=== PATIENT | female | born 1945 | race Caucasian/White ===

== ENCOUNTER → 2017-11-21 15:18 | Outpatient (CLI) | payer MEDICARE, SELFPAY ==
--- NOTE | 2017-11-21 15:24 | RAD_ITS ---
STUDY: X-RAY CHEST REASON FOR EXAM: Female, 72 years old. COPD. TECHNIQUE: 2 views COMPARISON: Prior chest radiograph of July 30, 2017 FINDINGS: Lung moran are generally hyperexpanded with stable bibasilar chronic changes. Negative for new consolidation, focal atelectasis or a substantial pleural effusion. Negative for masses or nodules. There is no demonstrated pleural abnormality. Normal cardiac size. Normal mediastinum and delfina. Normal visualized pulmonary arteries. There is atherosclerotic calcification of the aortic arch with tortuosity. There are diffuse degenerative changes of the visualized thoracic spine. Normal visualized ribs, clavicles, and shoulders. There is no demonstrated abnormality of the visualized soft tissue structures of the upper abdomen. RAD/Chest PA and Lateral IMPRESSION: No acute cardiopulmonary changes. Continued hyperexpansion and stable chronic bibasilar lung changes. Stable cardiac size. Atherosclerosis. Electronically Signed: Lulu Lincoln MD at 23:16 EST , Service support ,
== END ==
PROVIDERS: Family Provider Nurse Practitioner; PCP Nurse Practitioner; Visit Provider Internal Medicine Pulmonary Disease
DX: J44.9 Chronic obstructive pulmonary disease, unspecified (principal)
CPT/HCPCS: 71046

== ENCOUNTER 2018-02-11 08:39 | Inpatient (IN) | payer MEDICARE, SELFPAY ==
[2018-01-30 13:24] VITALS: BP 123/63; PULSE 65; RESP 16; TEMP 37.4; O2SAT 98; BMI 43.2
--- NOTE | 2018-01-30 13:42 | SDCEKG_ITS ---
Test Reason : Blood Pressure : / mmHG Vent. Rate : 061 BPM Atrial Rate : 061 BPM P-R Int : 128 ms QRS Dur : 086 ms QT Int : 432 ms P-R-T Axes : 049 006 021 degrees QTc Int : 434 ms Normal sinus rhythm Normal ECG Confirmed by LAUREEN BAER, SOMMER ([id number]), editor book BENJI ASHRAF ([id number]) on 01/31/2018 2:57:35 PM Referred By: Kevin Mcdaniels Confirmed By:SOMMER GARDUNO MD
[2018-01-30 15:27] LABS: Hematocrit 34.1 % (37-47); Hemoglobin 11.3 g/dl (12.0-15.0); Mean Corp Hgb Conc 33.1 g/gl (32-36); Mean Corpuscular Hgb 29.4 pg (27.0-32.0); Mean Corpuscular Volume 88.8 fL (81-99); Mean Platelet Vol. 10.3 fl (6.2-12.0); Platelet Count 290 K/mm3 (150-450); RBC Distribution Width CV 14.7 % (11.6-14.6); RBC Distribution Width SD 47.5 fl (35.1-43.9); Red Blood Count 3.84 M/mm3 (4.2-5.4); White Blood Count 7.3 K/mm3 (4.4-11.0)
[2018-01-30 15:33] LABS: Scan Indicated on CBC? Y/N NO
[2018-01-30 15:58] LABS: Anion Gap 7 (5-15); BUN 26 mg/dL (7-18); BUN/Creat Ratio 21.5 RATIO (10-20); Chloride 105 mmol/L (98-107); Creatinine, Serum 1.21 mg/dL (0.55-1.02); EST Glomerular Filtration Rate 47 mL/min (>60); Est Glom Filt Rate - Afr Amer 56 mL/min (>60); Estimated Creatinine Clearance 66.29 ml/min; Glucose 61 mg/dL (74-106); Potassium 3.7 mmol/L (3.5-5.1); Sodium Level 143 mmol/L (136-145)
--- NOTE | 2018-02-10 15:56 | CASEMGMT ---
ONEYDA CM Pre-op phone call. Attempted call to Home and cell phones. No answer to either phone. Geremias LICEAN RN ACM
[2018-02-11] VITALS (14 sets, daily range): BP systolic 101–135; BP diastolic 50–74; PULSE 72–96; RESP 16–18; TEMP 36.6–36.9; O2SAT 92–100; BMI 43.2
[2018-02-11] MEDS: Acetaminophen 500 MG Tablet 1000 MG PO ×2 (09:19→22:17)
[2018-02-11] MEDS: oxyCODONE HCl Cr 10 MG Tablet PO (09:19)
[2018-02-11] MEDS: Celecoxib 200 MG Capsule 400 MG PO (09:19)
[2018-02-11 09:36] LABS: Bedside Glucose 139 mg/dL (70-110)
[2018-02-11] MEDS: Cefazolin 2 GM in 0.9% Normal Saline 100 ML IV (11:19)
--- NOTE | 2018-02-11 13:55 | RAD_ITS ---
STUDY: X-RAY - LEFT KNEE REASON FOR EXAM: Female, 72 years old. Total knee replacement. TECHNIQUE: AP and lateral view(s) of the knee. COMPARISON: None. FINDINGS: Normal visualized distal femur. Normal visualized proximal tibia and fibula. Normal proximal tibiofibular articulation. The patient is status post total knee replacement. There is good alignment. Postoperative soft tissue changes. RAD/Knee 1 or 2 Views IMPRESSION: Total knee replacement. There is good alignment. Postoperative soft tissue changes. Electronically Signed: Alcides Saha MD at 14:21 EDT Tel [phone], Service support ,
[2018-02-11 14:05] LABS: Bedside Glucose 151 mg/dL (70-110)
[2018-02-11] MEDS: Albuterol 2.5 MG/3 ML VIAL.NEB. INHALATION (15:49)
[2018-02-11] MEDS: Budesonide Respules 0.5 MG/2 ML AMPUL.NEB. INHALATION (15:49)
[2018-02-11 17:00] LABS: Bedside Glucose 214 mg/dL (70-110)
[2018-02-11] MEDS: Lactated Ringers 1,000 ML 125 ML IV (17:19)
[2018-02-11] MEDS: Furosemide 40 MG Tablet PO (17:23)
[2018-02-11] MEDS: Cefazolin 1 GM/50 ML BAG IV (20:29)
[2018-02-11] MEDS: Atorvastatin Calcium 10 MG Tablet PO (22:17)
[2018-02-11] MEDS: Senna/Docusate Sodium 1 Tablet 2 TABLET PO (22:17)
[2018-02-11] MEDS: Aspirin 325 MG Tablet PO (22:17)
[2018-02-11] MEDS: Losartan Potassium 25 MG Tablet PO (22:17)
[2018-02-11] MEDS: Montelukast 10 MG Tablet PO (22:17)
[2018-02-12] VITALS (10 sets, daily range): BP systolic 102–135; BP diastolic 46–63; PULSE 64–88; RESP 16–21; TEMP 36.7–37.8; O2SAT 96–100
[2018-02-12] MEDS: Cefazolin 1 GM/50 ML BAG IV (03:21)
[2018-02-12] MEDS: Acetaminophen 500 MG Tablet 1000 MG PO ×3 (05:58→20:58)
[2018-02-12 07:05] LABS: Hematocrit 30.2 % (37-47); Hemoglobin 10.1 g/dl (12.0-15.0); Mean Corp Hgb Conc 33.4 g/gl (32-36); Mean Corpuscular Hgb 29.3 pg (27.0-32.0); Mean Corpuscular Volume 87.5 fL (81-99); Mean Platelet Vol. 10.3 fl (6.2-12.0); Platelet Count 227 K/mm3 (150-450); RBC Distribution Width CV 14.3 % (11.6-14.6); RBC Distribution Width SD 45.6 fl (35.1-43.9); Red Blood Count 3.45 M/mm3 (4.2-5.4); White Blood Count 12.1 K/mm3 (4.4-11.0)
[2018-02-12 07:07] LABS: Scan Indicated on CBC? Y/N NO
[2018-02-12 07:15] LABS: Anion Gap 9 (5-15); BUN 31 mg/dL (7-18); BUN/Creat Ratio 21.7 RATIO (10-20); Calcium,Total 8.6 mg/dL (8.5-10.1); Chloride 105 mmol/L (98-107); Creatinine, Serum 1.43 mg/dL (0.55-1.02); EST Glomerular Filtration Rate 39 mL/min (>60); Est Glom Filt Rate - Afr Amer 47 mL/min (>60); Glucose 165 mg/dL (74-106); Potassium 4.4 mmol/L (3.5-5.1); Sodium Level 138 mmol/L (136-145)
[2018-02-12] MEDS: Albuterol 2.5 MG/3 ML VIAL.NEB. INHALATION ×3 (07:23→19:36)
[2018-02-12] MEDS: Budesonide Respules 0.5 MG/2 ML AMPUL.NEB. INHALATION ×2 (07:23→19:37)
--- NOTE | 2018-02-12 07:46 | PCM.PN.ORT ---
Subjective: Patient is resting comfortably in chair at bedside during exam. No adverse events overnight. Pain in the left knee has been very well controlled. She currently denies chest pain, shortness of breath, dizziness, calf pain. She is going to be discussing discharge with case management. She would like to go to fourth floor rehab or transitional care unit. Objective: Patient is alert and oriented ?3. No acute distress at rest. Breathing easily without respiratory distress. Inspection of the left knee reveals a dressing with minimal dried bloody drainage. Negative Rubi bilaterally. Without signs of DVT. Sensation intact to light touch bilateral lower extremities. Pedal pulses present and equal bilaterally. Patient able to actively plantar and dorsiflex bilateral feet against resistance. Neurovascularly intact. - Physical Exam Vital Signs Temp Pulse Resp BP Pulse Ox 98.0 F 64 16 106/49 L 99 02/12/18 06:03 02/12/18 06:03 02/12/18 06:03 02/12/18 06:03 02/12/18 06:03 Oxygen Delivery Method Room Air Weight: 97.069 kg Body Mass Index (BMI) 43.2 Finger Stick Blood Glucose 151 Intake and Output for Last 24 Hours 02/10/18 02/11/18 02/12/18 23:59 23:59 23:59 Intake Total 2421 / 2421 1562 / 1562 Balance 2421 / 2421 1562 / 1562 Laboratory Tests Past 24 Hrs 02/12/18 02/12/18 06:30 06:30 WBC 12.1 H RBC 3.45 L Hgb 10.1 L Hct 30.2 L MCV 87.5 MCH 29.3 MCHC 33.4 RDW 14.3 RDW Differential 45.6 H Plt Count 227 MPV 10.3 Sodium 138 Potassium 4.4 Chloride 105 Carbon Dioxide 24.0 Anion Gap 9 BUN 31 H Creatinine 1.43 H Estim Creat Clear Calc 56.10 Est GFR (MDRD) Af Amer 47 L Est GFR (MDRD) Non-Af 39 L BUN/Creatinine Ratio 21.7 H Glucose 165 H Calcium 8.6 POC Glucose 02/11/18 02/11/18 02/11/18 16:54 14:03 09:16 POC Glucose 214 H 151 H 139 H Medical Necessity - Tobacco Use Smoking Status: Never smoker Tobacco Use: Non-smoker Assessment/Plan 1. Status post left TKA; postop day #1 2. Continue OxyIR for pain control 3. Begin PT/OT; weightbearing as tolerated with a walker. 4. DVT prophylaxis; bilateral teds, SCDs and begin aspirin therapy. 5. Drop in hemoglobin/hematocrit; asymptomatic, currently without indication for transfusion continue to monitor 6. Leukocytosis; afebrile, without acute signs of infection likely resulting from Decadron versus acute stress response. Anticipate resolution over the next couple days. Continue to monitor. 7. Encourage incentive spirometry 8. Discharge planning with case management
[2018-02-12] MEDS: Multivitamins,Therapeutic Tablet 1 TABLET PO (07:56)
[2018-02-12] MEDS: Glimepiride 4 MG Tablet PO (07:57)
[2018-02-12] MEDS: Aspirin 325 MG Tablet PO ×2 (07:57→17:17)
[2018-02-12] MEDS: Ferrous Sulfate 325 MG Tablet PO (07:57)
[2018-02-12] MEDS: Losartan Potassium 25 MG Tablet PO ×2 (10:27→20:59)
[2018-02-12] MEDS: Famotidine 20 MG Tablet PO (10:27)
[2018-02-12] MEDS: Senna/Docusate Sodium 1 Tablet 2 TABLET PO (10:27)
[2018-02-12] MEDS: Celecoxib 200 MG Capsule PO ×2 (10:27→20:58)
[2018-02-12] MEDS: Furosemide 40 MG Tablet PO ×2 (10:27→17:18)
[2018-02-12] MEDS: Pantoprazole Sodium 40 MG Tablet PO (10:27)
--- NOTE | 2018-02-12 13:30 | CASEMGMT ---
ONEYDA LINARES Face to Face with patient for initial transition planning/care coordination assessment. ONEYDA LINARES introduced self and role at [facility]. Patient sitting in chair, alert and oriented. Patient willing to participate in assessment and is able to answer all questions appropriately. Care providers, pharmacy, and demographics verified. Patient wishes to discharge TCU or inpatient rehab, second choice is [facility]. ONEYDA LINARES updated MICAH Adorno regarding discharge plans. Patient states she has no further needs or concerns at this time. CM to follow for discharge planning needs that may arise. Disposition Plan: Patient to discharge ECF pending acceptance and precert.
--- NOTE | 2018-02-12 13:40 | CASEMGMT ---
Social Work Note RN MILAGROS King informed this worker that pt is interested in either inpatient rehab, TCU or [facility] for rehabilitation at discharge. MICAH placed a call to [facility] and per Ana [facility] pt's insurance will not approve pt for inpatient rehab. SW placed a call to Dasha in TCU and left a message regarding referral. SW waiting for call back from Dasha in TCU to determine if they are able to accept pt. If TCU isn't able to accept pt, this worker will send the referral to [facility]. SW will continue to follow along to assist with discharge planning. Plan: TCU pending acceptance Meg Adorno SUPERVISOR SAFETY DEPOSIT, REWORK MACHINE OPERATOR
--- NOTE | 2018-02-12 15:36 | CASEMGMT ---
Social Work Note MICAH spoke with Dasha in TCU. Dasha states that she will submit pre-cert today. Dasha states that this worker will need to fax H+P to her as H+P is not on electronic chart. MICAH faxed H+P from pt's chart to [id number] (nurse station). Plan: TCU pending pre-cert Meg Adorno MILD DISABILITIES TEACHER, REDIPPER
[2018-02-12] MEDS: Atorvastatin Calcium 10 MG Tablet PO (20:59)
[2018-02-12] MEDS: Montelukast 10 MG Tablet PO (20:59)
[2018-02-13 02:37] VITALS: BP 124/51; PULSE 95; RESP 18; TEMP 36.8; O2SAT 95
[2018-02-13] MEDS: Acetaminophen 500 MG Tablet 1000 MG PO ×2 (06:18→13:30)
[2018-02-13 06:37] LABS: Hematocrit 29.3 % (37-47); Hemoglobin 9.9 g/dl (12.0-15.0); Mean Corp Hgb Conc 33.8 g/gl (32-36); Mean Corpuscular Volume 88.8 fL (81-99); Mean Platelet Vol. 10.8 fl (6.2-12.0); Platelet Count 222 K/mm3 (150-450); RBC Distribution Width CV 14.3 % (11.6-14.6); White Blood Count 10.6 K/mm3 (4.4-11.0)
[2018-02-13 06:39] LABS: Scan Indicated on CBC? Y/N NO
[2018-02-13] MEDS: Aspirin 325 MG Tablet PO ×2 (08:07→19:01)
[2018-02-13] MEDS: Glimepiride 4 MG Tablet PO (08:07)
[2018-02-13] MEDS: Multivitamins,Therapeutic Tablet 1 TABLET PO (08:08)
[2018-02-13] MEDS: Celecoxib 200 MG Capsule PO (08:09)
[2018-02-13] MEDS: Famotidine 20 MG Tablet PO (08:10)
[2018-02-13] MEDS: Losartan Potassium 25 MG Tablet PO (08:10)
[2018-02-13] MEDS: Pantoprazole Sodium 40 MG Tablet PO (08:10)
[2018-02-13] MEDS: Furosemide 40 MG Tablet PO (08:10)
[2018-02-13] MEDS: Senna/Docusate Sodium 1 Tablet 2 TABLET PO (08:11)
[2018-02-13] MEDS: Ferrous Sulfate 325 MG Tablet PO (08:12)
[2018-02-13] MEDS: Budesonide Respules 0.5 MG/2 ML AMPUL.NEB. INHALATION (08:22)
[2018-02-13] MEDS: Albuterol 2.5 MG/3 ML VIAL.NEB. INHALATION ×2 (08:23→13:48)
[2018-02-13 08:30] VITALS: BP 138/57; PULSE 79; PULSE 80; RESP 17; RESP 18; TEMP 36.9; O2SAT 98
--- NOTE | 2018-02-13 09:49 | CASEMGMT ---
Social Work Note MICAH received call from Dasha in TCU stating that pt's insurance informed her that pt's case went to Medical Review. Dasha states that typically not always when a case goes to Medical Review it gets denied. Per RN Annalisa King's previous conversation with this worker, pt's second choice is [facility]. MICAH faxed referral to [facility]. Plan: TCU pending pre-cert. [facility] second choice for pt if TCU gets denied Meg Adorno YARDING SUPERVISOR, SERVICES ACCOUNT MANAGER
--- NOTE | 2018-02-13 11:47 | CASEMGMT ---
Social Work Note MICAH received call from Dasha in TCU that [facility] denied placement. Dasha states that since [employer] denied they will deny for SNF placement anywhere. MICAH updated pt of this. Pt states that she will go home at discharge. Pt denied additional needs or concerns at this time. Plan: Discharge home Meg Adorno MANAGER IMAGING, MOTORBOAT MECHANIC
[2018-02-13 14:17] VITALS: PULSE 77; RESP 20
[2018-02-13 14:30] VITALS: BP 121/77; PULSE 94; RESP 16; TEMP 36.9; O2SAT 98
--- NOTE | 2018-02-13 16:08 | PN.ORTHO_ITS ---
Subjective: Patient is resting comfortably in chair at bedside during exam. No adverse events overnight. Pain in the left knee has been well controlled. Denies chest pain, shortness of breath, dizziness, calf pain. She has had some shaking in her hands since surgery. She was denied for discharge to correction facility. She feels she is ready for discharge to home. Objective: Patient is alert and oriented ?3. No acute distress at rest. Breathing easily without respiratory distress. Inspection of left knee reveals a dressing that is intact with minimal dried bloody drainage. Negative Rubi bilaterally. Without signs of DVT. Pedal pulses present and equal bilaterally. Patient able to actively plantar and dorsiflex bilateral feet against resistance. Neurovascularly intact. - Physical Exam Vital Signs Temp Pulse Resp BP Pulse Ox 98.5 F 77 20 H 138/57 H 98 02/13/18 08:30 02/13/18 14:17 02/13/18 14:17 02/13/18 08:30 02/13/18 08:30 Oxygen Delivery Method Room Air Weight: 97.069 kg Body Mass Index (BMI) 43.2 Finger Stick Blood Glucose 151 Intake and Output for Last 24 Hours 02/11/18 02/12/18 02/13/18 23:59 23:59 23:59 Intake Total 2421 / 2421 2011 800 / 800 Balance 2421 / 2421 2011 800 / 800 Laboratory Tests Past 24 Hrs 02/13/18 05:48 WBC 10.6 RBC 3.30 L Hgb 9.9 L Hct 29.3 L MCV 88.8 MCH 30.0 MCHC 33.8 RDW 14.3 RDW Differential 45.0 H Plt Count 222 MPV 10.8 Medical Necessity - Tobacco Use Smoking Status: Never smoker Tobacco Use: Non-smoker Assessment/Plan 1. Status post left TKA; postop day #2 2. Continue OxyIR for pain control 3. Continue PT/OT; weightbearing as tolerated with a walker. 4. DVT prophylaxis; bilateral teds, SCDs and continue aspirin therapy. 5. Drop in hemoglobin/hematocrit; asymptomatic, currently without indication for transfusion continue to monitor 6. Leukocytosis; resolved 7. Encourage incentive spirometry 8. Orthopedically stable okay for discharge to home today. Case and findings were discussed and reviewed with Dr. Kevin Mcdaniels.
--- NOTE | 2018-02-13 16:13 | PCM.DC.TKR ---
Discharge Diet: 1800 Calorie Control Diet Discharge Activity: May Not Drive, May not drive while taking narcotic pain medications., Use Walker May shower in (days): 1 - Okay to shower over Mepilex dressing Ice area for (Minutes): 20 - every hour while awake. Weight Bearing Status: Weight bearing as tolerated Elevate: Operative Extremity Additional Activity Instructions:: Wear elastic stockings for 2 weeks after your surgery. See post operative pink sheet Call your doctor if your incision/area has: Continuous Slow Oozing, Sudden Increased Bleeding, Increased Pain/ Swelling, Increased Redness, Foul Smelling Discharge Call your doctor if you observe: Fever of 101 or Higher, Coldness, Increased Pain, Numbness or Tingling, Change in Color, Chest pain, Calf discomfort, Uncontrolled pain Remove Dressing in (days):: 5 Cleanse incision/area with: Soap & Water Additional Dressing/Incision Instructions:: See postoperative pink sheet Allergies/Adverse Reactions: Allergies codeine Allergy (Severe, Verified 01/30/18 13:11) Hives amoxicillin Adverse Reaction (Severe, Verified 01/30/18 13:11) Rash meperidine [From Demerol] Adverse Reaction (Severe, Verified 01/30/18 13:11) syncope penicillin G Adverse Reaction (Severe, Verified 01/30/18 13:11) rash Medications to take at Discharge ascorbic acid (vitamin C) ER 1,500 mg tablet,extended release 1,500 mg PO QDAY tab 09/16/17 citalopram 40 mg tablet 40 mg PO QDAY tab 09/16/17 fluticasone 100 mcg-vilanterol 25 mcg/dose powder for inhalation 1 inh INHALATION Q24H 09/16/17 furosemide 40 mg tablet 40 mg PO BID tab 09/16/17 glimepiride 4 mg tablet 4 mg PO QHS 09/16/17 guaifenesin ER 600 mg tablet, extended release 12 hr 600 mg PO Q12H PRN 09/16/17 [id number] tablet 1 tab PO QDAY 09/16/17 levalbuterol 0.63 mg/3 mL solution for nebulization 1.25 mg INHALATION Q1-4H PRN 09/16/17 liraglutide 0.6 mg/0.1 mL (18 mg/3 mL) subcutaneous pen injector 0.6 mg SC QDAY 09/16/17 losartan 25 mg tablet 25 mg PO BID tab 09/16/17 metformin 500 mg tablet 500 mg PO BID 09/16/17 montelukast 10 mg tablet 10 mg PO QHS 09/16/17 pantoprazole 40 mg tablet,delayed release 40 mg PO QDAY 09/16/17 potassium chloride ER 8 mEq capsule,extended release 8 meq PO BID 09/16/17 simvastatin 20 mg tablet 20 mg PO QPM 09/16/17 ferrous sulfate 325 mg (65 mg iron) tablet 325 mg PO DAILY tab 09/18/17 Cholecalciferol (Vitamin D3) [Vitamin D3] 2,000 unit PO DAILY 01/30/18 Multivitamin [Daily Multiple Vitamin] 1 each PO DAILY 01/30/18 Phytonadione [Vitamin K] 100 mcg PO DAILY 01/30/18 Acetaminophen [Tylenol] 1,000 mg PO Q8 #60 tab 02/13/18 Aspirin 325 mg PO BIDCM #30 tab 02/13/18 Oxycodone [Oxyir] 5 - 10 mg PO Q4H PRN PRN 7 Days #56 tablet 02/13/18 Senna/Docusate Sodium [Senokot-S] 2 tab PO BID #30 tab 02/13/18 The following prescriptions were given: Oxycodone [Oxyir] 5 - 10 mg PO Q4H PRN PRN 7 Days #56 tablet PRN Reason: Mod-Severe Pain (4-1010) Acetaminophen [Tylenol] 1,000 mg PO Q8 #60 tab Aspirin 325 mg PO BIDCM #30 tab Senna/Docusate Sodium [Senokot-S] 2 tab PO BID #30 tab Primary Care Physician: Martha Self [Primary Care Provider] -
[2018-02-13] MEDS: oxyCODONE 5 MG Tablet PO (19:00)
== END 2018-02-13 19:18 | disposition home or self-care (01) | DRG 470 ==
LOC: MS3 08:39
PROVIDERS: Admitting Provider Orthopaedic Surgery; Family Provider Nurse Practitioner; PCP Nurse Practitioner; Visit Provider Orthopaedic Surgery
PROC: 0SRD0J9 Replacement of Left Knee Joint with Synthetic Substitute, Cemented, Open Approach (ICD-10-PCS; CPT 27447; principal; 2018-02-11 09:50)
DX: M13.862 Other specified arthritis, left knee (principal); M13.861 Other specified arthritis, right knee; J45.909 Unspecified asthma, uncomplicated; F41.9 Anxiety disorder, unspecified; M79.7 Fibromyalgia; I10 Essential (primary) hypertension; E78.00 Pure hypercholesterolemia, unspecified; G47.30 Sleep apnea, unspecified; F32.9 Major depressive disorder, single episode, unspecified; Z79.899 Other long term (current) drug therapy; Z79.82 Long term (current) use of aspirin; Z79.84 Long term (current) use of oral hypoglycemic drugs
CPT/HCPCS: 36415; 73560; 80048; 82962; 85027; 87081; 94640; 97110; 97162; 97165; 97530; C1776; J7120

== ENCOUNTER → 2018-07-04 11:47 | Outpatient (CLI) | payer MEDICARE, SELFPAY ==
--- NOTE | 2018-07-04 11:50 | RAD_ITS ---
STUDY: X-RAY - LEFT SHOULDER REASON FOR EXAM: Female, 73 years old. Pain. TECHNIQUE: 4 view(s) of the shoulder. COMPARISON: None. FINDINGS: Normal glenohumeral articulation. There is hypertrophic osteoarthrosis of the acromioclavicular joint with inferior osseous spur formation. Normal acromion. Normal humeral head and visualized proximal humerus. The soft tissue structures are unremarkable. There is no demonstrated fracture. Normal visualized pulmonary apex. RAD/Shoulder min 2 Views IMPRESSION: No acute fracture or dislocation. Degenerative changes. Electronically Signed: Jose Angel Mendoza MD at 22:26 EDT , Service support ,
== END ==
PROVIDERS: Family Provider Nurse Practitioner; PCP Nurse Practitioner; Referring Provider Nurse Practitioner; Visit Provider Nurse Practitioner
DX: M25.512 Pain in left shoulder (principal)
CPT/HCPCS: 73030

== ENCOUNTER → 2018-07-18 14:56 | Outpatient (CLI) | payer MEDICARE, SELFPAY ==
--- NOTE | 2018-07-18 14:59 | RAD_ITS ---
STUDY: X-RAY - CERVICAL SPINE REASON FOR EXAM: Female, 73 years old. Frequent falls, neck pain and dizziness. TECHNIQUE: 5 view(s) of the cervical spine were obtained. # of Images: 6 COMPARISON: None FINDINGS: Normal anterior atlantoaxial articulation. Normal odontoid process. There is straightening of the normal cervical lordosis. There is multi-level endplate spondylosis. There is narrowing of C6-7 disc space. There is mild anterolisthesis of C5 over C6. Normal visualized intervertebral neuroforamina. There is no evidence of acute compression fracture. The soft tissue structures are unremarkable. RAD/Cerv Spine 4 or 5 Views IMPRESSION: Degenerative changes of the cervical spine as described above. Electronically Signed: Jean-Pierre Joyce MD at 14:50 EDT Tel , Service support ,
--- NOTE | 2018-07-18 14:59 | RAD_ITS ---
STUDY: X-RAY - LUMBAR SPINE REASON FOR EXAM: Female, 73 years old. Frequent falls. Back pain. TECHNIQUE: 5 view(s) of the lumbar spine were obtained. # of Images: 5 COMPARISON: None FINDINGS: Normal lumbar lordosis. There is minimal levoscoliosis. There is minimal anterolisthesis of L3 over L4. There is multilevel endplate spondylosis of the lumbar vertebrae. There is severe disc space narrowing of L3-L4. There is severe disc space narrowing of L4-L5 with probable partial fusion. There is also narrowing of L5-S1 disc space. There is no demonstrated fracture. There is no demonstrated spondylolysis of the pars interarticulares. The soft tissue structures are unremarkable. RAD/L/S Spine Min 4 Views IMPRESSION: Degenerative changes of the spine, as detailed above. Electronically Signed: Jean-Pierre Joyce MD at 14:47 EDT Tel , Service support ,
== END ==
PROVIDERS: Family Provider Nurse Practitioner; PCP Nurse Practitioner; Referring Provider Nurse Practitioner; Visit Provider Nurse Practitioner
DX: M54.2 Cervicalgia (principal); M54.9 Dorsalgia, unspecified
CPT/HCPCS: 72050; 72110

== ENCOUNTER 2018-07-23 13:00 | Outpatient (RCR) | payer MEDICARE, SELFPAY ==
--- NOTE | 2018-07-08 15:26 | HP.PTEVAL ---
Patient's Visit Information DOMINGO LEVY is a 73 year old F referred to Physical Therapy by Martha Self with a diagnosis of Balance. Date of Evaluation: 07/08/18 Physical Therapist: Suellen Chiu - Visit Plan Frequency: 1x/Week Duration: 6 Weeks Plan: Re-test Hallpike. Test FGA and NeuroCOM. Set treatment plan accordingly and most of it as HEP due to high co-pay - Subjective Subjective: Pt reports that she has had over 50 falls in 4 years. Pt feels that she is going to tip back going up stairs. Yesterday she bent over to kill a spider and when she came back up the room was spinning. She hit the back of her head since May 02 and her MCCARTNEY have been bad. When she rolls to her R she feels like she is spinning and it is under 1 minute. She reports that when she feels like she is moving side to side. Stairs are an issue and she def uses a railing. In Apr she had a really bad fall and she stepped inside the shower and when she stepped out she stepped of the shower and felt the same kind of spinning feeling. During that fall she hurt neck and head and hips. And she messed up L shoulder bad. She hit the edge of the sink. - Pain L shoulder Pain Intensity (Out of 10): 6 R shoulder Pain Intensity (Out of 10): 6 neck pain Pain Intensity (Out of 10): 6 - Objective +R Hallpike for upward torsional nystagmus and dizziness. Treated with Eply to the R. Re-tested R Hallpike and was negative for dizziness and nystagmus - Goals Goal 1:: I HEP Goal Time Frame: 2-4 Weeks Goal 2:: Test FGA and NeuroCom Goal Time Frame: 2-4 Weeks - Rehabilitation Potential Rehabilitation Potential: Good - Anticipated Interventions Patient/Client Instruction: Educate patient on: Condition, Plan of Care For the Purpose of:: To improve muscle performance and motor function, To improve ability to perform ADL's, To increase tolerance to activity/condition/position, To improve performance and independence with ADL's, To decrease level of supervision to perform tasks, To improve ability of physical actions for home/community/work/leisure, To improve gait and locomotor functions Therapeutic Exercise to Include: Strength training, Balance training, Postural training, Gait and locomotor training, via Neurocom Balance Mas, Active ROM For the Purpose of:: To improve muscle performance and motor function, To improve ability to perform ADL's, To increase tolerance to activity/condition/position, To improve performance and independence with ADL's, To decrease level of supervision to perform tasks, To improve ability of physical actions for home/community/work/leisure, To improve gait and locomotor functions Functional Training to Include: Gait training For the Purpose of:: To improve gait and locomotor functions Thank you for the opportunity to evaluate your patient. For Medicare and Medicare HMO plans, please review the plan of care and approve it. It will need to be FAXED BACK to us at [phone] for Medicare purposes. Please let me know if there are questions or concerns regarding this plan of care. Physician Signature: Date:
--- NOTE | 2018-07-23 13:55 | HP.PTDCSUM ---
HP - PT D/C Summary It has been my pleasure to treat DOMINGO LEVY under orders from Martha Self NP, for the diagnosis of Balance for a total of 3 visit(s). Discharge Date: 07/23/18 Please see the following information for a summary of their discharge status. - Subjective Subjective: Pt was going up the stairs the day before yesterday and she looked to the R and she felt a little dizzy but that has been the only dizziness that she has gotten. She can roll over in bed easliy to the R know. - Pain L shoulder Pain Intensity (Out of 10): 4 R shoulder Pain Intensity (Out of 10): 4 neck pain Pain Intensity (Out of 10): 5 - Overall Improvement % Improvement: 75 - Objective Objective/Function: Hallpike testing to the R and was negative for dizziness and nystagmus. FGA: . SOT: decreased vestibular input. MCT: normal. LOS: normal - Goals Goal 1:: I HEP Goal Progress: Goal Met Goal 2:: Test FGA and NeuroCom Goal Progress: Goal Met - Plan Plan: DC PT to HEP: husbnd will help pt walk on uneven surfaces such as their driveway. Will also try some vestibular input from standing in the corner on couch cushion with present for safety. - D/C Information If there are questions or concerns regarding this patient's physical therapy, please feel free to call me at [phone]. Thank you for the referral of this patient. Sincerely, Suellen Chiu
--- NOTE | 2018-07-23 17:41 | HP.PTCOM ---
PT Communication Note 07/23/[address] Martha Self, PHOTOENGRAVING RETOUCHER , Thank you for the referral of Fany Hurst to our clinic. She was tested on our NeuroCom Equitest system today and enclosed are the test results. On the Sensory Organization Test the pt had trouble using her vestibular system to help her maintain her balance. She used her somatosensory and visual systems well to help her maintain her balance. Her strategy analysis was more ankle dominant which is higher level. Her COG alignment is within normal limits. Her overall reaction time on the Motor Control Test was well within age related norms. The Patients Limits of Stability were also with in age related norms. At this point in time we corrected the patients BPPV and did send her home with some ideas on how to work on using her vestibular system at home with supervision due to a high co-pay. Sincerely, Suellen Chiu Contact Information
--- NOTE | 2018-07-23 17:54 | HP.PTCOM_ITS ---
PT Communication Note 07/23/[address] Martha Self, HORTICULTURE PROFESSOR , Thank you for the referral of Fany Hurst to our clinic. She was tested on our NeuroCom Equitest system today and enclosed are the test results. On the Sensory Organization Test the pt had trouble using her vestibular system to help her maintain her balance. She used her somatosensory and visual systems well to help her maintain her balance. Her strategy analysis was more ankle dominant which is higher level. Her COG alignment is within normal limits. Her overall reaction time on the Motor Control Test was well within age related norms. The Patients Limits of Stability were also with in age related norms. At this point in time we corrected the patients BPPV and did send her home with some ideas on how to work on using her vestibular system at home with supervision due to a high co-pay. Sincerely, Suellen Chiu Contact Information
== END 2018-07-23 18:15 | disposition home or self-care (01) ==
LOC: PT 13:00
PROVIDERS: Family Provider Nurse Practitioner; PCP Nurse Practitioner; Referring Provider Nurse Practitioner; Visit Provider Nurse Practitioner
DX: R26.89 Other abnormalities of gait and mobility (principal)
CPT/HCPCS: 97162; 97530; 97750

== ENCOUNTER → 2018-08-27 11:36 | Outpatient (CLI) | payer MEDICARE, SELFPAY ==
--- NOTE | 2018-08-27 11:40 | BD_ITS ---
STUDY: DUAL ENERGY X-RAY ABSORPTIOMETRY / DXA REASON FOR EXAM: Female, 73 years old. Early menopause. Loss of height. TECHNIQUE: Bone Mineral Density (BMD) measurements of lumbar spine and bilateral hips were obtained. COMPARISON: None. FINDINGS: Lumbar Spine (L1-L4): g/cm2 (1.310) / T-score (1.2) / Z-score (2.9) Findings are suggestive of normal bone density with a low fracture risk. Left Femur Total: g/cm2 (1.056) / T-score (0.4) / Z-score (1.9) Left Femoral Neck: g/cm2 (0.915) / T-score (-0.9) / Z-score (0.9) Right Femur Total: g/cm2 (1.078) / T-score (0.6) / Z-score (2.1) Right Femoral Neck: g/cm2 (0.949) / T-score (-0.6) / Z-score (1.1) BD/Dexa Bone Density Study IMPRESSION: The patient is considered normal as outlined below according to World Matt Organization (WHO) criteria with a low fracture risk. Reference Information: The T-score is the number of standard deviations above or below the standard which is normal for young adults at their peak bone mineral density. The World Health Organization (WHO) interprets the T-scores as follows: Above -1 Normal bone density Between -1 and -2.5 Osteopenia Equal to / or below -2.5 Osteoporosis As a practical clinical guideline, osteopenia may be graded as follows: Mild -1 through -1.5 Moderate -1.6 through -2.0 Severe -2.1 through -2.4 The Z-score is the number of standard deviations above or below age-matched controls. A Z-score of less than -1.5 would be considered abnormal. References: 1. NIH Osteoporosis and Related Bone Diseases http://www.osteo.org 2. International Society for Clinical Densitometry http://www.iscd.org 3. National Osteoporosis Foundation http://www.nof.org Electronically Signed: Alcides Saha MD at 13:39 EST Tel [phone], Service support ,
--- OUTSIDE RECORDS SUMMARY | 2018-10-22 20:33 | XMS RPT_ITS | Continuity of Care Document ---
:1945 Author Organization [facility] Address [facility] [address] [place] [address] Phone Care Team Providers Name Role Phone Clair AG, Beulah Unavailable Bailey BAER, Xu Washington Unavailable Enedelia BAER, Kevin Tobar Unavailable Julito Thornton Unavailable Joshua Moeller Unavailable Tess Stone Unavailable Unavailable Slarb PRINT SHOP HELPER, Suellen Unavailable Unavailable Long PRINT SHOP HELPER, Renée L Unavailable Unavailable Manchak, Jessica Unavailable Unavailable Unavailable Unavailable Problems Name Dates Details Abnormal urinalysis (R82.90, 791.9) Status: Active Anemia (D64.9, 285.9) Status: Active Arthritis (M19.90, 716.90) Comments: jamel Bear, holding on Left knee surgery because of uti, and uncontrolled Blood sugar now is stable takes aleve or advil Status: Active Asthma (J45.909, 493.90) Comments: Per Hillary 2nd hand smoke relatedon Montelukast, was on advair in past has home nebulizer. 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) Comments: with fall Status: Active Benign paroxysmal positional vertigo (Renamed from Benign positional vertigo) (H81.10, 386.11) Status: Active Bilateral knee pain (M25.561, 719.46) Comments: See Chema considering knee surgery Status: Active BMI 40.0-44.9, adult (Z68.41, V85.41) Status: Active BMI 40.0-44.9, adult (Z68.41, V85.41) Status: Active BMI 40.0-44.9, adult (Z68.41, V85.41) Status: Active Breast cancer screening (Z12.31, V76.10) Status: Active Breast screening (Z12.31, V76.10) Status: Active Cardiomegaly (I51.7, 429.3) Comments: today 11-15 has been taking lasix 40mg tid, and potassium TID x1 week to go back to lasix bid and potassim bid Status: Active Cataracts, bilateral (H26.9, 366.9) Status: Active Chronic GERD (K21.9, 530.81) Comments: controlled on pantoprazole Status: Active COPD (chronic obstructive pulmonary disease) (J44.9, 496) Comments: Spirometry Mod restriction, chest improved, stopped taking advair, will changed to Breo, stay on singulair and albuterol aerosol, and mucinex uses [employer] for sleep apnea supplies, uses sleep apnea aparat us, still with Mod severe restriction on spirometry. Will refer to Crystal to clarify for safe surgical procedure in future lettter noted from Dr. Thornton Status: Active Deliveries Comments: 2 Status: Active Depression with anxiety (F41.8, 300.4) Comments: Citalopram working for depression Status: Active Diabetes mellitus type II, controlled, with no complications (Renamed from Controlled type 2 diabetes mellitus without complication) (E11.9, 250.00) Comments: controlled on Metformin 750mg daily and Victoza .6mg and glimepriride 4mg daily Status: Active Dysuria (R30.0, 788.1) Status: Active Encounter for annual general medical examination with abnormal findings in adult (Z00.01, V70.0) Status: Active Encounter for screening for cervical cancer (Renamed from Encounter for screening for malignant neoplasm of cervix) (Z12.4, V76.2) Status: Active Fatigue (R53.83, 780.79) Status: Active H/O diastolic dysfunction (Z86.79, V12.59) Comments: Stage 2 per Echo, stable, echo and stress stable sees [facility] Status: Active History of hematuria (Z87.448, V13.09) Status: Active History of UTI (Z87.440, V13.02) Comments: will treat for now and to return for clean catch urine 7 days after antibiotic is done Status: Active Hypercholesteremia (E78.00, 272.0) Comments: last lipid Oct 2016 controlled on 20mg simvastatin , liver enzymes normal Status: Active Hypertension (I10, 401.9) Comments: well controlled with losartan , lasix, potassium Status: Active Knee pain, left (M25.562, 719.46) Comments: surgery was cancelled, will see again in 2 weeks, holding because of cough, and workup, now ill, holding still, injections in knees by Chema alexander Status: Active Microalbuminuria (R80.9, 791.0) Comments: on an ARb, A1C not at goal Status: Active miscarriage Comments: 2 Status: Active Neck pain (M54.2, 723.1) Comments: from earlier fall Status: Active Need for prophylactic vaccination and inoculation against influenza (Renamed from Need for immunization against influenza) (Z23, V04.81) Status: Active Nonsmoker (Z78.9, V49.89) Status: Active Nonsmoker (Z78.9, V49.89) Status: Active Nonsmoker (Z78.9, V49.89) Status: Active Nonsmoker (Z78.9, V49.89) Status: Active Postmenopausal (Z78.0, V49.81) Status: Active Preop examination (Z01.818, V72.84) Comments: pt has had clearance from Cardio and Pulmonary, has had echo and stress test ok per [facility] See [facility] note and Cardiology visit report from [id number] from Pulmonary with need for agressiv e pulmonary toilet, CPap in perioperative area and Pulm meds See note Status: Active Preop examination (Z01.818, V72.84) Comments: Left total knee on March [address] Bear Status: Active Preop examination (Z01.818, V72.84) Status: Active Shoulder pain, left (M25.512, 719.41) Comments: secondary to fall Status: Active Skin cancer (C44.90, 173.90) Comments: saw Dr. Rahman Status: Active Sleep apnea (G47.30, 780.57) Comments: on cpap Hillary saw on January 10 NEEDS CPAP in perioperateive period at least 12cm Status: Active Sleep apnea in adult (G47.30, 327.23) Comments: on Cpap with mask Status: Active Spinal stenosis (M48.00, 724.00) Status: Active Type II diabetes mellitus (E11.9, 250.00) Comments: controlled with Metformin and victoza and glimipride A1c 6.9 Status: Active Unspecified Diagnosis Status: Active Unspecified Diagnosis Status: Active Unspecified Diagnosis Status: Active Unspecified Diagnosis Status: Active Urinary incontinence (R32, 788.30) Comments: consider ditropan in future Status: Active UTI (urinary tract infection) (N39.0, 599.0) Status: Active UTI (urinary tract infection) (N39.0, 599.0) Status: Active Medications Name Dates Details Accu-Chek Palma SmartView w/Device Kit 1 (one) Kit Kit TID testing for 0 days Quantity: 1 Kit Refills: 1 Ordered:08-Nov-2017 Suellen Sellers LPN Start : 08-Nov-2017 Active Accu-Chek SmartView In Vitro Strip 1 (one) Strip Strip tid for 0 days Quantity: 270 {Strip} Refills: 3 Ordered:08-Nov-2017 Suellen Sellers LPN Start : 08-Nov-2017 Active Aspirin Adult Low Strength 81 MG Oral Tablet Delayed Release 1 (one) Tablet DR daily for 30 days Quantity: 30 {Tablet} Refills: 0 Ordered:06-Nov-2016 Martha Self CNP, CNP, Mary E Start : 06-Nov-2016 Active B-12 2500 MCG Oral Tablet 1 (one) Tablet daily for 30 days Quantity: 30 {Tablet} Refills: 0 Ordered:06-Nov-2016 Martha Self CNP, CNP, Mary E Start : 06-Nov-2016 Active Breo Ellipta 100-25 MCG/INH Inhalation Aerosol Powder Breath Activated 1 (one) Puff daily for 0 days Quantity: 5 {Inhaler} Refills: 0 Ordered:30-Jul-2017 Clair AG, Martha Cormier CNP Start : 30-Jul-2017 Active Citalopram Hydrobromide 40 MG Oral Tablet 1 (one) Tablet daily for 90 days Quantity: 90 {Tablet} Refills: 4 Ordered:31-Jul-2018 Clair AG, Martha Lin CNP, Martha Nam Start : 31-Jul-2018 Active Ferrous Sulfate 325 (65 Fe) MG Oral Tablet 1 (one) Tablet Tablet bid for 0 days Quantity: 60 {Tablet} Refills: 0 Ordered:15-Nov-2017 Slarb CARON Suellen Start : 14-Aug-2017 Active Furosemide 40 MG Oral Tablet 1 (one) Tablet bid for 180 days Quantity: 180 {Tablet} Refills: 0 Ordered:30-Apr-2018 Clair AG, Martha Cormier CNP Start : 30-Apr-2018 End : 19-Mar-2017 Active Glimepiride 4 MG Oral Tablet 1 (one) Tablet daily for 90 days Quantity: 90 {Tablet} Refills: 0 Ordered:30-Apr-2018 Clair AG, Martha Cormier CNP Start : 30-Apr-2018 Active Lasix 40 MG Oral Tablet 1 (one) Tablet bid for 0 days Quantity: 90 {Tablet} Refills: 0 Ordered:14-Aug-2017 Clair AG, Martha Cormier CNP Start : 14-Aug-2017 Active Lasix 40 MG Oral Tablet 1 (one) Tablet bid for 0 days Quantity: 60 {Tablet} Refills: 0 Ordered:14-Aug-2017 Clair AG, Matrha Cormier CNP Start : 14-Aug-2017 Active Levalbuterol HCl 0.63 MG/3ML Inhalation Nebulization Solution 1 (one) Nebulized Soln tid prn for 0 days Quantity: 1 {Box} Refills: 6 Ordered:05-Mar-2017 Clair AG Martha Cormier CNP Start : 05-Mar-2017 Active Levalbuterol HCl 0.63 MG/3ML Inhalation Nebulization Solution 1 (one) Nebulized Soln tid prn for 0 days Quantity: 1 {Box} Refills: 3 Ordered:05-Mar-2017 Clair AG, Martha Lin CNP, Martha Nam Start : 05-Mar-2017 Active Losartan Potassium 25 MG Oral Tablet 2 (two) Tablet daily for 90 days Quantity: 320 {Tablet} Refills: 3 Ordered:15-Nov-2017 Clair AG, Martha Lin CNP, Martha Nam Start : 15-Nov-2017 Active Meclizine HCl 12.5 MG Oral Tablet 1 (one) Tablet Tablet q8hrs prn for dizziness for 0 days Quantity: 30 {Tablet} Refills: 0 Ordered:04-Jul-2018 Tess Stone Start : 04-Jul-2018 Active MetFORMIN HCl ER 500 MG Oral Tablet Extended Release 24 Hour 1 (one) Tablet Tablet bid for 0 days Quantity: 180 {Tablet} Refills: 3 Ordered:14-Aug-2017 Renée Hancock LPN Start : 09-Aug-2017 Active Montelukast Sodium 10 MG Oral Tablet 1 (one) Tablet daily for 90 days Quantity: 90 {Tablet} Refills: 4 Ordered:31-Jul-2018 Clair AG Martha Cormier CNP Start : 31-Jul-2018 Active Mucinex 600 MG Oral Tablet Extended Release 12 Hour 1 (one) Tablet ER 12HR bid for 0 days Quantity: 60 {Tablet} Refills: 0 Ordered:05-Mar-2017 Martha Self CNP, CNP, Martha Nam Start : 05-Mar-2017 Active NovoFine 30G X 8 MM Miscellaneous 1 (one) Misc Misc daily for 0 days Quantity: 1 {Box} Refills: 6 Ordered:14-Nov-2016 SlaSuellen houston LPN Start : 14-Nov-2016 Active Pantoprazole Sodium 40 MG Oral Tablet Delayed Release 1 (one) Tablet DR daily for 90 days Quantity: 90 {Tablet} Refills: 4 Ordered:31-Jul-2018 Clair AG, Martha Cormier CNP Start : 31-Jul-2018 Active Potassium Chloride ER 8 MEQ Oral Capsule Extended Release 1 (one) Capsule ER bid with lasix bid for 0 days Quantity: 180 {Capsule} Refills: 3 Ordered:18-Dec-2017 Clair AG Martha Cormier CNP Start : 18-Dec-2017 Active Simvastatin 20 MG Oral Tablet 1 (one) Tablet daily for 90 days Quantity: 90 {Tablet} Refills: 4 Ordered:31-Jul-2018 Martha Self CNP, CNP, Mary E Start : 31-Jul-2018 Active Tradjenta 5 MG Oral Tablet 1 (one) Tablet daily for 0 days Quantity: 90 {Tablet} Refills: 3 Ordered:18-Jul-2018 Martha Self CNP, CNP, Mary E Start : 18-Jul-2018 Active Tradjenta 5 MG Oral Tablet 1 (one) Tablet daily for 0 days Quantity: 30 {Tablet} Refills: 3 Ordered:18-Jul-2018 Martha Self CNP, CNP, Mary E Start : 18-Jul-2018 Active Victoza 18 MG/3ML Subcutaneous Solution Pen-injector 1 (one) Soln Pen-inj .6mg daily for 0 days Quantity: 1 {Box} Refills: 6 Ordered:20-Nov-2016 Martha Self CNP, CNP, Mary E Start : 20-Nov-2016 Active Victoza 18 MG/3ML Subcutaneous Solution Pen-injector 1 (one) Soln Pen-inj .6mg daily for 0 days Quantity: 1 {Box} Refills: 6 Ordered:20-Nov-2016 Martha Self CNP, CNP, Mary E Start : 20-Nov-2016 Active Vitamin C ER 1500 MG Oral Tablet Extended Release 1 (one) Tablet ER daily for 30 days Quantity: 30 {Tablet} Refills: 0 Ordered:06-Nov-2016 Martha Self CNP, CNP, Mary E Start : 06-Nov-2016 Active Advair Diskus 100-50 MCG/DOSE Inhalation Aerosol Powder Breath Activated 1 (one) Puff Puff q12hrs for 0 days Quantity: 2 {Inhaler_Refill} Refills: 0 Ordered:30-Jul-2017 aMrtha Self CNP, CNP, Mary E Start : 26-Feb-2017 End : 30-Jul-2017 Inactive Doxycycline Hyclate 100 MG Oral Capsule 1 (one) Capsule bid for 10 days Quantity: 20 {Capsule} Refills: 0 Ordered:08-Mar-2017 Clair AG Martha Cormier CNP Start : 26-Feb-2017 End : 08-Mar-2017 Inactive Macrobid 100 MG Oral Capsule 1 (one) Capsule bid for 7 days Quantity: 14 {Capsule} Refills: 0 Ordered:04-Jul-2018 Clair AG, Martha Lin CNP, Martha Nam Start : 04-Jul-2018 End : 11-Jul-2018 Inactive MetFORMIN HCl ER 750 MG Oral Tablet Extended Release 24 Hour 2 (two) Tablet ER 24HR bid for 90 days Quantity: 360 {Tablet} Refills: 4 Ordered:09-Aug-2017 Clair KIMBERLI Martha Lin KIMBERLI, Martha Nam Start : 30-Jul-2017 End : 09-Aug-2017 Inactive Multivitamin Adults 50+ Oral Tablet 1 (one) Tablet daily for 30 days Quantity: 30 {Tablet} Refills: 0 Ordered:14-Nov-2016 Suellen Sellers LPN Start : 06-Nov-2016 End : 06-Dec-2016 Inactive Nitrofurantoin Monohyd Macro 100 MG Oral Capsule 1 (one) Capsule Capsule q12h for 7 days Quantity: 14 {Capsule} Refills: 0 Ordered:19-Nov-2016 Suellen Sellers LPN Start : 19-Nov-2016 End : 26-Nov-2016 Inactive Glimepiride 2 MG Oral Tablet 1 (one) Tablet qhs for 90 days Quantity: 90 {Tablet} Refills: 0 Ordered:08-May-2017 Suellen Sellers LPN Start : 06-Nov-2016 End : 08-May-2017 Discontinued Krill Oil 1000 MG Oral Capsule 1 (one) Capsule daily for 30 days Quantity: 30 {Capsule} Refills: 0 Ordered:08-May-2017 Suellen Sellers LPN Start : 06-Nov-2016 End : 08-May-2017 Discontinued PredniSONE 10 MG Oral Tablet 1 (one) Tablet Tablet bid x 3 days, 1 daily x 3 days 1/2 daily x 3 days for 0 days Quantity: 12 {Tablet} Refills: 0 Ordered:19-Mar-2017 Suellen Sellers LPN Start : 26-Feb-2017 End : 19-Mar-2017 Discontinued Comments:with food Vitamin D3 2000 UNIT Oral Tablet 1 (one) Tablet daily for 30 days Quantity: 30 {Tablet} Refills: 0 Ordered:08-May-2017 Suellen Sellers LPN Start : 06-Nov-2016 End : 08-May-2017 Discontinued Vitamin K2 100 MCG Oral Capsule 1 (one) Capsule daily for 30 days Quantity: 30 {Capsule} Refills: 0 Ordered:08-May-2017 Suellen Sellers LPN Start : 06-Nov-2016 End : 08-May-2017 Discontinued Allergies and Adverse Reactions Name Dates Details Penicillin V Potassium *PENICILLINS* (Allergy) Reaction: Rash Status: Active Past Medical History Name Dates Details Abnormal TSH (R79.89, 790.6) Status: Inactive as of 26-Feb-2017 Bilateral knee pain (M25.561, 719.46) Comments: resend to [facility], cant do surgery because sick will see if [facility] do Euflexa Status: Inactive as of 30-Jul-2017 BMI 40.0-44.9, adult (Z68.41, V85.41) Comments: wt from 263 to 212 over 1 year Status: Inactive as of 08-May-2017 BMI 40.0-44.9, adult (Z68.41, V85.41) Status: Inactive as of 30-Jul-2017 BMI 50.0-59.9, adult (Z68.43, V85.43) Status: Inactive as of 26-Feb-2017 CKD stage G3a/A3, GFR 45-59 and albumin creatinine ratio >300 mg/g (N18.3, 585.3) Status: Inactive as of 05-Feb-2017 Cough (R05, 786.2) Comments: went to urgent care Sat February 23 for cough, was told viral put on Doxycycline Status: Inactive as of 08-May-2017 Diabetes mellitus type 2, uncontrolled (Renamed from Uncontrolled type 2 diabetes mellitus) (E11.65, 250.02) Comments: A1c 7.4 on 2-6 done [facility], on glimpiride and metformin ER Status: Inactive as of 26-Feb-2017 Diabetes mellitus type 2, uncontrolled (Renamed from Uncontrolled type 2 diabetes mellitus) (E11.65, 250.02) Comments: went from 7.4 to 5.7 with some low sugars Status: Inactive as of 26-Feb-2017 Flu-like symptoms (R68.89, 780.99) Status: Inactive as of 26-Feb-2017 Hematuria (R31.9, 599.70) Comments: trace Status: Inactive as of 15-Nov-2017 Hypercalcemia (E83.52, 275.42) Comments: held crill, Vit K and vitamins Status: Inactive as of 30-Jul-2017 Knee buckling (M25.369, 718.86) Comments: multiple falls had pantoja at [facility] knees buckling Status: Inactive as of 26-Feb-2017 Pleural effusion, left (J90, 511.9) Comments: resolved on repeat chest xray on 03-04-17 stay on lasix 40mg 2 in am and 1 at 4pm Status: Inactive as of 30-Jul-2017 Preop examination (Z01.818, V72.84) Status: Inactive as of 08-May-2017 UTI symptoms (R39.9, 788.99) Comments: resolved has urinary incontinence Status: Inactive as of 26-Feb-2017 Procedures Procedure Dates Details Breast Biopsy Completed Cataract Surgery Completed Dilation and Curettage of Uterus Completed Tubal Ligation Completed Date Value Details 23-Jul-2018 PT Communication Result: Comments: See Note; NOTES: [facility] Physical Therapy [facility] [address] [address] [place], [place] [address] Fax REHABILITATION SERVICES PROGRES S NOTE MR#: [id number] Acct: [id number] Name: FANY HURST Rep #: [id number] : 1945 73 From: Suellen Chiu MPT Referring Dr.: Martha Self NP Status: DIS RCR Insurance: [employer] PPO SELF PAY INSURANCE PT Communication Note 07/23/[address] Martha Self, CHIEF ELECTRICIAN , Thank you for the referral of Fany Hurst to our clinic. She was tested on our NeuroCom Equitest system today and enclosed are the test results. On the Sensory Organization Test the pt had trouble using her vestibular system to help her maintain her balance. She used her somatosensory and visual systems well to help her m aintain her balance. Her strategy analysis was more ankle dominant which is higher level. Her COG alignment is within normal limits. Her overall reaction time on the Motor Control Test was well within age related norms. The Patients Limits of Stability were also with in age related norms. At this point in time we corrected the patients BPPV and did send her home with some ideas on how to work on us ing her vestibular system at home with supervision due to a high co-pay. Sincerely, Suellen Chiu Contact Information 07/23/18 1904 <Electronically s igned by Suellen BELTRE> Date Suellen BELTRE Cosigner Signature (if applicable): Date CC: Martha Self NP Signed For Medicare only, by signing this I certify the plan of care. Physicians Signature Date 23-Jul-2018 PT D/C Summary (1) Result: Comments: See Note; NOTES: [facility] Physical Therapy [address] [place] [address] Fax [facility] SUMMARY MR#: [id number] Acct: [id number] Name: FANY HURST Rep #: [id number] : 1945 73 From: Suellen BELTRE Referring Dr.: Martha Self NP Status: REG RCR Insurance: [employer] MEDICARE PPO SELF PAY INSURANCE HP - PT D/C Summary It has been my pleasure to treat FANY HURST under orders from Martha Self NP, for the diagnosis of Balance for a total of 3 visit(s). Discharge Date: 07/23/18 Please see the following information for a summary of their discharge status. - Subjective Subjective: Pt was going up the stairs the day before yesterday and she looked to the R and she felt a gonzalo le dizzy but that has been the only dizziness that she has gotten. She can roll over in bed easliy to the R know. - Pain L shoulder Pain Intensity (Out of 10): 4 R shoulder Pain Intensity (Out o f 10): 4 neck pain Pain Intensity (Out of 10): 5 - Overall Improvement % Improvement: 75 - Objective Objective/Function: Hallpike testing to the R and was negative for dizziness and nystagmus. FGA : . SOT: decreased vestibular input. MCT: normal. LOS: normal - Goals Goal 1:: I HEP Goal Progress: Goal Met Goal 2:: Test FGA and NeuroCom Goal Progress: Goal Met - Plan Plan: DC PT to HEP: husb nd will help pt walk on uneven surfaces such as their driveway. Will also try some vestibular input from standing in the corner on couch cushion with present for safety. - D/C Information If th ere are questions or concerns regarding this patient's physical therapy, please feel free to call me at [phone]. Thank you for the referral of this patient. Sincerely, Suellen Chiu <Elizabeth ctronically signed by Suellen Chiu MPT> 07/23/18 1733 CC: Martha Self NP Signed 18-Jul-2018 Cerv Spine 4 or 5 Views Result: Comments: See Note; NOTES: [facility] Imaging Services [address] [place] [address] Cerv Spine 4 or 5 Views MR#: [id number] Acct: [id number] Name: FANY HURST Rep #: [id number] : 1945 F 73 From: Jean-Pierre Joyce MD PCP: Martha Self NP Status: REG CLI Study: Cerv Spine 4 or 5 Views Date of Exam: 07/18/18 Exam# [id number] Ordering Dr: Martha Self CHIEF ELECTRICIAN-C STUDY: X-RAY - CER VICAL SPINE REASON FOR EXAM: Female, 73 years old. Frequent falls, neck pain and dizziness. TECHNIQUE: 5 view(s) of the cervical spine were obtained. # of Images: 6 COMPARISON: None FINDINGS: Normal anterior atlantoaxial articulation. Normal odontoid process. There is straightening of the normal cervical lordosis. There is multi-level endplate spondylosis. The re is narrowing of C6-7 disc space. There is mild anterolisthesis of C5 over C6. Normal visualized intervertebral neuroforamina. There is no evidence of acute compression fracture. The soft tissue stru ctures are unremarkable. RAD/Cerv Spine 4 or 5 Views IMPRESSION: Degenerative changes of the cervical spine as described above. Electronically S igned: Jean-Pierre Joyce MD at 14:50 EDT Tel , Service support , CC: Martha Self NP Guest Service Agent: Signed 18-Jul-2018 L/S Spine Min 4 Views Result: Comments: See Note; NOTES: [facility] Imaging Services [address] [place] [id number] L/S Spine Min 4 Views MR#: [id number] Acct: [id number] Name: FANY HURST Rep #: [id number] : 1945 F 73 From: Jean-Pierre Joyce MD PCP: Martha Self NP Status: REG CLI Study: L/S Spine Min 4 Views Date of Exam: 07/18/18 Exam# [id number] Ordering Dr: Martha Self CHIEF ELECTRICIAN-C STUDY: X-RAY - LUMBAR SPINE REASON FOR EXAM: Female, 73 years old. Frequent falls. Back pain. TECHNIQUE: 5 view(s) of the lumbar spine were obtained. # of Images: 5 COMPARISON: None F INDINGS: Normal lumbar lordosis. There is minimal levoscoliosis. There is minimal anterolisthesis of L3 over L4. There is multilevel endplate spondylosis of the lumbar vertebrae. There is severe disc s pace narrowing of L3-L4. There is severe disc space narrowing of L4-L5 with probable partial fusion. There is also narrowing of L5-S1 disc space. There is no demonstrated fracture. There is no demonstra donta spondylolysis of the pars interarticulares. The soft tissue structures are unremarkable. RAD/L/S Spine Min 4 Views IMPRESSION: Degenerative changes of the spine, as detailed above. Electronically Signed: Jean-Pierre Joyce MD at 14:47 EDT Tel , Service support , CC: Martha Self NP Guest Service Agent: Signed 08-Jul-2018 Inital Evaluation (1) - PT Result: Comments: See Note; NOTES: [facility] Physical Therapy [facility] [address] [place] [address] Fax REHABILITATION SERVICES INITIAL EVALUATION MR#: [id number] Acct: [id number] Name: FANY HURST Rep #: [id number] : 1945 73 From: Suellen Chiu MPT Referring Dr.: Martha Self NP Status: REG RCR Insurance: [employer] PPO SELF PAY INSURANCE Patient's Visit Information FANY HURST is a 73 year old F referred to Physical Therapy by Martha Self with a diagnosis of Balance. Date of Evaluation: 07/08/18 Physical Therapist : Suellen Chiu - Visit Plan Frequency: 1x/Week Duration: 6 Weeks Plan: Re-test Hallpike. Test FGA and NeuroCOM. Set treatment plan accordingly and most of it as HEP due to high co-pay - Subjective S ubjective: Pt reports that she has had over 50 falls in 4 years. Pt feels that she is going to tip back going up stairs. Yesterday she bent over to kill a spider and when she came back up the room was s pinning. She hit the back of her head since May 02 and her MCCARTNEY have been bad. When she rolls to her R she feels like she is spinning and it is under 1 minute. She reports that when she feels like she is moving side to side. Stairs are an issue and she def uses a railing. In Apr she had a really bad fall and she stepped inside the shower and when she stepped out she stepped of the shower and felt the s hi kind of spinning feeling. During that fall she hurt neck and head and hips. And she messed up L shoulder bad. She hit the edge of the sink. - Pain L shoulder Pain Intensity (Out of 10): 6 R shoulder Pain Intensity (Out of 10): 6 neck pain Pain Intensity (Out of 10): 6 - Objective +R Hallpike for upward torsional nystagmus and dizziness. Treated with Eply to the R. Re-tested R Hallpike and was negative for dizziness and nystagmus - Goals Goal 1:: I HEP Goal Time Frame: 2-4 Weeks Goal 2:: Test FGA and NeuroCom Goal Time Frame: 2-4 Weeks - Rehabilitation Potential Rehabilitation Pote ntial: Good - Anticipated Interventions Patient/Client Instruction: Educate patient on: Condition, Plan of Care For the Purpose of:: To improve muscle performance and motor function, To improve ability to perform ADL's, To increase tolerance to activity/condition/position, To improve performance and independence with ADL's, To decrease level of supervision to perform tasks, To improve ability of phys ical actions for home/community/work/leisure, To improve gait and locomotor functions Therapeutic Exercise to Include: Strength training, Balance training, Postural training, Gait and locomotor training , via [employer] Balance Mas, Active ROM For the Purpose of:: To improve muscle performance and motor function, To improve ability to perform ADL's, To increase tolerance to activity/condition/po sition, To improve performance and independence with ADL's, To decrease level of supervision to perform tasks, To improve ability of physical actions for home/community/work/leisure, To improve gait and locomotor functions Functional Training to Include: Gait training For the Purpose of:: To improve gait and locomotor functions Thank you for the opportunity to evaluate your patient. For Medicare and Medicare HMO plans, please review the plan of care and approve it. It will need to be FAXED BACK to us at [phone] for Medicare purposes. Please let me know if there are questions or concerns regarding this plan of care. Physician Signature: Date: <Electronically signed by Suellen Chiu MPT> 07/08/18 1731 CC: Martha Self NP Signed For Medicare only, by signing this I certify the plan of care. Physicians Signature Date 04-Jul-2018 Shoulder min 2 Views Result: Comments: See Note; NOTES: [facility] Imaging Services [address] [place] [address] Shoulder min 2 Views MR#: [id number] Acct: [id number] Name: FANY HURST Rep #: [id number] D OB: 1945 F 73 From: Jose Angel Mendoza MD PCP: Martha Self NP Status: REG CLI Study: Shoulder min 2 Views Date of Exam: 07/04/18 Exam# [id number] Ordering Dr: Martha Self STUDY: X-RAY - LEFT SHOULD ER REASON FOR EXAM: Female, 73 years old. Pain. TECHNIQUE: 4 view(s) of the shoulder. COMPARISON: None. FINDINGS: Normal glenohumeral articulation. There is hyper trophic osteoarthrosis of the acromioclavicular joint with inferior osseous spur formation. Normal acromion. Normal humeral head and visualized proximal humerus. The soft tissue structures are unremar kable. There is no demonstrated fracture. Normal visualized pulmonary apex. RAD/Shoulder min 2 Views IMPRESSION: No acute fracture or dislocatio n. Degenerative changes. Electronically Signed: Jose Angel Mendoza MD at 22:26 EDT , Service support , CC: Martha Sefl NP Guest Service Agent: Signed 31-Jan-2018 12 Lead Electrocardiogram Result: Comments: See Note; NOTES: [facility] Cardiovascular Services [address] [place] [address] EKG - SDC 01/30/18 1301 MR#: [id number] Acct: [id number] Name: FANY HURST Rep #: [id number] : 1945 72 From: Xu Garduno MD Attending Dr: Kevin Mcdaniels MD Status: PRE IN Ordering Dr: Kevin Mcdaniels MD Date: 01/30/18 [place] [facility] [place] Sex: F C Admitted: Test Reason : Blood Pre ssure : / mmHG Vent. Rate : 061 BPM Atrial Rate : 061 BPM P-R Int : 128 ms QRS Dur : 086 ms QT Int : 432 ms P-R-T Axes : 049 006 021 degrees QTc Int : 434 ms Normal sinus rhythm Normal ECG Confir med by BAILEY BAER, XU ([id number]), publishing editor BENJI ASHRAF ([id number]) on 01/31/2018 2:57:35 PM Referred By: Kevin Mcdaniels Confirmed By:XU GARDUNO MD 01/31/18 4677 Date Xu Garduno MD CC: Martha Self NP; Kevin Mcdaniels MD Date Dictated: 01/30/18 130 Date Transcribed: 01/30/18 130 Guest Service Agent: Signed 19-Dec-2017 Cardiology Visit Report Result: Comments: See Note; NOTES: [facility] [address] [place] [address] OFFICE VISIT Date of Service: 12/19/17 MR#: [id number] Acct: [id number] Name: FANY HURST Rep #: [id number] : 1945 Provider: JEANNE Becerril Age/Sex: 72/F Location: [facility] Status: Signed HPI HPI Details: FANY HURST, is a 72 F who presents to the office today for a cardiovascular outpa tient follow-up. She has a history fatigue, hypertension, hyperlipidemia, diabetes, COPD, and fibromyalgia. At last office visit she was being evaluated for preoperative clearance in regards to left kne e replacement surgery. She described exertional chest pain and shortness of breath. She underwent an echocardiogram and nuclear stress test for this. Pt. denies chest, arm, jaw, or neck discomfort. Her exercise tolerance is stable though limited d/t knee pain. Pt. denies symptoms of CHF, lightheadedness, dizziness, near syncope, or syncopal episodes. Pt. denies edema or claudication issues. Pt. denie s orthopnea, PND, fever, chills, blood in urine, blood in stool, myalgia, or unexplainable fatigue. 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 She states wearing CPAP at night. Intake Vital Signs12/19/17 Height 4 ft 11 in 12/19/17 Weight: 215 lb 12/19/17 Body Mass Index (BMI) 43.4 12/19/17 Blood Pressure 110/68 12/19/17 Blood Pressur e Location Lt radial Intake Visit Reasons: 3 M FU Filler And Trimmer Required: No Accompanied by: Is patient in pain?: Yes (sharp left knee discomfort) Pain scale (1-10): 9 Allergies codeine Allergy (Severe, Verified 12/19/17 11:06) Hives amoxicillin Adverse Reaction (Severe, Verified 12/19/17 11:06) Rash meperidine [From Demerol] Adverse Reaction (Severe, Verified 12/19/17 11:06) syncope penicill in G Adverse Reaction (Severe, Verified 12/19/17 11:06) rash Medications ascorbic acid (vitamin C) ER 1,500 mg tablet,extended release 1,500 mg PO QDAY tab 09/16/17 [History Confirmed 12/19/17] aspir in 81 mg tablet,delayed release 81 mg PO QDAY 09/16/17 [History Confirmed 12/19/17] citalopram 40 mg tablet 40 mg PO QDAY tab 09/16/17 [History Confirmed 12/19/17] fluticasone 100 mcg-vilanterol 25 mcg/ dose powder for inhalation 1 inh INHALATION Q24H 09/16/17 [History Confirmed 12/19/17] furosemide 40 mg tablet 40 mg PO BID tab 09/16/17 [History Confirmed 12/19/17] glimepiride 4 mg tablet 4 mg PO QAM 09/16/17 [History Confirmed 12/19/17] guaifenesin ER 600 mg tablet, extended release 12 hr 600 mg PO Q12H PRN 09/16/17 [History Confirmed 12/19/17] [id number] tablet 1 tab PO QDAY 09/16/17 [Histo ry Confirmed 12/19/17] levalbuterol 0.63 mg/3 mL solution for nebulization 1.25 mg INHALATION Q1-4H PRN 09/16/17 [History Confirmed 12/19/17] liraglutide 0.6 mg/0.1 mL (18 mg/3 mL) subcutaneous pen inje ctor 0.6 mg SC QDAY 09/16/17 [History Confirmed 12/19/17] losartan 25 mg tablet 50 mg PO QDAY tab 09/16/17 [History Confirmed 12/19/17] metformin 500 mg tablet 500 mg PO BID 09/16/17 [History Confirmed 12/19/17] montelukast 10 mg tablet 10 mg PO QHS 09/16/17 [History Confirmed 12/19/17] pantoprazole 40 mg tablet,delayed release 40 mg PO QDAY 09/16/17 [History Confirmed 12/19/17] potassium chloride ER 8 mEq capsule,extended release 8 meq PO BID 09/16/17 [History Confirmed 12/19/17] simvastatin 20 mg tablet 20 mg PO QPM 09/16/17 [History Confirmed 12/19/17] ferrous sulfate 325 mg (65 mg iron) tablet 1 75 mg PO BID tab 09/18/17 [History Confirmed 12/19/17] Ejection fraction %: 65 to 70 PFSH Medical History Preoperative cardiovascular examination (Acute) Fatigue (Acute) Shortness of breath (Acute) Diabetes mellitus (Chronic) Hyperlipidemia (Chronic) Hypertension (Chronic) Cardiomegaly (Chronic) COPD (chronic obstructive pulmonary disease) (Chronic) Anemia (Acute) Asthma (Acute) Arthritis (Chronic ) GERD (gastroesophageal reflux disease) (Chronic) QUINCY (obstructive sleep apnea) (Chronic) Surgical History H/O section (Resolved) H/O tubal lig ation (Resolved) History of cataract surgery (Resolved) History of dilation and curettage (Resolved) Family History Mother Heart disease Father CVA (cereb ral vascular accident) Diabetes Sister Myocardial infarction, Onset Age: 45 Social History Smoking Status: Never smoker alcohol intake: never substance use type: does not use caffeine: No what typ e of physical activity do you participate in: none seatbelt use: always do you feel safe at home: Yes ROS Const Const: Negative for fatigue, weakness, body ache, fever(s) or chills ENT ENT: Posit elizabeth for dizziness (with quick position changes that lasts for a few seconds ) Cardio Chest Pain: No Palpitations: Yes Edema: None Muscle aches with walking: None Resp Respiratory: Nega tive for SOB with activity, SOB at rest, SOB orthopnea\SOB lying down or paroxysmal nocturnal dyspnea GI GI: Negative nausea, black,tarry stools, bright, red blood in stools or vomiting blood/hematemesi s : Negative for hematuria or frequent nighttime urination/ nocturia Musc Musc: Negative for muscle aches/ myalgia Neuro Neuro: Positive for dizziness (with quick position changes that lasts for a few seconds ); negative for weakness, lightheadedness, near syncope, syncope or orthostatic symptoms Endo Endo: Negative for fatigue Cardiology Exam Const Appearance: cooperative, he althy appearing, comfortable and no acute distress Orientation: alert, awake and oriented x3 Head Head: normal to inspection Mouth: oral mucosae normal Neck Neck: no JVD and normal visual inspection Car otids: normal carotid upstroke Chest Chest inspection: normal inspection of the chest and normal respiratory effort Auscultation: Bilateral: Clear to Auscultation Cardio Rate: regular rate Rhythm: regul ar rhythm Heart sounds: S1 normal and S2 normal; negative rub or gallop GI GI: normal to inspection Neuro General: alert, awake, oriented x3 and CN's II-XI intact bilaterally Skin Skin: no rashes or les ions noted Extremities Pulses: Normal: Right Posterior Tibial Pulse, Left Posterior Tibial Pulse, Right Radial Pulse, Left Radial Pulse Lower Extremity Edema: None: Bilateral Psych Psychological: normal affect Supplemental Info Echocardiogram from August 2017 showed an estimated ejection fraction of 65%, trivial mitral valve insufficiency, and trivial tricuspid valve insufficiency. Cardiovascular stress test from August 2017 was negative for stress-induced myocardial ischemia and no previous infarction noted. Assessment AND Plan 1. Other fatigue R53.83 FELICIA Shaw Patient state s this is much improved since last office visit and with weight loss. We will continue to monitor this. Hopefully as patient has knee replacement surgery in the future she will remain active and continu e with weight loss and improvement in her fatigue. 2. Shortness of breath R06.02 FELICIA Shaw Patient states this is improved since last office visit. She has undergone pulmonary function t est and sleep study with Dr. Thornton. She will be following up with him later next month to review results and for surgical clearance after developing pneumonia which postponed knee replacement surgery. Her echocardiogram from August 2017 showed an estimated ejection fraction of 65% and her stress test from August 2017 was negative for stress-induced myocardial ischemia and previous injury/infarct ion. She will continue to follow-up with Dr. Thornton and we will continue to monitor this. 3. Essential hypertension I10 FELICIA Sahw Patient's blood pressure is well-controlled today in e office. We will continue to monitor this. We will not make any medication regimen changes. 4. Mixed hyperlipidemia E78.2 FELICIA Shaw Patient states this is being monitored [facility]. Patient will continue with current cholesterol lowering medication. 5. Type 2 diabetes mellitus without complication, with long-term current use of insulin E11.9; Z79.4 FELICIA Shaw Patient states this is well-controlled with her most recent hemoglobin A1c approximately 6. She will continue to follow-up with primary care physician for this. She was reminded of the importance of diabetes control in relation to cardiovascular health. 6. Chronic obstructive pulmonary disease, unspecified COPD type J44.9 FELICIA Shaw Patient will continue to follow-up with Dr. Kyree arriaga for this. 7. Palpitations R00.2 FELICIA Shaw Patient does state having episodes of "butterfly flutter in her chest approximately 2-3 times a month that is very brief an d occurs randomly. She declined any further monitoring with a 30 day event monitor at this time. She was instructed to contact our office if she notices that it becomes more frequent, causes secondary s ymptoms, or has a longer duration. We will continue to monitor this. Plan Detail Additional Comments - FELICIA Forbes Discussed the above patient with Dr. Alcala in Dr. Garduno's absence, he agrees with the plan of care. Thank you for allowing us to participate in the patients plan of care, if you have any questions please do not hesitate to call. This note was generated using a voice recogniti on system and there may be incorrect words, spelling or punctuation that were not noted when reviewing the office note prior to saving. Follow Up 11 Months (PFM ) Coding Level of Care Code Off vis,est ,level 3 Diagnoses Other fatigue R53.83 Fatigue type: other Shortness of breath R06.02 Essential hypertension I10 Hypertension type: essential hypertension Mixed hyperlipidemia E78.2 Hyperlipidemia typ e: mixed hyperlipidemia Type 2 diabetes mellitus without complication, with long- term current use of insulin E11.9; Z79.4 Diabetes mellitus type: type 2 Diabetes mellitus snf insulin use: with marleny g term use Diabetes mellitus complication status: without complication Chronic obstructive pulmonary disease, unspecified COPD type J44.9 COPD type: unspecified COPD Palpitations R00.2 Coding Level of Care Code Off vis,est,level 3 Diagnoses Other fatigue R53.83 Fatigue type: other Shortness of breath R06.02 Essential hypertension I10 Hypertension type: essential hypertension Mixed hyperlipidemia E7 8.2 Hyperlipidemia type: mixed hyperlipidemia Type 2 diabetes mellitus without complication, with long-term current use of insulin E11.9; Z79.4 Diabetes mellitus type: type 2 Diabetes mellitus snf insulin use: with snf use Diabetes mellitus complication status: without complication Chronic obstructive pulmonary disease, unspecified COPD type J44.9 COPD type: unspecified COPD Palpitations R 00.2 12/19/17 1203 <Electronically signed by Atilio DUARTE> Date Atilio FRANKC 12/19/17 1331<Electronically signed by Fernando Alcala MD> Cosigner Signature: Date (if applicable) Fernando Alcala MD CC: Martha Self NP 21-Nov-2017 Chest PA and Lateral Result: Comments: See Note; NOTES: [facility] Imaging Services [address] [place] [address] Chest PA and Lateral MR#: [id number] Acct: [id number] Name: FANY HURST Rep #: [id number] D OB: 1945 F 72 From: Lulu Lincoln MD PCP: Martha Self NP Status: REG CLI Study: Chest PA and Lateral Date of Exam: 11/21/17 Exam# [id number] Ordering Dr: Julito Thornton MD STUDY: X-RAY CHEST REASON FOR EXAM: Female, 72 years old. COPD. TECHNIQUE: 2 views COMPARISON: Prior chest radiograph of July 30, 2017 FINDINGS: Lung moran are generally hyper expanded with stable bibasilar chronic changes. Negative for new consolidation, focal atelectasis or a substantial pleural effusion. Negative for masses or nodules. There is no demonstrated pleural abno rmality. Normal cardiac size. Normal mediastinum and delfina. Normal visualized pulmonary arteries. There is atherosclerotic calcification of the aortic arch with tortuosity. There are diffuse degenerati ve changes of the visualized thoracic spine. Normal visualized ribs, clavicles, and shoulders. There is no demonstrated abnormality of the visualized soft tissue structures of the upper abdomen. RAD/Chest PA and Lateral IMPRESSION: No acute cardiopulmonary changes. Continued hyperexpansion and stable chronic bibasilar lung changes. Stable card iac size. Atherosclerosis. Electronically Signed: Lulu Lincoln MD at 23:16 EST , Service support , CC: Martha Self CHIEF ELECTRICIAN; Julito Thornton MD Guest Service Agent: Signed 20-Nov-2017 Cardiology Visit Report Result: Comments: See Note; NOTES: [facility] [address] [place] [address] OFFICE VISIT Date of Service: 09/18/17 MR#: [id number] Acct: [id number] Name: FANY HURST Rep #: [id number] : 1945 Provider: Xu Garduno MD Age/Sex: 72/F [place] [facility] [place]: Signed HPI CARDIAC CLEARENCE KNEE SURGERY DR. MCDANIELS: Details: FANY HURST, is a 72 F who presents to t he office today for for outpatient cardiovascular consultation and preoperative cardiovascular assessment regarding concerns of shortness of breath and fatigue in need of upcoming left knee replacement surgery and subsequently right knee replacement surgery. She states that she does have an element of shortness of breath with activity. She is also tired and fatigued. She has attributed this to a combi nation of anemia for which she takes an iron supplement as well as her knee and subsequent debilitation. She does not complain of resting or exertional chest discomfort. She has not had orthopnea, PND, or peripheral pitting edema. There has been no near syncope or syncope. She has noted a rare palpitation sensation. To the best of her knowledge she has not gone through cardiovascular testing in the past. Intake Vital Signs09/18/17 Height 4 ft 11 in 09/18/17 Weight: 222 lb 8 oz 09/18/17 Body Mass Index (BMI) 44.9 09/18/17 Blood Pressure 110/60 Intake Visit Reasons: CARDIAC CLEARENCE KNEE SURGERY DR. MCDANIELS Allergies codeine Allergy (Severe, Verified 09/18/17 11:39) Hives amoxicillin Adverse Reaction (Severe, Verified 09/18/17 11:39) Rash meperidine [From Demerol] Adverse Reaction (Severe, Michelle ified 09/18/17 11:39) syncope penicillin G Adverse Reaction (Severe, Verified 09/16/17 17:21) rash Medications ascorbic acid (vitamin C) ER 1,500 mg tablet,extended release 1,500 mg PO QDAY tab 09/16 [History Confirmed 09/18/17] aspirin 81 mg tablet,delayed release 81 mg PO QDAY 09/16/17 [History Confirmed 09/18/17] citalopram 40 mg tablet 40 mg PO QDAY tab 09/16/17 [History Confirmed 09/18/17] fluticasone 100 mcg-vilanterol 25 mcg/dose powder for inhalation 1 inh INHALATION Q24H 09/16/17 [History Confirmed 09/18/17] furosemide 40 mg tablet 40 mg PO BID tab 09/16/17 [History Confirmed 09/18/17 ] glimepiride 4 mg tablet 4 mg PO QAM 09/16/17 [History Confirmed 09/18/17] guaifenesin ER 600 mg tablet, extended release 12 hr 600 mg PO Q12H PRN 09/16/17 [History Confirmed 09/18/17] ldcz-[id number] s tablet 1 tab PO QDAY 09/16/17 [History Confirmed 09/18/17] levalbuterol 0.63 mg/3 mL solution for nebulization 1.25 mg INHALATION Q1-4H PRN 09/16/17 [History Confirmed 09/18/17] liraglutide 0.6 mg/0.1 mL (18 mg/3 mL) subcutaneous pen injector 0.6 mg SC QDAY 09/16/17 [History Confirmed 09/18/17] losartan 25 mg tablet 50 mg PO QDAY tab 09/16/17 [History Confirmed 09/18/17] metformin 500 mg tablet 500 mg PO BID 09/16/17 [History Confirmed 09/18/17] montelukast 10 mg tablet 10 mg PO QHS 09/16/17 [History Confirmed 09/18/17] pantoprazole 40 mg tablet,delayed release 40 mg PO QDAY 09/16/17 [History Conf irmed 09/18/17] potassium chloride ER 8 mEq capsule,extended release 8 meq PO BID 09/16/17 [History Confirmed 09/18/17] simvastatin 20 mg tablet 20 mg PO QPM 09/16/17 [History Confirmed 09/18/17] ferrou s sulfate 325 mg (65 mg iron) tablet 175 mg PO BID tab 09/18/17 [History Confirmed 09/18/17] PFSH Medical History Preoperative cardiovascular examinat ion (Acute) Fatigue (Acute) Shortness of breath (Acute) Diabetes mellitus (Chronic) Hyperlipidemia (Chronic) Hypertension (Chronic) Cardiomegaly (Chronic) COPD (chronic obstructive pulmonary disease) (C hronic) Anemia (Acute) Asthma (Acute) Arthritis (Chronic) GERD (gastroesophageal reflux disease) (Chronic) QUINCY (obstructive sleep apnea) (Chronic) Surgical History H/O section (Resolved) H/O tubal ligation (Resolved) History of cataract surgery (Resolved) History of dilation and curettage (Resolved) Family History Mother Heart disease Fathe r CVA (cerebral vascular accident) Diabetes Sister Myocardial infarction, Onset Age: 45 Social History Smoking Status: Never smoker alcohol intake: never substance use type: does not use ROS Co nst Const: Positive for fatigue (reports that she has been tired due to knee) and frequent falls (due to lt knee); negative for weakness, weight gain, weight loss or excessive sweating Eyes Eyes: Negati ve for change in vision, blurry vision or transient loss of vision ENT ENT: Positive for dizziness (while laying in bed), Positive for balance problems (neuropathy bilat LE, pedals; ambulates with a can e) Cardio Chest Pain: No Palpitations: Positive for Yes (occasional butterfly feeling") Palpitations: other (fluttering) Edema: None Muscle aches with walking: None Resp Respiratory: Po sitive for SOB with activity; negative for SOB at rest GI GI: Negative vomiting or vomiting blood/hematemesis : Negative for hematuria Musc Musc: Positive for balance problems (neuropathy bilat LE, pedals; ambulates with a cane) and muscle aches/ myalgia (back pain); negative for muscle weakness or joint pain Skin Skin: Negative non-healing lesions or rash Neuro Neuro: Negative for weakness, Nega tive for blurry vision, Positive for dizziness (while laying in bed), Negative for lightheadedness, Positive for frequent falls (due to lt knee), Negative for orthostatic symptoms Yony Hematologic/Lymph atic: Negative for easy bleeding Endo Endo: Positive for fatigue (reports that she has been tired due to knee); negative for excessive sweating Psych Psych: Negative for anxiety or depression Allergy Al lergy/Immunology: Negative for hives, Negative for rash Cardiology Exam Const Appearance: cooperative, healthy appearing, comfortable, no acute distress, well developed and well groomed Nutritional Ap pearance: overweight Orientation: alert, awake and oriented x3 Head Head: normal to inspection Ears: hearing grossly normal bilaterally Nose: external nose normal Face and Sinus: face symmetric Mouth: o ral mucosae normal Teeth and gingiva: dentition normal Eyes General: appearance normal, both eyes and all related structures Conjunctivae: conjunctivae normal Pupils: PERRL EOM: EOM intact bilaterally N sheri Neck: normal visual inspection Carotids: normal carotid upstroke Chest Chest inspection: normal inspection of the chest and symmetric chest movement Auscultation: Bilateral: Clear to Auscultation Ca rdio Palpation: normal PMI Rate: regular rate Rhythm: regular rhythm Heart sounds: S1 normal and S2 normal GI GI: normal to inspection, bowel sounds present, soft and no hepatosplenomegaly Neuro General : alert, awake and oriented x3 Skin Skin: no rashes or lesions noted Extremities Pulses: Normal: Right Radial Pulse, Left Radial Pulse Lower Extremity Edema: None: Bilateral Psych Psychological: normal affect Assessment AND Plan 1. Preoperative cardiovascular examination Z01.810 Plan The patient does present for preoperative cardiovascular examination. Based upon her cardiovascular risk factors and symptoms and ECG would not be unreasonable to further evaluate her with a transthoracic echocardiogram to assess for any left ventricular regional wall motion abnormalities and a pharmacologic stress nu clear imaging study to assess for any obvious evidence of ongoing myocardial ischemia that would be prudent to no prior to her noncardiac surgery. 2. Shortness of breath R06.02 Plan She does have an el ement of shortness of breath and dyspnea. It may be related to her history of anemia and debilitation. However again based on her cardiovascular risk factors and her ECG would not be unreasonable to scr een her from a cardiovascular standpoint as noted above. Orders Orders: 3. Fatigue R53.83 Plan She does have fatigue. She states she has attributed this to her anemia and her debilitation. However it c ould be related to cardiovascular disease as well as noted above. Thus she will proceed with further noninvasive cardiovascular evaluation. 4. Hyperlipidemia E78.5 Plan She does have a history of hyper lipidemia. She will continue medical therapy. 5. Hypertension I10 Plan She does have a history of hypertension. Her blood pressure appears to be well controlled today. She will continue medical managem ent. Orders Orders: 6. Diabetes mellitus E11.9 Plan She will continue to follow with her primary care physician for her diabetes mellitus. 7. COPD (chronic obstructive pulmonary disease) J44.9 Plan Selin nam does have a history of COPD. Again she will continue to follow with her primary care physician for this. 8. Cardiomegaly I51.7 Plan She does have a chest x- ray reports from June of this year sugge sting cardiomegaly. The actual x-ray is unavailable for review at this time. Thus it is unclear whether this is true cardiomegaly. This will be further assessed with an echocardiogram to assess her card iac chamber size as well as her overall function. Orders Orders: Plan Detail Additional Comments She will undergo evaluation as noted above. If her cardiovascular evaluation is unremarkable then she wi ll proceed with her noncardiac surgery. At that time it would be recommended that she have close monitoring of her cardiac rate rhythm and blood pressure during and after surgery. It would also be recom mended attempt to be made to avoid significant fluctuations in her vital signs as well as her volume status during and after her surgery. The above was discussed with the patient and her spouse. They w ere agreeable to this approach. Thank you for allowing me to participate in the care of your patient. Please don't hesitate to call if any issues arise This note was generated using a voice recognitio n system and there may be incorrect words, spelling or punctuation that were not noted when reviewing the office note prior to saving. Follow Up 3 Months (PA/CHIEF ELECTRICIAN) 09/18/17 7214 <Electronically signed by Xu Garduno MD> Date Xu Garduno MD Cosigner Signature: Date (if applicable) CC: 20-Sep-2017 Echocardiogram Complete Result: Comments: See Note; NOTES: [facility] Cardiovascular Services [address] [place] [address] Echo Complete W/ Contrast 09/20/17 0841 MR#: [id number] Acct: [id number] Name: FANY WEINSTEIN Rep #: [id number] : 1945 72 From: Xu Garduno MD Attending Dr: Xu Garduno MD Status: REG CLI Ordering Dr: Xu Garduno MD Date: 09/20/17 Location: [facility] Sex: F C Admitted: R donna For Study: Dyspnea/SOB Procedure This was a 2D Doppler, Color Flow transthoracic echocardiogram. The exam was of poor technical quality due to body habitus. The study was technically difficult. C ontrast injection was performed. Exam performed in department. Left Ventricle Normal LV size. Left ventricular systolic function is normal. The estimated ejection fraction is 65 %. No regional wall mot ion abnormalities noted. Right Ventricle Normal RV size. Normal systolic function. Atria Normal left atrium. Normal right atrium. No doppler evidence for ASD. Mitral Valve There is no mitral annular calcification. Normal mitral valve. Trivial mitral valve insufficiency. Tricuspid Valve Normal tricuspid valve. Trivial tricuspid valve insufficiency. Aortic Valve Trisinus/trileaflet aortic valve. No rmal aortic valve. Pulmonic Valve The pulmonic valve is not well visualized. Great Vessels Normal sized aortic root. Pericardium/Pleural No pericardial effusion. Medication Diluted definity 3ml given slow IV push to enhance endocardial definition. MMode/2D Measurements AND Calculations LVIDs: 2.6 cm IVSd: 1.3 cm Ao root diam: 3.1 cm LVPWd: 1.2 cm LA dimension: 4.2 cm LAV(MOD-bp): 42.9 ml LA A4 area: 17.5 cm2 RA A4 area: 12.8 cm2 LAV(MOD-bp) Indexed: 22.6 ml/m2 LAV(MOD- sp2): 37.5 ml LAV(MOD-sp4): 50.8 ml Time Measur ements MV dec time: 0.14 sec Doppler Measurements AND Calculations MV E max joel: 100.9 cm/sec Lat Peak E' Joel: 9.8 cm/sec Med Peak E' Joel: 8.3 cm/sec MV A max joel: 107.7 cm/sec E/E' lat: 10.3 E/E' med: 12.1 MV E/A: 0.94 MV V2 max: 145.4 cm/sec MV P1/2t max joel: 147.3 cm/sec Ao V2 max: 170.5 cm/sec MV max P.5 mmHg MV P1/2t: 89.1 msec Ao max P.6 mmHg MV V2 mean: 82.6 cm/sec MV dec slope: 484.6 cm/sec2 Ao V2 mean: 104.1 cm/sec MV mean P.3 mmHg MVA(P1/2t): 2.5 cm2 Ao mean P.1 mmHg MV V2 VTI: 36.1 cm Ao V2 VTI: 35.1 cm LV V1 max: 128.1 cm/sec PA V2 max: 136.8 cm/sec LV V1 max P.6 mmHg LV V1 mean P.9 mmHg LV V1 mean: 77.8 cm/sec LV V1 VTI: 28.6 cm Interpretation Summary The study was technically difficult. Contrast injection was performed. Left ventricular systolic function is normal. The estimated ejection fract ion is 65 %. Trivial mitral valve insufficiency. Trivial tricuspid valve insufficiency. Ordering Physician: Xu Garduno Referring Physician: Martha Self Performed By: Bonifacio Meyer RCS 09/20/17 1236 Date Xu Garduno MD CC: Martha Self CHIEF ELECTRICIAN; Xu Garduno MD Date Dictated: 09/20/17 0841 Date Transcribed: 09/20/171235 Guest Service Agent: Signed 20-Sep-2017 Stress Report Result: Comments: See Note; NOTES: [facility] Cardiovascular Services [address] [place] [address] MR#: [id number] Acct: [id number] Name: FANY HURST Rep #: [id number] : [birth year] 72 From: Fernando Alcala MD Primary Care: Martha Self NP Status: REG CLI Ordering Dr: Sex: F C Stress Test Report Pharmacologic myocardial perfusion stress test. 72-year-old lady with a history of chest pain. Stress protocol: Resting EKG demonstrates normal sinus rhythm with rate of 60 bpm normal intervals and noted resting blood pressure is 112/68 mmHg. 0.4 mg regadenoson was infused per usual protocol followed by rapid intravenous saline flush injection. Continuous EKG monitoring was performed. The maximum heart rate attained was 106 bpm which was 70% of the maximum predicted heart rate the maximum workload attained was 1 metabolic equivalent. At rest there were no ST or T-wave changes noted suggest abnormal flow reserve at peak infusion no ST or T-wave changes were noted suggest abnormal flow reserve. The resting blood pressure was 112/68 with a final blood pressure 132/76. Myocardial perfusion protocol: 14.8 mCi of technetium 99m sestamibi was injected at rest. 0.4 mg of regadenoson was infused per usual protocol. Peak infusion 44.7 mCi of technetium 99m sestamibi was injected. Stress images were obtained. Stress and rest images were reconstructed and compared in the short axis michelle tical long and horizontal long axis. Gated images were also obtained Perfusion SPECT analysis: Review of the stress images demonstrate normal uptake of tracer noted in all areas myocardium. The resting images similarly demonstrate normal uptake of tracer noted varus myocardium. No areas of reversibility are noted suggest ischemia no previous infarct is noted. Gated SPECT analysis Conclusion : Christy l pharmacologic myocardial perfusion stress test. 09/20/17 1001 <Electronically signed by Fernando Alcala MD> Date Fernando Alcala MD CC: Martha Self NP Date Dictated: 09/20/17957 Date Transcribed: 09/20/17957 Guest Service Agent: [place] Signed 18-Sep-2017 Cardiology Visit Report Result: Comments: See Note; NOTES: [facility] [place] [address] OFFICE VISIT Date of Service: 09/18/17 MR#: [id number] Acct: [id number] Name: FANY HURST Rep #: [id number] : 1945 Provider: Xu Garduno MD Age/Sex: 72/F Location: [facility] Status: Signed HPI CARDIAC CLEARENCE KNEE SURGERY DR. MCDANIELS: Details: FANY HURST, is a 72 F who presents to t he office today for for outpatient cardiovascular consultation and preoperative cardiovascular assessment regarding concerns of shortness of breath and fatigue in need of upcoming left knee replacement surgery and subsequently right knee replacement surgery. She states that she does have an element of shortness of breath with activity. She is also tired and fatigued. She has attributed this to a combi nation of anemia for which she takes an iron supplement as well as her knee and subsequent debilitation. She does not complain of resting or exertional chest discomfort. She has not had orthopnea, PND, or peripheral pitting edema. There has been no near syncope or syncope. She has noted a rare palpitation sensation. To the best of her knowledge she has not gone through cardiovascular testing in the past. Intake Vital Signs09/18/17 Height 4 ft 11 in 09/18/17 Weight: 222 lb 8 oz 09/18/17 Body Mass Index (BMI) 44.9 09/18/17 Blood Pressure 110/60 Intake Visit Reasons: CARDIAC CLEARENCE KNEE SURGERY DR. MCDANIELS Allergies codeine Allergy (Severe, Verified 09/18/17 11:39) Hives amoxicillin Adverse Reaction (Severe, Verified 09/18/17 11:39) Rash meperidine [From Demerol] Adverse Reaction (Severe, Michelle ified 09/18/17 11:39) syncope penicillin G Adverse Reaction (Severe, Verified 09/16/17 17:21) rash Medications ascorbic acid (vitamin C) ER 1,500 mg tablet,extended release 1,500 mg PO QDAY tab 09/16 [History Confirmed 09/18/17] aspirin 81 mg tablet,delayed release 81 mg PO QDAY 09/16/17 [History Confirmed 09/18/17] citalopram 40 mg tablet 40 mg PO QDAY tab 09/16/17 [History Confirmed 09/18/17] fluticasone 100 mcg-vilanterol 25 mcg/dose powder for inhalation 1 inh INHALATION Q24H 09/16/17 [History Confirmed 09/18/17] furosemide 40 mg tablet 40 mg PO BID tab 09/16/17 [History Confirmed 09/18/17 ] glimepiride 4 mg tablet 4 mg PO QAM 09/16/17 [History Confirmed 09/18/17] guaifenesin ER 600 mg tablet, extended release 12 hr 600 mg PO Q12H PRN 09/16/17 [History Confirmed 09/18/17] eyxz-F86-gfjrgmy s tablet 1 tab PO QDAY 09/16/17 [History Confirmed 09/18/17] levalbuterol 0.63 mg/3 mL solution for nebulization 1.25 mg INHALATION Q1-4H PRN 09/16/17 [History Confirmed 09/18/17] liraglutide 0.6 mg/0.1 mL (18 mg/3 mL) subcutaneous pen injector 0.6 mg SC QDAY 09/16/17 [History Confirmed 09/18/17] losartan 25 mg tablet 50 mg PO QDAY tab 09/16/17 [History Confirmed 09/18/17] metformin 500 mg tablet 500 mg PO BID 09/16/17 [History Confirmed 09/18/17] montelukast 10 mg tablet 10 mg PO QHS 09/16/17 [History Confirmed 09/18/17] pantoprazole 40 mg tablet,delayed release 40 mg PO QDAY 09/16/17 [History Conf irmed 09/18/17] potassium chloride ER 8 mEq capsule,extended release 8 meq PO BID 09/16/17 [History Confirmed 09/18/17] simvastatin 20 mg tablet 20 mg PO QPM 09/16/17 [History Confirmed 09/18/17] ferrou s sulfate 325 mg (65 mg iron) tablet 175 mg PO BID tab 09/18/17 [History Confirmed 09/18/17] [facility] Medical History Preoperative cardiovascular examinat ion (Acute) Fatigue (Acute) Shortness of breath (Acute) Diabetes mellitus (Chronic) Hyperlipidemia (Chronic) Hypertension (Chronic) Cardiomegaly (Chronic) COPD (chronic obstructive pulmonary disease) (C hronic) Anemia (Acute) Asthma (Acute) Arthritis (Chronic) GERD (gastroesophageal reflux disease) (Chronic) QUINCY (obstructive sleep apnea) (Chronic) Surgical History H/O section (Resolved) H/O tubal ligation (Resolved) History of cataract surgery (Resolved) History of dilation and curettage (Resolved) Family History Mother Heart disease Fathe r CVA (cerebral vascular accident) Diabetes Sister Myocardial infarction, Onset Age: 45 Social History Smoking Status: Never smoker alcohol intake: never substance use type: does not use ROS Co nst Const: Positive for fatigue (reports that she has been tired due to knee) and frequent falls (due to lt knee); negative for weakness, weight gain, weight loss or excessive sweating Eyes Eyes: Negati ve for change in vision, blurry vision or transient loss of vision ENT ENT: Positive for dizziness (while laying in bed), Positive for balance problems (neuropathy bilat LE, pedals; ambulates with a can e) Cardio Chest Pain: No Palpitations: Positive for Yes (occasional butterfly feeling") Palpitations: other (fluttering) Edema: None Muscle aches with walking: None Resp Respiratory: Po sitive for SOB with activity; negative for SOB at rest GI GI: Negative vomiting or vomiting blood/hematemesis : Negative for hematuria Musc Musc: Positive for balance problems (neuropathy bilat LE, pedals; ambulates with a cane) and muscle aches/ myalgia (back pain); negative for muscle weakness or joint pain Skin Skin: Negative non-healing lesions or rash Neuro Neuro: Negative for weakness, Nega tive for blurry vision, Positive for dizziness (while laying in bed), Negative for lightheadedness, Positive for frequent falls (due to lt knee), Negative for orthostatic symptoms Yony Hematologic/Lymph atic: Negative for easy bleeding Endo Endo: Positive for fatigue (reports that she has been tired due to knee); negative for excessive sweating Psych Psych: Negative for anxiety or depression Allergy Al lergy/Immunology: Negative for hives, Negative for rash Cardiology Exam Const Appearance: cooperative, healthy appearing, comfortable, no acute distress, well developed and well groomed Nutritional Ap pearance: overweight Orientation: alert, awake and oriented x3 Head Head: normal to inspection Ears: hearing grossly normal bilaterally Nose: external nose normal Face and Sinus: face symmetric Mouth: o ral mucosae normal Teeth and gingiva: dentition normal Eyes General: appearance normal, both eyes and all related structures Conjunctivae: conjunctivae normal Pupils: PERRL EOM: EOM intact bilaterally N sheri Neck: normal visual inspection Carotids: normal carotid upstroke Chest Chest inspection: normal inspection of the chest and symmetric chest movement Auscultation: Bilateral: Clear to Auscultation Ca rdio Palpation: normal PMI Rate: regular rate Rhythm: regular rhythm Heart sounds: S1 normal and S2 normal GI GI: normal to inspection, bowel sounds present, soft and no hepatosplenomegaly Neuro General : alert, awake and oriented x3 Skin Skin: no rashes or lesions noted Extremities Pulses: Normal: Right Radial Pulse, Left Radial Pulse Lower Extremity Edema: None: Bilateral Psych Psychological: normal affect Assessment AND Plan 1. Preoperative cardiovascular examination Z01.810 Plan The patient does present for preoperative cardiovascular examination. Based upon her cardiovascular risk factors and symptoms and ECG would not be unreasonable to further evaluate her with a transthoracic echocardiogram to assess for any left ventricular regional wall motion abnormalities and a pharmacologic stress nu clear imaging study to assess for any obvious evidence of ongoing myocardial ischemia that would be prudent to no prior to her noncardiac surgery. 2. Shortness of breath R06.02 Plan She does have an el ement of shortness of breath and dyspnea. It may be related to her history of anemia and debilitation. However again based on her cardiovascular risk factors and her ECG would not be unreasonable to scr een her from a cardiovascular standpoint as noted above. Orders Orders: 3. Fatigue R53.83 Plan She does have fatigue. She states she has attributed this to her anemia and her debilitation. However it c ould be related to cardiovascular disease as well as noted above. Thus she will proceed with further noninvasive cardiovascular evaluation. 4. Hyperlipidemia E78.5 Plan She does have a history of hyper lipidemia. She will continue medical therapy. 5. Hypertension I10 Plan She does have a history of hypertension. Her blood pressure appears to be well controlled today. She will continue medical managem ent. Orders Orders: 6. Diabetes mellitus E11.9 Plan She will continue to follow with her primary care physician for her diabetes mellitus. 7. COPD (chronic obstructive pulmonary disease) J44.9 Plan Selin nam does have a history of COPD. Again she will continue to follow with her primary care physician for this. 8. Cardiomegaly I51.7 Plan She does have a chest x- ray reports from June of this year sugge sting cardiomegaly. The actual x-ray is unavailable for review at this time. Thus it is unclear whether this is true cardiomegaly. This will be further assessed with an echocardiogram to assess her card iac chamber size as well as her overall function. Orders Orders: Plan Detail Additional Comments She will undergo evaluation as noted above. If her cardiovascular evaluation is unremarkable then she wi ll proceed with her noncardiac surgery. At that time it would be recommended that she have close monitoring of her cardiac rate rhythm and blood pressure during and after surgery. It would also be recom mended attempt to be made to avoid significant fluctuations in her vital signs as well as her volume status during and after her surgery. The above was discussed with the patient and her spouse. They w ere agreeable to this approach. Thank you for allowing me to participate in the care of your patient. Please don't hesitate to call if any issues arise This note was generated using a voice recognitio n system and there may be incorrect words, spelling or punctuation that were not noted when reviewing the office note prior to saving. Follow Up 3 Months (PA/CHIEF ELECTRICIAN) 09/18/17 1738 <Electronically signed by Xu Garduno MD> Date Xu Garduno MD Cosigner Signature: Date (if applicable) CC: 18-Sep-2017 12 Lead EKG performed by [facility] Result: Comments: See Note; NOTES: [facility] [address] [place] [address] 12 Lead EKG performed by [facility] 09/18/17 113 MR#: [id number] Acct: [id number] Name: FANY HURST Rep #: [id number] : 1945 72 From: Xu Garduno MD Attending Dr: Xu Garduno MD Status: DEP AMB Ordering Dr: Xu Garduno MD Date: 09/18/17 Location: [facility] Sex: F C Admitted: O RDER #: [id number] BMS/12 Lead EKG performed by [facility] ECG Report Interpretation Somatic / motion artifactSinus Rhythm Low voltage in precordial leads. Poor R wave progression.Infe rior CO, age undetermined, cannot be excludedABNORMAL Electronically signed on 09/18/2017 at 17:30 by Xu Garduno 09/18/17 1733 Date Xu Garduno MD CC: Martha Self NP Date Dictated: 09/18/17 113 Date Transcribed: 09/18/17 113 Guest Service Agent: PM Signed 18-Sep-2017 12 Lead EKG performed by [facility] Result: Comments: See Note; NOTES: [facility] [address] [place] [address] 12 Lead EKG performed by [facility] 09/18/17 1131 MR#: [id number] Acct: [id number] Name: FANY HURST Rep #: [id number] : 1945 72 From: Xu Garduno MD Attending Dr: Xu Garduno MD Status: DEP [facility] Ordering Dr: Xu Garduno MD Date: 09/18/17 Location: [facility] Sex: F C Admitted: O RDER #: [id number] BMS/12 Lead EKG performed by [facility] ECG Report Interpretation Somatic / motion artifactSinus Rhythm Low voltage in precordial leads. Poor R wave progression.Infe rior CO, age undetermined, cannot be excludedABNORMAL Electronically signed on 09/18/2017 at 17:30 by Xu Garduno 10/16/17 1615 Date Xu Garduno MD CC: Martha Self NP Date Dictated: 09/18/171130 Date Transcribed: 09/18/171130 Guest Service Agent: PM Signed 30-Jul-2017 Chest PA and Lateral Result: Comments: See Note; NOTES: [facility] Imaging Services [address] [place] [address] Chest PA and Lateral MR#: [id number] Acct: [id number] Name: FANY HURST Rep #: [id number] OB: 1945 F 72 From: Alcides Saha MD PCP: Martha Self Status: REG CLI Study: Chest PA and Lateral Date of Exam: 07/30/17 Exam# [id number] Ordering Dr: Martha Self STUDY: X-RAY CHEST REASON FOR EXAM: Female, 72 years old. History of asthma. TECHNIQUE: PA and lateral views of the chest. COMPARISON: Comparison is made with prior study dated March 04, 2017. _ FINDINGS: Elevation of the right hemidiaphragm. Mild increased markings at the lung bases worse on the right side. This may represent bibasilar atelectasis. There is blunting of the left costophreni c angle. There is mild cardiac enlargement. Normal mediastinum and delfina. Normal visualized pulmonary arteries. There is atherosclerotic calcification of the aortic arch with tortuosity. There are diff use degenerative changes of the visualized thoracic spine. Deformity of the proximal right humerus most likely secondary to prior fracture. There is no demonstrated abnormality of the visualized soft t issue structures of the upper abdomen. RAD/Chest PA and Lateral IMPRESSION: Cardiomegaly. Increased markings at the lung bases with blunting of l eft costophrenic angle. This is suggestive of bibasilar atelectasis. Electronically Signed: Alcides Saha MD at 11:09 EDT Tel [phone], Service support , Fax CC: Martha Self Guest Service Agent: Signed 04-Mar-2017 Chest PA and Lateral Result: Comments: See Note; NOTES: [facility] Imaging Services [address] [place] [address] [address] Chest PA and Lateral MR#: [id number] Acct: [id number] Name: FANY HURST Rep #: [id number] : 1945 F 71 From: Milvia Romero MD PCP: Martha Self Status: REG CLI Study: Chest PA and Lateral Date of Exam: 03/04/17 Exam# [id number] Ordering Dr: Martha Self STUDY: X-RAY CHEST REASON FOR EXAM: Female, 71 years old. Left pleural effusion TECHNIQUE: Frontal and lateral views of the chest. COMPARISON: February 26, 2017 FINDINGS: The lungs are hyperinflated. There is a prominent epicardial fat pad on the left. The costophrenic angle on the left is obscured on the frontal view. There is no evidence of blunting of either costophrenic angle on the lateral view. There is mild enlargement of the cardiac silhouette. Normal mediastinum and delfina. Normal visualized pulmonary arteries. There is atherosclerotic calcification of the aortic arch with tortuosity. There are degenerative changes in the visualized spine. There is dextroscoliosis of the thoracic spine. Normal visualized ribs, clavicles, and shoulders. There is no demonstrated abnormali ty of the visualized soft tissue structures of the upper abdomen. RAD/Chest PA and Lateral IMPRESSION: The appearance is unchanged, and findings in the left lung base are largely due to an epicardial fat pad obscuring the costophrenic angle on the frontal view. There is no definite effusion. There are stable findings of COPD without a focal par enchymal abnormality. Electronically Signed: Milvia Romero MD at 19:31 EDT Tel [phone], Service support , CC: Martha Self Guest Service Agent: Signed 26-Feb-2017 Chest PA and Lateral Result: Comments: See Note; NOTES: [facility] Imaging Services [address] [place] [address] [address] Chest PA and Lateral MR#: [id number] Acct: [id number] Name: FANY HURST Rep #: [id number] : 1945 F 71 From: Geovany Bauer DO PCP: Martha Self Status: REG CLI Study: Chest PA and Lateral Date of Exam: 02/26/17 Exam# [id number] Ordering Dr: Martha Self STUDY: X-RAY CHEST REASO N FOR EXAM: Female, 71 years old. Cough TECHNIQUE: Frontal and lateral views COMPARISON: None. FINDINGS: The lungs are expanded. There is interstitial prominence. Mild left pleural effusion. Mild cardiomegaly. Normal mediastinum and delfina. Normal visualized pulmonary arteries. Normal visualized aortic arch and descending thoracic aorta. Mild degenerative change s of the thoracic spine. Degenerative changes of the shoulders. Old right rib fractures. There is no demonstrated abnormality of the visualized soft tissue structures of the upper abdomen. RAD/Chest PA and Lateral IMPRESSION: Cardiomegaly. Interstitial prominence. Mild left effusion. Electronically Signed: Geovany Bauer DO at 18:19 EDT Tel [phone], Service support , CC: Martha Self Guest Service Agent: Signed Family History Unknown Family Member Name Dates Details Brother 1 Comments: cancer-lung, anuerism Status: Active Father Comments: CVA; diabetes Status: Active Mother Comments: CHF Status: Active Sister 1 Comments: CO Status: Active Sister 2 Comments: Murdered Status: Active Social History Name Dates Details Alcohol use: Non Drinker / No Alcohol Use. Status: Active Living Situation: Lives with spouse. Status: Active Tobacco use: Never smoker. Status: Active Smoking Status Name Dates Details Never smoker Vital Signs Date Test Result Details :51 Temperature 98.8 f Comments: Method: Temporal Pulse 65 /min Comments: Pattern: Regular Respiration Rate 18 /min Comments: Pattern: Unlabored O2 SAT 97 % Comments: Room air BP Systolic 140 mm[Hg] Comments: Patient Position: Sitting; Cuff Location: Left Arm; Cuff Size: Standard BP Diastolic 82 mm[Hg] Comments: Patient Position: Sitting; Cuff Location: Left Arm; Cuff Size: Standard Weight 214.25 lb Height 60 in Body Mass Index Calculated 41.84 kg/m2 Body Surface Area Calculated 1.92 m2 :48 Weight 214.25 lb Height 60 in Body Mass Index Calculated 41.84 kg/m2 Body Surface Area Calculated 1.92 m2 :49 Temperature 97 f Pulse 76 /min Comments: Pattern: Regular Respiration Rate 18 /min Comments: Pattern: Unlabored O2 SAT 93 % Comments: Room air BP Systolic 130 mm[Hg] Comments: Patient Position: Sitting; Cuff Location: Left Arm; Cuff Size: Standard BP Diastolic 84 mm[Hg] Comments: Patient Position: Sitting; Cuff Location: Left Arm; Cuff Size: Standard Weight 214.25 lb Height 60 in Body Mass Index Calculated 41.84 kg/m2 Body Surface Area Calculated 1.92 m2 :24 Temperature 97.6 f Pulse 63 /min Comments: Pattern: Regular Respiration Rate 16 /min Comments: Pattern: Unlabored O2 SAT 96 % Comments: Room air BP Systolic 122 mm[Hg] Comments: Patient Position: Sitting; Cuff Location: Left Arm; Cuff Size: Standard BP Diastolic 80 mm[Hg] Comments: Patient Position: Sitting; Cuff Location: Left Arm; Cuff Size: Standard Weight 214 lb Height 60 in Body Mass Index Calculated 41.79 kg/m2 Body Surface Area Calculated 1.92 m2 :56 Temperature 97.8 f Comments: Method: Temporal Pulse 80 /min Comments: Pattern: Regular Respiration Rate 16 /min Comments: Pattern: Unlabored O2 SAT 94 % Comments: Room air BP Systolic 134 mm[Hg] Comments: Patient Position: Sitting; Cuff Location: Left Arm; Cuff Size: Standard BP Diastolic 78 mm[Hg] Comments: Patient Position: Sitting; Cuff Location: Left Arm; Cuff Size: Standard Weight 215 lb Height 60 in Body Mass Index Calculated 41.99 kg/m2 Body Surface Area Calculated 1.93 m2 :50 Temperature 97.1 f Pulse 80 /min Comments: Pattern: Regular Respiration Rate 18 /min Comments: Pattern: Unlabored O2 SAT 97 % Comments: Room air BP Systolic 132 mm[Hg] Comments: Patient Position: Sitting; Cuff Location: Left Arm; Cuff Size: Standard BP Diastolic 82 mm[Hg] Comments: Patient Position: Sitting; Cuff Location: Left Arm; Cuff Size: Standard Weight 217.25 lb Height 60 in Body Mass Index Calculated 42.43 kg/m2 Body Surface Area Calculated 1.93 m2 :20 Temperature 98.4 f Pulse 77 /min Comments: Pattern: Regular Respiration Rate 16 /min Comments: Pattern: Unlabored O2 SAT 97 % Comments: Room air BP Systolic 124 mm[Hg] Comments: Patient Position: Sitting; Cuff Location: Left Arm; Cuff Size: Standard BP Diastolic 82 mm[Hg] Comments: Patient Position: Sitting; Cuff Location: Left Arm; Cuff Size: Standard Weight 210 lb Height 60 in Body Mass Index Calculated 41.01 kg/m2 Body Surface Area Calculated 1.91 m2 :41 Temperature 97.6 f Pulse 72 /min Comments: Pattern: Regular Respiration Rate 16 /min Comments: Pattern: Unlabored O2 SAT 94 % Comments: Room air BP Systolic 122 mm[Hg] Comments: Patient Position: Sitting; Cuff Location: Left Arm; Cuff Size: Standard BP Diastolic 80 mm[Hg] Comments: Patient Position: Sitting; Cuff Location: Left Arm; Cuff Size: Standard Weight 209 lb Height 60 in Body Mass Index Calculated 40.82 kg/m2 Body Surface Area Calculated 1.9 m2 :09 Temperature 98 f Comments: Method: Temporal Pulse 66 /min Comments: Pattern: Regular Respiration Rate 16 /min Comments: Pattern: Unlabored O2 SAT 96 % Comments: Room air BP Systolic 124 mm[Hg] Comments: Patient Position: Sitting; Cuff Location: Left Arm; Cuff Size: Standard BP Diastolic 70 mm[Hg] Comments: Patient Position: Sitting; Cuff Location: Left Arm; Cuff Size: Standard Weight 206.125 lb Height 60 in Body Mass Index Calculated 40.26 kg/m2 Body Surface Area Calculated 1.89 m2 :39 Temperature 98.2 f Pulse 63 /min Comments: Pattern: Regular Respiration Rate 16 /min Comments: Pattern: Unlabored O2 SAT 99 % Comments: Room air BP Systolic 124 mm[Hg] Comments: Patient Position: Sitting; Cuff Location: Left Arm; Cuff Size: Standard BP Diastolic 82 mm[Hg] Comments: Patient Position: Sitting; Cuff Location: Left Arm; Cuff Size: Standard Weight 211.125 lb Height 60 in Body Mass Index Calculated 41.23 kg/m2 Body Surface Area Calculated 1.91 m2 :28 Temperature 97.9 f Pulse 72 /min Comments: Pattern: Regular Respiration Rate 16 /min Comments: Pattern: Unlabored O2 SAT 94 % Comments: Room air BP Systolic 124 mm[Hg] Comments: Patient Position: Sitting; Cuff Location: Left Arm; Cuff Size: Standard BP Diastolic 82 mm[Hg] Comments: Patient Position: Sitting; Cuff Location: Left Arm; Cuff Size: Standard Weight 212 lb Height 60 in Body Mass Index Calculated 41.4 kg/m2 Body Surface Area Calculated 1.91 m2 :23 Temperature 98.3 f Pulse 85 /min Comments: Pattern: Regular Respiration Rate 18 /min Comments: Pattern: Unlabored O2 SAT 96 % Comments: Room air BP Systolic 122 mm[Hg] Comments: Patient Position: Sitting; Cuff Location: Left Arm; Cuff Size: Standard BP Diastolic 82 mm[Hg] Comments: Patient Position: Sitting; Cuff Location: Left Arm; Cuff Size: Standard Weight 215 lb Height 60 in Body Mass Index Calculated 41.99 kg/m2 Body Surface Area Calculated 1.93 m2 [id number]-Rjg-[id number]:26 Temperature 97.6 f Pulse 91 /min Comments: Pattern: Regular Respiration Rate 16 /min Comments: Pattern: Unlabored O2 SAT 94 % Comments: Room air BP Systolic 124 mm[Hg] Comments: Patient Position: Sitting; Cuff Location: Left Arm; Cuff Size: Standard BP Diastolic 82 mm[Hg] Comments: Patient Position: Sitting; Cuff Location: Left Arm; Cuff Size: Standard Weight 219 lb Height 60 in Body Mass Index Calculated 42.77 kg/m2 Body Surface Area Calculated 1.94 m2 Results Date Description Value Details [id number] URINE ALYCE CULTURE-IDENTIFICATN Comments: PATIENT NOT FASTINGPERFORMED BY: [facility] Zjbjio6404 [facility] [id number] Information: SRC:MILA ([id number]) Antimicrobial MIHEAD (Normal) Comments: S = Susceptible; I = Intermediate; R = Resistant P = Positive; N = Negative MICS are expressed in micrograms per mL Antibiotic RSLT#1 RSLT#2 RS Susceptibility LT#3 RSLT#4Amoxicillin/Clavulanic Acid SAmpicillin SCefepime SCeftriaxone SCefuroxime SCiprofloxacin SErtapenem SGentamicin SImipenem SLevofloxacin SMeropenem SNitrofurantoin SPipera cillin/Tazobactam STetracycline STobramycin STrimethoprim/Sulfa S Result 1 Escherichia coli Comments: Greater than 100,000 colony forming units per mLCefazolin <=4 ug/mLCefazolin with an FATOU <=16 predicts susceptibility to the oral agentscefaclor, cefdinir, cefpodoxime, cefprozil, cefuroxime, ceph (Abnormal) alexin,and loracarbef when used for therapy of uncomplicated urinary tractinfections due to E. coli, Klebsiella pneumoniae, and Proteusmirabilis. Urine Final report Culture,Comprehensive (Abnormal) [id number]-Zjh-[id number] TSH ([id number]) Comments: PATIENT WAS FASTINGPERFORMED BY: [facility] [id number] TSH 6.450 {uIU/mL} (Abnormal) Range: 0.450-4.500 8-Ecl-479853:28 CBC, Platelets & Auto Diff Comments: PATIENT WAS FASTINGPERFORMED BY: [facility] [id number] ([id number]) Immature Grans (Abs) 0.0 {x10E3/uL} (Normal) Range: 0.0-0.1 Immature Granulocytes 0 % (Normal) Baso (Absolute) 0.0 {x10E3/uL} (Normal) Range: 0.0-0.2 Eos (Absolute) 0.3 {x10E3/uL} (Normal) Range: 0.0-0.4 Monocytes(Absolute) 0.9 {x10E3/uL} (Normal) Range: 0.1-0.9 Lymphs (Absolute) 3.1 {x10E3/uL} (Normal) Range: 0.7-3.1 Neutrophils (Absolute) 4.4 {x10E3/uL} (Normal) Range: 1.4-7.0 Basos 0 % (Normal) Eos 4 % (Normal) Monocytes 10 % (Normal) Lymphs 35 % (Normal) Neutrophils 51 % (Normal) Platelets 302 {x10E3/uL} (Normal) Range: 150-379 RDW 14.2 % (Normal) Range: 12.3-15.4 MCHC 33.8 g/dL (Normal) Range: 31.5-35.7 MCH 28.6 pg (Normal) Range: 26.6-33.0 MCV 85 fL (Normal) Range: 79-97 Hematocrit 34.6 % (Normal) Range: 34.0-46.6 Hemoglobin 11.7 g/dL (Normal) Range: 11.1-15.9 RBC 4.09 {x10E6/uL} (Normal) Range: 3.77-5.28 WBC 8.7 {x10E3/uL} (Normal) Range: 3.4-10.8 6-Lpd-472746:28 Lipid Panel ([id number]) Comments: PATIENT WAS FASTINGPERFORMED BY: [facility]cqest7652 [facility] [id number] LDL/HDL Ratio 0.9 {ratio} (Normal) Range: 0.0-3.2 Comments: LDL/HDL Ratio Men Women 1/2 Avg.Risk 1.0 1.5 Av g.Risk 3.6 3.2 2X Avg.Risk 6.2 5.0 3X Avg.Risk 8.0 6.1 LDL Cholesterol Calc 68 mg/dL (Normal) Range: 0-99 VLDL Cholesterol Sunil 22 mg/dL (Normal) Range: 5-40 HDL Cholesterol 72 mg/dL (Normal) Triglycerides 108 mg/dL (Normal) Range: 0-149 Cholesterol, Total 162 mg/dL (Normal) Range: 100-199 4-Soa-751878:28 Metabolic Panel, Comprehensive Comments: PATIENT WAS FASTINGPERFORMED BY: [facility] [facility]mb0361 [facility] [id number] ([id number]) ALT (SGPT) 15 [iU]/L (Normal) Range: 0-32 AST (SGOT) 21 [iU]/L (Normal) Range: 0-40 Alkaline Phosphatase 82 [iU]/L (Normal) Range: 39-117 Bilirubin, Total 0.3 mg/dL (Normal) Range: 0.0-1.2 A/G Ratio 1.6 (Normal) Range: 1.2-2.2 Globulin, Total 2.7 g/dL (Normal) Range: 1.5-4.5 Albumin 4.4 g/dL (Normal) Range: 3.5-4.8 Protein, Total 7.1 g/dL (Normal) Range: 6.0-8.5 Calcium 10.1 mg/dL (Normal) Range: 8.7-10.3 Carbon Dioxide, Total 22 mmol/L (Normal) Range: 20-29 Chloride 103 mmol/L (Normal) Range: 96-106 Potassium 4.5 mmol/L (Normal) Range: 3.5-5.2 Sodium 145 mmol/L (Abnormal) Range: 134-144 BUN/Creatinine Ratio 27 (Normal) Range: 12-28 eGFR If Africn Am 58 mL/min/1.73 (Abnormal) eGFR If NonAfricn Am 50 mL/min/1.73 (Abnormal) Creatinine 1.11 mg/dL (Abnormal) Range: 0.57-1.00 BUN 30 mg/dL (Abnormal) Range: 8-27 Glucose 88 mg/dL (Normal) Range: 65-99 04-Jul-20182:00 HPV, Reflex ([id number]) Comments: Source.............Cervix;EndocervixNo. of containers..01 ThinPrep VialPATIENT NOT FASTINGPERFORMED BY: [facility] [id number] Information: [id number] Note: PAPSMR (Normal) Comments: The Pap smear is a screening test designed to aid in the detection ofpremalignant and malignant conditions of the uterine cervix. It is not adiagnostic procedure and should not be used as the sole mean s of detectingcervical cancer. Both false-positive and false-negative reports do occur. .The HPV DNA reflex criteria were not met with this specimen resulttherefore, no HPV testing was performed. . See Note . (Normal) DIAGNOSIS: SPRCS (Normal) Comments: NEGATIVE FOR INTRAEPITHELIAL LESION AND MALIGNANCY.Satisfactory for evaluation. No endocervical component is identified.Z12.4Svikas Feng Lasting Room Supervisor (ASCP) 8-Vjz-689850:04 Urinalysis, Office (55669) UA - LEUKOCYTE ESTERASE Moderate (Normal) UA - NITRITE Positive (Normal) URINE UROBILINGN LEO TIMED Normal mg/dL (Normal) UA - PROTEIN Trace mg/dL (Normal) UA - PH 7 (Normal) UA - BLOOD Non Hemolyzed Moderate (Normal) UA - SPECIFIC GRAVITY 1.015 (Normal) UA - KETONES Negative mg/dL (Normal) UA - BILIRUBIN Negative (Normal) UA - GLUCOSE Negative (Normal) 9-Aql-783808:15 Basic Metabolic Profile (BMP) Comments: [facility] [address] [place], [place], [id number] GAP 7 (Normal) Range: 5-15 CO2 31.0 mmol/L (Normal) Range: 21.0-32.0 CL 105 mmol/L (Normal) Range: 98-107 K 3.7 mmol/L (Normal) Range: 3.5-5.1 NA 143 mmol/L (Normal) Range: 136-145 CA 10.0 mg/dL (Normal) Range: 8.5-10.1 BUN/CRE 21.5 {RATIO} (Abnormal) Range: 10-20 Estimated CRCL 66.29 ml/min (Normal) EST GFR - AA 56 mL/min (Abnormal) Comments: GFR Calc EST GFR 47 mL/min (Abnormal) Comments: Non- GFR Calc CREAT,SERUM 1.21 mg/dL (Abnormal) Range: 0.55-1.02 Comments: The validity of the calculated GFR AND GFRAA in patients over70 years has not been determined. Clinical correlation isessential. BUN 26 mg/dL (Abnormal) Range: 7-18 GLU 61 mg/dL (Abnormal) Range: 74-106 Comments: Please note revised GLUCOSE reference range tpdorxzmo03/02/2018. 3-Lcm-322411:15 CBC-Complete Blood Cnt No Diff Comments: [facility] [address] [place], [place], [address] MPV 10.3 fL (Normal) Range: 6.2-12.0 PLT 290 K/mm3 (Normal) Range: 150-450 RDW SD 47.5 fL (Abnormal) Range: 35.1-43.9 RDW CV 14.7 % (Abnormal) Range: 11.6-14.6 MCHC 33.1 {g/gl} (Normal) Range: 32-36 MCH 29.4 pg (Normal) Range: 27.0-32.0 MCV 88.8 fL (Normal) Range: 81-99 HCT 34.1 % (Abnormal) Range: 37-47 HGB 11.3 g/dL (Abnormal) Range: 12.0-15.0 RBC 3.84 {M/mm3} (Abnormal) Range: 4.2-5.4 WBC 7.3 K/mm3 (Normal) Range: 4.4-11.0 5-Bwp-197742:15 MRSA/SAID SCREEN Comments: [facility] [address] [place], [address] MRSA+SAID SCRN See Note (Normal) Comments: MRSA/SAID SCRNS. AUREUS S. aureus NegativeMRSA MRSA Negative 65-Hqs-856447:10 HgA1C , Office ([id number]) HgA1C , Office 6.9 % (Normal) Range: 4.6 - 7.1 84-Xbu-121293:04 URINE ALYCE CULTURE-IDENTIFICATN Comments: PATIENT NOT FASTINGPERFORMED BY: [facility]Co[facility] HospitalKfifpn7774 [facility] [id number] Information: SRC: ([id number]) Antimicrobial MIHEAD (Normal) Comments: S = Susceptible; I = Intermediate; R = Resistant P = Positive; N = Negative MICS are expressed in micrograms per mL Antibiotic RSLT#1 RSLT#2 RS Susceptibility LT#3 RSLT#4Amoxicillin/Clavulanic Acid SAmpicillin RCefepime SCeftriaxone SCefuroxime SCephalothin SCiprofloxacin SErtapenem SGentamicin SImipenem SLevofloxacin SNitrofurantoin SPipera cillin STetracycline STobramycin STrimethoprim/Sulfa S Result 1 Escherichia coli Comments: Greater than 100,000 colony forming units per mL (Abnormal) Urine Final report Culture,Comprehensive (Abnormal) 73-Mbo-89488:38 Urinalysis, Office (85904) UA - LEUKOCYTE ESTERASE Moderate (Normal) UA - NITRITE Negative (Normal) URINE UROBILINGN LEO TIMED Normal mg/dL (Normal) UA - PROTEIN Negative mg/dL (Normal) UA - PH 7 (Normal) UA - BLOOD Non Hemolyzed Trace (Normal) UA - SPECIFIC GRAVITY 1.015 (Normal) UA - KETONES Negative mg/dL (Normal) UA - BILIRUBIN Negative (Normal) UA - GLUCOSE Negative (Normal) 82-Yyx-499974:54 Metabolic Panel, Comprehensive Comments: PATIENT NOT FASTINGPERFORMED BY: [facility] [id number] ([id number]) ALT (SGPT) 13 [iU]/L (Normal) Range: 0-32 AST (SGOT) 17 [iU]/L (Normal) Range: 0-40 Alkaline Phosphatase, S 85 [iU]/L (Normal) Range: 39-117 Bilirubin, Total 0.3 mg/dL (Normal) Range: 0.0-1.2 A/G Ratio 1.5 (Normal) Range: 1.2-2.2 Globulin, Total 2.6 g/dL (Normal) Range: 1.5-4.5 Albumin, Serum 3.9 g/dL (Normal) Range: 3.5-4.8 Protein, Total, Serum 6.5 g/dL (Normal) Range: 6.0-8.5 Calcium, Serum 9.8 mg/dL (Normal) Range: 8.7-10.3 Carbon Dioxide, Total 26 mmol/L (Normal) Range: 18-29 Chloride, Serum 100 mmol/L (Normal) Range: 96-106 Potassium, Serum 4.6 mmol/L (Normal) Range: 3.5-5.2 Sodium, Serum 142 mmol/L (Normal) Range: 134-144 BUN/Creatinine Ratio 19 (Normal) Range: 12-28 eGFR If Africn Am 44 mL/min/1.73 (Abnormal) eGFR If NonAfricn Am 38 mL/min/1.73 (Abnormal) Creatinine, Serum 1.40 mg/dL (Abnormal) Range: 0.57-1.00 BUN 27 mg/dL (Normal) Range: 8-27 Glucose, Serum 164 mg/dL (Abnormal) Range: 65-99 32-Ekk-709917:54 HGB A1C (90964) Comments: PATIENT NOT FASTINGPERFORMED BY: [facility]Co[facility] HospitalScxkxd5621 [facility] [id number] Hemoglobin A1c 7.8 % (Abnormal) Range: 4.8-5.6 Comments: . Pre-diabetes: 5.7 - 6.4 Diabetes: >6.4 Glycemic control for adults with diabetes: <7.0 95-Hqu-638702:16 Urinalysis, Office ([id number]) UA - LEUKOCYTE ESTERASE Moderate (Normal) UA - NITRITE Negative (Normal) URINE UROBILINGN ELO TIMED Normal mg/dL (Normal) UA - PROTEIN Negative mg/dL (Normal) UA - PH 7 (Normal) UA - BLOOD Hemolyzed Small (Normal) UA - SPECIFIC GRAVITY 1.010 (Normal) UA - KETONES Negative mg/dL (Normal) UA - BILIRUBIN Negative (Normal) UA - GLUCOSE Negative (Normal) 29-Ptg-102402:24 HGB A1C (14900) Comments: PERFORMED BY: [facility] [id number] Hemoglobin A1c 6.5 % (Abnormal) Range: 4.8-5.6 Comments: . Pre-diabetes: 5.7 - 6.4 Diabetes: >6.4 Glycemic control for adults with diabetes: <7.0 40-Glq-445485:04 Urinalysis, Office (57886) UA - LEUKOCYTE ESTERASE Small (Normal) UA - NITRITE Negative (Normal) URINE UROBILINGN LEO TIMED Normal mg/dL (Normal) UA - PROTEIN Negative mg/dL (Normal) UA - PH 7 (Normal) UA - BLOOD Hemolyzed Trace (Normal) UA - SPECIFIC GRAVITY 1.015 (Normal) UA - KETONES Negative mg/dL (Normal) UA - BILIRUBIN Negative (Normal) UA - GLUCOSE Negative (Normal) Comments: There was barely enough for a UA and not nearly enough for a C/S to be sent 38-Cat-485248:20 CBC W/Diff, Automated Comments: [facility] [address] [place], [place], [phone] Absolute Lymph 2.65 {X10_3/ul} (Normal) Range: 0.83-4.51 Absolute Neut 4.6 {X10_3/uL} (Normal) Range: 2.0-7.7 IM GRAN % 0.200 % (Normal) Range: 0.0-0.9 Comments: IG% - Immature Granulocytes (promyelocytes, myelocytes andmetamyelocytes) > 1% indicates that a LEFT SHIFT is Present. BASO% 0.5 % (Normal) Range: 0-1 EO% 9.1 % (Abnormal) Range: 0-5 MONO% 8.7 % (Normal) Range: 0-10 LY% 29.8 % (Normal) Range: 19-41 NEUT% 51.7 % (Normal) Range: 47-70 MPV 10.8 fL (Normal) Range: 6.2-12.0 PLT 280 K/mm3 (Normal) Range: 150-450 RDW SD 41.9 fL (Normal) Range: 35.1-43.9 RDW CV 13.5 % (Normal) Range: 11.6-14.6 MCHC 33.9 {g/gl} (Normal) Range: 32-36 MCH 29.4 pg (Normal) Range: 27.0-32.0 MCV 86.8 fL (Normal) Range: 81-99 HCT 34.8 % (Abnormal) Range: 37-47 HGB 11.8 g/dL (Abnormal) Range: 12.0-15.0 RBC 4.01 {M/mm3} (Abnormal) Range: 4.2-5.4 WBC 8.9 K/mm3 (Normal) Range: 4.4-11.0 62-Ctu-875748:20 Comprehensive Metabolic Profil Comments: [facility] [address] [place], [place], [address] GAP 8 (Normal) Range: 5-15 CO2 29.0 mmol/L (Normal) Range: 21.0-32.0 CL 102 mmol/L (Normal) Range: 98-107 K 4.1 mmol/L (Normal) Range: 3.5-5.1 Comments: Slight Hemolysis, Result may be falsely increased. NA 139 mmol/L (Normal) Range: 136-145 T BILI 0.40 mg/dL (Normal) Range: 0.20-1.00 ALT 22 U/L (Normal) Range: 12-78 ALK P 85 U/L (Normal) Range: 45-117 AST 20 U/L (Normal) Range: 15-37 Comments: Slight Hemolysis, Result may be falsely increased. CA 9.6 mg/dL (Normal) Range: 8.5-10.1 A/G 0.9 {RATIO} (Normal) Range: 0.9-2.4 GLOB 3.6 g/dL (Normal) Range: 2.2-4.2 ALB 3.4 g/dL (Normal) Range: 3.4-5.0 Comments: Please note revised Albumin AND Globulin reference rangeeffective 2017. T PROT 7.0 g/dL (Normal) Range: 6.4-8.2 BUN/CRE 20.0 {RATIO} (Normal) Range: 10-20 EST GFR - AA 57 mL/min (Abnormal) Comments: GFR Calc EST GFR 47 mL/min (Abnormal) Comments: Non- GFR Calc CREAT,SERUM 1.20 mg/dL (Abnormal) Range: 0.55-1.02 Comments: The validity of the calculated GFR AND GFRAA in patients over70 years has not been determined. Clinical correlation isessential. BUN 24 mg/dL (Abnormal) Range: 7-18 GLU 122 mg/dL (Abnormal) Range: 70-110 Comments: Fasting Glucose result from 110 to <126 mg/dLsuggests IMPAIRED HOMEOSTASIS per A.D.A. criteria. 93-Pku-577369:20 Culture, Urine Comments: [facility] [address] [place], [place], [id number] CUUR See Note (Normal) Comments: Urine CultureORGANISM 1: Presumptive E. coliColony Count >100,000 Presumptive E. coli: REACTION Amoxacillin/Clavulanic Acid $ <=2 S Ampicillin $ <=2 S Ampicillin/Sulbactam $ <=2 S Cefazolin $ <=4 S Cefepime $ & lt;=1 S Ceftriaxone $ <=1 S Ciprofloxacin $ <=0.25 S ESBL - Ertapenim $$$ <=0.5 S Gentamicin $ <=1 S Imipenem *NF <=0.25 S Levofloxacin $ <=0.12 S Nit rofurantoin $ <=16 S Piperacillin/Tazobactam $$ <=4 S Tobramycin $ <=1 S Trimethoprim/Sulfametho $ <= 20 S(NF) indicates non-formulary drug at [facility]. Approval by Infectious Disease Specialist required before non- formulary drugs may be ordered and/or dispensed. 57-Yfq-118435:20 Prothrombin Time w/INR Comments: [facility] [address] [place], [place], [id number] INR 1.0 (Normal) PROTIME 13.1 s (Normal) Range: 11.7-14.9 51-Mrm-121970:25 CBC, Platelets & Auto Diff Comments: Jul 2017; PATIENT NOT FASTINGPERFORMED BY: [facility] Zwyqum9923 [facility] [id number] ([id number]) Hematology Comments: Note: (Normal) Comments: Verified by microscopic examination. Immature Grans (Abs) 0.0 {x10E3/uL} (Normal) Range: 0.0-0.1 Immature Granulocytes 0 % (Normal) Baso (Absolute) 0.0 {x10E3/uL} (Normal) Range: 0.0-0.2 Eos (Absolute) 0.8 {x10E3/uL} (Abnormal) Range: 0.0-0.4 Monocytes(Absolute) 0.8 {x10E3/uL} (Normal) Range: 0.1-0.9 Lymphs (Absolute) 3.0 {x10E3/uL} (Normal) Range: 0.7-3.1 Neutrophils (Absolute) 4.5 {x10E3/uL} (Normal) Range: 1.4-7.0 Basos 0 % (Normal) Eos 9 % (Normal) Monocytes 9 % (Normal) Lymphs 33 % (Normal) Neutrophils 49 % (Normal) Platelets 273 {x10E3/uL} (Normal) Range: 150-379 RDW 14.1 % (Normal) Range: 12.3-15.4 MCHC 34.7 g/dL (Normal) Range: 31.5-35.7 MCH 29.6 pg (Normal) Range: 26.6-33.0 MCV 85 fL (Normal) Range: 79-97 Hematocrit 34.9 % (Normal) Range: 34.0-46.6 Hemoglobin 12.1 g/dL (Normal) Range: 11.1-15.9 RBC 4.09 {x10E6/uL} (Normal) Range: 3.77-5.28 WBC 9.1 {x10E3/uL} (Normal) Range: 3.4-10.8 78-Qxi-361023:25 Metabolic Panel, Comprehensive Comments: Jul 2017; PATIENT NOT FASTINGPERFORMED BY: [facility]Co[facility] HospitalWuzyac1855 [facility] [id number]; OV 08/14 ([id number]) ALT (SGPT) 15 [iU]/L (Normal) Range: 0-32 AST (SGOT) 20 [iU]/L (Normal) Range: 0-40 Alkaline Phosphatase, S 83 [iU]/L (Normal) Range: 39-117 Bilirubin, Total 0.3 mg/dL (Normal) Range: 0.0-1.2 A/G Ratio 1.5 (Normal) Range: 1.2-2.2 Globulin, Total 2.6 g/dL (Normal) Range: 1.5-4.5 Albumin, Serum 4.0 g/dL (Normal) Range: 3.5-4.8 Protein, Total, Serum 6.6 g/dL (Normal) Range: 6.0-8.5 Calcium, Serum 10.2 mg/dL (Normal) Range: 8.7-10.3 Carbon Dioxide, Total 25 mmol/L (Normal) Range: 18-29 Chloride, Serum 99 mmol/L (Normal) Range: 96-106 Potassium, Serum 4.4 mmol/L (Normal) Range: 3.5-5.2 Sodium, Serum 141 mmol/L (Normal) Range: 134-144 BUN/Creatinine Ratio 23 (Normal) Range: 12-28 eGFR If Africn Am 69 mL/min/1.73 (Normal) eGFR If NonAfricn Am 60 mL/min/1.73 (Normal) Creatinine, Serum 0.96 mg/dL (Normal) Range: 0.57-1.00 BUN 22 mg/dL (Normal) Range: 8-27 Glucose, Serum 162 mg/dL (Abnormal) Range: 65-99 9-Zpp-693081:14 HgA1C , Office (14814) HgA1C , Office 6.3 % (Normal) Range: 4.6 - 7.1 :14 Blood Glucose , Office (86555) Blood Glucose , Office 100 (Normal) 64-Gzl-524580:06 Metabolic Panel, Comprehensive Comments: today; PATIENT NOT FASTINGPERFORMED BY: [facility]Co[facility] HospitalCcetyc1706 [facility] [id number] ([id number]) ALT (SGPT) 14 [iU]/L (Normal) Range: 0-32 AST (SGOT) 20 [iU]/L (Normal) Range: 0-40 Alkaline Phosphatase, S 78 [iU]/L (Normal) Range: 39-117 Bilirubin, Total 0.3 mg/dL (Normal) Range: 0.0-1.2 A/G Ratio 1.6 (Normal) Range: 1.2-2.2 Globulin, Total 2.4 g/dL (Normal) Range: 1.5-4.5 Albumin, Serum 3.8 g/dL (Normal) Range: 3.6-4.8 Protein, Total, Serum 6.2 g/dL (Normal) Range: 6.0-8.5 Calcium, Serum 9.6 mg/dL (Normal) Range: 8.7-10.3 Carbon Dioxide, Total 26 mmol/L (Normal) Range: 18-29 Chloride, Serum 99 mmol/L (Normal) Range: 96-106 Potassium, Serum 4.0 mmol/L (Normal) Range: 3.5-5.2 Sodium, Serum 142 mmol/L (Normal) Range: 134-144 BUN/Creatinine Ratio 20 (Normal) Range: 12-28 eGFR If Africn Am 68 mL/min/1.73 (Normal) eGFR If NonAfricn Am 59 mL/min/1.73 (Abnormal) Creatinine, Serum 0.98 mg/dL (Normal) Range: 0.57-1.00 BUN 20 mg/dL (Normal) Range: 8-27 Glucose, Serum 93 mg/dL (Normal) Range: 65-99 [id number] Urinalysis, Office (19553) UA - LEUKOCYTE ESTERASE Negative (Normal) UA - NITRITE Negative (Normal) URINE UROBILINGN LEO TIMED Normal mg/dL (Normal) UA - PROTEIN Negative mg/dL (Normal) UA - PH 7.0 (Normal) UA - BLOOD Hemolyzed Trace (Normal) UA - SPECIFIC GRAVITY 1.015 (Normal) UA - KETONES Negative mg/dL (Normal) UA - BILIRUBIN Negative (Normal) UA - GLUCOSE Negative (Normal) [id number] [facility] ([id number]) Comments: PATIENT NOT FASTINGPERFORMED BY: [facility] [id number] B-Type Natriuretic Peptide 11.6 pg/mL (Normal) Range: 0.0-100.0 [id number] Sputum Culture ([id number]) Comments: PATIENT NOT FASTINGPERFORMED BY: [facility] [id number] Information: SRC:SP Result 1 RRF (Normal) Comments: Routine respiratory alaina Lower Respiratory Culture Final report (Normal) 16-Phj-785498:47 URINE ALYCE CULTURE-IDENTIFICATN Comments: PATIENT NOT FASTINGPERFORMED BY: [facility] [id number] Information: SRC:UC (67399) Result 1 MUG (Normal) Comments: Mixed urogenital flora25,000-50,000 colony forming units per mL Urine Final report (Normal) Culture,Comprehensive 83-Uwj-26745:38 Urinalysis, Office (83676) UA - LEUKOCYTE ESTERASE Negative (Normal) UA - NITRITE Negative (Normal) URINE UROBILINGN LEO TIMED Normal mg/dL (Normal) UA - PROTEIN Negative mg/dL (Normal) UA - PH 7.5 (Normal) UA - BLOOD Hemolyzed Trace (Normal) UA - SPECIFIC GRAVITY 1.015 (Normal) UA - KETONES Negative mg/dL (Normal) UA - BILIRUBIN Negative (Normal) UA - GLUCOSE Negative (Normal) :47 Blood Glucose , Office (01563) Blood Glucose , Office 90 (Normal) :47 HgA1C , Office (25976) HgA1C , Office 5.7 % (Normal) Range: 4.6 - 7.1 5-Gxj-171841:26 Microscopic Examination Comments: PATIENT WAS FASTINGPERFORMED BY: SYSTRAN6370 [facility] [id number] Bacteria Few (Normal) Mucus Threads Present (Normal) Cast Type Hyaline casts (Normal) Casts Present {/lpf} (Abnormal) Epithelial Cells (non renal) 0-10 {/hpf} (Normal) Range: 0 - 10 RBC 0-2 {/hpf} (Normal) Range: 0 - 2 WBC 0-5 {/hpf} (Normal) Range: 0 - 5 8-Sjq-737495:26 METABOLIC PANEL, COMPREHENSIVE Comments: PATIENT WAS FASTINGPERFORMED BY: SYSTRAN6370 [facility] [id number] (81847) ALT (SGPT) 12 [iU]/L (Normal) Range: 0-32 AST (SGOT) 18 [iU]/L (Normal) Range: 0-40 Alkaline Phosphatase, S 76 [iU]/L (Normal) Range: 39-117 Bilirubin, Total 0.4 mg/dL (Normal) Range: 0.0-1.2 A/G Ratio 1.6 (Normal) Range: 1.2-2.2 Globulin, Total 2.4 g/dL (Normal) Range: 1.5-4.5 Albumin, Serum 3.9 g/dL (Normal) Range: 3.6-4.8 Protein, Total, Serum 6.3 g/dL (Normal) Range: 6.0-8.5 Calcium, Serum 10.0 mg/dL (Normal) Range: 8.7-10.3 Carbon Dioxide, Total 24 mmol/L (Normal) Range: 18-29 Chloride, Serum 102 mmol/L (Normal) Range: 96-106 Potassium, Serum 4.3 mmol/L (Normal) Range: 3.5-5.2 Sodium, Serum 143 mmol/L (Normal) Range: 134-144 BUN/Creatinine Ratio 34 (Abnormal) Range: 12-28 eGFR If Africn Am 70 mL/min/1.73 (Normal) eGFR If NonAfricn Am 61 mL/min/1.73 (Normal) Creatinine, Serum 0.96 mg/dL (Normal) Range: 0.57-1.00 BUN 33 mg/dL (Abnormal) Range: 8-27 Glucose, Serum 85 mg/dL (Normal) Range: 65-99 1-Mzx-187414:26 MICROALBUMIN: CREATININE RATIO Comments: PATIENT WAS FASTINGPERFORMED BY: [employer] LiveFormerly [facility] [id number] ([id number]) AND (21615) Microalb/Creat Ratio 25.9 {mg/g_creat} (Normal) Range: 0.0-30.0 Microalbumin, Urine 9.1 ug/mL (Normal) Creatinine, Urine 35.1 mg/dL (Normal) 1-Fnl-217635:26 URINALYSIS (67645) Comments: PATIENT WAS FASTINGPERFORMED BY: SYSTRAN63StatusPageFormerly [facility] [id number] Microscopic Examination See below: (Normal) Comments: Microscopic was indicated and was performed. Nitrite, Urine Negative (Normal) Urobilinogen,Semi-Qn 0.2 mg/dL (Normal) Range: 0.2-1.0 Bilirubin Negative (Normal) Occult Blood Negative (Normal) Ketones Negative (Normal) Glucose Negative (Normal) Protein Negative (Normal) WBC Esterase Trace (Abnormal) Appearance Clear (Normal) Urine-Color Yellow (Normal) pH 7.0 (Normal) Range: 5.0-7.5 Specific [place] 1.012 (Normal) Range: 1.005-1.030 96-Ded-810991:09 Metabolic Panel, Comprehensive Comments: PATIENT NOT FASTINGPERFORMED BY: CADEN [facility] Uzarsu0283 [facility] [id number] ([id number]) ALT (SGPT) 16 [iU]/L (Normal) Range: 0-32 AST (SGOT) 21 [iU]/L (Normal) Range: 0-40 Alkaline Phosphatase, S 71 [iU]/L (Normal) Range: 39-117 Bilirubin, Total 0.3 mg/dL (Normal) Range: 0.0-1.2 A/G Ratio 1.7 (Normal) Range: 1.1-2.5 Comments: Effective December 10, 2016 the reference interval for A/G Ratio will be changing to: Age Male Female 0 - 7 d ays 1.1 - 2.3 1.1 - 2.3 8 - 30 days 1.2 - 2.8 1.2 - 2.8 1 - 6 months 1.3 - 3.6 1.3 - 3.6 7 months - 5 years 1.5 - 2.6 1.5 - 2.6 > 5 years 1.2 - 2.2 1.2 - 2.2 Globulin, Total 2.4 g/dL (Normal) Range: 1.5-4.5 Albumin, Serum 4.0 g/dL (Normal) Range: 3.6-4.8 Protein, Total, Serum 6.4 g/dL (Normal) Range: 6.0-8.5 Calcium, Serum 9.7 mg/dL (Normal) Range: 8.7-10.3 Carbon Dioxide, Total 22 mmol/L (Normal) Range: 18-29 Chloride, Serum 95 mmol/L (Abnormal) Range: 96-106 Potassium, Serum 3.9 mmol/L (Normal) Range: 3.5-5.2 Sodium, Serum 140 mmol/L (Normal) Range: 134-144 BUN/Creatinine Ratio 23 (Normal) Range: 11-26 eGFR If Africn Am 44 mL/min/1.73 (Abnormal) eGFR If NonAfricn Am 38 mL/min/1.73 (Abnormal) Creatinine, Serum 1.41 mg/dL (Abnormal) Range: 0.57-1.00 BUN 32 mg/dL (Abnormal) Range: 8-27 Glucose, Serum 145 mg/dL (Abnormal) Range: 65-99 98-Rxa-049868:30 URINE ALYCE CULTURE-IDENTIFICATN Comments: PATIENT NOT FASTINGPERFORMED BY: [facility]6370 [facility] [id number] Information: SRC: ([id number]) Antimicrobial MIHEAD (Normal) Comments: S = Susceptible; I = Intermediate; R = Resistant P = Positive; N = Negative MICS are expressed in micrograms per mL Antibiotic RSLT#1 RSLT#2 RS Susceptibility LT#3 RSLT#4Amoxicillin/Clavulanic Acid SAmpicillin SCefepime SCeftriaxone SCefuroxime SCephalothin SCiprofloxacin SErtapenem SGentamicin SImipenem SLevofloxacin SNitrofurantoin SPipera cillin STetracycline STobramycin STrimethoprim/Sulfa S Result 1 Escherichia coli Comments: Greater than 100,000 colony forming units per mL (Abnormal) Urine Final report Culture,Comprehensive (Abnormal) 70-Dti-415774:00 TSH (THYROID STIMULATING Comments: PATIENT NOT FASTINGPERFORMED BY: [facility] [id number] HORMONE) (25660) TSH 3.840 {uIU/mL} (Normal) Range: 0.450-4.500 65-Bvi-270476:59 UPEP (68636) Comments: PATIENT NOT FASTINGPERFORMED BY: [facility]6370 [facility] [id number] Please note: SPRCS (Normal) Comments: Protein electrophoresis scan will follow via computer, mail, orcourier delivery. M-Romeo, % Not Observed % (Normal) Gamma Globulin, U 9.0 % (Normal) Beta Globulin, U 23.1 % (Normal) Wllzh-2-Cuhtlome, U 8.3 % (Normal) Dsiix-0-Ctrqkxrd, U 2.1 % (Normal) Albumin, U 57.4 % (Normal) Protein,Total,Urine 17.6 mg/dL (Normal) 05-Yjm-547324:00 serum free light chains Comments: PATIENT NOT FASTINGPERFORMED BY: [employer] Zmmwax2102 [facility] [id number] (22515) [place]/Lambda Ratio,S 1.40 (Normal) Range: 0.26-1.65 Free Lambda Lt Chains,S 17.88 mg/L (Normal) Range: 5.71-26.30 Free [place] Lt Chains,S 25.10 mg/L (Abnormal) Range: 3.30-19.40 67-Rch-159483:59 urine immunofixation (37754) Comments: PATIENT NOT FASTINGPERFORMED BY: [employer] Donay [facility] [id number] CARRIE Interpretation:U UPEIP (Normal) Comments: No monoclonality detected. 00-Cdu-039681:00 serum immunofixation (36656) Comments: PATIENT NOT FASTINGPERFORMED BY: SYSTRAN6370 [facility] [id number] Immunoglobulin M, Qn, Serum 76 mg/dL (Normal) Range: 26-217 Immunoglobulin A, Qn, Serum 152 mg/dL (Normal) Range: 87-352 Immunoglobulin G, Qn, Serum 865 mg/dL (Normal) Range: 700-1600 Immunofixation Result, Serum UPEIP (Normal) Comments: No monoclonality detected. 41-Syv-995046:00 PARATHORMONE (67364) Comments: PATIENT NOT FASTINGPERFORMED BY: [employer]6370 [facility] [id number] PTH, Intact 35 pg/mL (Normal) Range: 15-65 09-Lom-977998:28 Urinalysis, Office (30904) UA - LEUKOCYTE ESTERASE Moderate (Normal) UA - NITRITE Negative (Normal) URINE UROBILINGN LEO TIMED Normal mg/dL (Normal) UA - PROTEIN Negative mg/dL (Normal) UA - PH 7 (Normal) UA - BLOOD Non Hemolyzed Trace (Normal) UA - SPECIFIC GRAVITY 1.010 (Normal) UA - KETONES Negative mg/dL (Normal) UA - BILIRUBIN Negative (Normal) UA - GLUCOSE Negative (Normal) :06 Microscopic Examination Comments: PATIENT WAS FASTINGPERFORMED BY: [facility]vectorMin[facility] CenterFupyjt8585 [facility] [id number] Bacteria Few (Normal) Mucus Threads Present (Normal) Epithelial Cells (non renal) 0-10 {/hpf} (Normal) Range: 0 - 10 RBC 3-10 {/hpf} (Abnormal) Range: 0 - 2 WBC >30 {/hpf} (Abnormal) Range: 0 - 5 Comments: Clumps of leukocytes present. 38-Hei-196732:06 MICROALBUMIN: CREATININE RATIO Comments: PATIENT WAS FASTINGPERFORMED BY: [employer] Donay [facility] [id number] ([id number]) AND (06680) Microalb/Creat Ratio 96.6 {mg/g_creat} (Abnormal) Range: 0.0-30.0 Microalbumin, Urine 102.3 ug/mL (Normal) Creatinine, Urine 105.9 mg/dL (Normal) 98-Sqo-880176:06 URINALYSIS (06875) Comments: PATIENT WAS FASTINGPERFORMED BY: [facility]vectorUniversity HospitalIykqrl9121 [facility] [id number] Microscopic Examination See below: (Normal) Comments: Microscopic was indicated and was performed. Nitrite, Urine Negative (Normal) Urobilinogen,Semi-Qn 0.2 mg/dL (Normal) Range: 0.2-1.0 Bilirubin Negative (Normal) Occult Blood 1+ (Abnormal) Ketones Negative (Normal) Glucose Negative (Normal) Protein 1+ (Abnormal) WBC Esterase 3+ (Abnormal) Appearance Cloudy (Abnormal) Urine-Color Yellow (Normal) pH 6.5 (Normal) Range: 5.0-7.5 Specific [place] 1.020 (Normal) Range: 1.005-1.030 43-Dwr-692265:06 CBC, Platelets & Auto Diff Comments: PATIENT WAS FASTINGPERFORMED BY: [facility]6370 [facility] [id number] ([id number]) Hematology Comments: Note: (Normal) Comments: Verified by microscopic examination. NRBC 0 % (Normal) Range: 0 - 0 Immature Grans (Abs) 0.0 {x10E3/uL} (Normal) Range: 0.0-0.1 Immature Granulocytes 0 % (Normal) Baso (Absolute) 0.0 {x10E3/uL} (Normal) Range: 0.0-0.2 Eos (Absolute) 0.0 {x10E3/uL} (Normal) Range: 0.0-0.4 Monocytes(Absolute) 1.0 {x10E3/uL} (Abnormal) Range: 0.1-0.9 Lymphs (Absolute) 3.1 {x10E3/uL} (Normal) Range: 0.7-3.1 Neutrophils (Absolute) 9.9 {x10E3/uL} (Abnormal) Range: 1.4-7.0 Basos 0 % (Normal) Eos 0 % (Normal) Monocytes 7 % (Normal) Lymphs 22 % (Normal) Neutrophils 71 % (Normal) Platelets 339 {x10E3/uL} (Normal) Range: 150-379 RDW 13.9 % (Normal) Range: 12.3-15.4 MCHC 33.5 g/dL (Normal) Range: 31.5-35.7 MCH 28.5 pg (Normal) Range: 26.6-33.0 MCV 85 fL (Normal) Range: 79-97 Hematocrit 40.3 % (Normal) Range: 34.0-46.6 Hemoglobin 13.5 g/dL (Normal) Range: 11.1-15.9 RBC 4.73 {x10E6/uL} (Normal) Range: 3.77-5.28 WBC 14.0 {x10E3/uL} (Abnormal) Range: 3.4-10.8 Comments: Verified by repeat analysis 50-Bcs-679313:06 TSH ([id number]) Comments: PATIENT WAS FASTINGPERFORMED BY: [facility] Ktitne6690 [facility] [id number] TSH 4.720 {uIU/mL} (Abnormal) Range: 0.450-4.500 00-Tec-972442:06 Lipid Panel (76697) Comments: PATIENT WAS FASTINGPERFORMED BY: [facility] Eppogh9233 [facility] [id number] LDL/HDL Ratio 1.0 {ratio_units} (Normal) Range: 0.0-3.2 Comments: LDL/HDL Ratio Men Women 1/2 Avg.Risk 1.0 1.5 Av g.Risk 3.6 3.2 2X Avg.Risk 6.2 5.0 3X Avg.Risk 8.0 6.1 LDL Cholesterol Calc 70 mg/dL (Normal) Range: 0-99 VLDL Cholesterol Sunil 24 mg/dL (Normal) Range: 5-40 HDL Cholesterol 72 mg/dL (Normal) Triglycerides 122 mg/dL (Normal) Range: 0-149 Cholesterol, Total 166 mg/dL (Normal) Range: 100-199 21-Btd-395649:06 Metabolic Panel, Comprehensive Comments: PATIENT WAS FASTINGPERFORMED BY: [facility] Ddpaee8879 [facility] [id number] (53575) ALT (SGPT) 20 [iU]/L (Normal) Range: 0-32 AST (SGOT) 22 [iU]/L (Normal) Range: 0-40 Alkaline Phosphatase, S 86 [iU]/L (Normal) Range: 39-117 Bilirubin, Total 0.3 mg/dL (Normal) Range: 0.0-1.2 A/G Ratio 1.6 (Normal) Range: 1.1-2.5 Globulin, Total 2.7 g/dL (Normal) Range: 1.5-4.5 Albumin, Serum 4.3 g/dL (Normal) Range: 3.6-4.8 Protein, Total, Serum 7.0 g/dL (Normal) Range: 6.0-8.5 Calcium, Serum 11.4 mg/dL (Abnormal) Range: 8.7-10.3 Carbon Dioxide, Total 22 mmol/L (Normal) Range: 18-29 Chloride, Serum 98 mmol/L (Normal) Range: 96-106 Potassium, Serum 4.9 mmol/L (Normal) Range: 3.5-5.2 Sodium, Serum 143 mmol/L (Normal) Range: 134-144 BUN/Creatinine Ratio 24 (Normal) Range: 11-26 eGFR If Africn Am 55 mL/min/1.73 (Abnormal) eGFR If NonAfricn Am 48 mL/min/1.73 (Abnormal) Creatinine, Serum 1.17 mg/dL (Abnormal) Range: 0.57-1.00 BUN 28 mg/dL (Abnormal) Range: 8-27 Glucose, Serum 122 mg/dL (Abnormal) Range: 65-99 Plan of Care Name Dates Details Instructions Nonsmoker : Follow up in 2 months Indication: Nonsmoker Shoulder pain, left : Shoulder Injection Indication: Shoulder pain, left Nonsmoker : Eprescribed prescriptions (G8553) Indication: Nonsmoker Anemia : Follow up in 2 weeks Indication: Anemia Encounter for annual general medical examination with abnormal findings in adult : fall reduction handout Indication: Encounter for annual general medical examination with abnormal findings in adult Encounter for annual general medical examination with abnormal findings in adult : elderly packet given Indication: Encounter for annual general medical examination with abnormal findings in adult Encounter for annual general medical examination with abnormal findings in adult : advance planning information Indication: Encounter for annual general medical examination with abnormal findings in adult Encounter for annual general medical examination with abnormal findings in adult : *Weight Loss Discussion Indication: Encounter for annual general medical examination with abnormal findings in adult Encounter for annual general medical examination with abnormal findings in adult : refer to PT for balance and strengthening Indication: Encounter for annual general medical examination with abnormal findings in adult Encounter for annual general medical examination with abnormal findings in adult : refer to dietary for weight loss Indication: Encounter for annual general medical examination with abnormal findings in adult Encounter for annual general medical examination with abnormal findings in adult : Eprescribed prescriptions (G8553) Indication: Encounter for annual general medical examination with abnormal findings in adult Type II diabetes mellitus : Follow up in 2 weeks for nurse visit Indication: Type II diabetes mellitus Preop examination : Eprescribed prescriptions (G8553) Indication: Preop examination Preop examination : Eprescribed prescriptions (G8553) Indication: Preop examination Breast cancer screening : Eprescribed prescriptions (G8553) Indication: Breast cancer screening Preop examination : Eprescribed prescriptions (G8553) Indication: Preop examination BMI 40.0-44.9, adult : Follow up in 3 months Indication: BMI 40.0-44.9, adult Type II diabetes mellitus : Eprescribed prescriptions (G8553) Indication: Type II diabetes mellitus Hypercalcemia : Reviewed Lab Indication: Hypercalcemia Fatigue : Reviewed Lab Indication: Fatigue Nonsmoker : Follow up in 3 months Indication: Nonsmoker COPD (chronic obstructive pulmonary disease) : Eprescribed prescriptions (G8553) Indication: COPD (chronic obstructive pulmonary disease) BMI 40.0-44.9, adult : Follow up in 2 weeks Indication: BMI 40.0-44.9, adult Nonsmoker : Eprescribed prescriptions (G8553) Indication: Nonsmoker Hypertension : Reviewed Diagnostic Tests Indication: Hypertension Diabetes mellitus type II, controlled, with no complications (Renamed from Controlled type 2 diabetes mellitus without complication) : Reviewed Lab Indication: Diabetes mellitus type II, controlled, with no complications (Renamed from Controlled type 2 diabetes mellitus without complication) Chronic GERD : Follow up in 1 week Indication: Chronic GERD Preop examination : Eprescribed prescriptions (G8553) Indication: Preop examination Skin cancer : Follow up in 3 months Indication: Skin cancer Diabetes mellitus type 2, uncontrolled (Renamed from Uncontrolled type 2 diabetes mellitus) : Eprescribed prescriptions (G8553) Indication: Diabetes mellitus type 2, uncontrolled (Renamed from Uncontrolled type 2 diabetes mellitus) Diabetes mellitus type 2, uncontrolled (Renamed from Uncontrolled type 2 diabetes mellitus) : Eprescribed prescriptions (G8553) Indication: Diabetes mellitus type 2, uncontrolled (Renamed from Uncontrolled type 2 diabetes mellitus) UTI (urinary tract infection) : Follow up in 1 month put on date and time that prosthodontist/educator here Indication: UTI (urinary tract infection) Abnormal TSH : Eprescribed prescriptions (G8553) Indication: Abnormal TSH Abnormal TSH : Follow up Nov 20 put on schedule to be seen by prosthodontist/educator Fabio between 2-4 Indication: Abnormal TSH Nonsmoker : Follow up in 2 weeks Indication: Nonsmoker Nonsmoker : Follow up in 3 months Indication: Nonsmoker Planned Observations Thin Prep Pap (03627)Indication: Encounter for screening for cervical cancer (Renamed from Encounter for screening for malignant neoplasm of cervix) On: 3-Pug-002427:36 Request URINE ALYCE CULTURE-IDENTIFICATN (71711)Indication: Abnormal urinalysis On: 5-Gpc-157716:12 Request HGB A1C (82802)Indication: Hypertension On: 07-Knp-478546:16 Request URINE ALYCE CULTURE-LEO COL COUNT (70494)Indication: Dysuria On: 41-Ovh-346178:04 Request Metabolic Panel, Comprehensive (59151)Indication: Hypertension On: 50-Lqt-396913:36 Request HgA1C , Office (70342)Indication: Type II diabetes mellitus On: 93-Nbv-285520:33 Request Comments: Due Aug 08 in office PT (PROTHROMBIN TIME) (31917)Indication: Hypertension On: 00-Bjk-246564:32 Request CBC, Platelets & Auto Diff (47353)Indication: Hypertension On: 66-Mla-256119:31 Request URINE ALYCE CULTURE-IDENTIFICATN (00450)Indication: UTI (urinary tract infection) On: 15-Idj-167245:15 Request Urinalysis, Office (27252)Indication: UTI (urinary tract infection) On: 41-Vdh-068352:15 Request Urinalysis, Office (74465)Indication: Preop examination On: 23-Wdy-02316:52 Request BNTP (39353)Indication: Cardiomegaly On: 67-Ejy-185138:29 Request Rapid Flu (95466 x 2)Indication: Flu-like symptoms On: 64-Ppk-584138:27 Request HGB A1C (64200)Indication: Type II diabetes mellitus On: 4-Unl-232965:38 Request Planned Encounters Medical; 2 Month FU - On: 17-Sep-2018 9:15 Comprehensive Internal Medicine Martha Self CNP, CNP, Mary E Planned Procedures Radiology - Cervical SpineBy: On: 18-Jul-2018 Intent Martha Self CNP, CNP, Mary E Radiology - Lumbar SpineBy: Clair On: 18-Jul-2018 Intent Martha AG CNP, Mary E Kenalog Injection, 10 mgm On: 18-Jul-2018 Intent ([id number])By: Martha Self CNP Comments: 1 ML used of Kenalog (40mg/ml) LOT- [id number] 2ML of marcaine 0.5% used (5mg/mL) [id number] Martha AG Radiology - Shoulder - LeftBy: On: 04-Jul-2018 Intent Martha Self CNP, CNP, Mary E Pap Smear, Medicare (Q0091)By: On: 04-Jul-2018 Intent Martha Self CNP, CNP, Mary E MAMMOGRAM BREAST BILATERAL On: 04-Jul-2018 Intent SCREENING DIGITAL (80048)By: Martha Self CNP, CNP, Mary E Bone Density StudyBy: Clair AG, On: 04-Jul-2018 Intent Martha Miranda CNP Flu Vaccine (Quadrivalent) On: 04-Jul-2018 Intent [id number]: Martha Self CNP Comments: Lot #[id number]-L dltd, IMDose prefilled syringegiven by:Srinivasan Hancock LPNVIS reviewed and ABN signed Martha AG SPIROMETRY (72642)By: Verito REARDON On: 15-Nov-2017 Intent Suellen MAMMOGRAM BREAST BILATERAL On: 14-Aug-2017 Intent SCREENING DIGITAL (00645)By: Clair Comments: fax to [facility] [phone] KIMBERLI BeulahMartah Person CNP Radiology - ChestBy: Clair AG, On: 30-Jul-2017 Intent Beulah Clair AG Beulah Spirometry (60029)By: Clair AG On: 30-Jul-2017 Intent Martha Miranda CNP ELECTROCARDIOGRAM, COMPLETE (ECG) On: 30-Jul-2017 Intent (30372)By: Suellen Sellers LPN Comments: sinus rhythm Aerosol Treatment (53923)By: Clair On: 05-Mar-2017 Intent KIMBERLI BeulahDl Self CNP Beulah Spirometry (78272)By: Clair AG On: 05-Mar-2017 Intent Martha Miranda CNP CHEST XRAY, PA & LATERAL On: 27-Feb-2017 Intent (77718)By: Martha Self CNP, CNP, Mary E Radiology - ChestBy: Clair AG, On: 26-Feb-2017 Intent Martha Miranda CNP Comments: March 06 Aerosol Treatment (92163)By: Clair On: 26-Feb-2017 Intent KIMBERLI BeulahDl Self CNP Beulah Spirometry (15311)By: Clair AG On: 26-Feb-2017 Intent Martha Miranda CNP Comments: Moderate restriction Radiology - ChestBy: Clair AG, On: 26-Feb-2017 Intent Martha Miranda CNP ELECTROCARDIOGRAM, COMPLETE (ECG) On: 26-Feb-2017 Intent (14744)By: Suellen Sellers LPN Comments: sinus rhythm ELECTROCARDIOGRAM, COMPLETE (ECG) On: 14-Nov-2016 Intent (80384)By: Martha Self CNP, CNP, Mary E Planned Medications INJECTION, TRIAMCINOLONE ACETONIDE, NOT OTHERWISE SPECIFIED, 10 MG Ordered: 18-Jul-2018 Pending Martha Self CNP, CNP, Mary E Instructions Name Dates Details Nonsmoker : How to access health information online Indication: Nonsmoker Nonsmoker : How to access health information online - Detail Indication: Nonsmoker Nonsmoker : Patient Instructions Indication: Nonsmoker Encounter for annual general medical examination with abnormal findings in adult : How to access health information online Indication: Encounter for annual general medical examination with abnormal findings in adult Encounter for annual general medical examination with abnormal findings in adult : How to access health information online - Detail Indication: Encounter for annual general medical examination with abnormal findings in adult Encounter for annual general medical examination with abnormal findings in adult : Patient Instructions Indication: Encounter for annual general medical examination with abnormal findings in adult Sleep apnea : Patient Instructions Indication: Sleep apnea Preop examination : How to access health information online Indication: Preop examination Preop examination : How to access health information online - Detail Indication: Preop examination Preop examination : Patient Instructions Indication: Preop examination Preop examination : How to access health information online Indication: Preop examination Preop examination : How to access health information online - Detail Indication: Preop examination Preop examination : Patient Instructions Indication: Preop examination Breast cancer screening : How to access health information online Indication: Breast cancer screening Breast cancer screening : How to access health information online - Detail Indication: Breast cancer screening Breast cancer screening : Patient Instructions Indication: Breast cancer screening Preop examination : How to access health information online Indication: Preop examination Preop examination : How to access health information online - Detail Indication: Preop examination BMI 40.0-44.9, adult : Patient Instructions Indication: BMI 40.0-44.9, adult Type II diabetes mellitus : How to access health information online Indication: Type II diabetes mellitus Type II diabetes mellitus : How to access health information online - Detail Indication: Type II diabetes mellitus Type II diabetes mellitus : Patient Instructions Indication: Type II diabetes mellitus COPD (chronic obstructive pulmonary disease) : How to access health information online Indication: COPD (chronic obstructive pulmonary disease) COPD (chronic obstructive pulmonary disease) : How to access health information online - Detail Indication: COPD (chronic obstructive pulmonary disease) COPD (chronic obstructive pulmonary disease) : Patient Instructions Indication: COPD (chronic obstructive pulmonary disease) Nonsmoker : How to access health information online Indication: Nonsmoker Nonsmoker : How to access health information online - Detail Indication: Nonsmoker Nonsmoker : Patient Instructions Indication: Nonsmoker Chronic GERD : Patient Instructions Indication: Chronic GERD Preop examination : How to access health information online Indication: Preop examination Preop examination : How to access health information online - Detail Indication: Preop examination Preop examination : Patient Instructions Indication: Preop examination Diabetes mellitus type 2, uncontrolled (Renamed from Uncontrolled type 2 diabetes mellitus) : How to access health information online - Detail Indication: Diabetes mellitus type 2, uncontrolled (Renamed from Uncontrolled type 2 diabetes mellitus) Diabetes mellitus type 2, uncontrolled (Renamed from Uncontrolled type 2 diabetes mellitus) : Patient Instructions Indication: Diabetes mellitus type 2, uncontrolled (Renamed from Uncontrolled type 2 diabetes mellitus) Diabetes mellitus type 2, uncontrolled (Renamed from Uncontrolled type 2 diabetes mellitus) : Patient Instructions Indication: Diabetes mellitus type 2, uncontrolled (Renamed from Uncontrolled type 2 diabetes mellitus) Abnormal TSH : How to access health information online Indication: Abnormal TSH Abnormal TSH : How to access health information online - Detail Indication: Abnormal TSH Abnormal TSH : Patient Instructions Indication: Abnormal TSH Preop examination : Patient Instructions Indication: Preop examination Diabetes mellitus type 2, uncontrolled (Renamed from Uncontrolled type 2 diabetes mellitus) : Patient Instructions Indication: Diabetes mellitus type 2, uncontrolled (Renamed from Uncontrolled type 2 diabetes mellitus) Encounters Annotation/Addendum On: 21-Jul-2018 17:32 Encounter Diagnosis: Back pain End: 21-Jul-2018 17:39 [facility] Phone Encounter On: 21-Jul-2018 16:13 Encounter Diagnosis: Spinal stenosis End: 21-Jul-2018 16:16 [facility] Office Visit On: 18-Jul-2018 13:45 Encounter Reason: Injections - The medication the patient is here to receive is other (kenalog/marcaine left shoulder)., [ADDITIONAL REASON] Falls, Geriatric - Note for Falls: May 29 fell on back then 2 weeks ago Jun End: 18-Jul-2018 14:43 fell on left sideHas neck and lumbar pain , [ADDITIONAL REASON] Shoulder Problem - Note for Shoulder problem: has left shoulder pain Encounter Diagnosis: BMI 40.0-44.9, adult, Nonsmoker, Shoulder pain, left, Neck pain, Back pain, Type II diabetes mellitus [facility] Annotation/Addendum On: 09-Jul-2018 15:17 [facility] End: 09-Jul-2018 15:24 Phone Encounter On: 09-Jul-2018 13:34 [facility] End: 09-Jul-2018 13:35 Office Visit On: 04-Jul-2018 11:04 Encounter Diagnosis: UTI (urinary tract infection) End: 04-Jul-2018 11:07 [facility] Office Visit On: 04-Jul-2018 9:47 Encounter Reason: Annual Medicare Exam - Yes the patient did have a mini mental status exam done today. The patient has had urinary incontinence and fallen in the past 6 months, but the patient has not had fecal incontin End: 04-Jul-2018 11:03 ence, missed or ran out of medications to soon, driven in past 6 months, gotten lost, has a medalert necklace or bracelet, put area rugs through house or put handrails in bathroom. The patient has compl eted the following preventative measures: mammography (07/2017dexa - ?) and colonoscopy (Dr Sutherland 2014 - scanned into chart 2017). The patient does not have durable power of district attorney or living will. Th e patient has noticed feeling emptiness in life, poor spirits most of time, feeling something bad will happen, feeling sad most of time, staying at home rather than doing something new or going out and lack of energy. Other providers contributing to the patient's care are other: (Current eye exam - Dr Byrd). Note for Annual Medicare Exam: Had fall from shower head Feels dizzy and worried about balance., [ADDITIONAL REASON] Well Women Exam - The patient feels well with no complaints. Pap smear: date of last pap: (age 73, lasst pelvic last year). Encounter Diagnosis: Need for prophylactic vaccination and inoculation against influenza (Renamed from Need for immunization against influenza), History of hematuria, Postmenopausal, Breast screening, Abnormal urinalysis, Encounter for screening for cervical cancer (Renamed from Encounter for screening for malignant neoplasm of cervix), Encounter for annual general medical examination with abnormal findings in adult, Balance disorder, Benign paroxysmal positional vertigo (Renamed from Benign positional vertigo), Shoulder pain, left, Anemia [facility] Annotation/Addendum On: 26-May-2018 9:47 [facility] End: 26-May-2018 9:48 Office Visit On: 15-Jan-2018 7:50 Encounter Reason: Pre-Op Visit - The procedure scheduled is a left total knee replacement on not scheduled. The surgeon for the procedure will be Kevin Mcdaniels. Pertinent medical history includes prior anesthesia. Pertine End: 15-Jan-2018 11:30 nt social history includes aspirin use. Note for Pre-op visit: Here for pre op clearance, had started this June 2017 was cancelled in past because of UTI, Pneumonia, and uncontrolled blood sugar. N ow with clearance from Pulmonary and cardiology will pursue work up for Left knee replacement.Encounter Diagnosis: Preop examination, Nonsmoker, BMI 40.0-44.9, adult, COPD (chronic obstructive pulmonary disease), Sleep apnea, Hypertension, H/O diastolic dysfunction, History of UTI, Asthma, Type II diabetes mellitus [facility] Annotation/Addendum On: 18-Nov-2017 15:28 Encounter Diagnosis: COPD (chronic obstructive pulmonary disease) End: 18-Nov-2017 17:01 [facility] Annotation/Addendum On: 17-Nov-2017 7:22 [facility] End: 17-Nov-2017 8:03 Office Visit On: 15-Nov-2017 11:11 Encounter Reason: Pre-Op Visit - The procedure scheduled is a left total knee replacement. The surgeon for the procedure will be Kevin Mcdaniels.Encounter Diagnosis: Nonsmoker, Preop examination, Hypertension, End: 15-Nov-2017 12:26 COPD (chronic obstructive pulmonary disease), BMI 40.0-44.9, adult, Type II diabetes mellitus, H/O diastolic dysfunction, Sleep apnea in adult, Urinary incontinence [facility] Annotation/Addendum On: 08-Nov-2017 6:50 Encounter Diagnosis: Type II diabetes mellitus End: 08-Nov-2017 6:55 [facility] Annotation/Addendum On: 15-Aug-2017 6:15 [facility] End: 15-Aug-2017 6:21 Office Visit On: 14-Aug-2017 13:55 Encounter Reason: Follow up for chronic medical issues - The patient has decreased energy level and is sleeping poorly. Current medication use: no side effects. Patient sleeps 3 (up about every hour since water pill was End: 14-Aug-2017 14:34 increased) hours per night. fasting blood sugars : (150's highest). Note for Follow up for chronic medical issues: Still has burning on urination was treated for ecoli uti on 10-31, with macrobid, sti ll burningDrinking cranberry juice and flavored waterEncounter Diagnosis: Breast cancer screening, BMI 40.0-44.9, adult, Nonsmoker, Dysuria, Hypertension, Cardiomegaly, Type II diabetes mellitus, Anemia, Bilateral knee pain [facility] Annotation/Addendum On: 09-Aug-2017 15:27 Encounter Diagnosis: Unspecified Diagnosis End: 09-Aug-2017 15:31 [facility] Annotation/Addendum On: 30-Jul-2017 10:52 Encounter Diagnosis: Unspecified Diagnosis End: 30-Jul-2017 10:54 [facility] Office Visit On: 30-Jul-2017 9:22 Encounter Reason: Pre-Op Visit - The procedure scheduled is a left total knee replacement on unknown. The surgeon for the procedure will be Kevin Mcdaniels. Recent symptoms include fatigue, while recent symptoms do not incl End: 30-Jul-2017 10:52 ude fever, chills, chest pain, cough, dyspnea, dysuria, urinary frequency, nausea, vomiting, diarrhea, abdominal pain, easy bruising, lower extremity swelling or poor exercise tolerance. Pertinent medic al history includes prior anesthesia. Pertinent family history does not include anesthesia reaction, myocardial infarction, stroke, aneurysm, sudden , clotting disorder or bleeding disorder. Pertin ent social history includes aspirin use. Note for Pre-op visit: Pt to get pre op for Left knee replacement by [facility] at unknown date.Encounter Diagnosis: BMI 40.0-44.9, adult, Nonsmoker, Preop examination, Hypertension, Depression with anxiety, Chronic GERD, Type II diabetes mellitus, Hypercholesteremia, UTI (urinary tract infection), Asthma, Sleep apnea in adult [facility] Office Visit On: 08-May-2017 14:12 Encounter Reason: Follow up for chronic medical issues - The patient does not feel well (fatigue, knee pain, worsening depression), has decreased energy level and is sleeping poorly. Current medication use: no side effec End: 08-May-2017 14:54 ts. Patient sleeps 3 hours per night. fasting blood sugars : (150's highest)., [ADDITIONAL REASON] Knee Pain - Note for Knee pain: Bilateral knee pain, unable to stand with pain , [ADDITIONAL REASON] Fatigue - Note for Fatigue: situational related to difficulty with Encounter Diagnosis: Type II diabetes mellitus, Nonsmoker, BMI 40.0-44.9, adult, Bilateral knee pain, COPD (chronic obstructive pulmonary disease) [facility] Office Visit On: 19-Mar-2017 8:04 Encounter Reason: Follow up acute care visit - The patient feels the same. Patient has been compliant with instructions. The medical issues the patient is following up for include URI., End: 19-Mar-2017 11:17 [ADDITIONAL REASON] Follow up tests - Diagnostic tests include chest X-ray. Date: (03/04). , [ADDITIONAL REASON] Cough - Note for Cough : Sleeps every 3 hrs using mucinex which helps Has mold in bathroom Encounter Diagnosis: COPD (chronic obstructive pulmonary disease), BMI 40.0-44.9, adult, Nonsmoker, Hypercalcemia, Knee pain, left, Fatigue [facility] Office Visit On: 05-Mar-2017 8:17 Encounter Reason: Follow up acute care visit - The patient does not feel well and has decreased energy level. Patient has been compliant with instructions., [ADDITIONAL REASON] Follow up tests - Date: (03/04 chest x-ray). Encounter Diagnosis: End: 05-Mar-2017 11:56 Nonsmoker, BMI 40.0-44.9, adult, COPD (chronic obstructive pulmonary disease), Pleural effusion, left, Knee pain, left [facility] Annotation/Addendum On: 27-Feb-2017 11:09 Encounter Diagnosis: Cardiomegaly, Pleural effusion, left End: 27-Feb-2017 11:11 [facility] Annotation/Addendum On: 26-Feb-2017 21:18 Encounter Diagnosis: Pleural effusion, left, Cardiomegaly End: 26-Feb-2017 21:31 [facility] Office Visit On: 26-Feb-2017 9:33 Encounter Reason: Pre-Op Visit - The procedure scheduled is a left total knee replacement on 03/12/17. The surgeon for the procedure will be Kevin Mcdaniels. Recent symptoms include fever and cough. Pertinent medical history End: 26-Feb-2017 11:07 includes prior anesthesia and diabetes. Pertinent social history includes aspirin use. After surgery the patient plans to recover in a rehabilitation center. Note for Pre-op visit: Pre op exam , [ADDITIONAL REASON] Cough - Symptoms include cough. The cough is described as productive. The cough occurs constantly. Symptoms are described as unchanged. , [ADDITIONAL REASON] Diabetes Type II, Follow Up - Note for Follow up for diabetes type II: Diabetes better controlled Encounter Diagnosis: Nonsmoker, Cough, Preop examination, BMI 40.0-44.9, adult, Hematuria, Diabetes mellitus type II, controlled, with no complications (Renamed from Controlled type 2 diabetes mellitus without complication), Hypertension, Hypercholesteremia, Asthma, Sleep apnea, Arthritis, Depression with anxiety, Urinary incontinence, Chronic GERD [facility] Office Visit On: 05-Feb-2017 7:44 Encounter Reason: Follow up for chronic medical issues - The patient feels well with no complaints, has decreased energy level and is sleeping well. Current medication use: no side effects. Patient sleeps 7 hours per nig End: 05-Feb-2017 11:38 ht. fasting blood sugars : (88)., [ADDITIONAL REASON] Diabetes Type II, Follow Up - Note for Follow up for diabetes type II: Taking metformin and victoza and glimepiride , [ADDITIONAL REASON] Knee Pain - Note for Knee pain: wt loss, left knee with shots bearble but needing knee replacement. Surgery held since BS and UTi , [ADDITIONAL REASON] Urinary problems - Note for Urinary problems: Has incontinence worked up in past with uro Encounter Diagnosis: Diabetes mellitus type 2, uncontrolled (Renamed from Uncontrolled type 2 diabetes mellitus), BMI 40.0- 44.9, adult, Nonsmoker, UTI symptoms, Urinary incontinence, Arthritis, Skin cancer [facility] Lab Order On: 21-Nov-2016 15:47 Encounter Diagnosis: CKD stage G3a/A3, GFR 45-59 and albumin creatinine ratio >300 mg/g End: 21-Nov-2016 15:49 [facility] Office Visit On: 20-Nov-2016 11:15 Encounter Reason: Follow up tests - Diagnostic tests include other (labs). Note for Discuss procedure results: feeling weak and sick since Encounter Diagnosis: Nonsmoker, BMI 40.0-44.9, adult, Abnormal TSH, End: 20-Nov-2016 12:30 Diabetes mellitus type 2, uncontrolled (Renamed from Uncontrolled type 2 diabetes mellitus), CKD stage G3a/A3, GFR 45-59 and albumin creatinine ratio >300 mg/g, UTI (urinary tract infection), Flu-like symptoms [facility] Annotation/Addendum On: 19-Nov-2016 12:52 Encounter Diagnosis: UTI (urinary tract infection) End: 20-Feb-2017 13:20 [facility] Office Visit On: 14-Nov-2016 13:22 Encounter Reason: Pre-Op Visit - The procedure scheduled is a left total knee replacement on unknown. The surgeon for the procedure will be Kevin Mcdaniels. Recent symptoms do not include fever, chills, fatigue, chest pain, End: 14-Nov-2016 14:36 cough, dyspnea, dysuria, urinary frequency, nausea, vomiting, diarrhea, abdominal pain, easy bruising, lower extremity swelling or poor exercise tolerance. Pertinent medical history includes prior anes thesia and frequent aspirin use, while pertinent medical history does not include previous anesthesia reaction (did have a harder time coming out of it, but no reaction). Pertinent social history includ es aspirin use. After surgery the patient plans to recover at home with family.Encounter Diagnosis: BMI 40.0-44.9, adult, Nonsmoker, Preop examination, Hypercalcemia, Microalbuminuria, Diabetes mellitus type 2, uncontrolled (Renamed from Uncontrolled type 2 diabetes mellitus), CKD stage G3a/A3, GFR 45-59 and albumin creatinine ratio >300 mg/g, Abnormal TSH [facility] Office Visit On: 06-Nov-2016 9:12 Encounter Reason: new patient female physical - Last seen more than 1 year ago. General health: feels well with minor complaints (low energy; both knees are bad--left worse. ??Has fallen several times over the last few y End: 06-Nov-2016 10:50 ears. Trying to get in to see Dr. Bear) and has decreased energy level. The patient's appetite is normal. Nutrition: supplemental vitamins & iron. Exercises 0 days per week. Sleeps on average 5 ( with cpap) hours per night. Elimination problems include urinary incontinence and constipation. Safety measures include home smoke detectors. Current emotional problems include anxiety, depression and s leep disturbances. screening, colonoscopy ([facility] a few years ago), screening, mammography and screening, Pap smear. Note for Physical exam: GErd acid reflux with reliefe with antacid Encounter Diagnosis: Arthritis, Cataracts, bilateral, Depression with anxiety, Hypertension, Type II diabetes mellitus, Sleep apnea, Hypercholesteremia, BMI 50.0-59.9, adult, Nonsmoker, Diabetes mellitus type 2, uncontrolled (Renamed from Uncontrolled type 2 diabetes mellitus), Knee buckling [facility] Payers [employer] Marc Hurst; jessenia guarantor
--- OUTSIDE RECORDS SUMMARY | 2018-10-22 20:33 | XMS RPT_ITS | Continuity of Care Document ---
:1945 Author Organization [facility] Address [facility]7 [facility] 2 [place] [address] Phone Care Team Providers Name Role Phone Clair AG, Beulah Unavailable Bailey BAER, uX [place] Unavailable Enedelia BAER, Kevin Tobar Unavailable Julito Thornton Unavailable Joshua Moeller Unavailable Tess Stone Unavailable Unavailable Slarb LAMP MECHANIC, Suellen Unavailable Unavailable Long LAMP MECHANIC, Renée L Unavailable Unavailable Manchak, Jessica Unavailable [...] Moodispaws note and Cardiology visit report from 5-76-15Xuxjisoqu from Pulmonary with need for agressiv e [...] Martha Cormier CNP Start : 31-Jul-2018 Active Ferrous Sulfate 325 (65 Fe) MG Oral Tablet 1 (one) Tablet Tablet bid for 0 days Quantity: 60 {Tablet} Refills: 0 Ordered:15-Nov-2017 Slarb CARON Suellen Start : 14-Aug-2017 Active Furosemide 40 MG Oral Tablet 1 (one) Tablet bid for 180 days Quantity: 180 {Tablet} Refills: 0 Ordered:05-Aug-2018 Clair AG, Martha Cormier CNP Start : 05-Aug-2018 Active Glimepiride 4 MG Oral Tablet 1 (one) Tablet daily for 90 days Quantity: 90 {Tablet} Refills: 0 Ordered:05-Aug-2018 Clair AG, Martha Cormier CNP Start : 05-Aug-2018 Active Lasix 40 MG Oral Tablet 1 (one) Tablet bid for 0 days Quantity: 90 {Tablet} Refills: 0 Ordered:14-Aug-2017 Clair AG, Martha Cormier CNP Start : 14-Aug-2017 Active Lasix 40 MG Oral Tablet 1 (one) Tablet bid for 0 days Quantity: 60 {Tablet} Refills: 0 Ordered:14-Aug-2017 Clair AG, Martha Cormier CNP Start : 14-Aug-2017 Active Levalbuterol HCl 0.63 MG/3ML Inhalation Nebulization Solution 1 (one) Nebulized Soln tid prn for 0 days Quantity: 1 {Box} Refills: 6 Ordered:05-Mar-2017 Clair AG, Martha Cormier CNP Start : 05-Mar-2017 Active Levalbuterol HCl 0.63 MG/3ML Inhalation Nebulization Solution 1 (one) Nebulized Soln tid prn for 0 days Quantity: 1 {Box} Refills: 3 Ordered:05-Mar-2017 Martha Self CNP, CNP, Mary E Start : 05-Mar-2017 Active Losartan Potassium 25 MG Oral Tablet 2 (two) Tablet daily for 90 days Quantity: 320 {Tablet} Refills: 3 Ordered:15-Nov-2017 Martha Self CNP, CNP, Mary E Start : 15-Nov-2017 Active Meclizine HCl 12.5 [...] Refills: 0 Ordered:05-Mar-2017 Martha Self CNP, CNP, Mary E Start : 05-Mar-2017 Active NovoFine 30G X 8 MM Miscellaneous 1 (one) Misc Misc daily for 0 days Quantity: 1 {Box} Refills: 6 Ordered:14-Nov-2016 SlaSuellen houston LPN Start : 14-Nov-2016 Active Pantoprazole Sodium 40 MG Oral Tablet Delayed Release 1 (one) Tablet DR daily for 90 days Quantity: 90 {Tablet} Refills: 4 Ordered:31-Jul-2018 Martha Self CNP, CNP, Mary E Start : 31-Jul-2018 Active Potassium Chloride ER 8 MEQ Oral Capsule Extended Release 1 (one) Capsule ER bid with lasix bid for 0 days Quantity: 180 {Capsule} Refills: 3 Ordered:18-Dec-2017 Martha Self CNP, CNP, Mary E Start : 18-Dec-2017 Active Simvastatin 20 MG Oral Tablet 1 (one) Tablet daily for 90 days Quantity: 90 {Tablet} Refills: 4 Ordered:31-Jul-2018 Clair AG, Martha Cormier CNP Start : 31-Jul-2018 Active Tradjenta 5 MG [...] days Quantity: 2 {Inhaler_Refill} Refills: 0 Ordered:30-Jul-2017 Martha Self CNP, CNP, Mary E Start : 26-Feb-2017 End : 30-Jul-2017 Inactive Doxycycline Hyclate 100 MG Oral Capsule 1 (one) Capsule bid for 10 days Quantity: 20 {Capsule} Refills: 0 Ordered:08-Mar-2017 Martha Self CNP, CNP, Mary E Start : 26-Feb-2017 End : 08-Mar-2017 Inactive [...] Quantity: 360 {Tablet} Refills: 4 Ordered:09-Aug-2017 Clair AG, Martha Lin CNP, Martha Nam Start : 30-Jul-2017 End : [...] knee pain (M25.561, 719.46) Comments: resend to [facility], cant do surgery because sick will see if [facility] can do Euflexa Status: Inactive as of 30-Jul-2017 BMI 40.0-44.9, adult (Z68.41, V85.41) Status: Inactive as of 30-Jul-2017 BMI 40.0-44.9, adult (Z68.41, V85.41) Comments: wt from 263 to 212 over 1 year Status: Inactive as of 08-May-2017 BMI 50.0-59.9, adult (Z68.43, V85.43) Status: Inactive [...] of 15-Nov-2017 Hypercalcemia (E83.52, 275.42) Comments: held crisully, Vit K and vitamins Status: Inactive as [...] PT Communication Result: Comments: See Note; NOTES: [facility] [address] [place], [place] [address] Fax REHABILITATION SERVICES PROGRES S NOTE MR#: [id number] Acct: [id number] Name: FANY HURST Rep #: [id number] : 1945 73 From: Suellen Chiu MPT Referring Dr.: Martha Self NP Status: DIS RCR Insurance: [employer] MEDICARE PPO SELF PAY INSURANCE PT Communication Note 07/23/[address] Martha Self, [employer] , Thank you for the referral of [...] BELTRE Cosigner Signature (if applicable): Date CC: Mratha Self NP Signed For Medicare only, by signing this I certify the plan of care. Physicians Signature Date 23-Jul-2018 PT D/C Summary (1) Result: Comments: See Note; NOTES: [facility] Physical [facility] [address] [place] [address] Fax REHABILITATION SERVICES DISCHAR GE SUMMARY MR#: [id number] Acct: [id number] Name: FANY HURST Rep #: [id number] [...] please feel free to call me at [phone]. Thank you for the referral of this patient. Sincerely, Suellen Chiu <Elizabeth ctronically signed by Suellen Chiu MPT> 07/23/18 1733 CC: Martha Self NP Signed 18-Jul-2018 Cerv Spine 4 or 5 Views Result: Comments: See Note; NOTES: [facility] Imaging Services [address] [place] [address] Cerv Spine 4 or 5 Views MR#: [id number] Acct: [id number] Name: FANY HURST Rep #: [id number] : 1945 F 73 From: Jean-Pierre Joyce MD PCP: Martha Self NP Status: REG CLI Study: Cerv Spine 4 or 5 Views Date of Exam: 07/18/18 Exam# [id number] Ordering Dr: Martha Self [employer] CONSULTANT-C STUDY: X-RAY - CER VICAL SPINE REASON [...] Service support , CC: Martha Self NP Manager Group: Signed 18-Jul-2018 L/S Spine Min 4 Views Result: Comments: See Note; NOTES: [facility] Imaging Services [address] [place] [address] L/S Spine Min 4 Views MR#: [id number] Acct: [id number] Name: FANY HURST Rep #: [id number] : 1945 F 73 From: Jean-Pierre Joyce MD PCP: Martha Self NP Status: REG CLI Study: L/S Spine Min 4 Views Date of Exam: 07/18/18 Exam# [id number] Ordering Dr: Martha Self [employer] CONSULTANT-C STUDY: X-RAY - LUMBAR SPINE REASON FOR [...] Service support , CC: Martha Self NP Manager Group: Signed 08-Jul-2018 Inital Evaluation (1) - PT Result: Comments: See Note; NOTES: [facility] [address] [place], [place] [address] Fax REHABILITATION SERVICES INITIAL EVALUATION MR#: [id number] Acct: [id number] Name: FANY HURST Rep #: [id number] : 1945 73 From: Suellen Chiu MPT Referring Dr.: Martha Self [employer] CONSULTANT Status: REG RCR Insurance: HU[employer]NA MEDICARE PPO [...] to be FAXED BACK to us at [phone] for Medicare purposes. Please let me know if there are questions or concerns regarding this plan of care. Physician Signature: Date: <Electronically signed by Suellen Chiu MPT> 07/08/18 1731 CC: Martha Self NP Signed For Medicare only, by signing this I certify the plan of care. Physicians Signature Date 04-Jul-2018 Shoulder min 2 Views Result: Comments: See Note; NOTES: [facility] Imaging Services [address] [address] Shoulder min 2 Views MR#: [id number] Acct: [id number] Name: FANY HURST Rep #: [id number] D OB: 1945 F 73 From: Jose Angel Mendoza MD PCP: Martha Self NP Status: REG CLI Study: Shoulder min 2 Views Date of Exam: 07/04/18 Exam# [id number] Ordering Dr: Martha Self STUDY: X-RAY - [...] EDT , Service support , CC: Martha Self NP Manager Group: Signed 31-Jan-2018 12 Lead Electrocardiogram Result: Comments: See Note; NOTES: [facility] Cardiovascular Services [address] [place] [address] EKG - SDC 01/30/18 1301 MR#: [id number] Acct: [id number] Name: FANY HURST Rep #: [id number] [...] Confir med by BAILEY BAER, XU ([id number]), food editor BENJI ASHRAF ([id number]) on 01/31/2018 2:57:35 PM Referred By: Kevin Mcdaniels Confirmed By:XU GARDUNO MD 01/31/18 1457 Date Xu Garduno MD CC: Martha Self NP; Kevin Mcdaniels MD Date Dictated: 01/30/181300 Date Transcribed: 01/30/181300 Manager Group: Signed 19-Dec-2017 Cardiology Visit Report Result: Comments: See Note; NOTES: [facility] [address] [place] [address] OFFICE VISIT Date of Service: 12/19/17 MR#: [id number] Acct: [id number] Name: FANY HURST Rep #: [id number] : 1945 Provider: JEANNE Becerril Age/Sex: 72/F Location[place] [facility] Status: Signed HPI HPI Details: FANY HURST, [...] radial Intake Visit Reasons: 3 M FU Mold Hoister Required: No Accompanied by: Is patient in [...] PO Q12H PRN 09/16/17 [History Confirmed 12/19/17] budc-Q24-kvzlhhfr tablet 1 tab PO QDAY 09/16/17 [Histo [...] monitor this. 3. Essential hypertension I10 FELICIA Shaw Patient's blood pressure is well-controlled today in e office. We will continue to monitor this. We will not make any medication regimen changes. 4. Mixed hyperlipidemia E78.2 FELICIA Shaw Patient states this is being [facility]. Patient will continue with current cholesterol [...] monitor this. Plan Detail Additional Comments - MONIKA ForbesC Discussed the above patient with Dr. Alcala [...] Diabetes mellitus type: type 2 Diabetes mellitus retirement insulin use: with marleny g term use [...] Diabetes mellitus type: type 2 Diabetes mellitus salvage determiner insulin use: with salvage determiner use Diabetes mellitus complication status: without complication Chronic obstructive pulmonary disease, unspecified COPD type J44.9 COPD type: unspecified COPD Palpitations R 00.2 12/19/17 1203 <Electronically signed by Atilio FRANKC> Date Atilio FRANKC 12/19/17 1331<Electronically signed by Fernando Alcala MD> Cosigner Signature: Date (if applicable) Fernando Alcala MD CC: Martha Self NP 21-Nov-2017 Chest PA and Lateral Result: Comments: See Note; NOTES: [facility] Imaging Services [address] [place] [address] Chest PA and Lateral MR#: [id number] Acct: [id number] Name: FANY HURST Rep #: [id number] D OB: 1945 F 72 From: Lulu Lincoln MD PCP: Martha Self NP Status: REG CLI Study: Chest PA and Lateral Date of Exam: 11/21/17 Exam# [id number] Ordering Dr: Julito Thornton MD STUDY: X-RAY [...] , Service support , CC: Martha Self [employer] CONSULTANT; Julito Thornton MD Manager Group: Signed 20-Nov-2017 Cardiology Visit Report Result: Comments: See Note; NOTES: [facility] [address] [place] [address] OFFICE VISIT Date of Service: 09/18/17 MR#: [id number] Acct: [id number] Name: FANY HURST Rep #: [id number] : 1945 Provider: Xu Garduno MD Age/Sex: 72/F Location: [facility] Status: Signed HPI CARDIAC CLEARENCE KNEE SURGERY [...] PO Q12H PRN 09/16/17 [History Confirmed 09/18/17] bppx-G59-qzraxef s tablet 1 tab PO QDAY 09/16/17 [...] prior to saving. Follow Up 3 Months (PA/[employer] CONSULTANT) 09/18/17 3506 <Electronically signed by Xu Garduno MD> Date Xu Garduno MD Cosigner Signature: Date (if applicable) CC: 20-Sep-2017 Echocardiogram Complete Result: Comments: See Note; NOTES: [facility] Cardiovascular Services [address] [place] [address] Echo Complete W/ Contrast 09/20/17 0809 MR#: [id number] Acct: [id number] Name: FANY WEINSTEIN Rep #: [id number] : 1945 72 From: Xu Garduno MD Attending Dr: Xu Garduno MD Status: REG CLI Ordering Dr: Xu Garduno MD Date: 09/20/17 Location: [facility] Sex: F C Admitted: R donna For [...] Date Xu Garduno MD CC: Martha Self [employer] CONSULTANT; Xu Garduno MD Date Dictated: 09/20/17 0841 Date Transcribed: 09/20/171235 Manager Group: Signed 20-Sep-2017 Stress Report Result: Comments: See Note; NOTES: [facility] Cardiovascular Services [address] [place] [address] MR#: [id number] Acct: [id number] Name: FANY HURST Rep #: [id number] : [birth year] 72 From: Fernando Alcala [...] NP Date Dictated: 09/20/17957 Date Transcribed: 09/20/17957 Manager Group: CO Signed 18-Sep-2017 Cardiology Visit Report Result: Comments: See Note; NOTES: [facility] [address] [place] [address]. [address] [place] [address] OFFICE VISIT Date of Service: 09/18/17 MR#: [id number] Acct: [id number] Name: FANY HURST Rep #: [id number] : 1945 Provider: Xu Garduno MD Age/Sex: 72/F Location: [facility] Status: Signed HPI CARDIAC CLEARENCE KNEE SURGERY [...] PO Q12H PRN 09/16/17 [History Confirmed 09/18/17] xfbk-D97-sgnfbfu s tablet 1 tab PO QDAY 09/16/17 [...] PO BID tab 09/18/17 [History Confirmed 09/18/17] [facility] Medical History Preoperative cardiovascular examinat ion (Acute) [...] prior to saving. Follow Up 3 Months (PA/[employer] PRODUCT CONSULTANT) 09/18/17 1738 <Electronically signed by Xu Garduno MD> Date Xu Garduno MD Cosigner Signature: Date (if applicable) CC: 18-Sep-2017 12 Lead EKG performed by BMS Result: Comments: See Note; NOTES: [facility] [address] [place] [address] 12 Lead EKG performed by BMS 09/18/17 113 MR#: [id number] Acct: [id number] Name: FANY HURST Rep #: [id number] : 1945 72 From: Xu Garduno MD Attending Dr: Xu Garduno MD Status: DEP AMB Ordering Dr: Xu Garduno MD Date: 09/18/17 [place] [facility] Sex: F C Admitted: O RDER #: [id number] BMS/12 Lead EKG performed by [facility] ECG Report Interpretation Somatic / motion artifactSinus Rhythm Low voltage in precordial leads. Poor R wave progression.Infe rior [place], age undetermined, cannot be excludedABNORMAL Electronically signed on 09/18/2017 at 17:30 by Xu Garduno 09/18/17 1733 Date Xu Garduno MD CC: Martha Self NP Date Dictated: 09/18/171130 Date Transcribed: 09/18/17 113 Manager Group: PM Signed 18-Sep-2017 12 Lead EKG performed by BMS Result: Comments: See Note; NOTES: [facility] [address] [place] [address] 12 Lead EKG performed by [facility] 09/18/17 1131 MR#: [id number] Acct: [id number] Name: FANY HURST Rep #: [id number] : 1945 72 From: Xu Garduno MD Attending Dr: Xu Garduno MD Status: DEP [facility] Ordering Dr: Xu Garduno MD Date: 09/18/17 Location: [facility] Sex: F C Admitted: O RDER #: [id number] BMS/12 Lead EKG performed by [facility] ECG Report Interpretation Somatic / motion artifactSinus Rhythm Low voltage in precordial leads. Poor R wave progression.Infe rior [place], age undetermined, cannot be excludedABNORMAL Electronically signed on 09/18/2017 at 17:30 by Xu Garduno 10/16/17 1615 Date Xu Garduno MD CC: Martha Self NP Date Dictated: 09/18/171130 Date Transcribed: 09/18/171130 Manager Group: PM Signed 30-Jul-2017 Chest PA and Lateral Result: Comments: See Note; NOTES: [facility] Imaging Services [address] [place] [address] Chest PA and Lateral MR#: [id number] Acct: [id number] Name: FANY HURST Rep #: [id number] D OB: 1945 F 72 From: Alcides Saha MD PCP: Martha Self Status: REG CLI Study: Chest PA and Lateral Date of Exam: 07/30/17 Exam# [id number] Ordering Dr: Martha Self STUDY: X-RAY CHEST [...] Alcides Saha MD at 11:09 EDT Tel [phone], Service support , Fax CC: Martha Self Manager Group: Signed 04-Mar-2017 Chest PA and Lateral Result: Comments: See Note; NOTES: [facility] Imaging Services [address] [place] [address] [place] 4d Chest PA and Lateral MR#: [id number] Acct: [id number] Name: FANY HURST Rep #: [id number] : 1945 F 71 From: Milvia Romero MD PCP: Martha Self Status: REG CLI Study: Chest PA and Lateral Date of Exam: 03/04/17 Exam# [id number] Ordering Dr: Martha Self STUDY: X-RAY CHEST [...] Milvia Romero MD at 19:31 EDT Tel [phone], Service support , CC: Martha Self Manager Group: Signed 26-Feb-2017 Chest PA and Lateral Result: Comments: See Note; NOTES: [facility] Imaging Services [address] [place] [address] [place] 4d Chest PA and Lateral MR#: [id number] Acct: [id number] Name: FANY HURST Rep #: [id number] : 1945 F 71 From: Geovany Bauer DO PCP: Martha Self Status: REG CLI Study: Chest PA and Lateral Date of Exam: 02/26/17 Exam# [id number] Ordering Dr: Martha Sefl STUDY: X-RAY CHEST REASO N FOR EXAM: [...] Geovany Bauer DO at 18:19 EDT Tel [phone], Service support , CC: Martha Self Manager Group: Signed Family History Unknown Family Member Name Dates Details Brother 1 Comments: cancer-lung, anuerism Status: Active Father Comments: CVA; diabetes Status: Active Mother Comments: CHF Status: Active Sister 1 Comments: [place] Status: Active Sister 2 Comments: Murdered Status: [...] kg/m2 Body Surface Area Calculated 1.91 m2 20-Rzr-104415:23 Temperature 98.3 f Pulse 85 /min Comments: [...] kg/m2 Body Surface Area Calculated 1.93 m2 02-Fot-794662:26 Temperature 97.6 f Pulse 91 /min Comments: [...] 1.94 m2 Results Date Description Value Details 8-Yml-341655:08 URINE ALYCE CULTURE-IDENTIFICATN Comments: PATIENT NOT FASTINGPERFORMED BY: [facility] Kbqeux9933 [facility] [id number] Information: SRC:MILA ([id number]) Antimicrobial MIHEAD (Normal) Comments: S = Susceptible; [...] and Proteusmirabilis. Urine Final report Culture,Comprehensive (Abnormal) 7-Rat-786761:28 TSH ([id number]) Comments: PATIENT WAS FASTINGPERFORMED BY: [facility] [id number] TSH 6.450 {uIU/mL} (Abnormal) Range: 0.450-4.500 2-Byq-651719:28 CBC, Platelets & Auto Diff Comments: PATIENT WAS FASTINGPERFORMED BY: [facility] [id number] (10675) Immature Grans (Abs) 0.0 {x10E3/uL} (Normal) Range: [...] 3.77-5.28 WBC 8.7 {x10E3/uL} (Normal) Range: 3.4-10.8 7-Tvl-030739:28 Lipid Panel (36203) Comments: PATIENT WAS FASTINGPERFORMED BY: [facility] Hamilton[facility]fljry9797 [facility] [id number] LDL/HDL Ratio 0.9 {ratio} (Normal) Range: 0.0-3.2 Comments: LDL/HDL Ratio Men Women 1/2 Avg.Risk 1.0 1.5 Av g.Risk 3.6 3.2 2X Avg.Risk 6.2 5.0 3X Avg.Risk 8.0 6.1 LDL Cholesterol Calc 68 mg/dL (Normal) Range: 0-99 VLDL Cholesterol Sunil 22 mg/dL (Normal) Range: 5-40 HDL Cholesterol 72 mg/dL (Normal) Triglycerides 108 mg/dL (Normal) Range: 0-149 Cholesterol, Total 162 mg/dL (Normal) Range: 100-199 5-Rvo-377026:28 Metabolic Panel, Comprehensive Comments: PATIENT WAS FASTINGPERFORMED BY: [facility] Rylfia2370 [facility] [id number] (17433) ALT (SGPT) 15 [iU]/L (Normal) Range: 0-32 [...] mg/dL (Normal) Range: 65-99 04-Jul-20182:00 HPV, Reflex (57779) Comments: Source.............Cervix;EndocervixNo. of containers..01 ThinPrep VialPATIENT NOT FASTINGPERFORMED BY: [facility] [id number] Information: [id number] Note: PAPSMR (Normal) Comments: The Pap smear [...] evaluation. No endocervical component is identified.Z12.4Svikas Feng Hall Porter (ASCP) 2-Iek-318407:04 Urinalysis, Office (30230) UA - LEUKOCYTE ESTERASE Moderate (Normal) UA - NITRITE Positive (Normal) URINE UROBILINGN LEO TIMED Normal mg/dL (Normal) UA - PROTEIN Trace mg/dL (Normal) UA - PH 7 (Normal) UA - BLOOD Non Hemolyzed Moderate (Normal) UA - SPECIFIC GRAVITY 1.015 (Normal) UA - KETONES Negative mg/dL (Normal) UA - BILIRUBIN Negative (Normal) UA - GLUCOSE Negative (Normal) 2-Psr-959159:15 Basic Metabolic Profile (BMP) Comments: [facility] [address] [place], [address] GAP 7 (Normal) Range: 5-15 CO2 31.0 [...] Comments: Please note revised GLUCOSE reference range fevaenlkg54/02/2018. 4-Rbf-566095:15 CBC-Complete Blood Cnt No Diff Comments: [facility] [address] [place], [address] MPV 10.3 fL (Normal) Range: 6.2-12.0 PLT [...] 4.2-5.4 WBC 7.3 K/mm3 (Normal) Range: 4.4-11.0 9-Tax-960411:15 MRSA/SAID SCREEN Comments: [facility] [address] [place], [place], [address] MRSA+SAID SCRN See Note (Normal) Comments: MRSA/SAID SCRNS. AUREUS S. aureus NegativeMRSA MRSA Negative 08-Tmd-204319:10 HgA1C , Office (15294) HgA1C , Office 6.9 % (Normal) Range: 4.6 - 7.1 31-Fjo-591650:04 URINE ALYCE CULTURE-IDENTIFICATN Comments: PATIENT NOT FASTINGPERFORMED BY: [facility] [id number] Information: SRC: ([id number]) Antimicrobial MIHEAD (Normal) Comments: S = Susceptible; [...] mL (Abnormal) Urine Final report Culture,Comprehensive (Abnormal) 59-Kfc-54385:38 Urinalysis, Office (16255) UA - LEUKOCYTE ESTERASE Moderate (Normal) UA - NITRITE Negative (Normal) URINE UROBILINGN LEO TIMED Normal mg/dL (Normal) UA - PROTEIN Negative mg/dL (Normal) UA - PH 7 (Normal) UA - BLOOD Non Hemolyzed Trace (Normal) UA - SPECIFIC GRAVITY 1.015 (Normal) UA - KETONES Negative mg/dL (Normal) UA - BILIRUBIN Negative (Normal) UA - GLUCOSE Negative (Normal) 58-Xpo-368051:54 Metabolic Panel, Comprehensive Comments: PATIENT NOT FASTINGPERFORMED BY: [facility] [id number] (79850) ALT (SGPT) 13 [iU]/L (Normal) Range: 0-32 [...] Glucose, Serum 164 mg/dL (Abnormal) Range: 65-99 35-Byb-888676:54 HGB A1C (34790) Comments: PATIENT NOT FASTINGPERFORMED BY: [facility] Fewmfz3001 [facility] [id number] Hemoglobin A1c 7.8 % (Abnormal) Range: 4.8-5.6 Comments: . Pre-diabetes: 5.7 - 6.4 Diabetes: >6.4 Glycemic control for adults with diabetes: <7.0 52-Ncz-104667:16 Urinalysis, Office (16403) UA - LEUKOCYTE ESTERASE Moderate (Normal) UA - NITRITE Negative (Normal) URINE UROBILINGN LEO TIMED Normal mg/dL (Normal) UA - PROTEIN Negative mg/dL (Normal) UA - PH 7 (Normal) UA - BLOOD Hemolyzed Small (Normal) UA - SPECIFIC GRAVITY 1.010 (Normal) UA - KETONES Negative mg/dL (Normal) UA - BILIRUBIN Negative (Normal) UA - GLUCOSE Negative (Normal) 11-Ycq-303322:24 HGB A1C (87084) Comments: PERFORMED BY: [facility] Yeoqvc65[address] [facility] [place] [id number] Hemoglobin A1c 6.5 % (Abnormal) Range: 4.8-5.6 Comments: . Pre-diabetes: 5.7 - 6.4 Diabetes: >6.4 Glycemic control for adults with diabetes: <7.0 11-Fqg-851414:04 Urinalysis, Office (15562) UA - LEUKOCYTE ESTERASE Small (Normal) UA [...] enough for a C/S to be sent 77-Guq-386525:20 CBC W/Diff, Automated Comments: [facility] [address] [facility]. [place], [place], [address] Absolute Lymph 2.65 {X10_3/ul} (Normal) Range: 0.83-4.51 [...] 4.2-5.4 WBC 8.9 K/mm3 (Normal) Range: 4.4-11.0 56-Uwu-004997:20 Comprehensive Metabolic Profil Comments: [facility] [address] [place], [place], [address] GAP 8 (Normal) Range: 5-15 CO2 29.0 [...] <126 mg/dLsuggests IMPAIRED HOMEOSTASIS per A.D.A. criteria. 96-Lnf-415928:20 Culture, Urine Comments: [facility] Q[address]hzlccvx[address] [facility] [address] [place], [place], [address] CUUR See Note (Normal) Comments: Urine CultureORGANISM [...] <= 20 S(NF) indicates non-formulary drug at [facility]. Approval by Infectious Disease Specialist required before non- formulary drugs may be ordered and/or dispensed. 01-Txq-436121:20 Prothrombin Time w/INR Comments: [facility] [address] [place], [place], [address] INR 1.0 (Normal) PROTIME 13.1 s (Normal) Range: 11.7-14.9 35-Itj-740754:25 CBC, Platelets & Auto Diff Comments: Jul 2017; PATIENT NOT FASTINGPERFORMED BY: [facility] Idiqik6849 [facility] [id number] (25348) Hematology Comments: Note: (Normal) Comments: Verified by [...] 3.77-5.28 WBC 9.1 {x10E3/uL} (Normal) Range: 3.4-10.8 99-Xum-705218:25 Metabolic Panel, Comprehensive Comments: Jul 2017; PATIENT NOT FASTINGPERFORMED BY: LabCoRobert [facility] Johnson [facility] Hospital at HamiltonUcyxdv5472 [facility] [id number]; OV 08/14 (88342) ALT (SGPT) 15 [iU]/L (Normal) Range: 0-32 [...] Glucose, Serum 162 mg/dL (Abnormal) Range: 65-99 :14 HgA1C , Office (72253) HgA1C , Office 6.3 % (Normal) Range: 4.6 - 7.1 :14 Blood Glucose , Office (33603) Blood Glucose , Office 100 (Normal) 36-Dlw-383803:06 Metabolic Panel, Comprehensive Comments: today; PATIENT NOT FASTINGPERFORMED BY: LabCoRobert Wood Johnson [facility] Hospital at HamiltonXatshl8904 [facility] [id number] (90787) ALT (SGPT) 14 [iU]/L (Normal) Range: 0-32 [...] Glucose, Serum 93 mg/dL (Normal) Range: 65-99 3-Djw-368950:52 Urinalysis, Office (75032) UA - LEUKOCYTE ESTERASE Negative (Normal) UA - NITRITE Negative (Normal) URINE UROBILINGN LEO TIMED Normal mg/dL (Normal) UA - PROTEIN Negative mg/dL (Normal) UA - PH 7.0 (Normal) UA - BLOOD Hemolyzed Trace (Normal) UA - SPECIFIC GRAVITY 1.015 (Normal) UA - KETONES Negative mg/dL (Normal) UA - BILIRUBIN Negative (Normal) UA - GLUCOSE Negative (Normal) 39-Ukt-314339:44 BNTP (95736) Comments: PATIENT NOT FASTINGPERFORMED BY: Neurescue70 [facility]xAt[facility] [id number] B-Type Natriuretic Peptide 11.6 pg/mL (Normal) Range: 0.0-100.0 34-Rud-42384:46 Sputum Culture (73363) Comments: PATIENT NOT FASTINGPERFORMED BY: CareHubsAt[facility] [id number] Information: SRC:SP Result 1 RRF (Normal) Comments: Routine respiratory alaina Lower Respiratory Culture Final report (Normal) 76-Rlz-778560:47 URINE ALYCE CULTURE-IDENTIFICATN Comments: PATIENT NOT FASTINGPERFORMED BY: [facility]At[facility] [id number] Information: SRC:UC (41835) Result 1 MUG (Normal) Comments: Mixed urogenital flora25,000-50,000 colony forming units per mL Urine Final report (Normal) Culture,Comprehensive 12-Uhz-33226:38 Urinalysis, Office (90039) UA - LEUKOCYTE ESTERASE Negative (Normal) UA - NITRITE Negative (Normal) URINE UROBILINGN LEO TIMED Normal mg/dL (Normal) UA - PROTEIN Negative mg/dL (Normal) UA - PH 7.5 (Normal) UA - BLOOD Hemolyzed Trace (Normal) UA - SPECIFIC GRAVITY 1.015 (Normal) UA - KETONES Negative mg/dL (Normal) UA - BILIRUBIN Negative (Normal) UA - GLUCOSE Negative (Normal) :47 Blood Glucose , Office (96884) Blood Glucose , Office 90 (Normal) :47 HgA1C , Office (87468) HgA1C , Office 5.7 % (Normal) Range: 4.6 - 7.1 6-Cah-458471:26 Microscopic Examination Comments: PATIENT WAS FASTINGPERFORMED BY: Balluun6370 [facility] [id number] Bacteria Few (Normal) Mucus Threads Present (Normal) Cast Type Hyaline casts (Normal) Casts Present {/lpf} (Abnormal) Epithelial Cells (non renal) 0-10 {/hpf} (Normal) Range: 0 - 10 RBC 0-2 {/hpf} (Normal) Range: 0 - 2 WBC 0-5 {/hpf} (Normal) Range: 0 - 5 4-Viu-489494:26 METABOLIC PANEL, COMPREHENSIVE Comments: PATIENT WAS FASTINGPERFORMED BY: [employer]70 [facility] [id number] (03443) ALT (SGPT) 12 [iU]/L (Normal) Range: 0-32 [...] Glucose, Serum 85 mg/dL (Normal) Range: 65-99 6-Cwn-451559:26 MICROALBUMIN: CREATININE RATIO Comments: PATIENT WAS FASTINGPERFORMED BY: [facility]At[facility] [id number] (61086) AND (54297) Microalb/Creat Ratio 25.9 {mg/g_creat} (Normal) Range: 0.0-30.0 Microalbumin, Urine 9.1 ug/mL (Normal) Creatinine, Urine 35.1 mg/dL (Normal) 2-Bpw-299694:26 URINALYSIS (15265) Comments: PATIENT WAS FASTINGPERFORMED BY: Balluun6370 [facility]xAt[facility] [id number] Microscopic Examination See below: (Normal) Comments: Microscopic was indicated and was performed. Nitrite, Urine Negative (Normal) Urobilinogen,Semi-Qn 0.2 mg/dL (Normal) Range: 0.2-1.0 Bilirubin Negative (Normal) Occult Blood Negative (Normal) Ketones Negative (Normal) Glucose Negative (Normal) Protein Negative (Normal) WBC Esterase Trace (Abnormal) Appearance Clear (Normal) Urine-Color Yellow (Normal) pH 7.0 (Normal) Range: 5.0-7.5 Specific [place] 1.012 (Normal) Range: 1.005-1.030 31-Dje-185987:09 Metabolic Panel, Comprehensive Comments: PATIENT NOT FASTINGPERFORMED BY: CADEN [facility] Eqjwfx[address] [place] [id number] (19535) ALT (SGPT) 16 [iU]/L (Normal) Range: 0-32 [...] Glucose, Serum 145 mg/dL (Abnormal) Range: 65-99 44-Tns-354848:30 URINE ALYCE CULTURE-IDENTIFICATN Comments: PATIENT NOT FASTINGPERFORMED BY: Digital BloomBr[facility] Hospital6370 [facility] [id number] Information: SRC:UC (96573) Antimicrobial MIHEAD (Normal) Comments: S = Susceptible; [...] mL (Abnormal) Urine Final report Culture,Comprehensive (Abnormal) 18-Sqs-996182:00 TSH (THYROID STIMULATING Comments: PATIENT NOT FASTINGPERFORMED BY: [facility] BloomBr[facility] Hospital6370 [facility] [id number] HORMONE) (18179) TSH 3.840 {uIU/mL} (Normal) Range: 0.450-4.500 66-Ies-090966:59 UPEP (95793) Comments: PATIENT NOT FASTINGPERFORMED BY: [facility]6370 [facility] [id number] Please note: SPRCS (Normal) Comments: Protein electrophoresis scan will follow via computer, mail, orcourier delivery. M-Romeo, % Not Observed % (Normal) Gamma Globulin, U 9.0 % (Normal) Beta Globulin, U 23.1 % (Normal) Mreic-0-Jvjabhkb, U 8.3 % (Normal) Ulwiq-9-Okhmdsva, U 2.1 % (Normal) Albumin, U 57.4 % (Normal) Protein,Total,Urine 17.6 mg/dL (Normal) 81-Eqo-463224:00 serum free light chains Comments: PATIENT NOT FASTINGPERFORMED BY: [employer] Sthywg7255 [facility] [id number] (74271) [place]/Lambda Ratio,S 1.40 (Normal) Range: 0.26-1.65 Free Lambda Lt Chains,S 17.88 mg/L (Normal) Range: 5.71-26.30 Free [place] Lt Chains,S 25.10 mg/L (Abnormal) Range: 3.30-19.40 33-Zth-416887:59 urine immunofixation (81987) Comments: PATIENT NOT FASTINGPERFORMED BY: [employer]70 [facility] [id number] CARRIE Interpretation:U UPEIP (Normal) Comments: No monoclonality detected. 92-Sls-872978:00 serum immunofixation (80794) Comments: PATIENT NOT FASTINGPERFORMED BY: Balluun6370 [facility] [id number] Immunoglobulin M, Qn, Serum 76 mg/dL (Normal) Range: 26-217 Immunoglobulin A, Qn, Serum 152 mg/dL (Normal) Range: 87-352 Immunoglobulin G, Qn, Serum 865 mg/dL (Normal) Range: 700-1600 Immunofixation Result, Serum UPEIP (Normal) Comments: No monoclonality detected. 51-Dlc-135806:00 PARATHORMONE (29392) Comments: PATIENT NOT FASTINGPERFORMED BY: [employer]6370 [facility] [id number] PTH, Intact 35 pg/mL (Normal) Range: 15-65 91-Agk-136347:28 Urinalysis, Office (46807) UA - LEUKOCYTE ESTERASE Moderate (Normal) UA - NITRITE Negative (Normal) URINE UROBILINGN LEO TIMED Normal mg/dL (Normal) UA - PROTEIN Negative mg/dL (Normal) UA - PH 7 (Normal) UA - BLOOD Non Hemolyzed Trace (Normal) UA - SPECIFIC GRAVITY 1.010 (Normal) UA - KETONES Negative mg/dL (Normal) UA - BILIRUBIN Negative (Normal) UA - GLUCOSE Negative (Normal) 87-Jee-579725:06 Microscopic Examination Comments: PATIENT WAS FASTINGPERFORMED BY: CB LabBr[facility] Hospital6370 [facility] [id number] Bacteria Few (Normal) Mucus Threads Present (Normal) Epithelial Cells (non renal) 0-10 {/hpf} (Normal) Range: 0 - 10 RBC 3-10 {/hpf} (Abnormal) Range: 0 - 2 WBC >30 {/hpf} (Abnormal) Range: 0 - 5 Comments: Clumps of leukocytes present. :06 MICROALBUMIN: CREATININE RATIO Comments: PATIENT WAS FASTINGPERFORMED BY: Digital BloomThe Rehabilitation Institute Of St. LouisStktdp7191 [facility] [id number] ([id number]) AND (29574) Microalb/Creat Ratio 96.6 {mg/g_creat} (Abnormal) Range: 0.0-30.0 Microalbumin, Urine 102.3 ug/mL (Normal) Creatinine, Urine 105.9 mg/dL (Normal) :06 URINALYSIS (39507) Comments: PATIENT WAS FASTINGPERFORMED BY: [facility]Br[facility] Hospital6370 [facility] [id number] Microscopic Examination See below: (Normal) Comments: Microscopic was indicated and was performed. Nitrite, Urine Negative (Normal) Urobilinogen,Semi-Qn 0.2 mg/dL (Normal) Range: 0.2-1.0 Bilirubin Negative (Normal) Occult Blood 1+ (Abnormal) Ketones Negative (Normal) Glucose Negative (Normal) Protein 1+ (Abnormal) WBC Esterase 3+ (Abnormal) Appearance Cloudy (Abnormal) Urine-Color Yellow (Normal) pH 6.5 (Normal) Range: 5.0-7.5 Specific [place] 1.020 (Normal) Range: 1.005-1.030 :06 CBC, Platelets & Auto Diff Comments: PATIENT WAS FASTINGPERFORMED BY: [facility]6370 [facility] [id number] (22274) Hematology Comments: Note: (Normal) Comments: Verified by [...] Range: 3.4-10.8 Comments: Verified by repeat analysis 55-Hdt-162879:06 TSH (23067) Comments: PATIENT WAS FASTINGPERFORMED BY: [facility] Vedbfh6161 [facility] [id number] TSH 4.720 {uIU/mL} (Abnormal) Range: 0.450-4.500 38-Rju-003840:06 Lipid Panel (71826) Comments: PATIENT WAS FASTINGPERFORMED BY: [facility] Kxcrfx2798 [facility] [id number] LDL/HDL Ratio 1.0 {ratio_units} (Normal) Range: 0.0-3.2 Comments: LDL/HDL Ratio Men Women 1/2 Avg.Risk 1.0 1.5 Av g.Risk 3.6 3.2 2X Avg.Risk 6.2 5.0 3X Avg.Risk 8.0 6.1 LDL Cholesterol Calc 70 mg/dL (Normal) Range: 0-99 VLDL Cholesterol Sunil 24 mg/dL (Normal) Range: 5-40 HDL Cholesterol 72 mg/dL (Normal) Triglycerides 122 mg/dL (Normal) Range: 0-149 Cholesterol, Total 166 mg/dL (Normal) Range: 100-199 20-Few-742275:06 Metabolic Panel, Comprehensive Comments: PATIENT WAS FASTINGPERFORMED BY: [facility] Pnrinj2615 [facility] [id number] (53310) ALT (SGPT) 20 [iU]/L (Normal) Range: 0-32 [...] month 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 Indication: UTI (urinary tract infection) Abnormal TSH : Eprescribed prescriptions (G8553) Indication: Abnormal TSH Abnormal TSH : Follow up Nov 20 put on schedule to be seen by double bottom driver Fabio between 2-4 Indication: Abnormal TSH Nonsmoker : Follow up in 2 weeks Indication: Nonsmoker Nonsmoker : Follow up in 3 months Indication: Nonsmoker Planned Observations Thin Prep Pap (37497)Indication: Encounter for screening for cervical cancer (Renamed from Encounter for screening for malignant neoplasm of cervix) On: 7-Mzl-226348:36 Request URINE ALYCE CULTURE-IDENTIFICATN (08860)Indication: Abnormal urinalysis On: 0-Dyx-003686:12 Request HGB A1C (52775)Indication: Hypertension On: 98-Far-091586:16 Request URINE ALYCE CULTURE-LEO COL COUNT (65306)Indication: Dysuria On: 55-Cpo-597417:04 Request Metabolic Panel, Comprehensive (37340)Indication: Hypertension On: 79-Jpe-533463:36 Request HgA1C , Office (61828)Indication: Type II diabetes mellitus On: 93-Plp-057132:33 Request Comments: Due Aug 08 in office PT (PROTHROMBIN TIME) (41562)Indication: Hypertension On: 65-Alz-541718:32 Request CBC, Platelets & Auto Diff (65672)Indication: Hypertension On: 92-Wgp-719450:31 Request URINE ALYCE CULTURE-IDENTIFICATN (65979)Indication: UTI (urinary tract infection) On: 44-Jyg-082781:15 Request Urinalysis, Office (53800)Indication: UTI (urinary tract infection) On: 07-Ork-056344:15 Request Urinalysis, Office (21559)Indication: Preop examination On: 04-Ysu-90531:52 Request BNTP (12351)Indication: Cardiomegaly On: 93-Dma-968127:29 Request Rapid Flu (66803 x 2)Indication: Flu-like symptoms On: 35-Kwf-920591:27 Request HGB A1C (40972)Indication: Type II diabetes mellitus On: 3-Zxn-964313:38 Request Planned Encounters Medical; 2 Month FU [...] 1 ML used of Kenalog (40mg/ml) LOT- [id number] 2ML of marcaine 0.5% used (5mg/mL) [id number] Martha AG Radiology - Shoulder - LeftBy: On: 04-Jul-2018 Intent Martha Self CNP, CNP, Mary E Pap Smear, Medicare (Q0091)By: On: 04-Jul-2018 Intent Martha Self CNP, CNP, Mary E MAMMOGRAM BREAST BILATERAL On: 04-Jul-2018 Intent SCREENING DIGITAL (92697)By: Martha Slef CNP, CNP, Mary E Bone Density StudyBy: Clair AG, On: 04-Jul-2018 Intent Martha Miranda CNP Flu Vaccine (Quadrivalent) On: 04-Jul-2018 Intent [id number]: Martha Self CNP Comments: Lot #[id number]-L dltd, IMDose prefilled syringegiven by:Srinivasan Hancock LPNVIS reviewed and ABN signed KIMBERLI [place] SPIROMETRY (78341)By: Verito REARDON, On: 15-Nov-2017 Intent Suellen MAMMOGRAM BREAST BILATERAL On: 14-Aug-2017 Intent SCREENING DIGITAL (08021)By: Clair Comments: fax to [facility] [phone] WIRELINE SUPERVISOR, BeulahDl Self CNP [place] Radiology - ChestBy: Clair AG, On: 30-Jul-2017 Intent [place]ulah Clair AG, [place] Spirometry (72098)By: Clair AG, On: 30-Jul-2017 Intent Martha Self CNP [place] ELECTROCARDIOGRAM, COMPLETE (ECG) On: 30-Jul-2017 Intent (30816)By: Suellen Sellers LPN Comments: sinus rhythm Aerosol Treatment (30337)By: Clair On: 05-Mar-2017 Intent KIMBERLI BeulahDl Self CNP [place] Spirometry (81855)By: Clair AG, On: 05-Mar-2017 Intent Martha Self CNP [place] CHEST XRAY, PA & LATERAL On: 27-Feb-2017 Intent (06533)By: Martha Self CNP, CNP, Mary E Radiology - ChestBy: Clair AG, On: 26-Feb-2017 Intent Martha Self CNP [place] Comments: March 06 Aerosol Treatment (19287)By: Clair On: 26-Feb-2017 Intent KIMBERLI BeulahDl Self CNP [place] Spirometry (75653)By: Clair AG On: 26-Feb-2017 Intent Martha Self CNP [place] Comments: Moderate restriction Radiology - ChestBy: Clair AG, On: 26-Feb-2017 Intent Martha Self CNP [place] ELECTROCARDIOGRAM, COMPLETE (ECG) On: 26-Feb-2017 Intent (58036)By: Suellen Sellers LPN Comments: sinus rhythm ELECTROCARDIOGRAM, COMPLETE (ECG) On: 14-Nov-2016 Intent (34071)By: Martha Self CNP, CNP, Mary E Planned [...] patient does not have durable power of employment attorney or living will. Th e patient [...] urination was treated for ecoli uti on 07-30, with macrobid, sti ll burningDrinking cranberry juice [...] Encounter Diagnosis: UTI (urinary tract infection) End: 19-Nov-2016 13:20 Comprehensive Internal Medicine Office Visit On: [...] Internal Medicine Payers [employer] Marc Hurst; a guarantor
--- OUTSIDE RECORDS SUMMARY | 2018-10-22 20:34 | XMS RPT_ITS | Continuity of Care Document ---
:1945 Author Organization [facility] Address [facility] 2 [place] [address] Phone Care Team Providers Name Role Phone Clair AG, Beulah Unavailable Bailey BAER, Xu Washington Unavailable Enedelia BAER, Kevin Tobar Unavailable Julito Thornton Unavailable Joshua Moeller Unavailable Tess Stone Unavailable Unavailable Slarb RAYON WINDER, Suellen Unavailable Unavailable Long RAYON WINDER, Renée L Unavailable Unavailable Manchak, Jessica Unavailable [...] Moodispaws note and Cardiology visit report from 9-40-24Zfvtobevz from Pulmonary with need for agressiv e [...] 90 days Quantity: 90 {Tablet} Refills: 4 Ordered:30-Jul-2017 Clair AG, Martha iLn CNP, Martha Nam Start : 30-Jul-2017 Active Ferrous Sulfate 325 (65 Fe) MG Oral Tablet 1 (one) Tablet Tablet bid for 0 days Quantity: 60 {Tablet} Refills: 0 Ordered:15-Nov-2017 Slarb CARONSuellen Start : 14-Aug-2017 Active Furosemide 40 MG [...] 90 days Quantity: 90 {Tablet} Refills: 4 Ordered:30-Jul-2017 Clair AG Martha Cormier CNP Start : 30-Jul-2017 Active Mucinex 600 MG Oral Tablet Extended Release 12 Hour 1 (one) Tablet ER 12HR bid for 0 days Quantity: 60 {Tablet} Refills: 0 Ordered:05-Mar-2017 Clair AG, Martha Cormier CNP Start : 05-Mar-2017 Active NovoFine 30G X 8 MM Miscellaneous 1 (one) Misc Misc daily for 0 days Quantity: 1 {Box} Refills: 6 Ordered:14-Nov-2016 SlaSuellen houston LPN Start : 14-Nov-2016 Active Pantoprazole Sodium 40 MG Oral Tablet Delayed Release 1 (one) Tablet DR daily for 90 days Quantity: 90 {Tablet} Refills: 4 Ordered:30-Jul-2017 Clair AG, Martha Cormier CNP Start : 30-Jul-2017 Active Potassium Chloride ER 8 MEQ Oral Capsule Extended Release 1 (one) Capsule ER bid with lasix bid for 0 days Quantity: 180 {Capsule} Refills: 3 Ordered:18-Dec-2017 Clair AG Martha Cormier CNP Start : 18-Dec-2017 Active Simvastatin 20 MG Oral Tablet 1 (one) Tablet daily for 90 days Quantity: 90 {Tablet} Refills: 4 Ordered:30-Jul-2017 Martha Self CNP, CNP, Mary E Start : 30-Jul-2017 Active Tradjenta 5 MG Oral Tablet 1 [...] pain (M25.561, 719.46) Comments: resend to [facility], cant do surgery because sick will see [...] 718.86) Comments: multiple falls had pantoja at F knees buckling Status: Inactive as of 26-Feb-2017 [...] Completed Tubal Ligation Completed Date Value Details 18-Jul-2018 Cerv Spine 4 or 5 Views Result: Comments: See Note; NOTES: [facility] Imaging Services [address] [place] [address] Cerv Spine 4 or 5 Views MR#: [id number] Acct: [id number] Name: FANY HURST Rep #: [id number] : 1945 F 73 From: Jean-Pierre Joyce MD PCP: Martha Self NP Status: REG CLI Study: Cerv Spine 4 or 5 Views Date of Exam: 07/18/18 Exam# [id number] Ordering Dr: Martha Self WAX CUTTER-C STUDY: X-RAY - CER VICAL SPINE REASON [...] Service support , CC: Martha Self NP Waistband Setter: Signed 18-Jul-2018 L/S Spine Min 4 Views Result: Comments: See Note; NOTES: [facility] Imaging Services [address] [place] [address] L/S Spine Min 4 Views MR#: [id number] Acct: [id number] Name: FANY HURST Rep #: [id number] : 1945 F 73 From: Jean-Pierre Joyce MD PCP: Martha Self NP Status: REG CLI Study: L/S Spine Min 4 Views Date of Exam: 07/18/18 Exam# [id number] Ordering Dr: Martha Self WAX CUTTER-C STUDY: X-RAY - LUMBAR SPINE REASON FOR [...] Service support , CC: Martha Self NP Waistband Setter: Signed 08-Jul-2018 Inital Evaluation (1) - PT Result: Comments: See Note; NOTES: [facility] Physical Therapy [facility] [address] [place] [address] Fax REHABILITATION SERVICES INITIAL EVALUATION MR#: [id number] Acct: [id number] Name: FANY HURST Rep #: [id number] : 1945 73 From: Suellen Chiu MPT Referring Dr.: Martha Self WAX CUTTER Status: REG RCR Insurance: [employer] MEDICARE PPO [...] to be FAXED BACK to us at [phone] for Medicare purposes. Please let me know if there are questions or concerns regarding this plan of care. Physician Signature: Date: <Electronically signed by Suellen Chiu MPT> 07/08/18 3184 CC: Martha Self NP Signed For Medicare only, by signing this I certify the plan of care. Physicians Signature Date 04-Jul-2018 Shoulder min 2 Views Result: Comments: See Note; NOTES: [facility] Imaging Services [address] [place] [address] Shoulder min 2 Views MR#: [id number] Acct: [id number] Name: FANY HURST Rep #: [id number] D OB: 1945 F 73 From: Jose Angel Mendoza MD PCP: Martha Self NP Status: REG CLI Study: Shoulder min 2 Views Date of Exam: 07/04/18 Exam# [id number] Ordering Dr: Martha Self STUDY: X-RAY - [...] Service support , CC: Martha Self NP Waistband Setter: Signed 31-Jan-2018 12 Lead Electrocardiogram Result: Comments: See Note; NOTES: [facility] Cardiovascular Services [address] [place] [address] EKG - [facility] [place] 01/30/18 1301 MR#: [id number] Acct: [id number] Name: FANY HURST Rep #: [id number] : 1945 72 From: Xu Garduno MD Attending Dr: Kevin Mcdaniels MD Status: PRE IN Ordering Dr: Kevin Mcdaniels MD Date: 01/30/18 Location: [facility] Sex: F C Admitted: Test Reason : Blood Pre ssure : / mmHG Vent. Rate : 061 BPM Atrial Rate : 061 BPM P-R Int : 128 ms QRS Dur : 086 ms QT Int : 432 ms P-R-T Axes : 049 006 021 degrees QTc Int : 434 ms Normal sinus rhythm Normal ECG Confir med by BAILEY BAER, XU ([id number]), manuscript editor BENJI ASHRAF ([id number]) on 01/31/2018 2:57:35 PM Referred By: Kevin Mcdaniels Confirmed By:XU GARDUNO MD 01/31/18 1457 Date Xu Garduno MD CC: Martha Self WAX CUTTER; Kevin Mcdaniels MD Date Dictated: 01/30/18 1301 Date Transcribed: 01/30/18 130 Waistband Setter: Signed 19-Dec-2017 Cardiology Visit Report Result: Comments: See Note; NOTES: [facility] [address] [place] [address] OFFICE VISIT Date of Service: 12/19/17 MR#: [id number] Acct: [id number] Name: FANY HURST Rep #: [id number] : 1945 Provider: JEANNE Becerril Age/Sex: 72/F [place] [facility] Status: Signed HPI HPI Details: FANY [...] radial Intake Visit Reasons: 3 M FU Work Study Student Required: No Accompanied by: Is patient in [...] PO Q12H PRN 09/16/17 [History Confirmed 12/19/17] mxbm-V37-hwaqxjfw tablet 1 tab PO QDAY 09/16/17 [Histo [...] Assessment AND Plan 1. Other fatigue R53.83 Plan - MONIKA ForbesC Patient state s this is much improved since last office visit and with weight loss. We will continue to monitor this. Hopefully as patient has knee replacement surgery in the future she will remain active and continu e with weight loss and improvement in her fatigue. 2. Shortness of breath R06.02 Plan FELICIA Cedillo Patient states this is improved since last [...] states this is being monitored by primary [facility] e physician. Patient will continue with current cholesterol lowering medication. 5. Type 2 diabetes mellitus without complication, with long-term current use of insulin E11.9; Z79.4 Plan FELICIA Cedillo Patient states this is well-controlled with her [...] Diabetes mellitus type: type 2 Diabetes mellitus senior living insulin use: with marleny g term use [...] Diabetes mellitus type: type 2 Diabetes mellitus senior living insulin use: with senior living use Diabetes mellitus complication status: without complication Chronic obstructive pulmonary disease, unspecified COPD type J44.9 COPD type: unspecified COPD Palpitations R 00.2 12/19/17 1203 <Electronically signed by Atilio Becerril NP-C> Date Atilio Becerril WAX CUTTER-C 12/19/17 1331<Electronically signed by Fernando Alcala MD> Cosigner Signature: Date (if applicable) Fernando Alcala MD CC: Martha Slef NP 21-Nov-2017 Chest PA and Lateral Result: Comments: See Note; NOTES: [facility] Imaging Services [address] [place] [address] Chest PA and Lateral MR#: [id number] Acct: [id number] Name: FANY HURST Rep #: [id number] D OB: 1945 F 72 From: Lulu Lincoln MD PCP: Martha Self NP Status: REG CLI Study: Chest PA and Lateral Date of Exam: 11/21/17 Exam# [id number] Ordering Dr: Julito Thornton MD STUDY: X-RAY [...] , Service support , CC: Martha Self NP; Julito Thornton MD Waistband Setter: Signed 20-Nov-2017 Cardiology Visit Report Result: Comments: See Note; NOTES: [facility] [address] [place] [address] OFFICE VISIT Date of Service: 09/18/17 MR#: [id number] Acct: [id number] Name: FANY HURST Rep #: [id number] : 1945 Provider: Xu Garduno MD Age/Sex: 72/F [place] [facility] Status: Signed HPI CARDIAC CLEARENCE KNEE [...] PO Q12H PRN 09/16/17 [History Confirmed 09/18/17] annz-G63-yubtgit s tablet 1 tab PO QDAY 09/16/17 [...] PO BID tab 09/18/17 [History Confirmed 09/18/17] [facility] Medical History Preoperative cardiovascular examinat ion (Acute) [...] prior to saving. Follow Up 3 Months (PA/WAX CUTTER) 09/18/17 6491 <Electronically signed by Xu Garduno MD> Date Xu Garduno MD Cosigner Signature: Date (if applicable) CC: 20-Sep-2017 Echocardiogram Complete Result: Comments: See Note; NOTES: [facility] Cardiovascular Services [address] [place] [address] Echo Complete W/ Contrast 09/20/17 0841 MR#: [id number] Acct: [id number] Name: DEDRICK DlFANY Rep #: [id number] : 1945 72 From: Xu Garduno MD Attending Dr: Xu Garduno MD Status: REG CLI Ordering Dr: Xu Garduno MD Date: 09/20/17 Location: [facility] Sex: F C Admitted: R donna For [...] insufficiency. Trivial tricuspid valve insufficiency. Ordering Physician: uX Garduno Referring Physician: Martha Self Performed By: Bonifacio Meyer RCS 09/20/17 1236 Date Xu Garduno MD CC: Martha Self WAX CUTTER; Xu Garduno MD Date Dictated: 09/20/17 0841 Date Transcribed: 09/20/17 1236 Waistband Setter: Signed 20-Sep-2017 Stress Report Result: Comments: See Note; NOTES: [facility] Cardiovascular Services [address] [facility] [place] [address] MR#: [id number] Acct: [id number] Name: FANY HURST Rep #: [id number] : [birth year] 72 From: Fernando Alcala [...] Date Fernando Alcala MD CC: Martha Self WAX CUTTER Date Dictated: 09/20/17957 Date Transcribed: 09/20/17957 Waistband Setter: CO Signed 18-Sep-2017 Cardiology Visit Report Result: Comments: See Note; NOTES: [facility] [address] [place] [address]. [address] [place] [address] OFFICE VISIT Date of Service: 09/18/17 MR#: [id number] Acct: [id number] Name: FANY HURST Rep #: [id number] : 1945 Provider: Xu Garduno MD Age/Sex: 72/F Location[place] [facility] Status: Signed HPI CARDIAC CLEARENCE KNEE [...] PO Q12H PRN 09/16/17 [History Confirmed 09/18/17] yrjh-A78-kncsytm s tablet 1 tab PO QDAY 09/16/17 [...] prior to saving. Follow Up 3 Months (PA/WAX CUTTER) 09/18/17 6473 <Electronically signed by Xu Garduno MD> Date [facility] Signature: Date (if applicable) CC: 18-Sep-2017 12 Lead EKG performed by [facility] Result: Comments: See Note; NOTES: [facility] [address] [place] [address] 12 Lead EKG performed by [facility] 09/18/17 1131 MR#: [id number] Acct: [id number] Name: FANY HURST Rep #: [id number] : 1945 72 From: Xu Garduno MD Attending Dr: Xu Garduno MD Status: DEP [facility] Ordering Dr: Xu Garduno MD Date: 09/18/17 Location[place] [facility] Sex: F C Admitted: O RDER #: [id number] BMS/12 Lead EKG performed by [facility] ECG Report Interpretation Somatic / motion artifactSinus Rhythm Low voltage in precordial leads. Poor R wave progression.Infe rior DC, age undetermined, cannot be excludedABNORMAL Electronically signed on 09/18/2017 at 17:30 by Xu Garduno 09/18/17 1733 Date Xu Garduno MD CC: Martha Self NP Date Dictated: 09/18/171130 Date Transcribed: 09/18/171130 Waistband Setter: PM Signed 18-Sep-2017 12 Lead EKG performed by [facility] Result: Comments: See Note; NOTES: [facility] [address] [place] [address] 12 Lead EKG performed by [facility] 09/18/17 113 MR#: [id number] Acct: [id number] Name: FANY HURST Rep #: [id number] : 1945 72 From: Xu Garduno MD Attending Dr: Xu Garduno MD Status: DEP [facility] Ordering Dr: Xu Garduno MD Date: 09/18/17 [place] [facility]: F C Admitted: O RDER #: [id number] BMS/12 Lead EKG performed by [facility] ECG Report Interpretation Somatic / motion artifactSinus Rhythm Low voltage in precordial leads. Poor R wave progression.Infe rior DC, age undetermined, cannot be excludedABNORMAL Electronically signed on 09/18/2017 at 17:30 by Xu Garduno 10/16/17 1615 Date Xu Garduno MD CC: Martha Self WAX CUTTER Date Dictated: 09/18/17 1131 Date Transcribed: 09/18/17 1131 Waistband Setter: PM Signed 30-Jul-2017 Chest PA and Lateral Result: Comments: See Note; NOTES: [facility] Imaging Services [address] [place] [address] Chest PA and Lateral MR#: [id number] Acct: [id number] Name: FANY HURST Rep #: [id number] D OB: 1945 F 72 From: Alcides Saha MD PCP: Martha Self Status: REG CLI Study: Chest PA and Lateral Date of Exam: 07/30/17 Exam# [id number] Ordering Dr: Martha Self STUDY: X-RAY CHEST [...] Alcides Saha MD at 11:09 EDT Tel [phone], Service support , Fax CC: Martha Self Waistband Setter: Signed 04-Mar-2017 Chest PA and Lateral Result: Comments: See Note; NOTES: [facility] Imaging Services [address] [place] [address] [address] Chest PA and Lateral MR#: [id number] Acct: [id number] Name: FANY HURST Rep #: [id number] : 1945 F 71 From: Milvia Romero MD PCP: Martha Self Status: REG CLI Study: Chest PA and Lateral Date of Exam: 03/04/17 Exam# [id number] Ordering Dr: Martha Self STUDY: X-RAY CHEST [...] Milvia Romero MD at 19:31 EDT Tel [phone], Service support , CC: Martha Self Waistband Setter: Signed 26-Feb-2017 Chest PA and Lateral Result: Comments: See Note; NOTES: [facility] Imaging Services [address] [place] [address] [address] Chest PA and Lateral MR#: [id number] Acct: [id number] Name: FANY HURST Rep #: [id number] : 1945 F 71 From: Geovany Bauer DO PCP: Martha Self Status: REG CLI Study: Chest PA and Lateral Date of Exam: 02/26/17 Exam# [id number] Ordering Dr: Martha Self STUDY: X-RAY CHEST [...] Geovany Bauer DO at 18:19 EDT Tel [phone], Service support , CC: Martha Self Waistband Setter: Signed Family History Unknown Family Member Name Dates Details Brother 1 Comments: cancer-lung, anuerism Status: Active Father Comments: CVA; diabetes Status: Active Mother Comments: CHF Status: Active Sister 1 Comments: DC Status: Active Sister 2 Comments: Murdered Status: [...] kg/m2 Body Surface Area Calculated 1.91 m2 25-Qca-425163:23 Temperature 98.3 f Pulse 85 /min Comments: [...] kg/m2 Body Surface Area Calculated 1.93 m2 55-Hmx-342735:26 Temperature 97.6 f Pulse 91 /min Comments: [...] 1.94 m2 Results Date Description Value Details 0-Erh-042054:08 URINE ALYCE CULTURE-IDENTIFICATN Comments: PATIENT NOT FASTINGPERFORMED BY: [facility] Warcdx9021 [facility] [id number] Information: SRC: ([id number]) Antimicrobial MIHEAD (Normal) Comments: S = Susceptible; [...] and Proteusmirabilis. Urine Final report Culture,Comprehensive (Abnormal) 0-Pik-725923:28 TSH ([id number]) Comments: PATIENT WAS FASTINGPERFORMED BY: LabCoSaint Francis Medical CenterDszrwm6266 [facility] [id number] TSH 6.450 {uIU/mL} (Abnormal) Range: 0.450-4.500 3-Aie-167082:28 CBC, Platelets & Auto Diff Comments: PATIENT WAS FASTINGPERFORMED BY: [facility]6370 [facility] [id number] (84348) Immature Grans (Abs) 0.0 {x10E3/uL} (Normal) Range: [...] 3.77-5.28 WBC 8.7 {x10E3/uL} (Normal) Range: 3.4-10.8 1-Uvo-772043:28 Lipid Panel (34783) Comments: PATIENT WAS FASTINGPERFORMED BY: [employer] Current[employer] CorporationSaint Francis Medical CenterFvkraz5987 [facility] [id number] LDL/HDL Ratio 0.9 {ratio} (Normal) Range: 0.0-3.2 Comments: LDL/HDL Ratio Men Women 1/2 Avg.Risk 1.0 1.5 Av g.Risk 3.6 3.2 2X Avg.Risk 6.2 5.0 3X Avg.Risk 8.0 6.1 LDL Cholesterol Calc 68 mg/dL (Normal) Range: 0-99 VLDL Cholesterol Sunil 22 mg/dL (Normal) Range: 5-40 HDL Cholesterol 72 mg/dL (Normal) Triglycerides 108 mg/dL (Normal) Range: 0-149 Cholesterol, Total 162 mg/dL (Normal) Range: 100-199 3-Iuh-356298:28 Metabolic Panel, Comprehensive Comments: PATIENT WAS FASTINGPERFORMED BY: [employer] Nbfqss4701 [facility] [id number] (73996) ALT (SGPT) 15 [iU]/L (Normal) Range: 0-32 [...] mg/dL (Normal) Range: 65-99 04-Jul-20182:00 HPV, Reflex (05895) Comments: Source.............Cervix;EndocervixNo. of containers..01 ThinPrep VialPATIENT NOT FASTINGPERFORMED BY: LabCo[address] Amadou [id number] Information: [id number] Note: PAPSMR (Normal) Comments: The Pap smear [...] MALIGNANCY.Satisfactory for evaluation. No endocervical component is identified.Z12.4Stameri Feng Outdoor Adventure Instructor (ASCP) 5-Phz-329612:04 Urinalysis, Office (94745) UA - LEUKOCYTE ESTERASE Moderate (Normal) UA - NITRITE Positive (Normal) URINE UROBILINGN LEO TIMED Normal mg/dL (Normal) UA - PROTEIN Trace mg/dL (Normal) UA - PH 7 (Normal) UA - BLOOD Non Hemolyzed Moderate (Normal) UA - SPECIFIC GRAVITY 1.015 (Normal) UA - KETONES Negative mg/dL (Normal) UA - BILIRUBIN Negative (Normal) UA - GLUCOSE Negative (Normal) 4-Zor-804128:15 Basic Metabolic Profile (BMP) Comments: [facility] [address] [place], [address] GAP 7 (Normal) Range: 5-15 CO2 31.0 [...] Comments: Please note revised GLUCOSE reference range zdoowmbxn26/02/2018. 5-Jia-457717:15 CBC-Complete Blood Cnt No Diff Comments: [facility] [address] [place], [address] MPV 10.3 fL (Normal) Range: 6.2-12.0 PLT [...] 4.2-5.4 WBC 7.3 K/mm3 (Normal) Range: 4.4-11.0 6-Tbw-679569:15 MRSA/SAID SCREEN Comments: [facility] [address] [place], [address] MRSA+SAID SCRN See Note (Normal) Comments: MRSA/SAID SCRNS. AUREUS S. aureus NegativeMRSA MRSA Negative 41-Lkt-653447:10 HgA1C , Office (79948) HgA1C , Office 6.9 % (Normal) Range: 4.6 - 7.1 82-Bho-085977:04 URINE ALYCE CULTURE-IDENTIFICATN Comments: PATIENT NOT FASTINGPERFORMED BY: First Wave TechnologiesMunson Healthcare [facility]6370 [facility] [id number] Information: SRC: (13561) Antimicrobial MIHEAD (Normal) Comments: S = Susceptible; [...] mL (Abnormal) Urine Final report Culture,Comprehensive (Abnormal) 91-Wxg-56878:38 Urinalysis, Office (63546) UA - LEUKOCYTE ESTERASE Moderate (Normal) UA - NITRITE Negative (Normal) URINE UROBILINGN LEO TIMED Normal mg/dL (Normal) UA - PROTEIN Negative mg/dL (Normal) UA - PH 7 (Normal) UA - BLOOD Non Hemolyzed Trace (Normal) UA - SPECIFIC GRAVITY 1.015 (Normal) UA - KETONES Negative mg/dL (Normal) UA - BILIRUBIN Negative (Normal) UA - GLUCOSE Negative (Normal) 28-Cxw-263775:54 Metabolic Panel, Comprehensive Comments: PATIENT NOT FASTINGPERFORMED BY: First Wave TechnologiesMun[facility]6370 [facility] [id number] (31558) ALT (SGPT) 13 [iU]/L (Normal) Range: 0-32 [...] Glucose, Serum 164 mg/dL (Abnormal) Range: 65-99 62-Fyj-031691:54 HGB A1C (58163) Comments: PATIENT NOT FASTINGPERFORMED BY: CADEN LabRayku70 [address] [facility] [id number] Hemoglobin A1c 7.8 % (Abnormal) Range: 4.8-5.6 Comments: . Pre-diabetes: 5.7 - 6.4 Diabetes: >6.4 Glycemic control for adults with diabetes: <7.0 29-Pjc-690302:16 Urinalysis, Office (15164) UA - LEUKOCYTE ESTERASE Moderate (Normal) UA - NITRITE Negative (Normal) URINE UROBILINGN LEO TIMED Normal mg/dL (Normal) UA - PROTEIN Negative mg/dL (Normal) UA - PH 7 (Normal) UA - BLOOD Hemolyzed Small (Normal) UA - SPECIFIC GRAVITY 1.010 (Normal) UA - KETONES Negative mg/dL (Normal) UA - BILIRUBIN Negative (Normal) UA - GLUCOSE Negative (Normal) 17-Vte-487568:24 HGB A1C (37572) Comments: PERFORMED BY: [facility]CoA[facility]70 [facility] [id number] Hemoglobin A1c 6.5 % (Abnormal) Range: 4.8-5.6 Comments: . Pre-diabetes: 5.7 - 6.4 Diabetes: >6.4 Glycemic control for adults with diabetes: <7.0 38-Chw-733014:04 Urinalysis, Office (30889) UA - LEUKOCYTE ESTERASE Small (Normal) UA [...] enough for a C/S to be sent 83-Qqr-048777:20 CBC W/Diff, Automated Comments: [facility] [address] [place], [place], [address] Absolute Lymph 2.65 {X10_3/ul} (Normal) Range: 0.83-4.51 [...] 4.2-5.4 WBC 8.9 K/mm3 (Normal) Range: 4.4-11.0 15-Mav-964305:20 Comprehensive Metabolic Profil Comments: [facility] [address] [place], [place], [address] GAP 8 (Normal) Range: 5-15 CO2 29.0 [...] <126 mg/dLsuggests IMPAIRED HOMEOSTASIS per A.D.A. criteria. 26-Axl-997662:20 Culture, Urine Comments: [facility] [address] [place], [place], [address] CUUR See Note (Normal) Comments: Urine CultureORGANISM [...] 20 S(NF) indicates non-formulary drug at [facility]. Approval by Infectious Disease Specialist required before non- formulary drugs may be ordered and/or dispensed. 69-Wxe-748887:20 Prothrombin Time w/INR Comments: [facility] [address] [place], [place], [address] INR 1.0 (Normal) PROTIME 13.1 s (Normal) Range: 11.7-14.9 26-Sux-801958:25 CBC, Platelets & Auto Diff Comments: Jul 2017; PATIENT NOT FASTINGPERFORMED BY: [facility] Nsihmg2136 [facility] [id number] (30848) Hematology Comments: Note: (Normal) Comments: Verified by [...] 3.77-5.28 WBC 9.1 {x10E3/uL} (Normal) Range: 3.4-10.8 84-Qnn-862401:25 Metabolic Panel, Comprehensive Comments: Jul 2017; PATIENT NOT FASTINGPERFORMED BY: [facility] Ittesg4996 [facility] [id number]; OV 08/14 (78675) ALT (SGPT) 15 [iU]/L (Normal) Range: 0-32 [...] (Abnormal) Range: 65-99 :14 HgA1C , Office (15690) HgA1C , Office 6.3 % (Normal) Range: 4.6 - 7.1 :14 Blood Glucose , Office (41127) Blood Glucose , Office 100 (Normal) 87-Dww-948651:06 Metabolic Panel, Comprehensive Comments: today; PATIENT NOT FASTINGPERFORMED BY: LabCoSaint Francis Medical CenterAzvxsl0547 [facility] [id number] (69516) ALT (SGPT) 14 [iU]/L (Normal) Range: 0-32 [...] Glucose, Serum 93 mg/dL (Normal) Range: 65-99 3-Ekh-381502:52 Urinalysis, Office (45588) UA - LEUKOCYTE ESTERASE Negative (Normal) UA - NITRITE Negative (Normal) URINE UROBILINGN LEO TIMED Normal mg/dL (Normal) UA - PROTEIN Negative mg/dL (Normal) UA - PH 7.0 (Normal) UA - BLOOD Hemolyzed Trace (Normal) UA - SPECIFIC GRAVITY 1.015 (Normal) UA - KETONES Negative mg/dL (Normal) UA - BILIRUBIN Negative (Normal) UA - GLUCOSE Negative (Normal) 40-Crx-760059:44 BNTP (32661) Comments: PATIENT NOT FASTINGPERFORMED BY: [employer] [facility] [id number] B-Type Natriuretic Peptide 11.6 pg/mL (Normal) Range: 0.0-100.0 97-Xyy-87118:46 Sputum Culture (60147) Comments: PATIENT NOT FASTINGPERFORMED BY: [employer] [facility] [id number] Information: SRC:SP Result 1 RRF (Normal) Comments: Routine respiratory alaina Lower Respiratory Culture Final report (Normal) 05-Azd-056933:47 URINE ALYCE CULTURE-IDENTIFICATN Comments: PATIENT NOT FASTINGPERFORMED BY: [employer]ityZ[facility] [facility] [id number] Information: SRC:UC (41999) Result 1 MUG (Normal) Comments: Mixed urogenital flora25,000-50,000 colony forming units per mL Urine Final report (Normal) Culture,Comprehensive :38 Urinalysis, Office (57836) UA - LEUKOCYTE ESTERASE Negative (Normal) UA - NITRITE Negative (Normal) URINE UROBILINGN LEO TIMED Normal mg/dL (Normal) UA - PROTEIN Negative mg/dL (Normal) UA - PH 7.5 (Normal) UA - BLOOD Hemolyzed Trace (Normal) UA - SPECIFIC GRAVITY 1.015 (Normal) UA - KETONES Negative mg/dL (Normal) UA - BILIRUBIN Negative (Normal) UA - GLUCOSE Negative (Normal) :47 Blood Glucose , Office (13786) Blood Glucose , Office 90 (Normal) :47 HgA1C , Office (21511) HgA1C , Office 5.7 % (Normal) Range: 4.6 - 7.1 9-Rmi-793815:26 Microscopic Examination Comments: PATIENT WAS FASTINGPERFORMED BY: [email or web address] [facility] HospitalCoinapultNorth [facility] [id number] Bacteria Few (Normal) Mucus Threads Present (Normal) Cast Type Hyaline casts (Normal) Casts Present {/lpf} (Abnormal) Epithelial Cells (non renal) 0-10 {/hpf} (Normal) Range: 0 - 10 RBC 0-2 {/hpf} (Normal) Range: 0 - 2 WBC 0-5 {/hpf} (Normal) Range: 0 - 5 6-Xbn-768982:26 METABOLIC PANEL, COMPREHENSIVE Comments: PATIENT WAS FASTINGPERFORMED BY: [employer]6370 [facility] [id number] (15034) ALT (SGPT) 12 [iU]/L (Normal) Range: 0-32 [...] Glucose, Serum 85 mg/dL (Normal) Range: 65-99 2-Vwm-162943:26 MICROALBUMIN: CREATININE RATIO Comments: PATIENT WAS FASTINGPERFORMED BY: [email or web address]70 [facility] [id number] (36695) AND (65801) Microalb/Creat Ratio 25.9 {mg/g_creat} (Normal) Range: 0.0-30.0 Microalbumin, Urine 9.1 ug/mL (Normal) Creatinine, Urine 35.1 mg/dL (Normal) 5-Lgy-871773:26 URINALYSIS (32810) Comments: PATIENT WAS FASTINGPERFORMED BY: Publ[facility]ThisNorth [facility] [id number] Microscopic Examination See below: (Normal) Comments: Microscopic was indicated and was performed. Nitrite, Urine Negative (Normal) Urobilinogen,Semi-Qn 0.2 mg/dL (Normal) Range: 0.2-1.0 Bilirubin Negative (Normal) Occult Blood Negative (Normal) Ketones Negative (Normal) Glucose Negative (Normal) Protein Negative (Normal) WBC Esterase Trace (Abnormal) Appearance Clear (Normal) Urine-Color Yellow (Normal) pH 7.0 (Normal) Range: 5.0-7.5 Specific [place] 1.012 (Normal) Range: 1.005-1.030 35-Qdl-467376:09 Metabolic Panel, Comprehensive Comments: PATIENT NOT FASTINGPERFORMED BY: Zvooqlin6370 [facility] [id number] (16199) ALT (SGPT) 16 [iU]/L (Normal) Range: 0-32 [...] Glucose, Serum 145 mg/dL (Abnormal) Range: 65-99 41-Vqr-577116:30 URINE ALYCE CULTURE-IDENTIFICATN Comments: PATIENT NOT FASTINGPERFORMED BY: [facility]Park[facility] Siiymv7324 [facility] [id number] Information: SRC: (81472) Antimicrobial MIHEAD (Normal) Comments: S = Susceptible; [...] mL (Abnormal) Urine Final report Culture,Comprehensive (Abnormal) 28-Xns-515983:00 TSH (THYROID STIMULATING Comments: PATIENT NOT FASTINGPERFORMED BY: First Wave TechnologiesParkland Health Center Oytubd7107 [facility] [id number] HORMONE) (16551) TSH 3.840 {uIU/mL} (Normal) Range: 0.450-4.500 07-Etu-484174:59 UPEP (42384) Comments: PATIENT NOT FASTINGPERFORMED BY: [facility]Corps[facility] Tihhux5998 [facility] [id number] Please note: SPRCS (Normal) Comments: Protein electrophoresis scan will follow via computer, mail, orcourier delivery. M-Romeo, % Not Observed % (Normal) Gamma Globulin, U 9.0 % (Normal) Beta Globulin, U 23.1 % (Normal) Dwhjo-4-Olcutxkm, U 8.3 % (Normal) Odqsf-5-Cwnulypu, U 2.1 % (Normal) Albumin, U 57.4 % (Normal) Protein,Total,Urine 17.6 mg/dL (Normal) 67-Qda-589080:00 serum free light chains Comments: PATIENT NOT FASTINGPERFORMED BY: [facility] TechnologiesPark[facility] Center Njiugi5666 [facility] [id number] (26788) Spur/Lambda Ratio,S 1.40 (Normal) Range: 0.26-1.65 Free Lambda Lt Chains,S 17.88 mg/L (Normal) Range: 5.71-26.30 Free Spur Lt Chains,S 25.10 mg/L (Abnormal) Range: 3.30-19.40 91-Ivj-484477:59 urine immunofixation (82373) Comments: PATIENT NOT FASTINGPERFORMED BY: Publ[facility]ThisNorth [facility] [id number] CARRIE Interpretation:U UPEIP (Normal) Comments: No monoclonality detected. 70-Qmy-170346:00 serum immunofixation (04402) Comments: PATIENT NOT FASTINGPERFORMED BY: Publ[facility]ThisNorth [facility] [id number] Immunoglobulin M, Qn, Serum 76 mg/dL (Normal) Range: 26-217 Immunoglobulin A, Qn, Serum 152 mg/dL (Normal) Range: 87-352 Immunoglobulin G, Qn, Serum 865 mg/dL (Normal) Range: 700-1600 Immunofixation Result, Serum UPEIP (Normal) Comments: No monoclonality detected. 15-Wom-986568:00 PARATHORMONE (24251) Comments: PATIENT NOT FASTINGPERFORMED BY: Publ[facility]ThisNorth [facility] [id number] PTH, Intact 35 pg/mL (Normal) Range: 15-65 43-Kdu-171412:28 Urinalysis, Office (12966) UA - LEUKOCYTE ESTERASE Moderate (Normal) UA - NITRITE Negative (Normal) URINE UROBILINGN LEO TIMED Normal mg/dL (Normal) UA - PROTEIN Negative mg/dL (Normal) UA - PH 7 (Normal) UA - BLOOD Non Hemolyzed Trace (Normal) UA - SPECIFIC GRAVITY 1.010 (Normal) UA - KETONES Negative mg/dL (Normal) UA - BILIRUBIN Negative (Normal) UA - GLUCOSE Negative (Normal) 41-Mpj-478782:06 Microscopic Examination Comments: PATIENT WAS FASTINGPERFORMED BY: [employer]6370 [employer] Hospitalin [place] [id number] Bacteria Few (Normal) Mucus Threads Present (Normal) Epithelial Cells (non renal) 0-10 {/hpf} (Normal) Range: 0 - 10 RBC 3-10 {/hpf} (Abnormal) Range: 0 - 2 WBC >30 {/hpf} (Abnormal) Range: 0 - 5 Comments: Clumps of leukocytes present. :06 MICROALBUMIN: CREATININE RATIO Comments: PATIENT WAS FASTINGPERFORMED BY: [facility] Wave TechnologiesMun[facility] Healthcare [facility]6370 [facility] [id number] (10092) AND (09201) Microalb/Creat Ratio 96.6 {mg/g_creat} (Abnormal) Range: 0.0-30.0 Microalbumin, Urine 102.3 ug/mL (Normal) Creatinine, Urine 105.9 mg/dL (Normal) :06 URINALYSIS (09999) Comments: PATIENT WAS FASTINGPERFORMED BY: [facility] Wave TechnologiesMun[facility] Healthcare [facility]6370 [facility] [id number] Microscopic Examination See below: (Normal) Comments: Microscopic was indicated and was performed. Nitrite, Urine Negative (Normal) Urobilinogen,Semi-Qn 0.2 mg/dL (Normal) Range: 0.2-1.0 Bilirubin Negative (Normal) Occult Blood 1+ (Abnormal) Ketones Negative (Normal) Glucose Negative (Normal) Protein 1+ (Abnormal) WBC Esterase 3+ (Abnormal) Appearance Cloudy (Abnormal) Urine-Color Yellow (Normal) pH 6.5 (Normal) Range: 5.0-7.5 Specific [place] 1.020 (Normal) Range: 1.005-1.030 :06 CBC, Platelets & Auto Diff Comments: PATIENT WAS FASTINGPERFORMED BY: [facility]6370 [facility] [id number] ([id number]) Hematology Comments: Note: (Normal) Comments: Verified by [...] Range: 3.4-10.8 Comments: Verified by repeat analysis :06 TSH (21595) Comments: PATIENT WAS FASTINGPERFORMED BY: [employer] [facility] Mrrltr9637 [facility] [id number] TSH 4.720 {uIU/mL} (Abnormal) Range: 0.450-4.500 01-Ryz-161727:06 Lipid Panel (05361) Comments: PATIENT WAS FASTINGPERFORMED BY: [facility] Xqrsno3828 [facility] [id number] LDL/HDL Ratio 1.0 {ratio_units} (Normal) Range: 0.0-3.2 Comments: LDL/HDL Ratio Men Women 1/2 Avg.Risk 1.0 1.5 Av g.Risk 3.6 3.2 2X Avg.Risk 6.2 5.0 3X Avg.Risk 8.0 6.1 LDL Cholesterol Calc 70 mg/dL (Normal) Range: 0-99 VLDL Cholesterol Sunil 24 mg/dL (Normal) Range: 5-40 HDL Cholesterol 72 mg/dL (Normal) Triglycerides 122 mg/dL (Normal) Range: 0-149 Cholesterol, Total 166 mg/dL (Normal) Range: 100-199 37-Akm-177169:06 Metabolic Panel, Comprehensive Comments: PATIENT WAS FASTINGPERFORMED BY: [facility] Xsbuqd2446 [facility] [id number] (58087) ALT (SGPT) 20 [iU]/L (Normal) Range: 0-32 [...] month put on date and time that perioperative educator here Indication: UTI (urinary tract infection) Abnormal TSH : Eprescribed prescriptions (G8553) Indication: Abnormal TSH Abnormal TSH : Follow up Nov 20 put on schedule to be seen by perioperative educator Fabio between 2-4 Indication: Abnormal TSH Nonsmoker : Follow up in 2 weeks Indication: Nonsmoker Nonsmoker : Follow up in 3 months Indication: Nonsmoker Planned Observations Thin Prep Pap (29004)Indication: Encounter for screening for cervical cancer (Renamed from Encounter for screening for malignant neoplasm of cervix) On: 9-Lll-127374:36 Request URINE ALYCE CULTURE-IDENTIFICATN (81832)Indication: Abnormal urinalysis On: 8-Jcc-122702:12 Request HGB A1C (82219)Indication: Hypertension On: 58-Ewc-819676:16 Request URINE ALYCE CULTURE-LEO COL COUNT (56348)Indication: Dysuria On: 36-Icq-153759:04 Request Metabolic Panel, Comprehensive (70231)Indication: Hypertension On: 53-Pmc-379979:36 Request HgA1C , Office (33451)Indication: Type II diabetes mellitus On: 14-Xla-787233:33 Request Comments: Due Aug 08 in office PT (PROTHROMBIN TIME) (03765)Indication: Hypertension On: 49-Lfe-695379:32 Request CBC, Platelets & Auto Diff (91071)Indication: Hypertension On: 41-Psx-345530:31 Request URINE ALYCE CULTURE-IDENTIFICATN (90681)Indication: UTI (urinary tract infection) On: 70-Vvg-425547:15 Request Urinalysis, Office (71780)Indication: UTI (urinary tract infection) On: 88-Xqg-199132:15 Request Urinalysis, Office (21278)Indication: Preop examination On: 76-Uyy-47971:52 Request BNTP (57246)Indication: Cardiomegaly On: 47-Ule-538376:29 Request Rapid Flu (98366 x 2)Indication: Flu-like symptoms On: 22-Lox-573932:27 Request HGB A1C (06712)Indication: Type II diabetes mellitus On: 0-Iww-211793:38 Request Planned Encounters Medical; 2 Month FU [...] 1 ML used of Kenalog (40mg/ml) LOT- [id number] 2ML of marcaine 0.5% used (5mg/mL) [id number] Martha AG Radiology - Shoulder - LeftBy: On: 04-Jul-2018 Intent Martha Self CNP, CNP, Mary E Pap Smear, Medicare (Q0091)By: On: 04-Jul-2018 Intent Martha Self CNP, CNP, Mary E MAMMOGRAM BREAST BILATERAL On: 04-Jul-2018 Intent SCREENING DIGITAL (57994)By: Martha Self CNP, CNP, Mary E Bone Density StudyBy: Clair AG, On: 04-Jul-2018 Intent Martha Miranda CNP Flu Vaccine (Quadrivalent) On: 04-Jul-2018 Intent [id number]: Martha Self CNP Comments: Lot #[id number]-L dltd, IMDose prefilled syringegiven by:MIKE Al reviewed and ABN signed Martha AG SPIROMETRY (98262)By: Verito REARDON, On: 15-Nov-2017 Intent Suellen MAMMOGRAM BREAST BILATERAL On: 14-Aug-2017 Intent SCREENING DIGITAL (93460)By: Clair Comments: fax to [facility] [phone] KIMBERLI BeulahMartha Person CNP Radiology - ChestBy: Clair AG, On: 30-Jul-2017 Intent BeulahDl Self CNP [place] Spirometry (94430)By: Clair AG, On: 30-Jul-2017 Intent BeulahDl Self CNP [place] ELECTROCARDIOGRAM, COMPLETE (ECG) On: 30-Jul-2017 Intent (07980)By: Suellen Sellers LPN Comments: sinus rhythm Aerosol Treatment (47215)By: Clair On: 05-Mar-2017 Intent KIMBERLI BeulahDl Self CNP [place] Spirometry (90266)By: Clair AG On: 05-Mar-2017 Intent Martha Miranda CNP CHEST XRAY, PA & LATERAL On: 27-Feb-2017 Intent (89575)By: Martha Self CNP, CNP, Mary E Radiology - ChestBy: Clair AG, On: 26-Feb-2017 Intent BeulahDl Self CNP [place] Comments: March 06 Aerosol Treatment (83261)By: Clair On: 26-Feb-2017 Intent KIMBERLI BeulahDl Self CNP [place] Spirometry (24422)By: Clair AG, On: 26-Feb-2017 Intent Martha Miranda CNP Comments: Moderate restriction Radiology - ChestBy: Clair AG, On: 26-Feb-2017 Intent Martha Miranda CNP ELECTROCARDIOGRAM, COMPLETE (ECG) On: 26-Feb-2017 Intent (52961)By: Suellen Sellers LPN Comments: sinus rhythm ELECTROCARDIOGRAM, COMPLETE (ECG) On: 14-Nov-2016 Intent (15084)By: Martha Self CNP, CNP, Mary E Planned [...] patient does not have durable power of patent prosecution attorney or living will. Th e patient [...]
--- OUTSIDE RECORDS SUMMARY | 2018-10-22 20:35 | XMS RPT_ITS | Continuity of Care Document ---
:1945 Author Organization [facility] Address [facility] [address] [place] [address] Phone Care Team Providers Name Role Phone Clair AG, Beulah Unavailable Bailey BAER, Xu Washington Unavailable Enedelia BAER, Kevin Tobar Unavailable Julito Thornton Unavailable Joshua Moeller Unavailable Tess Stone Unavailable Unavailable Slarb ENGINEERING TECHNOLOGY INSTRUCTOR, Suellen Unavailable Unavailable Long ENGINEERING TECHNOLOGY INSTRUCTOR, Renée L Unavailable Unavailable Manchak, Jessica Unavailable [...] Moodispaws note and Cardiology visit report from 1-71-19Ttvofkuxn from Pulmonary with need for agressiv e [...] {Tablet} Refills: 4 Ordered:30-Jul-2017 Clair AG, Martha Lin CNP, Martha Nam Start : 30-Jul-2017 Active [...] knee pain (M25.561, 719.46) Comments: resend to [facility], cant do surgery because sick will see [...] 5 Views Result: Comments: See Note; NOTES: [facility] Imaging Services [address] [place] [address] Cerv Spine 4 or 5 Views MR#: [id number] Acct: [id number] Name: FANY HURST Rep #: [id number] : 1945 F 73 From: Jean-Pierre Joyce MD PCP: Martha Self NP Status: REG CLI Study: Cerv Spine 4 or 5 Views Date of Exam: 07/18/18 Exam# [id number] Ordering Dr: Martha Self SUPERVISOR ASBESTOS TEXTILE-C STUDY: X-RAY - CER VICAL SPINE REASON [...] Service support , CC: Martha Self NP Insurance Marketing Specialist: Signed 18-Jul-2018 L/S Spine Min 4 Views Result: Comments: See Note; NOTES: [facility] Imaging Services [address] [place] [address] L/S Spine Min 4 Views MR#: [id number] Acct: [id number] Name: FANY HURST Rep #: [id number] : 1945 F 73 From: Jean-Pierre Joyce MD PCP: Martha Self NP Status: REG CLI Study: L/S Spine Min 4 Views Date of Exam: 07/18/18 Exam# [id number] Ordering Dr: Martha Self SUPERVISOR ASBESTOS TEXTILE-C STUDY: X-RAY - LUMBAR SPINE REASON FOR [...] Service support , CC: Martha Self NP Insurance Marketing Specialist: Signed 08-Jul-2018 Inital Evaluation (1) - PT Result: Comments: See Note; NOTES: [facility] Physical Therapy [facility] [address] [place] [address] Fax REHABILITATION SERVICES INITIAL EVALUATION MR#: [id number] Acct: [id number] Name: FANY HURST Rep #: [id number] : 1945 73 From: Suellen Chiu MPT Referring Dr.: Martha Self SUPERVISOR ASBESTOS TEXTILE Status: REG RCR Insurance: [employer] MEDICARE PPO [...] to be FAXED BACK to us at [phone] for Medicare purposes. Please let me know if there are questions or concerns regarding this plan of care. Physician Signature: Date: <Electronically signed by Suellen Chiu MPT> 07/08/18 2035 CC: Martha Self NP Signed For Medicare only, by signing this I certify the plan of care. Physicians Signature Date 04-Jul-2018 Shoulder min 2 Views Result: Comments: See Note; NOTES: [facility] Imaging Services [address] [place] [address] Shoulder min 2 Views MR#: [id number] Acct: [id number] Name: FANY HURST Rep #: [id number] D OB: 1945 F 73 From: Jose Angel Mendoza MD PCP: Martha Self NP Status: REG CLI Study: Shoulder min 2 Views Date of Exam: 07/04/18 Exam# [id number] Ordering Dr: Martha Self STUDY: X-RAY - [...] Service support , CC: Martha Self NP Insurance Marketing Specialist: Signed 31-Jan-2018 12 Lead Electrocardiogram Result: Comments: See Note; NOTES: [facility] Cardiovascular Services [address] [place] [address] EKG - [facility] 01/30/18 1301 MR#: [id number] Acct: [id number] Name: FANY HURST Rep #: [id number] : 1945 72 From: Xu Gadruno MD Attending Dr: Kevin Mcdaniels MD Status: PRE IN Ordering Dr: Kevin Mcdaniels MD Date: 01/30/18 Location: [facility] Sex: F C Admitted: [...] Confir med by BAILEY BAER, XU ([id number]), managing editor BENJI ASHRAF ([id number]) on 01/31/2018 2:57:35 PM Referred By: Kevin Mcdaniels Confirmed By:XU GARDUNO MD 01/31/18 1457 Date Xu Garduno MD CC: Martha Self SUPERVISOR ASBESTOS TEXTILE; Kevin Mcdaniels MD Date Dictated: 01/30/18 1301 Date Transcribed: 01/30/18 130 Insurance Marketing Specialist: Signed 19-Dec-2017 Cardiology Visit Report Result: Comments: See Note; NOTES: [facility] [address] [place] [address] OFFICE VISIT Date of Service: 12/19/17 MR#: [id number] Acct: [id number] Name: FANY HURST Rep #: [id number] : 1945 Provider: JEANNE Becerril Age/Sex: 72/F Location: [facility] Status: Signed HPI HPI Details: FANY [...] radial Intake Visit Reasons: 3 M FU Raveler Required: No Accompanied by: Is patient in [...] PO Q12H PRN 09/16/17 [History Confirmed 12/19/17] fnyl-Y12-vutqyfeh tablet 1 tab PO QDAY 09/16/17 [Histo [...] states this is being [facility]. Patient will continue with current [...] by Atilio Becerril NP-C> Date Atilio Becerril SUPERVISOR ASBESTOS TEXTILE-C 12/19/17 1331<Electronically signed by Fernando Alcala MD> Cosigner Signature: Date (if applicable) Fernando Alcala MD CC: Martha Self NP 21-Nov-2017 Chest PA and Lateral Result: Comments: See Note; NOTES: [facility] Imaging Services [address] [place] [address] Chest PA and Lateral MR#: [id number] Acct: [id number] Name: FANY HURST Rep #: [id number] D OB: 1945 F 72 From: Lulu Lincoln MD PCP: Martha Self NP Status: REG CLI Study: Chest PA and Lateral Date of Exam: 11/21/17 Exam# [id number] Ordering Dr: Julito Thornton MD STUDY: X-RAY [...] CC: Martha Self NP; Julito Thornton MD Insurance Marketing Specialist: Signed 20-Nov-2017 Cardiology Visit Report Result: Comments: See Note; NOTES: [facility] [address] [place] [address] OFFICE VISIT Date of Service: 09/18/17 MR#: [id number] Acct: [id number] Name: FANY HURST Rep #: [id number] : 1945 Provider: Xu Garduno MD Age/Sex: 72/F Location: [facility] Status: Signed HPI CARDIAC CLEARENCE KNEE [...] PO Q12H PRN 09/16/17 [History Confirmed 09/18/17] uopi-W95-ciupvlh s tablet 1 tab PO QDAY 09/16/17 [...] PO BID tab 09/18/17 [History Confirmed 09/18/17] [facility] Medical History Preoperative cardiovascular examinat ion (Acute) [...] prior to saving. Follow Up 3 Months (PA/SUPERVISOR ASBESTOS TEXTILE) 09/18/17 7162 <Electronically signed by Xu Garduno MD> Date Xu Garduno MD Cosigner Signature: Date (if applicable) CC: 20-Sep-2017 Echocardiogram Complete Result: Comments: See Note; NOTES: [facility] Cardiovascular Services [address] [place] [address] Echo Complete W/ Contrast 09/20/17 0841 MR#: [id number] Acct: [id number] Name: DEDRICK DlFANY Rep #: [id number] : 1945 72 From: Xu Garduno MD [...] Date Xu Garduno MD CC: Martha Self SUPERVISOR ASBESTOS TEXTILE; Xu Garduno MD Date Dictated: 09/20/17 0841 Date Transcribed: 09/20/17 1236 Insurance Marketing Specialist: Signed 20-Sep-2017 Stress Report Result: Comments: See Note; NOTES: [facility] Cardiovascular Services [address] [facility] [place] [address] MR#: [id number] Acct: [id number] Name: FANY HURST Rep #: [id number] : [birth year] 72 From: Fernando Alcala [...] Date Fernando Alcala MD CC: Martha Self SUPERVISOR ASBESTOS TEXTILE Date Dictated: 09/20/17957 Date Transcribed: 09/20/17957 Insurance Marketing Specialist: [place] Signed 18-Sep-2017 Cardiology Visit Report Result: Comments: See Note; NOTES: [facility] [address] [place] [address]. [address] [place] [address] OFFICE VISIT Date of Service: 09/18/17 MR#: [id number] Acct: [id number] Name: FANY HURST Rep #: [id number] : 1945 Provider: Xu Garduno MD Age/Sex: 72/F Location: [facility] Status: Signed HPI CARDIAC CLEARENCE KNEE [...] PO Q12H PRN 09/16/17 [History Confirmed 09/18/17] mxso-C83-iqqnsgm s tablet 1 tab PO QDAY 09/16/17 [...] prior to saving. Follow Up 3 Months (PA/SUPERVISOR ASBESTOS TEXTILE) 09/18/17 9795 <Electronically signed by Xu Garduno MD> Date Xu [facility] MD [facility] Signature: Date (if applicable) CC: 18-Sep-2017 12 Lead EKG performed by [facility] Result: Comments: See Note; NOTES: [facility] [address] [place] [address] 12 Lead EKG performed by [facility] 09/18/17 1131 MR#: [id number] Acct: [id number] Name: FANY HURST Rep #: [id number] : 1945 72 From: Xu Garduno MD Attending Dr: Xu Garduno MD Status: DEP [facility] Ordering Dr: Xu Garduno MD Date: 09/18/17 Location: [facility] Sex: F C Admitted: O RDER #: [id number] BMS/12 Lead EKG performed by [facility] ECG Report Interpretation Somatic / motion artifactSinus Rhythm Low voltage in precordial leads. Poor R wave progression.Infe rior [place], age undetermined, cannot be excludedABNORMAL Electronically signed on 09/18/2017 at 17:30 by Xu Garduno 09/18/17 1733 Date Xu Garduno MD CC: Martha Self NP Date Dictated: 09/18/171130 Date Transcribed: 09/18/171130 Insurance Marketing Specialist: PM Signed 18-Sep-2017 12 Lead EKG performed by [facility] Result: Comments: See Note; NOTES: [facility] [address] [place] [address] 12 Lead EKG performed by [facility] 09/18/17 113 MR#: [id number] Acct: [id number] Name: FANY HURST Rep #: [id number] : 1945 72 From: Xu Garduno MD Attending Dr: Xu Garduno MD Status: DEP [facility] Ordering Dr: Xu Garduno MD Date: 09/18/17 Location: [facility] Sex: F C Admitted: O RDER #: [id number] BMS/12 Lead EKG performed by [facility] ECG Report Interpretation Somatic / motion artifactSinus Rhythm Low voltage in precordial leads. Poor R wave progression.Infe rior [place], age undetermined, cannot be excludedABNORMAL Electronically signed on 09/18/2017 at 17:30 by Xu Garduno 10/16/17 1615 Date Xu Garduno MD CC: Martha Self SUPERVISOR ASBESTOS TEXTILE Date Dictated: 09/18/17 1131 Date Transcribed: 09/18/17 1131 Insurance Marketing Specialist: PM Signed 30-Jul-2017 Chest PA and Lateral Result: Comments: See Note; NOTES: [facility] Imaging Services [address] [place] [address] Chest PA and Lateral MR#: [id number] Acct: [id number] Name: FANY HURST Rep #: [id number] D OB: 1945 F 72 From: Alcides Saha MD PCP: Martha Self Status: REG CLI Study: Chest PA and Lateral Date of Exam: 07/30/17 Exam# [id number] Ordering Dr: Martha Self STUDY: X-RAY CHEST [...] Alcides Saha MD at 11:09 EDT Tel [phone], Service support , Fax CC: Martha Self Insurance Marketing Specialist: Signed 04-Mar-2017 Chest PA and Lateral Result: Comments: See Note; NOTES: [facility] Imaging Services [address] [place] [address] [address] Chest PA and Lateral MR#: [id number] Acct: [id number] Name: FANY HURST Rep #: [id number] : 1945 F 71 From: Milvia Romero MD PCP: Martha Self Status: REG CLI Study: Chest PA and Lateral Date of Exam: 03/04/17 Exam# [id number] Ordering Dr: Martha Self STUDY: X-RAY CHEST [...] Milvia Romero MD at 19:31 EDT Tel [phone], Service support , CC: Martha Self Insurance Marketing Specialist: Signed 26-Feb-2017 Chest PA and Lateral Result: Comments: See Note; NOTES: [facility] Imaging Services [address] [place] [address] [address] Chest PA and Lateral MR#: [id number] Acct: [id number] Name: FANY HURST Rep #: [id number] : 1945 F 71 From: Geovany Bauer DO PCP: Martha Self Status: REG CLI Study: Chest PA and Lateral Date of Exam: 02/26/17 Exam# [id number] Ordering Dr: Martha Self STUDY: X-RAY CHEST [...] Geovany Bauer DO at 18:19 EDT Tel [phone], Service support , CC: Martha Self Insurance Marketing Specialist: Signed Family History Unknown Family Member Name Dates Details Brother 1 Comments: cancer-lung, anuerism Status: Active Father Comments: CVA; diabetes Status: Active Mother Comments: CHF Status: Active Sister 1 Comments: [place] Status: Active Sister 2 Comments: Murdered Status: [...] kg/m2 Body Surface Area Calculated 1.91 m2 81-Vdx-034919:23 Temperature 98.3 f Pulse 85 /min Comments: [...] kg/m2 Body Surface Area Calculated 1.93 m2 17-Bwg-535815:26 Temperature 97.6 f Pulse 91 /min Comments: [...] 1.94 m2 Results Date Description Value Details 8-Ard-683844:08 URINE ALYCE CULTURE-IDENTIFICATN Comments: PATIENT NOT FASTINGPERFORMED BY: [facility] Ifzzze3956 [facility] [id number] Information: SRC: ([id number]) Antimicrobial MIHEAD (Normal) Comments: S = Susceptible; [...] and Proteusmirabilis. Urine Final report Culture,Comprehensive (Abnormal) 8-Wqb-207260:28 TSH (30794) Comments: PATIENT WAS FASTINGPERFORMED BY: LabCoSt. Luke's Warren HospitalNomuaj1499 [facility] [id number] TSH 6.450 {uIU/mL} (Abnormal) Range: 0.450-4.500 7-Gxs-901044:28 CBC, Platelets & Auto Diff Comments: PATIENT WAS FASTINGPERFORMED BY: [facility]6370 [facility] [id number] (30246) Immature Grans (Abs) 0.0 {x10E3/uL} (Normal) Range: [...] 3.77-5.28 WBC 8.7 {x10E3/uL} (Normal) Range: 3.4-10.8 7-Kge-920764:28 Lipid Panel (54042) Comments: PATIENT WAS FASTINGPERFORMED BY: SolexaSt. Luke's Warren HospitalCnpewl9653 [facility] [id number] LDL/HDL Ratio 0.9 {ratio} (Normal) Range: 0.0-3.2 Comments: LDL/HDL Ratio Men Women 1/2 Avg.Risk 1.0 1.5 Av g.Risk 3.6 3.2 2X Avg.Risk 6.2 5.0 3X Avg.Risk 8.0 6.1 LDL Cholesterol Calc 68 mg/dL (Normal) Range: 0-99 VLDL Cholesterol Sunil 22 mg/dL (Normal) Range: 5-40 HDL Cholesterol 72 mg/dL (Normal) Triglycerides 108 mg/dL (Normal) Range: 0-149 Cholesterol, Total 162 mg/dL (Normal) Range: 100-199 4-Sbg-945683:28 Metabolic Panel, Comprehensive Comments: PATIENT WAS FASTINGPERFORMED BY: Ahead Fitztk4801 [facility] [id number] (60847) ALT (SGPT) 15 [iU]/L (Normal) Range: 0-32 [...] mg/dL (Normal) Range: 65-99 04-Jul-20182:00 HPV, Reflex (38414) Comments: Source.............Cervix;EndocervixNo. of containers..01 ThinPrep VialPATIENT NOT FASTINGPERFORMED BY: [facility]Co[address] Amadou [id number] Information: [id number] Note: PAPSMR (Normal) Comments: The Pap smear [...] evaluation. No endocervical component is identified.Z12.4Stameri Feng Aircraft Engine Cylinder Mechanic (ASCP) 3-Amk-532183:04 Urinalysis, Office (13057) UA - LEUKOCYTE ESTERASE Moderate (Normal) UA - NITRITE Positive (Normal) URINE UROBILINGN LEO TIMED Normal mg/dL (Normal) UA - PROTEIN Trace mg/dL (Normal) UA - PH 7 (Normal) UA - BLOOD Non Hemolyzed Moderate (Normal) UA - SPECIFIC GRAVITY 1.015 (Normal) UA - KETONES Negative mg/dL (Normal) UA - BILIRUBIN Negative (Normal) UA - GLUCOSE Negative (Normal) 8-Khc-485652:15 Basic Metabolic Profile (BMP) Comments: [facility] [address] [place], [address] GAP 7 (Normal) Range: 5-15 CO2 31.0 [...] Comments: Please note revised GLUCOSE reference range vwvacjzue28/02/2018. 1-Eyh-314050:15 CBC-Complete Blood Cnt No Diff Comments: [facility] [address] [place], [address] MPV 10.3 fL (Normal) Range: [...] 4.2-5.4 WBC 7.3 K/mm3 (Normal) Range: 4.4-11.0 8-Hrc-225708:15 MRSA/SAID SCREEN Comments: [facility] [address] [place], [address] MRSA+SAID SCRN See Note (Normal) Comments: MRSA/SAID SCRNS. AUREUS S. aureus NegativeMRSA MRSA Negative 89-Stz-871453:10 HgA1C , Office (95699) HgA1C , Office 6.9 % (Normal) Range: 4.6 - 7.1 86-Lwl-740451:04 URINE ALYCE CULTURE-IDENTIFICATN Comments: PATIENT NOT FASTINGPERFORMED BY: Color [facility]6370 [facility] [id number] Information: SRC: ([id number]) Antimicrobial MIHEAD (Normal) Comments: S = Susceptible; [...] mL (Abnormal) Urine Final report Culture,Comprehensive (Abnormal) 93-Zjm-47724:38 Urinalysis, Office (89476) UA - LEUKOCYTE ESTERASE Moderate (Normal) UA - NITRITE Negative (Normal) URINE UROBILINGN LEO TIMED Normal mg/dL (Normal) UA - PROTEIN Negative mg/dL (Normal) UA - PH 7 (Normal) UA - BLOOD Non Hemolyzed Trace (Normal) UA - SPECIFIC GRAVITY 1.015 (Normal) UA - KETONES Negative mg/dL (Normal) UA - BILIRUBIN Negative (Normal) UA - GLUCOSE Negative (Normal) 05-Edw-696259:54 Metabolic Panel, Comprehensive Comments: PATIENT NOT FASTINGPERFORMED BY: Color [facility]6370 [facility] [id number] (32516) ALT (SGPT) 13 [iU]/L (Normal) Range: 0-32 [...] Glucose, Serum 164 mg/dL (Abnormal) Range: 65-99 74-Mxi-159536:54 HGB A1C (30370) Comments: PATIENT NOT FASTINGPERFORMED BY: CADEN LabKEYW Corporation[address] PrizeoUNC Health Wayne [id number] Hemoglobin A1c 7.8 % (Abnormal) Range: 4.8-5.6 Comments: . Pre-diabetes: 5.7 - 6.4 Diabetes: >6.4 Glycemic control for adults with diabetes: <7.0 25-Gal-548048:16 Urinalysis, Office (24873) UA - LEUKOCYTE ESTERASE Moderate (Normal) UA - NITRITE Negative (Normal) URINE UROBILINGN LEO TIMED Normal mg/dL (Normal) UA - PROTEIN Negative mg/dL (Normal) UA - PH 7 (Normal) UA - BLOOD Hemolyzed Small (Normal) UA - SPECIFIC GRAVITY 1.010 (Normal) UA - KETONES Negative mg/dL (Normal) UA - BILIRUBIN Negative (Normal) UA - GLUCOSE Negative (Normal) 96-Tnd-427098:24 HGB A1C (55690) Comments: PERFORMED BY: [facility]CoNeedle70 [facility]The [facility] [id number] Hemoglobin A1c 6.5 % (Abnormal) Range: 4.8-5.6 Comments: . Pre-diabetes: 5.7 - 6.4 Diabetes: >6.4 Glycemic control for adults with diabetes: <7.0 07-Sil-633728:04 Urinalysis, Office (70433) UA - LEUKOCYTE ESTERASE Small (Normal) UA [...] enough for a C/S to be sent 77-Clc-672210:20 CBC W/Diff, Automated Comments: [facility] [address] [place], [place], [address] Absolute Lymph 2.65 {X10_3/ul} (Normal) Range: 0.83-4.51 [...] 4.2-5.4 WBC 8.9 K/mm3 (Normal) Range: 4.4-11.0 40-Air-490822:20 Comprehensive Metabolic Profil Comments: [facility] [address] [place], [place], [address] GAP 8 (Normal) Range: 5-15 CO2 29.0 [...] <126 mg/dLsuggests IMPAIRED HOMEOSTASIS per A.D.A. criteria. 21-Sdq-557686:20 Culture, Urine Comments: [facility] [address] [place], [place], [address] CUUR See Note (Normal) Comments: Urine CultureORGANISM [...] <= 20 S(NF) indicates non-formulary drug at [facility]. Approval by Infectious Disease Specialist required before non- formulary drugs may be ordered and/or dispensed. 47-Atu-480142:20 Prothrombin Time w/INR Comments: [facility] [address] [place], [place], [address] INR 1.0 (Normal) PROTIME 13.1 s (Normal) Range: 11.7-14.9 26-Rat-604489:25 CBC, Platelets & Auto Diff Comments: Jul 2017; PATIENT NOT FASTINGPERFORMED BY: [facility] Bewcio8479 [facility] [id number] (76273) Hematology Comments: Note: (Normal) Comments: Verified by [...] 3.77-5.28 WBC 9.1 {x10E3/uL} (Normal) Range: 3.4-10.8 16-Sox-631635:25 Metabolic Panel, Comprehensive Comments: Jul 2017; PATIENT NOT FASTINGPERFORMED BY: [facility] Oikocv1667 [facility] [id number]; OV 08/14 (09628) ALT (SGPT) 15 [iU]/L (Normal) Range: 0-32 [...] (Abnormal) Range: 65-99 :14 HgA1C , Office (32988) HgA1C , Office 6.3 % (Normal) Range: 4.6 - 7.1 :14 Blood Glucose , Office (96771) Blood Glucose , Office 100 (Normal) 32-Bjc-854754:06 Metabolic Panel, Comprehensive Comments: today; PATIENT NOT FASTINGPERFORMED BY: LabCoSt. Luke's Warren HospitalPvqevj7836 [facility] [id number] (20981) ALT (SGPT) 14 [iU]/L (Normal) Range: 0-32 [...] Glucose, Serum 93 mg/dL (Normal) Range: 65-99 6-Arp-258230:52 Urinalysis, Office (79529) UA - LEUKOCYTE ESTERASE Negative (Normal) UA - NITRITE Negative (Normal) URINE UROBILINGN LEO TIMED Normal mg/dL (Normal) UA - PROTEIN Negative mg/dL (Normal) UA - PH 7.0 (Normal) UA - BLOOD Hemolyzed Trace (Normal) UA - SPECIFIC GRAVITY 1.015 (Normal) UA - KETONES Negative mg/dL (Normal) UA - BILIRUBIN Negative (Normal) UA - GLUCOSE Negative (Normal) 65-Zrb-495893:44 BNTP (12509) Comments: PATIENT NOT FASTINGPERFORMED BY: [employer] [facility] [id number] B-Type Natriuretic Peptide 11.6 pg/mL (Normal) Range: 0.0-100.0 62-Wxj-95129:46 Sputum Culture (88441) Comments: PATIENT NOT FASTINGPERFORMED BY: [employer] [facility] [id number] Information: SRC:SP Result 1 RRF (Normal) Comments: Routine respiratory alaina Lower Respiratory Culture Final report (Normal) 99-Imm-177145:47 URINE ALYCE CULTURE-IDENTIFICATN Comments: PATIENT NOT FASTINGPERFORMED BY: [employer] [facility] [id number] Information: SRC:UC (88960) Result 1 MUG (Normal) Comments: Mixed urogenital flora25,000-50,000 colony forming units per mL Urine Final report (Normal) Culture,Comprehensive :38 Urinalysis, Office (19849) UA - LEUKOCYTE ESTERASE Negative (Normal) UA - NITRITE Negative (Normal) URINE UROBILINGN LEO TIMED Normal mg/dL (Normal) UA - PROTEIN Negative mg/dL (Normal) UA - PH 7.5 (Normal) UA - BLOOD Hemolyzed Trace (Normal) UA - SPECIFIC GRAVITY 1.015 (Normal) UA - KETONES Negative mg/dL (Normal) UA - BILIRUBIN Negative (Normal) UA - GLUCOSE Negative (Normal) :47 Blood Glucose , Office (00441) Blood Glucose , Office 90 (Normal) :47 HgA1C , Office (39833) HgA1C , Office 5.7 % (Normal) Range: 4.6 - 7.1 5-Cnz-071302:26 Microscopic Examination Comments: PATIENT WAS FASTINGPERFORMED BY: [employer]70 MullenUniversity Health Truman Medical CenterJobAppNovant Health [facility] [id number] Bacteria Few (Normal) Mucus Threads Present (Normal) Cast Type Hyaline casts (Normal) Casts Present {/lpf} (Abnormal) Epithelial Cells (non renal) 0-10 {/hpf} (Normal) Range: 0 - 10 RBC 0-2 {/hpf} (Normal) Range: 0 - 2 WBC 0-5 {/hpf} (Normal) Range: 0 - 5 1-Pxu-506849:26 METABOLIC PANEL, COMPREHENSIVE Comments: PATIENT WAS FASTINGPERFORMED BY: [employer]6370 [facility] [id number] (55263) ALT (SGPT) 12 [iU]/L (Normal) Range: 0-32 [...] Glucose, Serum 85 mg/dL (Normal) Range: 65-99 9-Kbh-574004:26 MICROALBUMIN: CREATININE RATIO Comments: PATIENT WAS FASTINGPERFORMED BY: Red Condor70 [facility] [id number] (36846) AND (41711) Microalb/Creat Ratio 25.9 {mg/g_creat} (Normal) Range: 0.0-30.0 Microalbumin, Urine 9.1 ug/mL (Normal) Creatinine, Urine 35.1 mg/dL (Normal) 8-Kve-400178:26 URINALYSIS (33315) Comments: PATIENT WAS FASTINGPERFORMED BY: BlueOak ResourcesNovant Health [facility] [id number] Microscopic Examination See below: (Normal) Comments: Microscopic was indicated and was performed. Nitrite, Urine Negative (Normal) Urobilinogen,Semi-Qn 0.2 mg/dL (Normal) Range: 0.2-1.0 Bilirubin Negative (Normal) Occult Blood Negative (Normal) Ketones Negative (Normal) Glucose Negative (Normal) Protein Negative (Normal) WBC Esterase Trace (Abnormal) Appearance Clear (Normal) Urine-Color Yellow (Normal) pH 7.0 (Normal) Range: 5.0-7.5 Specific [place] 1.012 (Normal) Range: 1.005-1.030 59-Bgc-514209:09 Metabolic Panel, Comprehensive Comments: PATIENT NOT FASTINGPERFORMED BY: Mengcaolin6370 [facility] [facility] [id number] ([id number]) ALT (SGPT) 16 [iU]/L (Normal) Range: 0-32 [...] Glucose, Serum 145 mg/dL (Abnormal) Range: 65-99 40-Gqa-849491:30 URINE ALYCE CULTURE-IDENTIFICATN Comments: PATIENT NOT FASTINGPERFORMED BY: [facility] [id number] [facility] [id number] Information: SRC: ([id number]) Antimicrobial MIHEAD (Normal) Comments: S = Susceptible; [...] mL (Abnormal) Urine Final report Culture,Comprehensive (Abnormal) 32-Itd-543865:00 TSH (THYROID STIMULATING Comments: PATIENT NOT FASTINGPERFORMED BY: [facility] [id number] [facility] [id number] HORMONE) ([id number]) TSH 3.840 {uIU/mL} (Normal) Range: 0.450-4.500 41-Qpd-910089:59 UPEP (87084) Comments: PATIENT NOT FASTINGPERFORMED BY: [facility] [id number] [facility] [id number] Please note: SPRCS (Normal) Comments: Protein electrophoresis scan will follow via computer, mail, orcourier delivery. M-Romeo, % Not Observed % (Normal) Gamma Globulin, U 9.0 % (Normal) Beta Globulin, U 23.1 % (Normal) Ptmld-1-Fijifvuy, U 8.3 % (Normal) Rxlzd-1-Dbemvdvy, U 2.1 % (Normal) Albumin, U 57.4 % (Normal) Protein,Total,Urine 17.6 mg/dL (Normal) 49-Jgv-540605:00 serum free light chains Comments: PATIENT NOT FASTINGPERFORMED BY: [facility] [id number] [facility] [id number] ([id number]) [place]/Lambda Ratio,S 1.40 (Normal) Range: 0.26-1.65 Free Lambda Lt Chains,S 17.88 mg/L (Normal) Range: 5.71-26.30 Free [place] Lt Chains,S 25.10 mg/L (Abnormal) Range: 3.30-19.40 96-Kxu-390675:59 urine immunofixation (57381) Comments: PATIENT NOT FASTINGPERFORMED BY: [facility] [id number] CARRIE Interpretation:U UPEIP (Normal) Comments: No monoclonality detected. 83-Lep-347277:00 serum immunofixation (08215) Comments: PATIENT NOT FASTINGPERFORMED BY: [facility] [id number] Immunoglobulin M, Qn, Serum 76 mg/dL (Normal) Range: 26-217 Immunoglobulin A, Qn, Serum 152 mg/dL (Normal) Range: 87-352 Immunoglobulin G, Qn, Serum 865 mg/dL (Normal) Range: 700-1600 Immunofixation Result, Serum UPEIP (Normal) Comments: No monoclonality detected. 84-Mkz-143426:00 PARATHORMONE (56816) Comments: PATIENT NOT FASTINGPERFORMED BY: [facility] [id number] PTH, Intact 35 pg/mL (Normal) Range: 15-65 14-Brp-612042:28 Urinalysis, Office (93968) UA - LEUKOCYTE ESTERASE Moderate (Normal) UA - NITRITE Negative (Normal) URINE UROBILINGN LEO TIMED Normal mg/dL (Normal) UA - PROTEIN Negative mg/dL (Normal) UA - PH 7 (Normal) UA - BLOOD Non Hemolyzed Trace (Normal) UA - SPECIFIC GRAVITY 1.010 (Normal) UA - KETONES Negative mg/dL (Normal) UA - BILIRUBIN Negative (Normal) UA - GLUCOSE Negative (Normal) 79-Mao-050366:06 Microscopic Examination Comments: PATIENT WAS FASTINGPERFORMED BY: [facility] [place] [id number] Bacteria Few (Normal) Mucus Threads Present (Normal) Epithelial Cells (non renal) 0-10 {/hpf} (Normal) Range: 0 - 10 RBC 3-10 {/hpf} (Abnormal) Range: 0 - 2 WBC >30 {/hpf} (Abnormal) Range: 0 - 5 Comments: Clumps of leukocytes present. :06 MICROALBUMIN: CREATININE RATIO Comments: PATIENT WAS FASTINGPERFORMED BY: Color [facility]6370 [facility] [id number] ([id number]) AND (25983) Microalb/Creat Ratio 96.6 {mg/g_creat} (Abnormal) Range: 0.0-30.0 Microalbumin, Urine 102.3 ug/mL (Normal) Creatinine, Urine 105.9 mg/dL (Normal) :06 URINALYSIS (14740) Comments: PATIENT WAS FASTINGPERFORMED BY: Color [facility]6370 [facility] [id number] Microscopic Examination See below: (Normal) Comments: Microscopic was indicated and was performed. Nitrite, Urine Negative (Normal) Urobilinogen,Semi-Qn 0.2 mg/dL (Normal) Range: 0.2-1.0 Bilirubin Negative (Normal) Occult Blood 1+ (Abnormal) Ketones Negative (Normal) Glucose Negative (Normal) Protein 1+ (Abnormal) WBC Esterase 3+ (Abnormal) Appearance Cloudy (Abnormal) Urine-Color Yellow (Normal) pH 6.5 (Normal) Range: 5.0-7.5 Specific [place] 1.020 (Normal) Range: 1.005-1.030 :06 CBC, Platelets & Auto Diff Comments: PATIENT WAS FASTINGPERFORMED BY: [facility]6370 [facility] [id number] ([id number]) Hematology Comments: Note: (Normal) Comments: Verified by [...] Comments: Verified by repeat analysis :06 TSH (53707) Comments: PATIENT WAS FASTINGPERFORMED BY: [employer] [facility] [id number] [facility] [id number] TSH 4.720 {uIU/mL} (Abnormal) Range: 0.450-4.500 86-Jhm-841779:06 Lipid Panel (24134) Comments: PATIENT WAS FASTINGPERFORMED BY: [facility] [id number] [facility] [id number] LDL/HDL Ratio 1.0 {ratio_units} (Normal) Range: 0.0-3.2 Comments: LDL/HDL Ratio Men Women 1/2 Avg.Risk 1.0 1.5 Av g.Risk 3.6 3.2 2X Avg.Risk 6.2 5.0 3X Avg.Risk 8.0 6.1 LDL Cholesterol Calc 70 mg/dL (Normal) Range: 0-99 VLDL Cholesterol Sunil 24 mg/dL (Normal) Range: 5-40 HDL Cholesterol 72 mg/dL (Normal) Triglycerides 122 mg/dL (Normal) Range: 0-149 Cholesterol, Total 166 mg/dL (Normal) Range: 100-199 39-Txg-745431:06 Metabolic Panel, Comprehensive Comments: PATIENT WAS FASTINGPERFORMED BY: [facility] [id number] [facility] [id number] ([id number]) ALT (SGPT) 20 [iU]/L (Normal) Range: 0-32 [...] month 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 Indication: UTI (urinary tract infection) Abnormal TSH : Eprescribed prescriptions (G8553) Indication: Abnormal TSH Abnormal TSH : Follow up Nov 20 put on schedule to be seen by museum educator Fabio between 2-4 Indication: Abnormal TSH Nonsmoker : Follow up in 2 weeks Indication: Nonsmoker Nonsmoker : Follow up in 3 months Indication: Nonsmoker Planned Observations Thin Prep Pap (32030)Indication: Encounter for screening for cervical cancer (Renamed from Encounter for screening for malignant neoplasm of cervix) On: 1-Ofu-979765:36 Request URINE ALYCE CULTURE-IDENTIFICATN (46511)Indication: Abnormal urinalysis On: 3-Mud-632046:12 Request HGB A1C (05123)Indication: Hypertension On: 06-Mwt-882687:16 Request URINE ALYCE CULTURE-LEO COL COUNT (93749)Indication: Dysuria On: 16-Ucb-937948:04 Request Metabolic Panel, Comprehensive (49069)Indication: Hypertension On: 11-Dhu-488333:36 Request HgA1C , Office (77141)Indication: Type II diabetes mellitus On: 52-Tbo-356976:33 Request Comments: Due Aug 08 in office PT (PROTHROMBIN TIME) (93313)Indication: Hypertension On: 25-Vie-315028:32 Request CBC, Platelets & Auto Diff (76873)Indication: Hypertension On: 66-Ktu-515301:31 Request URINE ALYCE CULTURE-IDENTIFICATN (87099)Indication: UTI (urinary tract infection) On: 18-Jha-803298:15 Request Urinalysis, Office (70412)Indication: UTI (urinary tract infection) On: 59-Wch-155273:15 Request Urinalysis, Office (15537)Indication: Preop examination On: 11-Bew-68874:52 Request BNTP (15919)Indication: Cardiomegaly On: 06-Meb-050756:29 Request Rapid Flu (70135 x 2)Indication: Flu-like symptoms On: 64-Whp-637379:27 Request HGB A1C (88102)Indication: Type II diabetes mellitus On: 1-Ojc-947946:38 Request Planned Encounters Medical; 2 Month FU [...] 1 ML used of Kenalog (40mg/ml) LOT- [id number] 2ML of marcaine 0.5% used (5mg/mL) [id number] Martha AG Radiology - Shoulder - LeftBy: On: 04-Jul-2018 Intent Martha Self CNP, CNP, Mary E Pap Smear, Medicare (Q0091)By: On: 04-Jul-2018 Intent Martha Self CNP, CNP, Mary E MAMMOGRAM BREAST BILATERAL On: 04-Jul-2018 Intent SCREENING DIGITAL (00619)By: Martha eSlf CNP, CNP, Mary E Bone Density StudyBy: Clair AG, On: 04-Jul-2018 Intent Martha Miranda CNP Flu Vaccine (Quadrivalent) On: 04-Jul-2018 Intent [id number]: Martha Self CNP Comments: Lot #[id number]-L dltd, IMDose prefilled syringegiven by:MIKE Al reviewed and ABN signed Martha AG SPIROMETRY (04858)By: Verito REARDON, On: 15-Nov-2017 Intent Suellen MAMMOGRAM BREAST BILATERAL On: 14-Aug-2017 Intent SCREENING DIGITAL (97827)By: Clair Comments: fax to [facility] [phone] KIMBERLI BeulahMartha Person CNP Radiology - ChestBy: Clair AG, On: 30-Jul-2017 Intent BeulahDl Self CNP [place] Spirometry (64001)By: Clair AG, On: 30-Jul-2017 Intent BeulahDl Self CNP [place] ELECTROCARDIOGRAM, COMPLETE (ECG) On: 30-Jul-2017 Intent (40147)By: Suellen Sellers LPN Comments: sinus rhythm Aerosol Treatment (19243)By: Clair On: 05-Mar-2017 Intent KIMBERLI BeulahDl Self CNP [place] Spirometry (93446)By: Clair AG On: 05-Mar-2017 Intent Martha Miranda CNP CHEST XRAY, PA & LATERAL On: 27-Feb-2017 Intent (99110)By: Martha Self CNP, CNP, Mary E Radiology - ChestBy: Clair AG, On: 26-Feb-2017 Intent BeulahDl Self CNP [place] Comments: March 06 Aerosol Treatment (43985)By: Clair On: 26-Feb-2017 Intent KIMBERLI BeulahDl Self CNP [place] Spirometry (94600)By: Clair AG, On: 26-Feb-2017 Intent Martha Miranda CNP Comments: Moderate restriction Radiology - ChestBy: Clair AG, On: 26-Feb-2017 Intent Martha Miranda CNP ELECTROCARDIOGRAM, COMPLETE (ECG) On: 26-Feb-2017 Intent (77289)By: Suellen Sellers LPN Comments: sinus rhythm ELECTROCARDIOGRAM, COMPLETE (ECG) On: 14-Nov-2016 Intent (23719)By: Martha Self CNP, CNP, Mary E Planned [...] from Uncontrolled type 2 diabetes mellitus) Encounters Phone Encounter On: 21-Jul-2018 16:13 Encounter Diagnosis: [...] 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 Th e patient has [...] [facility] Payers [employer] Marc ruelas guarantor
--- OUTSIDE RECORDS SUMMARY | 2018-10-22 20:36 | XMS RPT_ITS ---
:1945 Author Organization OHIP Support Name Relationship Address Phone R Unavailable Unavailable Unavailable WHITE, MTIESH Unavailable [address] + [place] [address] WHITEDIANNE Unavailable Unavailable + R Unavailable Unavailable Unavailable WHITE, MITESH Unavailable [address] + [place] [address] WHITE, DIANNE Unavailable [facility] [address] + [place] [address] R Unavailable Unavailable Unavailable WHITE, MITESH Unavailable [address] + [place] [address] WHITE, DIANNE Unavailable [facility] [address] + [place] [address] R Unavailable Unavailable Unavailable WHITE, MITESH Unavailable [address] + [place] [address] WHITE, DIANNE Unavailable [facility] [address] + [place] [address] R Unavailable Unavailable Unavailable WHITE, MITESH Unavailable [address] + [place] [address] WHITE, DIANNE Unavailable [facility] [address] + [place] [address] R Unavailable Unavailable Unavailable WHITE, MITESH Unavailable [address] + [address] [place] [address] WHITE, DIANNE Unavailable [facility] [address] + [place] [address] R Unavailable Unavailable Unavailable WHITE, MITESH Unavailable [address] + [address] [place] [address] WHITE, DIANNE Unavailable [facility] [address] + [place] [address] R Unavailable Unavailable Unavailable WHITE, MITESH Unavailable [address] + [address] [place] [address] WHITE, DIANNE Unavailable [facility] [address] + [place] [address] R Unavailable Unavailable Unavailable MITESH HURST Unavailable [address] + [address] [place] [address] DIANNE HURST Unavailable [facility] [address] + [place] [address] R Unavailable Unavailable Unavailable MITESH HURST Unavailable [address] + [address] [place] [address] DIANNE HURST Unavailable [facility] [address] + [place] [address] R Unavailable Unavailable Unavailable MITESH HURST Unavailable [address] + [address] [place] [address] DIANNE HURST Unavailable [facility] [address] + [place] [address] D Unavailable Unavailable Unavailable MITESH HURST Unavailable [address] [place] [address] DIANNE HURST Unavailable [facility] [address] + [place] [address] Care Team Providers Name Role Phone KACI OLSON Attending Unavailable KACI OLSON Referring Unavailable KACI OLSON Attending Unavailable Xu Garduno Attending Unavailable Martha Self Referring Unavailable Xu Garduno Attending Unavailable Cassandraesa, [facility] Unavailable Xu Garduno Attending Unavailable Xu Garduno Referring Unavailable Julito Thornton Attending Unavailable Ciesa, [facility] Unavailable Julito Thornton Referring Unavailable Atilio Becerril Attending Unavailable Martha Self Referring Unavailable Kevin Mcdaniels Admitting Unavailable Kevin Mcdaniels Attending Unavailable Kevin Mcdaniels Referring Unavailable Cassandraesa, [facility] Unavailable Xu Garduno Attending Unavailable Kevin Mcdaniels Referring Unavailable CassandraesMartha ruelas Attending Unavailable Cassandraesa, [facility] Unavailable CassandraesaMartha Referring Unavailable CassandraesaMartha Attending Unavailable CassandraesaMartha Referring Unavailable Ciesa, Martha Primary Care Unavailable JamarcusaMartha Attending Unavailable CassandraesaMartha Referring Unavailable Ciesa, Martha Primary Care Unavailable JamarcusaMartha Attending Unavailable Cassandraesa, [facility] Unavailable Martha Self Attending Unavailable Jamarcusa, [facility] Unavailable JamarcusaMartha Referring Unavailable PROBLEMS PROBLEMS DATE TYPE CONDITION / CODE ATTENDING STATUS SOURCE 08/27/2018 Unknown Z78.0 - [facility] Self [facility] menopausal state / Hospital Z78.0(ICD-10) Repository 08/27/2018 Unknown Z12.31 - Encounter Martha Self for screening Community mammogram for Hospital malignant neoplasm Repository of breast / Z12.31(ICD-10) 07/18/2018 Unknown M54.9 - Dorsalgia, Martha Self [place] unspecified / Community M54.9(ICD-10) Hospital Repository 07/18/2018 Unknown M54.2 - Martha Self [place] Cervicalgia / Community M54.2(ICD-10) Hospital Repository 07/04/2018 Unknown M25.512 - Pain in CassandraesMartha ruelas Active [facility] left shoulder / Community M25.512(ICD-10) Hospital Repository 02/19/2018 Unknown M13.862 - Other GesKevin dillard Active [place] specified Community arthritis, left Hospital knee / Repository M13.862(ICD-10) 03/21/2018 Unknown I10 - Essential MoodisXu jones Active [place] (primary) [facility] hypertension / Hospital I10(ICD-10) Repository 10/22/2017 Unknown R06.02 - Shortness MoodispaXu loaiza Active [facility] of breath / Community R06.02(ICD-10) Hospital Repository 09/18/2017 Unknown I51.7 - MoodispaXu loaiza Active [place] Cardiomegaly / Community I51.7(ICD-10) Hospital Repository PROCEDURES PROCEDURES No Procedure Records FoundRESULTS RESULTS SCREENING MAMM (CAD), Observed: 09/05/2018 Status: F Source: [facility] 7:42 AM [facility] REPOSITORY [facility] Imaging Services [address] [place] [address] SCREENING MAMM (CAD), BILAT MR#: [id number] Acct: [id number] Name: FANY HURST Rep #: [id number] : 1945 F 73 From: Alcides Saha MD PCP: Martha Self NP Status: REG CLI Study: SCREENING MAMM (CAD), BILAT Date of Exam: 09/05/18 Exam# [id number] Ordering Dr: Martha Self DRIVER'S EDUCATION INSTRUCTOR-C MAMMOGRAPHY - BILATERAL SCREENING REASON FOR EXAM: Female, 73 years old. Routine annual screening examination. PERTINENT HISTORY: Non-contributory. History of bilateral breast biopsies. TECHNIQUE: Digital bilateral breast mónica (3D mammographic acquisition) in the CC and MLO projections. 2-D mediolateral oblique (MLO) and craniocaudad (CC) views of both breasts were obtained. CAD: Full Field Digital Mammography with Computer Added Detection was performed. COMPARISON: Comparison is made with prior osseous examination dated August 29, 2017. FINDINGS: Breast Composition: The breasts are almost entirely fatty. There are no dominant masses or suspicious calcifications. There are 2 tissue markers in the upper lateral portion of the right breast. This is unchanged. No other significant abnormalities are identified. There has been no significant change since the prior study. BI/SCREENING MAMM (CAD), BILAT IMPRESSION: Stable bilateral screening mammogram. Yearly follow-up mammogram recommended. (A) ASSESSMENT CATEGORY: BIRADS Category 2: Benign. A letter regarding these results will be sent to the patient by the facility within 30 days. Approximately 10% of breast cancers are not detected by mammography. A normal mammogram should not delay biopsy of a clinically suspicious abnormality. [id number] Electronically Signed: Alcides Saha MD at 9:08 EST Tel [phone], Service support , CC: Martha Self NP Supervisor Customer Services: Signed DEXA BONE DENSITY Observed: 08/27/2018 Status: F Source: [place] ST[facility]Y 11:39 AM [facility] REPOSITORY [facility] Imaging Services [facility] [place] [address] Dexa Bone Density Study MR#: [id number] Acct: [id number] Name: FANY HURST Rep #: [id number] : 1945 F 73 From: Alcides Saha MD PCP: Martha Self NP Status: REG CLI Study: Dexa Bone Density Study Date of Exam: 08/27/18 Exam# [id number] Ordering Dr: Martha Self NP-Samanta STUDY: DUAL ENERGY X-RAY ABSORPTIOMETRY / DXA REASON FOR EXAM: Female, 73 years old. Early menopause. Loss of height. TECHNIQUE: Bone Mineral Density (BMD) measurements of lumbar spine and bilateral hips were obtained. COMPARISON: None. FINDINGS: Lumbar Spine (L1-L4): g/cm2 (1.310) / T-score (1.2) / Z-score (2.9) Findings are suggestive of normal bone density with a low fracture risk. Left Femur Total: g/cm2 (1.056) / T-score (0.4) / Z-score (1.9) Left Femoral Neck: g/cm2 (0.915) / T-score (-0.9) / Z- score (0.9) Right Femur Total: g/cm2 (1.078) / T-score (0.6) / Z- score (2.1) Right Femoral Neck: g/cm2 (0.949) / T-score (-0.6) / Z-score (1.1) BD/Dexa Bone Density Study IMPRESSION: The patient is considered normal as outlined below according to World Matt Organization (WHO) criteria with a low fracture risk. Reference Information: The T-score is the number of standard deviations above or below the standard which is normal for young adults at their peak bone mineral density. The World Health Organization (WHO) interprets the T-scores as follows: Above -1 Normal bone density Between -1 and -2.5 Osteopenia Equal to / or below -2.5 Osteoporosis As a practical clinical guideline, osteopenia may be graded as follows: Mild -1 through -1.5 Moderate -1.6 through -2.0 Severe -2.1 through -2.4 The Z-score is the number of standard deviations above or below age-matched controls. A Z-score of less than -1.5 would be considered abnormal. References: 1. NIH Osteoporosis and Related Bone Diseases http://www.osteo.org 2. International Society for Clinical Densitometry http://www.iscd.org 3. National Osteoporosis Foundation http://www.nof.org Electronically Signed: Alcides Saha MD at 13:39 EST Tel [phone], Service support , CC: Martha Self NP Supervisor Customer Services: Signed PT COMMUNICATION Observed: 07/23/2018 Status: F Source: [place] 7:04 PM [facility] REPOSITORY [facility] [address] [place] [address]. [address] [place] [address] Fax REHABILITATION SERVICES PROGRESS NOTE MR#: [id number] Acct: [id number] Name: AFNY UHRST Rep #: [id number] : 1945 73 From: Suellen Chiu MPT Referring Dr.: Martha Self NP Status: DIS RCR Insurance: [employer] MEDICARE PPO SELF PAY INSURANCE PT Communication Note 07/23/[address] Martha Self, DRIVER'S EDUCATION INSTRUCTOR , Thank you for the referral of Fany Hurst to our clinic. She was tested on our NeuroCom Equitest system today and enclosed are the test results. On the [employer]ensory [employer] Test the pt had trouble using her vestibular system to help her maintain her balance. She used her somatosensory and visual systems well to help her maintain her balance. Her strategy analysis was more [...] some ideas on how to work on using her vestibular system at home with supervision due to a high co-pay. Sincerely, Suellen Stoner Contact Information 07/23/18 1904 <Electronically signed by Suellen BELTRE> Date Suellen BELTRE Cosigner Signature (if applicable): Date CC: Martha Self NP Signed For Medicare only, by signing this I certify the plan of care. Physicians Signature Date PT D/C SUMMARY (1) Observed: 07/23/2018 Status: F Source: [place] 5:33 PM [facility] REPOSITORY [facility] [address] [place] [address]. [address] [place] [address] Fax REHABILITATION SERVICES DISCHARGE SUMMARY MR#: [id number] Acct: [id number] Name: FANY HURST Rep #: [id number] : 1945 73 From: Suellen BELTRE Referring [...] to the R and she felt a little dizzy but that has been the only dizziness that she has gotten. She can roll over in bed easliy to the R know. - Pain L shoulder Pain Intensity (Out of 10): 4 R shoulder Pain Intensity (Out of 10): 4 neck pain Pain Intensity (Out of 10): 5 - Overall Improvement % Improvement: 75 - Objective Objective/Function: Hallpike testing to the R and was negative for dizziness and nystagmus. FGA: . SOT: decreased vestibular input. MCT: normal. LOS: normal - Goals Goal 1:: I HEP Goal Progress: Goal Met Goal 2:: Test FGA and NeuroCom Goal Progress: Goal Met - Plan Plan: DC PT to HEP: husbnd will help pt walk on uneven surfaces such as their driveway. Will also try some vestibular input from standing in the corner on couch cushion with present for safety. - D/C Information If there are questions or concerns regarding this patient's physical therapy, please feel free to call me at [phone]. Thank you for the referral of this patient. Sincerely, Suellen Chiu <Electronically signed by Suellen Chiu MPT> 07/23/18 1733 CC: Martha Self NP Signed L/S SPINE MIN 4 Observed: 07/18/2018 Status: F Source: [place] VIEWS 3:00 PM [facility] REPOSITORY [facility] Imaging Services [address] [place] [address] L/S Spine Min 4 Views MR#: [id number] Acct: [id number] Name: FANY HURST Rep #: [id number] : 1945 F 73 From: Jean-Pierre Joyce MD PCP: Martha Self NP Status: REG CLI Study: L/S Spine Min 4 Views Date of Exam: 07/18/18 Exam# [id number] Ordering Dr: Martha Self DRIVER'S EDUCATION INSTRUCTOR-C STUDY: X-RAY - LUMBAR SPINE REASON FOR EXAM: Female, 73 years old. Frequent falls. Back pain. TECHNIQUE: 5 view(s) of the lumbar spine were obtained. # of Images: 5 COMPARISON: None FINDINGS: Normal lumbar lordosis. There is minimal levoscoliosis. There is minimal anterolisthesis of L3 over L4. There is multilevel endplate spondylosis of the lumbar vertebrae. There is severe disc space narrowing of L3-L4. There is severe disc space narrowing of L4-L5 with probable partial fusion. There is also narrowing of L5-S1 disc space. There is no demonstrated fracture. There is no demonstrated spondylolysis of the pars interarticulares. The soft tissue structures are unremarkable. RAD/L/S Spine Min 4 Views IMPRESSION: Degenerative changes of the spine, as detailed above. Electronically Signed: Jean-Pierre Joyce MD at 14:47 EDT Tel , Service support , CC: Martha Self NP Supervisor Customer Services: Signed CERV SPINE 4 OR 5 Observed: 07/18/2018 Status: F Source: [place] VIEWS 3:00 PM [facility] REPOSITORY [facility] Imaging Services [address] [place] [address] Cerv Spine 4 or 5 Views MR#: [id number] Acct: [id number] Name: FANY HURST Rep #: [id number] : 1945 F 73 From: Jean-Pierre Joyce MD PCP: Martha Self NP Status: REG CLI Study: Cerv Spine 4 or 5 Views Date of Exam: 07/18/18 Exam# [id number] Ordering Dr: Martha Self DRIVER'S EDUCATION INSTRUCTOR-C STUDY: X-RAY - CERVICAL SPINE REASON FOR EXAM: Female, 73 years old. Frequent falls, neck pain and dizziness. TECHNIQUE: 5 view(s) of the cervical spine were obtained. # of Images: 6 COMPARISON: None FINDINGS: Normal anterior atlantoaxial articulation. Normal odontoid process. There is straightening of the normal cervical lordosis. There is multi-level endplate spondylosis. There is narrowing of C6- 7 disc space. There is mild anterolisthesis of C5 over C6. Normal visualized intervertebral neuroforamina. There is no evidence of acute compression fracture. The soft tissue structures are unremarkable. RAD/Cerv Spine 4 or 5 Views IMPRESSION: Degenerative changes of the cervical spine as described above. Electronically Signed: Jean-Pierre Joyce MD at 14:50 EDT Tel , Service support , CC: Martha Self NP Supervisor Customer Services: Signed INITAL EVALUATION (1) Observed: 07/08/2018 Status: F Source: [place] - PT 5:31 PM [facility] REPOSITORY [facility] [address] [place] [address]. [address] [place] [address] Fax REHABILITATION SERVICES INITIAL EVALUATION MR#: [id number] Acct: [id number] Name: FANY HURST Rep #: [id number] : 1945 73 From: Suellen Chiu MPT Referring Dr.: Martha Self NP Status: REG RCR Insurance: [employer] MEDICARE PPO SELF PAY INSURANCE Patient's Visit Information FANY HURST is a 73 year old F referred to Physical Therapy by Martha Self with a diagnosis of Balance. Date of Evaluation: 07/08/18 Physical Therapist: Suellen Chiu - Visit Plan Frequency: 1x/Week Duration: 6 Weeks Plan: Re-test Hallpike. Test FGA and NeuroCOM. Set treatment plan accordingly and most of it as HEP due to high co-pay - Subjective Subjective: Pt reports that she has had over 50 falls in 4 years. Pt feels that she is going to tip back going up stairs. Yesterday she bent over to kill a spider and when she came back up the room was spinning. She hit the back of her head [...] stepped of the shower and felt the same kind of spinning feeling. During that fall [...] Frame: 2-4 Weeks - Rehabilitation Potential Rehabilitation Potential: Good - Anticipated Interventions Patient/Client Instruction: Educate [...] Balance training, Postural training, Gait and locomotor training, via Neurocom Balance Mas, Active ROM For [...] to be FAXED BACK to us at [phone] for Medicare purposes. Please let me know if there are questions or concerns regarding this plan of care. Physician Signature: Date: <Electronically signed by Suellen Chiu MPT> 07/08/18 1731 CC: Martha Self NP Signed For Medicare only, by signing this I certify the plan of care. Physicians Signature Date SHOULDER MIN 2 VIEWS Observed: 07/04/2018 Status: F Source: [place] 11:50 AM [facility] REPOSITORY [facility] Imaging Services [address] [place] [address] Shoulder min 2 Views MR#: [id number] Acct: [id number] Name: FANY HURST Rep #: [id number] : 1945 F 73 From: Jose Angel Mendoza MD PCP: Martha Self NP Status: REG CLI Study: Shoulder min 2 Views Date of Exam: 07/04/18 Exam# [id number] Ordering Dr: Martha Self STUDY: X-RAY - LEFT SHOULDER REASON FOR EXAM: Female, 73 years old. Pain. TECHNIQUE: 4 view(s) of the shoulder. COMPARISON: None. FINDINGS: Normal glenohumeral articulation. There is hypertrophic osteoarthrosis of the acromioclavicular joint with inferior osseous spur formation. Normal acromion. Normal humeral head and visualized proximal humerus. The soft tissue structures are unremarkable. There is no demonstrated fracture. Normal visualized pulmonary apex. RAD/Shoulder min 2 Views IMPRESSION: No acute fracture or dislocation. Degenerative changes. Electronically Signed: Jose Angel Mendoza MD at 22:26 EDT , Service support , CC: Martha Self NP Supervisor Customer Services: Signed PROGRESS Observed: 06/09/2018 Status: COMPLETED Source: [place] 2:[address] [facility] REPOSITORY HNO ID: [id number] Author: Kaci Reneemark Service: (none) Author Type: Physician Type: Progress Notes Filed: 06/18/2018 10:11 PM Note Text: Kaci Olson DPM Department of Podiatry [address] [facility] [address] Dept: [phone] Dept Diabetic Nail Care SUBJECTIVE: Follow up office visit: This 73 year old female presents to clinic c/o painful toenails. Patient states that the nails are especially painful with shoe gear and pressure. Patient admits to being diabetic and states that their blood sugar was 122 mg/dL this AM. Patient denies claudication type symptoms when walking. No other pedal complaints at this time. No change in medications or medical history since last visit. OBJECTIVE: Patient presents to clinic ambulating in diabetic shoes. Vasc: DP and PT pulses are palpable bilateral. CFT is less than 5 seconds bilateral. Skin temperature is warm to warm proximal to distal bilateral. There is no edema or varicosities noted. Hair growth present. Neuro: Protective sensation is decreased to the foot and toes when tested with the 5.07 SWM bilateral. Vibratory sensation is decreased at the hallux bilateral. significant neurological defecits. Derm: Inspection and palpation performed. Nails 1-5 b/l are painful, discolored-yellow, thick, crumbly, dystrophic and with subungal debris. Skin is of normal turgor and texture. NO ulcerations, scars, verruca or other lesions noted. Ortho: Ankle joint DF is full with the knee extended and full with knee flexed. No pain or crepitus noted. STJ, MTJ ROM are full and free of pain or crepitus. Muscle strength is 5/5 for dorsiflexors, plantarflexors, inverters, everters. Digital deformities include hammertoes. ASSESSMENT: (B35.1) Onychomycosis (primary encounter diagnosis) (M79.675) Pain in toe of left foot (M79.674) Pain in toe of right foot (E11.42) Diabetic polyneuropathy associated with type 2 diabetes mellitus (HCC) PLAN: 1. Patient was seen and evaluated. 2. Patient was instructed on the continued importance of diabetic foot care along with proper diet and keeping their blood sugar under control to prevent complications. 3. Toenails 1-5 b/l debrided in length and thickness Kaci Olson DPM CNOV Observed: 06/09/2018 Status: COMPLETED Source: [place] 2:10 PM [facility] REPOSITORY Office Visit (PODIWS) FANY HURST ([id number]) 1945 F Date Time Provider Department 06/09/18 2:10 PM KACI OLSON PODKIKIS During your visit today, we recorded the following information about you: Kaci Olson DPM 06/18/2018 10:11 PM Signed Kaci Olson DPM Department of Podiatry [facility] [address] Dept: [phone] Dept Diabetic Nail Care SUBJECTIVE: Follow up office visit: This 73 year old female presents to clinic c/o painful toenails. Patient states that the nails are especially painful with shoe gear and pressure. Patient admits to being diabetic and states that their blood sugar was 122 mg/dL this AM. Patient denies claudication type symptoms when walking. No other pedal complaints at this time. No change in medications or medical history since last visit. OBJECTIVE: Patient presents to clinic ambulating in diabetic shoes. Vasc: DP and PT pulses are palpable bilateral. CFT is less than 5 seconds bilateral. Skin temperature is warm to warm proximal to distal bilateral. There is no edema or varicosities noted. Hair growth present. Neuro: Protective sensation is decreased to the foot and toes when tested with the 5.07 SWM bilateral. Vibratory sensation is decreased at the hallux bilateral. significant neurological defecits. Derm: Inspection and palpation performed. Nails 1-5 b/l are painful, discolored-yellow, thick, crumbly, dystrophic and with subungal debris. Skin is of normal turgor and texture. NO ulcerations, scars, verruca or other lesions noted. Ortho: Ankle joint DF is full with the knee extended and full with knee flexed. No pain or crepitus noted. STJ, MTJ ROM are full and free of pain or crepitus. Muscle strength is 5/5 for dorsiflexors, plantarflexors, inverters, everters. Digital deformities include hammertoes. ASSESSMENT: (B35.1) Onychomycosis (primary encounter diagnosis) (M79.675) Pain in toe of left foot (M79.674) Pain in toe of right foot (E11.42) Diabetic polyneuropathy associated with type 2 diabetes mellitus (HCC) PLAN: 1. Patient was seen and evaluated. 2. Patient was instructed on the continued importance of diabetic foot care along with proper diet and keeping their blood sugar under control to prevent complications. 3. Toenails 1-5 b/l debrided in length and thickness Kaci Olson DPM Referring Provider: SELF [200] Allergies As of Date: 06/09/2018 Noted Allergy Reaction CODEINE 06/13/2005 DEMEROL (MEPERIDINE HCL) 07/12/2005 8 - GI Upset Comments: fainting ERYTHROMYCIN 05/23/2005 8 - GI Upset LYRICA (PREGABALIN) 04/05/2009 7 - Swelling Comments: Fatigue and depression worse METFORMIN HCL 01/20/2016 8 - GI Upset Comments: Upset stomach OPIOIDS-MEPERIDINE AND RELATED 02/21/2004 PENICILLINS 02/21/2004 2 - Rash TRAZODONE 06/13/2005 Date Reviewed: 06/09/2018 Reviewed by: Elena Crooks Ma - Fully Assessed Reason for Visit: Diabetic Foot Care [916] Primary Visit Diagnosis:Onychomycosis [B35.1] Other Visit Diagnoses:Pain in toe of left foot [M79.675] Pain in toe of right foot [M79.674] Diabetic polyneuropathy associated with type 2 diabetes mellitus (HCC) [E11.42] Prescriptions as of 06/09/2018 Sig: METFORMIN ER 750 MG TABLET,EX* Take 1 tablet by mouth twice * SIMVASTATIN 20 MG TABLET Take 1 tablet by mouth daily * PANTOPRAZOLE 40 MG TABLET,DEL* Take 1 tablet by mouth daily * GLIMEPIRIDE 2 MG TABLET TAKE 1 TABLET AT BEDTIME BENZONATATE 100 MG CAPSULE Take 2 capsules by mouth thre* CITALOPRAM 40 MG TABLET TAKE 1 TABLET ONE TIME DAILY GLIMEPIRIDE 4 MG TABLET TAKE 1 TABLET DAILY WITH ZANE* POTASSIUM CHLORIDE ER 10 MEQ * TAKE 1 CAPSULE EVERY DAY ACCU-CHEK SMARTVIEW TEST STRI* TEST BLOOD SUGAR 4 TIMES MARY* ACCU-CHEK FASTCLIX LANCING DE* TEST 4 TIMES DAILY MONTELUKAST 10 MG TABLET Take 1 tablet by mouth daily * FUROSEMIDE 40 MG TABLET Take 1 tablet by mouth three * LOSARTAN 25 MG TABLET Take 1 tablet by mouth twice * CPAP AutoPAP 8-18 cmH2O, suitable * POLYETHYLENE GLYCOL 3350 17 G* Take a capful in at least 8 o* COMPOUNDED PRESCRIPTION ACCU-CHEK ENEIDA SMARTVIEW METE* COMPOUNDED PRESCRIPTION ACCU-CHEK FASTCLIX LANCETS * PROMETHAZINE 25 MG TABLET Take 1 tablet by mouth every * VENTOLIN HFA 90 MCG/ACTUATION* 2 puffs every 4 hours as need* ALBUTEROL SULFATE 2.5 MG/3 ML* 1 ampule four times daily and* ASPIRIN 81 MG TABLET Take one (1) tablet daily . 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 ADULT MALTREATMENT NOS [T74.91XA] Morbid obesity (HCC) [E66.01] More... DISC DEGENERATION NOS [NXL9432] UTERINE LEIOMYOMA NOS [D25.9] CHR INTERSTIT CYSTITIS [N30.10] Esophageal reflux [K21.9] More... CHRONIC OBSTR ASTHMA [493.2] Essential hypertension [I10] INVALID FOR* More... PERSISTENT INSOMNIA [G47.00] INVALID FOR* ACUTE GASTRITIS W/O HEMORRHAGE [K29.00] DERMATOPHYTOSIS OF NAIL [B35.1] INVALID FOR* DIABETES TYPE II W NEURO MANIFESTATIONS [E11.49]INVALID FOR*07/07/2015 SPINAL STENOSIS NOS [M48.00] INVALID FOR* DIARRHEA NOS [R19.7] INVALID FOR* DIVERTICULOSIS OF COLON W/O BLEED [K57.30] INVALID FOR* Other and unspecified hyperlipidemia [E78.5] INVALID FOR* More... PAIN IN LIMB [M79.609] INVALID FOR* ASTHMA UNSPECIFIED [J45.909] INVALID FOR* ACQ DEFORMITY OF TOE NEC [M20.5X9] INVALID FOR* PTSD (Post-Traumatic Stress Disorder) [F43.10] INVALID FOR* More... Type II or unspecified type diabetes mellitus w*INVALID FOR*07/07/2015 More... Low back pain [M54.5] INVALID FOR* More... Lumbosacral neuritis [M54.17] INVALID FOR* Lumbar spondylosis [M47.816] INVALID FOR* Type 2 diabetes, uncontrolled, with neuropathy *INVALID FOR* More... Claudication in peripheral vascular disease (HC*INVALID FOR* QUINCY (obstructive sleep apnea) [G47.33] INVALID FOR* More... COPD (chronic obstructive pulmonary disease) (H*INVALID FOR* Disposition: Return in about 3 months (around 09/08/2018) for nail care. Follow-up and Disposition History Recorded Encounter Status:Closed by KACI OLSON DPM on 06/18/18 DISCHARGE INSTRUCTION Observed: 02/13/2018 Status: F Source: [place] 4:16 PM [facility] REPOSITORY [facility] Medical Records Department [address] [place] [id number] Instructions for Home/Discharge Instructions 02/13/18 1613 MR#: [id number] Acct: [id number] Name: FANY HURST Rep #: [id number] : 1945 72 From: Trudy Peña PCP: Martha Self NP Status: ADM IN Discharge Diet: 1800 Calorie Control Diet Discharge Activity: May Not Drive, May not drive while taking narcotic pain medications., Use Walker May shower in (days): 1 - Okay to shower over Mepilex dressing Ice area for (Minutes): 20 - every hour while awake. Weight Bearing Status: Weight bearing as tolerated Elevate: Operative Extremity Additional Activity Instructions:: Wear elastic stockings for 2 weeks after your surgery. See post operative pink sheet Call your doctor if your incision/area has: Continuous Slow Oozing, Sudden Increased Bleeding, Increased Pain/ Swelling, Increased Redness, Foul Smelling Discharge Call your doctor if you observe: Fever of 101 or Higher, Coldness, Increased Pain, Numbness or Tingling, Change in Color, Chest pain, Calf discomfort, Uncontrolled pain Remove Dressing in (days):: 5 Cleanse incision/area with: Soap AND Water Additional Dressing/Incision Instructions:: See postoperative pink sheet Allergies/Adverse Reactions: Allergies codeine Allergy (Severe, Verified 01/30/18 13:11) Hives amoxicillin Adverse Reaction (Severe, Verified 01/30/18 13:11) Rash meperidine [From Demerol] Adverse Reaction (Severe, Verified 01/30/18 13:11) syncope penicillin G Adverse Reaction (Severe, Verified 01/30/18 13:11) rash Medications to take at Discharge ascorbic acid (vitamin C) ER 1,500 mg tablet,extended release 1,500 mg PO QDAY tab 09/16/17 citalopram 40 mg tablet 40 mg PO QDAY tab 09/16/17 fluticasone 100 mcg-vilanterol 25 mcg/dose powder for inhalation 1 inh INHALATION Q24H 09/16/17 furosemide 40 mg tablet 40 mg PO BID tab 09/16/17 glimepiride 4 mg tablet 4 mg PO QHS 09/16/17 guaifenesin ER 600 mg tablet, extended release 12 hr 600 mg PO Q12H PRN 09/16/17 [id number] tablet 1 tab PO QDAY 09/16/17 levalbuterol 0.63 mg/3 mL solution for nebulization 1.25 mg INHALATION Q1-4H PRN 09/16/17 liraglutide 0.6 mg/0.1 mL (18 mg/3 mL) subcutaneous pen injector 0.6 mg SC QDAY 09/16/17 losartan 25 mg tablet 25 mg PO BID tab 09/16/17 metformin 500 mg tablet 500 mg PO BID 09/16/17 montelukast 10 mg tablet 10 mg PO QHS 09/16/17 pantoprazole 40 mg tablet,delayed release 40 mg PO QDAY 09/16/17 potassium chloride ER 8 mEq capsule,extended release 8 meq PO BID 09/16/17 simvastatin 20 mg tablet 20 mg PO QPM 09/16/17 ferrous sulfate 325 mg (65 mg iron) tablet 325 mg PO DAILY tab 09/18/17 Cholecalciferol (Vitamin D3) [Vitamin D3] 2,000 unit PO DAILY 01/30/18 Multivitamin [Daily Multiple Vitamin] 1 each PO DAILY 01/30/18 Phytonadione [Vitamin K] 100 mcg PO DAILY 01/30/18 Acetaminophen [Tylenol] 1,000 mg PO Q8 #60 tab 02/13/18 Aspirin 325 mg PO BIDCM #30 tab 02/13/18 Oxycodone [Oxyir] 5 - 10 mg PO Q4H PRN PRN 7 Days #56 tablet 02/13/18 Senna/Docusate Sodium [Senokot-S] 2 tab PO BID #30 tab 02/13/18 The following prescriptions were given: Oxycodone [Oxyir] 5 - 10 mg PO Q4H PRN PRN 7 Days #56 tablet PRN Reason: Mod-Severe Pain (4-07/09) Acetaminophen [Tylenol] 1,000 mg PO Q8 #60 tab Aspirin 325 mg PO BIDCM #30 tab Senna/Docusate Sodium [Senokot-S] 2 tab PO BID #30 tab Primary Care Physician: Martha Self [Primary Care Provider] - 02/13/18 1616 <Electronically signed by Trudy Peña > Date Trudy Peña CC: Martha Self DRIVER'S EDUCATION INSTRUCTOR CBC-COMPLETE BLOOD CNT Collected: 02/13/2018 Status: F Source: [place] NO DIFF 5:48 AM [facility] REPOSITORY TYPE CODE TESTS RESULT OUT OF RANGE REFERENCE UNITS LAB L100.1000 4.4-11.0 K/mm3 Normal WBC 10.6 LAB L100.1200 4.2-5.4 M/mm3 Low RBC 3.30 LAB L100.1300 12.0-15.0 g/dl Low HGB 9.9 LAB L100.1400 37-47 % Low HCT 29.3 LAB L100.1500 81-99 fL Normal MCV 88.8 LAB L100.1600 27.0-32.0 pg Normal MCH 30.0 LAB L100.1700 32-36 g/gl Normal MCHC 33.8 LAB L100.1810 11.6-14.6 % Normal RDW CV 14.3 LAB L100.1820 35.1-43.9 fl High RDW SD 45.0 LAB L100.1900 150-450 K/mm3 Normal PLT 222 LAB L100.2000 6.2-12.0 fl Normal MPV 10.8 Performed By: #### L100.0500 #### [facility] [address] [place], [place], [id number] CBC-COMPLETE BLOOD CNT Collected: 02/12/2018 Status: F Source: [place] NO DIFF 6:30 AM [facility] REPOSITORY TYPE CODE TESTS RESULT OUT OF RANGE REFERENCE UNITS LAB L100.1000 4.4-11.0 K/mm3 High WBC 12.1 LAB L100.1200 4.2-5.4 M/mm3 Low RBC 3.45 LAB L100.1300 12.0-15.0 g/dl Low HGB 10.1 LAB L100.1400 37-47 % Low HCT 30.2 LAB L100.1500 81-99 fL Normal MCV 87.5 LAB L100.1600 27.0-32.0 pg Normal MCH 29.3 LAB L100.1700 32-36 g/gl Normal MCHC 33.4 LAB L100.1810 11.6-14.6 % Normal RDW CV 14.3 LAB L100.1820 35.1-43.9 fl High RDW SD 45.6 LAB L100.1900 150-450 K/mm3 Normal PLT 227 LAB L100.2000 6.2-12.0 fl Normal MPV 10.3 Performed By: #### L100.0500 #### [facility] [address] [facility]. [place], [place], [id number] BASIC METABOLIC Collected: 02/12/2018 Status: F Source: [place] PROFILE (BMP) 6:30 AM [facility] REPOSITORY TYPE CODE TESTS RESULT OUT OF RANGE REFERENCE UNITS LAB L501.0100 74-106 mg/dL High GLU 165 Result Comment: Fasting Glucose result greater than or equal to 126 mg/dL suggests DIABETES MELLITUS per A.D.A. criteria. Please note revised GLUCOSE reference range effective 2017. LAB L501.1000 7-18 mg/dL High BUN 31 LAB L501.1100 0.55-1.02 mg/dL High CREAT,SERUM 1.43 Result Comment: The validity of the calculated GFR AND GFRAA in patients over 70 years has not been determined. Clinical correlation is essential. LAB L501.1110 >60 mL/min Low EST GFR 39 Result Comment: Non- GFR Calc LAB L501.1115 >60 mL/min Low EST GFR - AA 47 Result Comment: GFR Calc LAB L501.1255 ml/min Normal Estimated CRCL 56.10 LAB L501.1300 10-20 RATIO High BUN/CRE 21.7 LAB L501.2200 8.5-10 mg/dL Normal .1 CA 8.6 LAB L501.5300 136-14 mmol/L Normal 5 NA 138 LAB L501.5600 3.5-5. mmol/L Normal 1 K 4.4 LAB L501.5900 98-107 mmol/L Normal CL 105 LAB L501.6100 21.0-3 mmol/L Normal 2.0 CO2 24.0 LAB L501.6200 5-15 Normal GAP 9 Performed By: #### L500.2500 #### [facility] [address] [place], [place], [address] BEDSIDE GLUCOSE Collected: 02/11/2018 Status: F Source: [place] 4:54 PM [facility] REPOSITORY TYPE CODE TESTS RESULT OUT OF REFERENCE UNITS RANGE LAB L501.080 70-110 mg/dL High BEDSIDE GLU 214 Result Comment: MANAGEMENT OF PATIENT CARE PER NURSING PROTOCOL Performed By: #### L501.080 #### [facility] Point of Care [address] [facility]. [place], [place] [id number] BEDSIDE GLUCOSE Collected: 02/11/2018 Status: F Source: [place] 2:03 PM [facility] REPOSITORY TYPE CODE TESTS RESULT OUT OF REFERENCE UNITS RANGE LAB L501.080 70-110 mg/dL High BEDSIDE GLU 151 Result Comment: MANAGEMENT OF PATIENT CARE PER NURSING PROTOCOL Performed By: #### L501.080 #### [facility] Point of Care [address] [place] [address] KNEE 1 OR 2 VIEWS Observed: 02/11/2018 Status: F Source: [place] 1:10 PM [facility] REPOSITORY [facility] Imaging Services [address] [place] [address] Knee 1 or 2 Views MR#: [id number] Acct: [id number] Name: FANY HURST Rep #: [id number] : 1945 F 72 From: Alcides Saha MD PCP: Martha Self NP Status: ADM IN Study: Knee 1 or 2 Views Date of Exam: 02/11/18 Exam# [id number] Ordering Dr: Kevin Mcdaniels MD STUDY: X-RAY - LEFT KNEE REASON FOR EXAM: Female, 72 years old. Total knee replacement. TECHNIQUE: AP and lateral view(s) of the knee. COMPARISON: None. FINDINGS: Normal visualized distal femur. Normal visualized proximal tibia and fibula. Normal proximal tibiofibular articulation. The patient is status post total knee replacement. There is good alignment. Postoperative soft tissue changes. RAD/Knee 1 or 2 Views IMPRESSION: Total knee replacement. There is good alignment. Postoperative soft tissue changes. Electronically Signed: Alcides Saha MD at 14:21 EDT Tel [phone], Service support , CC: Martha Self NP; Kevin Mcdaniels MD Supervisor Customer Services: Signed BEDSIDE GLUCOSE Collected: 02/11/2018 Status: F Source: [place] 9:16 AM [facility] REPOSITORY TYPE CODE TESTS RESULT OUT OF REFERENCE UNITS RANGE LAB L501.080 70-110 mg/dL High BEDSIDE GLU 139 Result Comment: MANAGEMENT OF PATIENT CARE PER NURSING PROTOCOL Performed By: #### L501.080 #### [facility] Point of Care [address] [place] [address] 12 LEAD ELECTROCARDIOGRAM Observed: 01/31/2018 Status: F Source: [place] 2:57 PM [facility] REPOSITORY [facility] Cardiovascular Services [address] [address] EKG - [facility] 01/30/18 1301 MR#: [id number] Acct: [id number] Name: FANY HURST Rep #: [id number] : 1945 72 From: Xu Garduno MD Attending Dr: Kevin Mcdaniels MD Status: PRE IN Ordering Dr: Kevin Mcdaniels MD Date: 01/30/18 Location: [facility] Sex: F C Admitted: Test Reason : Blood Pressure : / mmHG Vent. Rate : 061 BPM Atrial Rate : 061 BPM P-R Int : 128 ms QRS Dur : 086 ms QT Int : 432 ms P-R-T Axes : 049 006 021 degrees QTc Int : 434 ms Normal sinus rhythm Normal ECG Confirmed by LAUREEN BAER, XU ([id number]), graphics editor BENJI ASHRAF ([id number]) on 01/31/2018 2:57:35 PM Referred By: Kevin Mcdaniels Confirmed By:XU GARDUNO MD 01/31/18 1450 Date Xu Garduno MD CC: Martha Self DRIVER'S EDUCATION INSTRUCTOR; Kevin Mcdaniels MD Date Dictated: 01/30/18 130 Date Transcribed: 01/30/18 130 Supervisor Customer Services: Signed CBC-COMPLETE BLOOD CNT Collected: 01/30/2018 Status: F Source: [place] NO DIFF 2:15 PM [facility] REPOSITORY TYPE CODE TESTS RESULT OUT OF RANGE REFERENCE UNITS LAB L100.1000 4.4-11.0 K/mm3 Normal WBC 7.3 LAB L100.1200 4.2-5.4 M/mm3 Low RBC 3.84 LAB L100.1300 12.0-15.0 g/dl Low HGB 11.3 LAB L100.1400 37-47 % Low HCT 34.1 LAB L100.1500 81-99 fL Normal MCV 88.8 LAB L100.1600 27.0-32.0 pg Normal MCH 29.4 LAB L100.1700 32-36 g/gl Normal MCHC 33.1 LAB L100.1810 11.6-14.6 % High RDW CV 14.7 LAB L100.1820 35.1-43.9 fl High RDW SD 47.5 LAB L100.1900 150-450 K/mm3 Normal PLT 290 LAB L100.2000 6.2-12.0 fl Normal MPV 10.3 Performed By: #### L100.0500 #### [facility] [address] [facility] [place], [place], [address] BASIC METABOLIC Collected: 01/30/2018 Status: F Source: [place] PROFILE (BMP) 2:15 PM [facility] REPOSITORY TYPE CODE TESTS RESULT OUT OF RANGE REFERENCE UNITS LAB L501.0100 74-106 mg/dL Low GLU 61 Result Comment: Please note revised GLUCOSE reference range effective 2017. LAB L501.1000 7-18 mg/dL High BUN 26 LAB L501.1100 0.55-1.02 mg/dL High CREAT,SERUM 1.21 Result Comment: The validity of the calculated GFR AND GFRAA in patients over 70 years has not been determined. Clinical correlation is essential. LAB L501.1110 >60 mL/min Low EST GFR 47 Result Comment: Non- GFR Calc LAB L501.1115 >60 mL/min Low EST GFR - AA 56 Result Comment: GFR Calc LAB L501.1255 ml/min Normal Estimated CRCL 66.29 LAB L501.1300 10-20 RATIO High BUN/CRE 21.5 LAB L501.2200 8.5-10 mg/dL Normal .1 CA 10.0 LAB L501.5300 136-14 mmol/L Normal 5 NA 143 LAB L501.5600 3.5-5. mmol/L Normal 1 K 3.7 LAB L501.5900 98-107 mmol/L Normal CL 105 LAB L501.6100 21.0-3 mmol/L Normal 2.0 CO2 31.0 LAB L501.6200 5-15 Normal GAP 7 Performed By: #### L500.2500 #### [facility] [address] [place], [address] Observed: 01/30/2018 Status: F Source: [place] MRSA/SAID SCREEN 2:15 PM [facility] REPOSITORY MRSA/SAID SCRN S. AUREUS S. aureus Negative MRSA MRSA Negative Performed By: #### M100.651 #### [facility] [address] [place], [address] PROGRESS Observed: 01/09/2018 Status: COMPLETED Source: [place] 2:22 PM [facility] REPOSITORY HNO ID: [id number] Author: Kaci Olson Service: (none) Author Type: Physician Type: Progress Notes Filed: 01/09/2018 2:34 PM Note Text: Subjective: Patient presents to clinic c/o painful toenails. They state that the nails are especially painful with shoe gear and pressure. Patient states that nails right 3rd are painful. Patient admits to being diabetic and states that their blood sugar was 106 mg/dL this AM. Patient requesting rx for diabetic shoes. No other pedal complaints at this time. Patient states no change in medications or medical history since last visit. Objective: Patient presents to clinic ambulating in diabetic shoes Vasc: DP and PT pulses are palpable bilateral. CFT is less than 5 seconds bilateral. Skin temperature is warm to cool proximal to distal bilateral. There is no edema or varicosities noted. Neuro: Protective sensation is intact to the foot and toes when tested with the 5.07 SWM bilateral. Vibratory sensation is decreased at the hallux IPJ bilateral. The hallux is downgoing bilateral. Derm: Nails 1-5 b/l are painful, discolored-yellow, thick, crumbly, dystrophic and with subungal debris. Skin is of normal turgor, texture and hair growth is present bilateral. There are no hyperkeratosis, ulcerations, scars, verruca or other lesions noted. Ortho: Muscle strength is 5/5 for all pedal groups tested. Ankle joint DF is full with the knee extended with no pain or crepitus noted. 1st MPJ ROM is full bilateral. Hammertoe noted to right 2nd toe Assessment: (B35.1) Onychomycosis (primary encounter diagnosis) (M79.675) Pain in toe of left foot (M79.674) Pain in toe of right foot (E11.42) Diabetic polyneuropathy associated with type 2 diabetes mellitus (HCC) (M20.41) Hammertoe of second toe of right foot Plan: Patient was seen and evaluated. Nails 1-5 bilateral were debrided in length and thickness. Discussed hammertoe. Currently no pain. Discussed wider shoes and padding vs surgery to correct. She wants to continue with diabetic shoes. Should this cause pain, she may consider correction. Patient was instructed on the continued importance of diabetic foot care along with proper diet and keeping their blood sugar under control to prevent complications. Patient is to RTC in 3-4 months. Kaci Olson DPM PROGRESS Observed: 01/09/2018 Status: COMPLETED Source: [place] 2:09 PM [facility] REPOSITORY HNO ID: [id number] Author: Mounika Gomez RN Service: (none) Author Type: (none) Type: Progress Notes Filed: 01/09/2018 2:34 PM Note Text: Pt reports that her blood sugar was 106 this AM. CNOV Observed: 01/09/2018 Status: COMPLETED Source: [place] 2:00 PM [facility] REPOSITORY Office Visit (PODIWS) FANY HURST ([id number]) 1945 F Date Time Provider Department 01/09/18 2:00 PM KACI OLSON PODIWS During your visit today, we recorded the following information about you: Mounika Gomze RN 01/09/2018 2:34 PM Signed Pt reports that her blood sugar was 106 this AM. Kaci Olson DPM 01/09/2018 2:34 PM Signed Subjective: Patient presents to clinic c/o painful toenails. They state that the nails are especially painful with shoe gear and pressure. Patient states that nails right 3rd are painful. Patient admits to being diabetic and states that their blood sugar was 106 mg/dL this AM. Patient requesting rx for diabetic shoes. No other pedal complaints at this time. Patient states no change in medications or medical history since last visit. Objective: Patient presents to clinic ambulating in diabetic shoes Vasc: DP and PT pulses are palpable bilateral. CFT is less than 5 seconds bilateral. Skin temperature is warm to cool proximal to distal bilateral. There is no edema or varicosities noted. Neuro: Protective sensation is intact to the foot and toes when tested with the 5.07 SWM bilateral. Vibratory sensation is decreased at the hallux IPJ bilateral. The hallux is downgoing bilateral. Derm: Nails 1-5 b/l are painful, discolored-yellow, thick, crumbly, dystrophic and with subungal debris. Skin is of normal turgor, texture and hair growth is present bilateral. There are no hyperkeratosis, ulcerations, scars, verruca or other lesions noted. Ortho: Muscle strength is 5/5 for all pedal groups tested. Ankle joint DF is full with the knee extended with no pain or crepitus noted. 1st MPJ ROM is full bilateral. Hammertoe noted to right 2nd toe Assessment: (B35.1) Onychomycosis (primary encounter diagnosis) (M79.675) Pain in toe of left foot (M79.674) Pain in toe of right foot (E11.42) Diabetic polyneuropathy associated with type 2 diabetes mellitus (HCC) (M20.41) Hammertoe of second toe of right foot Plan: Patient was seen and evaluated. Nails 1-5 bilateral were debrided in length and thickness. Discussed hammertoe. Currently no pain. Discussed wider shoes and padding vs surgery to correct. She wants to continue with diabetic shoes. Should this cause pain, she may consider correction. Patient was instructed on the continued importance of diabetic foot care along with proper diet and keeping their blood sugar under control to prevent complications. Patient is to RTC in 3-4 months. Kaci lOson DPM Referring Provider: KACI OLSON [[id number]] Allergies As of Date: 01/09/2018 Noted Allergy Reaction CODEINE 06/13/2005 DEMEROL (MEPERIDINE HCL) 07/12/2005 8 - GI Upset Comments: fainting ERYTHROMYCIN 05/23/2005 8 - GI Upset LYRICA (PREGABALIN) 04/05/2009 7 - Swelling Comments: Fatigue and depression worse METFORMIN HCL 01/20/2016 8 - GI Upset Comments: Upset stomach OPIOIDS-MEPERIDINE AND RELATED 02/21/2004 PENICILLINS 02/21/2004 2 - Rash TRAZODONE 06/13/2005 Date Reviewed: 01/09/2018 Reviewed by: Mounika Gomez RN - Fully Assessed Reason for Visit: Established Patient [175] Cmt: Nail Care Primary Visit Diagnosis:Onychomycosis [B35.1] Other Visit Diagnoses:Pain in toe of left foot [M79.675] Pain in toe of right foot [M79.674] Diabetic polyneuropathy associated with type 2 diabetes mellitus (HCC) [E11.42] Hammertoe of second toe of right foot [M20.41] Order(s):DIAB SHOE FOR DENSITY INSERT [[id number]] Order #: [id number] Prescriptions as of 01/09/2018 Sig: METFORMIN ER 750 MG TABLET,EX* Take 1 tablet by mouth twice * SIMVASTATIN 20 MG TABLET Take 1 tablet by mouth daily * PANTOPRAZOLE 40 MG TABLET,DEL* Take 1 tablet by mouth daily * GLIMEPIRIDE 2 MG TABLET TAKE 1 TABLET AT BEDTIME BENZONATATE 100 MG CAPSULE Take 2 capsules by mouth thre* CITALOPRAM 40 MG TABLET TAKE 1 TABLET ONE TIME DAILY GLIMEPIRIDE 4 MG TABLET TAKE 1 TABLET DAILY WITH ZANE* POTASSIUM CHLORIDE ER 10 MEQ * TAKE 1 CAPSULE EVERY DAY ACCU-CHEK SMARTVIEW TEST STRI* TEST BLOOD SUGAR 4 TIMES MARY* ACCU-CHEK FASTCLIX TEST 4 TIMES DAILY MONTELUKAST 10 MG TABLET Take 1 tablet by mouth daily * FUROSEMIDE 40 MG TABLET Take 1 tablet by mouth three * LOSARTAN 25 MG TABLET Take 1 tablet by mouth twice * CPAP AutoPAP 8-18 cmH2O, suitable * POLYETHYLENE GLYCOL 3350 17 G* Take a capful in at least 8 o* COMPOUNDED PRESCRIPTION ACCU-CHEK ENEIDA SMARTVIEW METE* COMPOUNDED PRESCRIPTION ACCU-CHEK FASTCLIX LANCETS * ALBUTEROL SULFATE 2.5 MG/3 ML* 1 ampule four times daily and* ASPIRIN 81 MG TABLET Take one (1) tablet daily . 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 ADULT MALTREATMENT NOS [T74.91XA] Morbid obesity (HCC) [E66.01] More... DISC DEGENERATION NOS [TMH3869] UTERINE LEIOMYOMA NOS [D25.9] CHR INTERSTIT CYSTITIS [N30.10] Esophageal reflux [K21.9] More... CHRONIC OBSTR ASTHMA [493.2] Essential hypertension [I10] INVALID FOR* More... PERSISTENT INSOMNIA [G47.00] INVALID FOR* ACUTE GASTRITIS W/O HEMORRHAGE [K29.00] DERMATOPHYTOSIS OF NAIL [B35.1] INVALID FOR* DIABETES TYPE II W NEURO MANIFESTATIONS [E11.49]INVALID FOR*07/07/2015 SPINAL STENOSIS NOS [M48.00] INVALID FOR* DIARRHEA NOS [R19.7] INVALID FOR* DIVERTICULOSIS OF COLON W/O BLEED [K57.30] INVALID FOR* Other and unspecified hyperlipidemia [E78.5] INVALID FOR* More... PAIN IN LIMB [M79.609] INVALID FOR* ASTHMA UNSPECIFIED [J45.909] INVALID FOR* ACQ DEFORMITY OF TOE NEC [M20.5X9] INVALID FOR* PTSD (Post-Traumatic Stress Disorder) [F43.10] INVALID FOR* More... Type II or unspecified type diabetes mellitus w*INVALID FOR*07/07/2015 More... Low back pain [M54.5] INVALID FOR* More... Lumbosacral neuritis [M54.17] INVALID FOR* Lumbar spondylosis [M47.816] INVALID FOR* Type 2 diabetes, uncontrolled, with neuropathy *INVALID FOR* More... Claudication in peripheral vascular disease (HC*INVALID FOR* QUINCY (obstructive sleep apnea) [G47.33] INVALID FOR* More... COPD (chronic obstructive pulmonary disease) (H*INVALID FOR* Disposition: Return in about 3 months (around 04/10/2018) for nail care. Follow-up and Disposition History Recorded Encounter Status:Closed by KACI OLSON DPM on 01/09/18 CARDIOLOGY VISIT Observed: 12/19/2017 Status: F Source: [place] REPORT 1:31 PM [facility] REPOSITORY [facility] [address] [place] [address] OFFICE VISIT Date of Service: 12/19/17 MR#: [id number] Acct: [id number] Name: FANY HRUST Rep #: [id number] : 1945 Provider: JEANNE Becerril Age/Sex: 72/F Location: [facility] [place] Status: Signed HPI HPI Details: FANY HURST, is a 72 F who presents to the office today for a cardiovascular outpatient follow-up. She has a history fatigue, hypertension, hyperlipidemia, diabetes, COPD, and fibromyalgia. At last office visit she was being evaluated for preoperative clearance in regards to left knee replacement surgery. She described exertional chest pain and shortness of breath. She underwent an echocardiogram and nuclear stress test for this. Pt. denies chest, arm, jaw, or neck discomfort. Her exercise tolerance is stable though limited d/t knee pain. Pt. denies symptoms of CHF, lightheadedness, dizziness, near syncope, or syncopal episodes. Pt. denies edema or claudication issues. Pt. denies orthopnea, PND, fever, chills, blood in urine, blood in stool, myalgia, or unexplainable fatigue. 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 She states wearing CPAP at night. Intake Vital Signs12/19/17 Height 4 ft 11 in 12/19/17 Weight: 215 lb 12/19/17 Body Mass Index (BMI) 43.4 12/19/17 Blood Pressure 110/68 12/19/17 Blood Pressure Location Lt radial Intake Visit Reasons: 3 M FU [employer] Required: No Accompanied by: Is patient in pain?: Yes (sharp left knee discomfort) Pain scale (1-10): 9 Allergies codeine Allergy (Severe, Verified 12/19/17 11:06) Hives amoxicillin Adverse Reaction (Severe, Verified 12/19/17 11:06) Rash meperidine [From Demerol] Adverse Reaction (Severe, Verified 12/19/17 11:06) syncope penicillin G Adverse Reaction (Severe, Verified 12/19/17 11:06) rash Medications ascorbic acid (vitamin C) ER 1,500 mg tablet,extended release 1,500 mg PO QDAY tab 09/16/17 [History Confirmed 12/19/17] aspirin 81 mg tablet,delayed release 81 mg PO QDAY 09/16/17 [History Confirmed 12/19/17] citalopram 40 mg tablet 40 mg PO QDAY tab 09/16/17 [History Confirmed 12/19/17] fluticasone 100 mcg-vilanterol 25 mcg/dose powder for inhalation 1 inh INHALATION Q24H 09/16/17 [History Confirmed 12/19/17] furosemide 40 mg tablet 40 mg PO BID tab 09/16/17 [History Confirmed 12/19/17] glimepiride 4 mg tablet 4 mg PO QAM 09/16/17 [History Confirmed 12/19/17] guaifenesin ER 600 mg tablet, extended release 12 hr 600 mg PO Q12H PRN 09/16/17 [History Confirmed 12/19/17] tgwn-A00-nhxnqiln tablet 1 tab PO QDAY 09/16/17 [History Confirmed 12/19/17] levalbuterol 0.63 mg/3 mL solution [...] 20 mg tablet 20 mg PO QPM 12/18/17 [History Confirmed 12/19/17] ferrous sulfate 325 mg (65 mg iron) tablet 175 mg PO BID tab 09/18/17 [History Confirmed 12/19/17] Ejection fraction %: 65 to 70 PFSH Medical History Preoperative cardiovascular examination (Acute) Fatigue (Acute) Shortness of breath (Acute) Diabetes mellitus (Chronic) Hyperlipidemia (Chronic) Hypertension (Chronic) Cardiomegaly (Chronic) COPD (chronic obstructive pulmonary disease) (Chronic) Anemia (Acute) Asthma (Acute) Arthritis (Chronic) GERD (gastroesophageal reflux disease) (Chronic) QUINCY (obstructive sleep apnea) (Chronic) Surgical History H/O section (Resolved) H/O tubal ligation (Resolved) History of cataract surgery (Resolved) History of dilation and curettage (Resolved) Family History Mother Heart disease Father CVA (cerebral vascular accident) Diabetes Sister Myocardial infarction, Onset Age: 45 Social History Smoking Status: Never smoker alcohol intake: never substance use type: does not use caffeine: No what type of physical activity do you participate in: none seatbelt use: always do you feel safe at home: Yes ROS Const Const: Negative for fatigue, weakness, body ache, fever(s) or chills ENT ENT: Positive for dizziness (with quick position changes that lasts for a few seconds ) Cardio Chest Pain: No Palpitations: Yes Edema: None Muscle aches with walking: None Resp Respiratory: Negative for SOB with activity, SOB at rest, SOB orthopnea\SOB lying down or paroxysmal nocturnal dyspnea GI GI: Negative nausea, black,tarry stools, bright, red blood in stools or vomiting blood/hematemesis : Negative for hematuria or frequent nighttime urination/ nocturia Musc Musc: Negative for muscle aches/ myalgia Neuro Neuro: Positive for dizziness (with quick position changes that lasts for a few seconds ); negative for weakness, lightheadedness, near syncope, syncope or orthostatic symptoms Endo Endo: Negative for fatigue Cardiology Exam Const Appearance: cooperative, healthy appearing, comfortable and no acute distress Orientation: alert, awake and oriented x3 Head Head: normal to inspection Mouth: oral mucosae normal Neck Neck: no JVD and normal visual inspection Carotids: normal carotid upstroke Chest Chest inspection: normal inspection of the chest and normal respiratory effort Auscultation: Bilateral: Clear to Auscultation Cardio Rate: regular rate Rhythm: regular rhythm Heart sounds: S1 normal and S2 normal; negative rub or gallop GI GI: normal to inspection Neuro General: alert, awake, oriented x3 and CN's II-XI intact bilaterally Skin Skin: no rashes or lesions noted Extremities Pulses: Normal: Right Posterior Tibial [...] 1. Other fatigue R53.83 FELICIA Shaw Patient states this is much improved since last office visit and with weight loss. We will continue to monitor this. Hopefully as patient has knee replacement surgery in the future she will remain active and continue with weight loss and improvement in her fatigue. 2. Shortness of breath R06.02 FELICIA Shaw Patient states this is improved since last office visit. She has undergone pulmonary function test and sleep study with Dr. Thornton. She will be following up with him later next month to review results and for surgical clearance after developing pneumonia which postponed knee replacement surgery. Her echocardiogram from August 2017 showed an estimated ejection fraction of 65% and her stress test from August 2017 was negative for stress-induced myocardial ischemia and previous injury/infarction. She will continue to follow-up with Dr. Thornton and we will continue to monitor this. 3. Essential hypertension I10 FELICIA Shaw Patient's blood pressure is well-controlled today in the office. We will continue to monitor this. We will not make any medication regimen changes. 4. Mixed hyperlipidemia E78.2 FELICIA Shaw Patient states this is being monitored by primary care physician. Patient will continue with current cholesterol lowering medication. 5. Type 2 diabetes mellitus without complication, with long- term current use of insulin E11.9; Z79.4 FELICIA Shaw Patient states this is well-controlled with her most recent hemoglobin A1c approximately 6. She will continue to follow-up with primary care physician for this. She was reminded of the importance of diabetes control in relation to cardiovascular health. 6. Chronic obstructive pulmonary disease, unspecified COPD type J44.9 Plan - FELICIA Forbes Patient will continue to follow-up with Dr. Thornton for this. 7. Palpitations R00.2 Plan - FELICIA Forbes Patient does state having episodes of butterfly flutter in her chest approximately 2-3 times a month that is very brief and occurs randomly. She declined any further monitoring with a 30 day event monitor at this time. She was instructed to contact our office if she notices that it becomes more frequent, causes secondary symptoms, or has a longer duration. We will [...] This note was generated using a voice recognition system and there may be incorrect words, spelling or punctuation that were not noted when reviewing the office note prior to saving. Follow Up 11 Months (PFM ) Coding Level of Care Code Off vis,est,level 3 Diagnoses Other fatigue R53.83 Fatigue type: other Shortness of breath R06.02 Essential hypertension I10 Hypertension type: essential hypertension Mixed hyperlipidemia E78.2 Hyperlipidemia type: mixed hyperlipidemia Type 2 diabetes mellitus without complication, with long-term current use of insulin E11.9; Z79.4 Diabetes mellitus type: type 2 Diabetes mellitus residential insulin use: with residential use Diabetes mellitus complication status: without complication Chronic obstructive pulmonary disease, unspecified COPD type J44.9 COPD type: unspecified COPD Palpitations R00.2 Coding Level of Care Code Off vis,est,level 3 Diagnoses Other fatigue R53.83 Fatigue type: other Shortness of breath R06.02 Essential hypertension I10 Hypertension type: essential hypertension Mixed hyperlipidemia E78.2 Hyperlipidemia type: mixed hyperlipidemia Type 2 diabetes mellitus without complication, with long-term current use of insulin E11.9; Z79.4 Diabetes mellitus type: type 2 Diabetes mellitus residential insulin use: with bed bug exterminator use Diabetes mellitus complication status: without complication Chronic obstructive pulmonary disease, unspecified COPD type J44.9 COPD type: unspecified COPD Palpitations R00.2 12/19/17 1203 <Electronically signed by Atilio Becerril DRIVER'S EDUCATION INSTRUCTOR-C> Date Atilio Kalyn Jerrica DRIVER'S EDUCATION INSTRUCTOR-C 12/19/17 1331<Electronically signed by Fernando Alcala MD> Cosigner Signature: Date (if applicable) Fernando Alcala MD CC: Martha Self NP CHEST PA AND LATERAL Observed: 11/21/2017 Status: F Source: [place] 3:25 PM [facility] REPOSITORY [facility] Imaging Services [address] [place] [address] Chest PA and Lateral MR#: [id number] Acct: [id number] Name: FANY HURST Rep #: [id number] : 1945 F 72 From: Lulu Lincoln MD PCP: Martha Self NP Status: REG CLI Study: Chest PA and Lateral Date of Exam: 11/21/17 Exam# [id number] Ordering Dr: Julito Thornton MD STUDY: X-RAY CHEST REASON FOR EXAM: Female, 72 years old. COPD. TECHNIQUE: 2 views COMPARISON: Prior chest radiograph of July 30, 2017 FINDINGS: Lung moran are generally hyperexpanded with stable bibasilar chronic changes. Negative for new consolidation, focal atelectasis or a substantial pleural effusion. Negative for masses or nodules. There is no demonstrated pleural abnormality. Normal cardiac size. Normal mediastinum and delfina. Normal visualized pulmonary arteries. There is atherosclerotic calcification of the aortic arch with tortuosity. There are diffuse degenerative changes of the visualized thoracic spine. Normal visualized ribs, clavicles, and shoulders. There is no demonstrated abnormality of the visualized soft tissue structures of the upper abdomen. RAD/Chest PA and Lateral IMPRESSION: No acute cardiopulmonary changes. Continued hyperexpansion and stable chronic bibasilar lung changes. Stable cardiac size. Atherosclerosis. Electronically Signed: Lulu Lincoln MD at 23:16 EST , Service support , CC: Martha Self DRIVER'S EDUCATION INSTRUCTOR; Julito Thornton MD Supervisor Customer Services: Signed CARDIOLOGY VISIT Observed: 11/20/2017 Status: F Source: [place] RE[place] 11:57 AM [facility] REPOSITORY [facility] [address] [place] [address] OFFICE VISIT Date of Service: 09/18/17 MR#: [id number] Acct: [id number] Name: FANY HURST Rep #: [id number] : 1945 Provider: Xu Garduno MD Age/Sex: 72/F [place] [facility] [place]: Signed HPI CARDIAC [facility]AR[facility] KNEE SURGERY DR. MCDANIELS: Details: FANY HURST, is a 72 F who presents to the office today for for outpatient cardiovascular consultation and preoperative cardiovascular assessment regarding concerns of shortness of breath and fatigue in need of upcoming left knee replacement surgery and subsequently right knee replacement surgery. She states that she does have an element of shortness of breath with activity. She is also tired and fatigued. She has attributed this to a combination of anemia for which she takes an [...] meperidine [From Demerol] Adverse Reaction (Severe, Verified 09/18/17 11:39) syncope penicillin G Adverse Reaction (Severe, Verified 09/16/17 17:21) rash Medications ascorbic acid (vitamin C) ER 1,500 mg tablet,extended release 1,500 mg PO QDAY tab 09/16/17 [History Confirmed 09/18/17] aspirin 81 mg tablet,delayed release 81 mg PO QDAY 09/16/17 [History Confirmed 09/18/17] citalopram 40 mg tablet 40 mg PO QDAY tab 09/16/17 [History Confirmed 09/18/17] fluticasone 100 mcg-vilanterol 25 mcg/dose powder for inhalation 1 inh INHALATION Q24H 09/16/17 [History Confirmed 09/18/17] furosemide 40 mg tablet 40 mg PO BID tab 09/16/17 [History Confirmed 09/18/17] glimepiride 4 mg tablet 4 mg PO QAM 09/16/17 [History Confirmed 09/18/17] guaifenesin ER 600 mg tablet, extended release 12 hr 600 mg PO Q12H PRN 09/16/17 [History Confirmed 09/18/17] unoc-R70-[id number] tablet 1 tab PO QDAY 09/16/17 [History [...] 40 mg PO QDAY 09/16/17 [History Confirmed 09/18/17] potassium chloride ER 8 mEq capsule,extended release 8 meq PO BID 09/16/17 [History Confirmed 09/18/17] simvastatin 20 mg tablet 20 mg PO QPM 09/16/17 [History Confirmed 09/18/17] ferrous sulfate 325 mg (65 mg iron) tablet 175 mg PO BID tab 09/18/17 [History Confirmed 09/18/17] [facility] Medical History Preoperative cardiovascular examination (Acute) Fatigue (Acute) Shortness of breath (Acute) Diabetes mellitus (Chronic) Hyperlipidemia (Chronic) Hypertension (Chronic) Cardiomegaly (Chronic) COPD (chronic obstructive pulmonary disease) (Chronic) Anemia (Acute) Asthma (Acute) Arthritis (Chronic) GERD (gastroesophageal reflux disease) (Chronic) QUINCY (obstructive sleep apnea) (Chronic) Surgical History H/O section (Resolved) H/O tubal ligation (Resolved) History of cataract surgery (Resolved) History of dilation and curettage (Resolved) Family History Mother Heart disease Father CVA (cerebral vascular accident) Diabetes Sister Myocardial infarction, Onset Age: 45 Social History Smoking Status: Never smoker alcohol intake: never substance use type: does not use ROS Const Const: Positive for fatigue (reports that she has been tired due to knee) and frequent falls (due to lt knee); negative for weakness, weight gain, weight loss or excessive sweating Eyes Eyes: Negative for change in vision, blurry vision or transient loss of vision ENT ENT: Positive for dizziness (while laying in bed), Positive for balance problems (neuropathy bilat LE, pedals; ambulates with a cane) Cardio Chest Pain: No Palpitations: Positive for Yes (occasional butterfly feeling) Palpitations: other (fluttering) Edema: None Muscle aches with walking: None Resp Respiratory: Positive for SOB with activity; negative for SOB at rest GI GI: Negative vomiting or vomiting blood/hematemesis : Negative for hematuria Musc Musc: Positive for balance problems (neuropathy bilat LE, pedals; ambulates with a cane) and muscle aches/ myalgia (back pain); negative for muscle weakness or joint pain Skin Skin: Negative non-healing lesions or rash Neuro Neuro: Negative for weakness, Negative for blurry vision, Positive for dizziness (while laying in bed), Negative for lightheadedness, Positive for frequent falls (due to lt knee), Negative for orthostatic symptoms Yony Hematologic/Lymphatic: Negative for easy bleeding Endo Endo: Positive for fatigue (reports that she has been tired due to knee); negative for excessive sweating Psych Psych: Negative for anxiety or depression Allergy Allergy/Immunology: Negative for hives, Negative for rash Cardiology Exam Const Appearance: cooperative, healthy appearing, comfortable, no acute distress, well developed and well groomed Nutritional Appearance: overweight Orientation: alert, awake and oriented x3 Head Head: normal to inspection Ears: hearing grossly normal bilaterally Nose: external nose normal Face and Sinus: face symmetric Mouth: oral mucosae normal Teeth and gingiva: dentition normal Eyes General: appearance normal, both eyes and all related structures Conjunctivae: conjunctivae normal Pupils: PERRL EOM: EOM intact bilaterally Neck Neck: normal visual inspection Carotids: normal carotid upstroke Chest Chest inspection: normal inspection of the chest and symmetric chest movement Auscultation: Bilateral: Clear to Auscultation Cardio Palpation: normal PMI Rate: regular rate Rhythm: regular rhythm Heart sounds: S1 normal and S2 normal GI GI: normal to inspection, bowel sounds present, soft and no hepatosplenomegaly Neuro General: alert, awake and oriented x3 Skin Skin: [...] wall motion abnormalities and a pharmacologic stress nuclear imaging study to assess for any obvious evidence of ongoing myocardial ischemia that would be prudent to no prior to her noncardiac surgery. 2. Shortness of breath R06.02 Plan She does have an element of shortness of breath and dyspnea. It may be related to her history of anemia and debilitation. However again based on her cardiovascular risk factors and her ECG would not be unreasonable to screen her from a cardiovascular standpoint as noted above. Orders Orders: 3. Fatigue R53.83 Plan She does have fatigue. She states she has attributed this to her anemia and her debilitation. However it could be related to cardiovascular disease as well as noted above. Thus she will proceed with further noninvasive cardiovascular evaluation. 4. Hyperlipidemia E78.5 Plan She does have a history of hyperlipidemia. She will continue medical therapy. 5. Hypertension I10 Plan She does have a history of hypertension. Her blood pressure appears to be well controlled today. She will continue medical management. Orders Orders: 6. Diabetes mellitus E11.9 Plan She will continue to follow with her primary care physician for her diabetes mellitus. 7. COPD (chronic obstructive pulmonary disease) J44.9 Plan She does have a history of COPD. Again she will continue to follow with her primary care physician for this. 8. Cardiomegaly I51.7 Plan She does have a chest x-ray reports from June of this year suggesting cardiomegaly. The actual x-ray is unavailable for review at this time. Thus it is unclear whether this is true cardiomegaly. This will be further assessed with an echocardiogram to assess her cardiac chamber size as well as her overall function. Orders Orders: Plan Detail Additional Comments She will undergo evaluation as noted above. If her cardiovascular evaluation is unremarkable then she will proceed with her noncardiac surgery. At that time it would be recommended that she have close monitoring of her cardiac rate rhythm and blood pressure during and after surgery. It would also be recommended attempt to be made to avoid significant fluctuations in her vital signs as well as her volume status during and after her surgery. The above was discussed with the patient and her spouse. They were agreeable to this approach. Thank you for allowing me to participate in the care of your patient. Please don't hesitate to call if any issues arise This note was generated using a voice recognition system and there may be incorrect words, spelling or punctuation that were not noted when reviewing the office note prior to saving. Follow Up 3 Months (PA/DRIVER'S EDUCATION INSTRUCTOR) 09/18/17 2928 <Electronically signed by Xu Garduno MD> Date Xu Garduno MD Cosigner Signature: Date (if applicable) CC: ECHOCARDIOGRAM COMPLETE Observed: 09/20/2017 Status: F Source: [place] 12:37 PM [facility] REPOSITORY [facility] Cardiovascular Services [place] [address] Echo Complete W/ Contrast 09/20/17 0841 MR#: [id number] Acct: [id number] Name: FANY HURST Rep #: [id number] : 1945 72 From: Xu Garduno MD Attending Dr: Xu Garduno MD Status: REG CLI Ordering Dr: Xu Garduno MD Date: 09/20/17 Location: [facility] Sex: F C Admitted: Reason For Study: Dyspnea/SOB Procedure This was a 2D Doppler, Color Flow transthoracic echocardiogram. The exam was of poor technical quality due to body habitus. The study was technically difficult. Contrast injection was performed. Exam performed in department. Left Ventricle Normal LV size. Left ventricular systolic function is normal. The estimated ejection fraction is 65 %. No regional wall motion abnormalities noted. Right Ventricle Normal RV size. Normal systolic function. Atria Normal left atrium. Normal right atrium. No doppler evidence for ASD. Mitral Valve There is no mitral annular calcification. Normal mitral valve. Trivial mitral valve insufficiency. Tricuspid Valve Normal tricuspid valve. Trivial tricuspid valve insufficiency. Aortic Valve Trisinus/trileaflet aortic valve. Normal aortic valve. Pulmonic Valve The pulmonic valve [...] area: 12.8 cm2 LAV(MOD-bp) Indexed: 22.6 ml/m2 LAV(MOD-sp2): 37.5 ml LAV(MOD-sp4): 50.8 ml Time Measurements MV dec time: 0.14 sec Doppler Measurements AND Calculations MV E max geovanni: 100.9 cm/sec Lat Peak E' Geovanni: 9.8 cm/sec Med Peak E' Geovanni: 8.3 cm/sec MV A max geovanni: 107.7 cm/sec E/E' lat: 10.3 E/E' med: 12.1 MV E/A: 0.94 MV V2 max: 145.4 cm/sec MV P1/2t max geovanni: 147.3 cm/sec Ao V2 max: 170.5 cm/sec [...] The estimated ejection fraction is 65 %. Trivial mitral valve insufficiency. Trivial tricuspid valve insufficiency. Ordering Physician: Xu Garduno Referring Physician: Martha Self Performed By: Bonifacio Meyer RCS 09/20/17 1236 Date Xu Garduno MD CC: Martha Self NP; Xu Garduno MD Date Dictated: 09/20/17 0841 Date Transcribed: 09/20/17 123 Supervisor Customer Services: Signed STRESS REPORT Observed: 09/20/2017 Status: F Source: [place] 10:01 AM [facility] REPOS[facility]ORY [facility] Cardiovascular Services [address] [place] [id number] MR#: [id number] Acct: [id number] Name: FANY HURST Rep #: [id number] : 1945 72 From: Fernando Alcala MD Primary Care: [...] reconstructed and compared in the short axis vertical long and horizontal long axis. Gated images were also obtained Perfusion SPECT analysis: Review of the stress images demonstrate normal uptake of tracer noted in all areas myocardium. The resting images similarly demonstrate normal uptake of tracer noted varus myocardium. No areas of reversibility are noted suggest ischemia no previous infarct is noted. Gated SPECT analysis Conclusion : Normal pharmacologic myocardial perfusion stress test. 09/20/17 1001 <Electronically signed by Fernando Alcala MD> Date Fernando Alcala MD CC: Martha Trujilloremediosjessenia ANGEL Date Dictated: 09/20/1758 Date Transcribed: 09/20/17957 Supervisor Customer Services: [place] Signed 12 LEAD EKG PERFORMED Observed: 09/18/2017 Status: F Source: [place] [facility] 11:[address] [address] 12 Lead EKG performed by [facility] 09/18/17 1131 MR#: [id number] Acct: [id number] Name: FAYN HURST Rep #: [id number] : 1945 72 From: Xu Garduno MD Attending Dr: Xu Garduno MD Status: DEP AMB Ordering Dr: Xu Garduno MD Date: 09/18/17 [place] [facility] [place] F C Admitted: [facility]/12 Lead EKG performed by [facility] ECG Report Interpretation Somatic / motion artifactSinus Rhythm Low voltage in precordial leads. Poor R wave progression.Inferior GA, age undetermined, cannot be excludedABNORMAL Electronically signed on 09/18/2017 at 17:30 by Xu Garduno 10/16/17 1615 Date Xu Garduno MD CC: Martha Self DRIVER'S EDUCATION INSTRUCTOR Date Dictated: 09/18/17 1131 Date Transcribed: 09/18/17 113 Supervisor Customer Services: PM Signed ALLERGIES ALLERGIES DATE TYPE / CODE NAME / CODE REACTION SEVERITY SOURCE 01/30/2018 Drug codeine/[id number]( Hives [facility]416 [facility]) [facility] [id number]([facility] ED CT) Repository 01/30/2018 Drug amoxicillin/[id number] Rash [facility]/416 675(RXNORM) [facility] 776869([facility] ED CT) Repository 01/30/2018 Drug meperidine/[id number] syncope [facility]/416 20(RXNORM) [facility] 744545([facility] ED CT) Repository 01/30/2018 Drug penicillin Rash [facility]/416 G/[id number](RXNORM [facility] 969835([facility] ED [facility]) Repository 01/20/2016 DRUG METFORMIN HCL GI UPSET [facility] IN[facility]EDI/[address] [place] 627237(SNOM Repository ED CT) 04/05/2009 DRUG PREGABALIN SWELLING [facility]/[address] [place] 389228(SNOM Repository ED CT) 07/12/2005 DRUG MEPERIDINE HCL GI UPSET [facility]/[address] [place] 706463(SNOM Repository ED CT) 06/13/2005 DRUG CODEINE [facility]/[address] [place] 455876(SNOM Repository ED CT) 06/13/2005 DRUG TRAZODONE [facility]/[address] [place] 942415(SNOM Repository ED CT) 05/23/2005 DRUG/[id number] ERYTHROMYCIN [facility] System 003(SNOMED [facility] [place]) Repository 02/21/2004 Drug OPIOIDS-MEPERIDINE [facility] Class/96009 AND RELATED [facility] [place] 1003(SNOMED Repository CT) 02/21/2004 Drug PENICILLINS RASH [facility] Class/11222 [facility] [place] 1003(SNOMED Repository CT) ENCOUNTERS ENCOUNTERS ADMIT/DISCHARGE ACCOUNT ADMITTING ENCOUNTER LOCATION SOURCE NUMBER CLASS 09/05/2018 [id number] Ambulatory [facility] ing:OPBI Repository 08/27/2018 [id number] Ambulatory [facility] ing:OPBD Repository 07/23/2018/07/23/20 [id number] Ambulatory [address] Hospital ing:PT Repository 07/18/2018 [id number] Ambulatory [facility] ing:MTRAD Repository 07/04/2018 [id number] Ambulatory [facility] ing:MTRAD Repository 06/09/2018/06/19/20 [id number] Ambulatory [address] Repository 02/11/2018/02/14/20 [id number] Kevin Mcdaniels Inpatient [address] ing:BV5Omdi: Repository XB801Rmm: 1 01/30/2018/02/14/20 [id number] Ambulatory BMSBuilding:W [place] [facility] Repository 01/09/2018/01/14/20 [id number] Ambulatory [address] Repository 12/19/2017/12/20/19 [id number] Ambulatory BMSBuilding:B [place] [facility] Repository 11/21/2017 [id number] Ambulatory [facility] ing:RAD.FUTUR Repository E 09/20/2017 [id number] Ambulatory [facility] ing:CVS Repository 09/20/2017 [id number] Ambulatory BMSBuilding:W [facility] Repository 09/18/2017/09/18/20 [id number] Ambulatory BMSBuilding:B Jasmin [facility] Repository PAYERS PAYERS ENCOUNTER GUARANTOR PAYER SUBSCRIBER SOURCE 09/05/2018 MITESH CARDOSO: Jasmin [id number] Insurance:HUMANA [id number] [place] [facility] [place] [address]U[place]: Number: Repository [id number] () Date:5351-00-20ZV [address] [address]PC: 09/05/2018 Secondary NOT GIVENUNK [place] Insurance:SELF PAY [facility] Number: Effective Repository Date:2018-08-27 08/27/2018 Mitesh Walker Primary FANY WHITEDOB: [place] [id number] Insurance:HUMANA [id number] [place] [facility] [place] Number: Repository [id number]: (330 [id number] [phone] (HP) Date:2346-77-48CR [address] [address]ZR: 08/27/2018 Secondary NOT GIVENUNK Jasmin Insurance:SELF PAY [facility] Number: Effective Repository Date:2018-07-04 07/23/2018 Mitesh Walker Primary FANY WHITEDOB: Jasmin [id number] Insurance:HUMANA [id number] [place] [facility] [place] Number: Repository [address]Oyl: 330 [id number] [phone] () Date:3090-53-75FV [address] [address]GD: 07/23/2018 Secondary NOT GIVENUNK Jasmin Insurance:SELF PAY [facility] Number: Effective Repository Date:2018-07-04 07/18/2018 Mitesh Walker Primary FANY WHITEDOB: [place] [id number] Insurance:HUMANA [id number] [facility] [place] [facility] [place] Number: Repository [address]Qtd: 330 [id number] [phone] () Date:1963-53-26JD [address] [address]CS: 07/18/2018 Secondary NOT GIVENUNK [place] Insurance:SELF PAY [facility] Number: Effective Repository Date:2018-07-18 07/04/2018 Mitesh Walker Primary FANY WHITEDOB: [place] [id number] Insurance:HUMANA [id number] [facility] [place] [facility] [place] Number: Repository [address]Nvb: 330 [id number] [phone] (HP) Date:6603-88-86MA [address] [address]JP: 07/04/2018 Secondary NOT GIVENUNK Jasmin Insurance:SELF PAY [facility] Number: Effective Repository Date:2018-07-04 02/11/2018 Mitesh Walker Primary FANY WHITEDOB: [place] [id number] Insurance:HUMANA [id number] [facility] [place] [facility] [place] Number: Repository [address]Uhk: 330 [id number] [phone] (HP) Date:2607-36-26JG [address] [address]CC: 02/11/2018 Secondary NOT GIVENUNK [place] Insurance:SELF PAY [facility] Number: Effective Repository Date:2018-01-20 01/30/2018 Mitesh Walker Primary FANY WHITEDOB: Jasmin [id number] Insurance:HUMANA [id number] [facility] [place] [facility] [place] Number: Repository [id number]: (330 [id number] [phone] () Date:1062-09-03TR [address] [address]OY: 01/30/2018 Secondary NOT GIVENUNK Jasmin Insurance:SELF PAY [facility] Number: Effective Repository Date:2018-01-30 12/19/2017 Mitesh Walker Primary FANY WHITEDOB: [place] [id number] Insurance:HUMANA [id number] [facility] [place] [facility] [place] Number: Repository [id number]: 330 [id number] [phone] (HP) Date:4560-37-04ZH [address] [place] [address]HF: 12/19/2017 Secondary NOT GIVENUNK [place] Insurance:SELF PAY [facility] Number: Effective Repository Date:2017-12-19 11/21/2017 Mitesh Walker Primary FANY WHITEDOB: Jasmin [id number] Insurance:HUMANA [id number] [facility] [place] [facility] [place] Number: Repository [address]Hdl: 330 [id number] [phone] (HP) Date:8178-95-73TG [place] [id number]: 11/21/2017 Secondary NOT GIVENUNK Jasmin Insurance:SELF PAY [facility] Number: Effective Repository Date:2017-11-19 09/20/2017 Mitesh Walker Primary FANY WHITEDOB: [place] [id number] Insurance:HUMANA [id number] [facility] [place] [address] [facility] [place] Number: Repository [address]Vlb: 330 [id number] [phone] () Date:4215-07-22[place] [id number]: 09/20/2017 Secondary NOT GIVENUNK [place] Insurance:SELF PAY [facility] Number: Effective Repository Date:2017-09-18 09/20/[address] WHITEDOB: [place] [id number] Insurance:HUMANA [id number] [facility] [place] [address] [place] Number: Repository [address]Jiz: 330 [id number] [phone] () Date:9752-98-50VC [address] [address]KO: 09/20/2017 Secondary NOT GIVENUNK [place] Insurance:SELF PAY [facility] Number: Effective Repository Date:2017-09-20 09/18/[address] WHITEDOB: [place] [id number] Insurance:HUMANA [id number] [facility] [place] [address] [facility] [place] Number: Repository [id number]: 330 [id number] [phone] () Date:1813-69-28QB [address] [address], [place] [address]WO: 09/18/2017 Secondary NOT GIVENUNK Jasmin Insurance:SELF PAY [facility] Number: Effective Repository Date:2017-09-03
== END ==
PROVIDERS: Family Provider Nurse Practitioner; PCP Nurse Practitioner; Visit Provider Nurse Practitioner
DX: Z78.0 Asymptomatic menopausal state (principal)
CPT/HCPCS: 77080

== ENCOUNTER → 2018-09-05 07:40 | Outpatient (CLI) | payer MEDICARE, SELFPAY ==
--- NOTE | 2018-09-05 07:42 | BI_ITS ---
MAMMOGRAPHY - BILATERAL SCREENING REASON FOR EXAM: Female, 73 years old. Routine annual screening examination. PERTINENT HISTORY: Non-contributory. History of bilateral breast biopsies. TECHNIQUE: Digital bilateral breast mónica (3D mammographic acquisition) in the CC and MLO projections. 2-D mediolateral oblique (MLO) and craniocaudad (CC) views of both breasts were obtained. CAD: Full Field Digital Mammography with Computer Added Detection was performed. COMPARISON: Comparison is made with prior osseous examination dated August 29, 2017. FINDINGS: Breast Composition: The breasts are almost entirely fatty. There are no dominant masses or suspicious calcifications. There are 2 tissue markers in the upper lateral portion of the right breast. This is unchanged. No other significant abnormalities are identified. There has been no significant change since the prior study. BI/SCREENING MAMM (CAD), BILAT IMPRESSION: Stable bilateral screening mammogram. Yearly follow-up mammogram recommended. (A) ASSESSMENT CATEGORY: BIRADS Category 2: Benign. A letter regarding these results will be sent to the patient by the facility within 30 days. Approximately 10% of breast cancers are not detected by mammography. A normal mammogram should not delay biopsy of a clinically suspicious abnormality. [id number] Electronically Signed: Alcides Saha MD at 9:08 EST Tel [phone], Service support ,
== END ==
PROVIDERS: Family Provider Nurse Practitioner; PCP Nurse Practitioner; Referring Provider Nurse Practitioner; Visit Provider Nurse Practitioner
DX: Z12.31 Encounter for screening mammogram for malignant neoplasm of breast (principal)
CPT/HCPCS: 77063; 77067

== ENCOUNTER 2019-01-17 19:05 | Emergency (ER) | payer MEDICARE, SELFPAY ==
[2019-01-17 19:06] VITALS: BP 126/73; PULSE 74; RESP 18; TEMP 36.7; O2SAT 97; BMI 43.0
[2019-01-17] MEDS: Ondansetron 4 MG/2 ML Vial IV (19:37)
[2019-01-17] MEDS: Morphine 4 MG/ML Syringe IV (19:38)
--- NOTE | 2019-01-17 19:58 | RAD_ITS ---
STUDY: X-RAY - PELVIS AND RIGHT HIP REASON FOR EXAM: Female, 73 years old. Back pain TECHNIQUE: 3 views of the pelvis and hip. COMPARISON: None. FINDINGS: There is a non-specific bowel gas pattern. Normal visualized soft tissue structures. Normal bilateral iliac wings, sacroiliac joints and visualized sacrum. Normal bilateral superior and inferior pubic rami. Normal pubic symphysis. Normal bilateral ischial tuberosities. Normal visualized femoral head. Normal acetabulum. There is moderate articular joint space narrowing of the hip. RAD/HIP, UNI W/ Pelvis 2-3 Views IMPRESSION: No fracture or dislocation of the pelvis or right hip. Moderate degenerative changes in the right hip. Electronically Signed: Mike Lopez, at 20:34 EDT Tel , Service support ,
--- NOTE | 2019-01-17 19:58 | RAD_ITS ---
STUDY: X-RAY - LUMBAR SPINE REASON FOR EXAM: Female, 73 years old. Lower back pain. TECHNIQUE: 3 view(s) of the lumbar spine were obtained. COMPARISON: July 18, 2018 FINDINGS: Normal lumbar lordosis. There is no substantial scoliosis. There is a normal alignment of the vertebrae. There is multilevel endplate spondylosis of the lumbar vertebrae. There is multi-level degenerative disc disease with multi-level disc space narrowing, most pronounced at L4-L5 and L5-S1. There is atherosclerotic calcification of the abdominal aorta without a demonstrated aneurysm. RAD/Lumbar Spine 2 or 3 Views IMPRESSION: Degenerative changes of the spine, as detailed above. Electronically Signed: Bhumi Barrow MD at 20:46 EDT Tel , Service support ,
--- NOTE | 2019-01-17 20:14 | ED.VISSUMM ---
- ER Visit Summary Date of Service: 01/17/19 Chief Complaint: Back pain History of Present Illness: The patient is a 73 F presenting with lower back pain. She states this started 5-6 days ago. She does not recall a specific injury. She has been taking Tylenol at home. She complains of right low back pain that radiates to her right leg. She has been able to ambulate. She denies numbness or weakness. Denies bowel or bladder incontinence. Denies fever. Denies chest pain or shortness of breath. Denies abdominal pain. Denies other complaints. Physical Examination: Vitals are stable. Patient is afebrile. Alert no acute distress. HEENT exam is unremarkable. Neck is supple. Lungs are clear and equal bilaterally. Heart is regular rate and rhythm. Abdomen is soft nontender nondistended. Back: Right paraspinal lumbar muscle tenderness, no midline tenderness. Straight leg raise positive at 30 degrees on the right Extremities are unremarkable. Skin is warm and dry. No focal neurologic deficit. Normal strength and sensation Remainder of exam is unremarkable. Emergency Department Course and Treatment: Patient was given morphine, Zofran IV. X-ray of the lumbar spine and right hip show degenerative changes, no fracture. Patient is feeling improved following medication. She is able to ambulate in the ED. She is given a prescription for short course of Percocet. She is advised to follow-up with her primary care physician. Advised return to ED if worsening complaints. Disposition: Discharge home Impression: Back pain, sciatica This note was generated with [employer] dictation software. It may contain incorrect words, spelling, and punctuation that were not noted in review of the chart prior to signing ED Disposition - Plan for ED Patient: Instructions: ED Sciatica Prescriptions: Oxycodone HCl/Acetaminophen [Percocet 5/325] 1 tablet PO Q6H PRN PRN 3 Days #12 tablet PRN Reason: Pain Referrals: Martha Self, JEANNE-C [Primary Care Provider] -
--- NOTE | 2019-01-17 21:19 | ED.DEP ---
ED Disposition - Plan for ED Patient: Instructions: ED Sciatica Prescriptions: Oxycodone HCl/Acetaminophen [Percocet 5/325] 1 tablet PO Q6H PRN PRN 3 Days #12 tablet PRN Reason: Pain Referrals: Martha Self WAREHOUSE OPERATIONS MANAGER-C [Primary Care Provider] -
[2019-01-17 21:42] VITALS: BP 132/69; PULSE 75; RESP 16; O2SAT 96
== END 2019-01-17 21:43 | disposition home or self-care (01) ==
PROVIDERS: Emergency Provider Emergency Medicine; Family Provider Nurse Practitioner; PCP Nurse Practitioner
DX: M54.41 Lumbago with sciatica, right side (principal); J44.9 Chronic obstructive pulmonary disease, unspecified; K21.9 Gastro-esophageal reflux disease without esophagitis; E11.9 Type 2 diabetes mellitus without complications; I10 Essential (primary) hypertension; E78.00 Pure hypercholesterolemia, unspecified; D64.9 Anemia, unspecified; M19.90 Unspecified osteoarthritis, unspecified site; G47.33 Obstructive sleep apnea (adult) (pediatric); Z79.82 Long term (current) use of aspirin; Z79.84 Long term (current) use of oral hypoglycemic drugs; Z79.899 Other long term (current) drug therapy
CPT/HCPCS: 72100; 73502; 96374; 96375; 99283; A4216; J2405

== ENCOUNTER 2019-10-06 16:25 | Inpatient (IN) | payer MEDICARE, SELFPAY ==
[2019-10-06] VITALS (8 sets, daily range): BP systolic 149–178; BP diastolic 73–91; PULSE 72–88; RESP 16–20; TEMP 36.6–37.7; O2SAT 92–995; BMI 45.6
--- NOTE | 2019-10-06 17:16 | RAD_ITS ---
STUDY: X-RAY - RIGHT FOOT CLINICAL: Female, 74 years old. RIGHT FOOT PAIN WITH REDNESS TECHNIQUE: 3 view(s) of the foot. COMPARISON: None. FINDINGS: No acute fracture, dislocation or osseous destruction. Significant joint space narrowing throughout the TMT joints. Marked diffuse soft tissue swelling. IMPRESSION: No acute fracture or destructive osseous process. Significant soft tissue swelling is noted around the forefoot. Electronically Signed: Jorje Miles, at 20:27 EST Tel , Service support , RAD/Foot min 3 Views
[2019-10-06 17:38] LABS: Basophil# 0.05 X10^3/uL; Basophil% 0.3 % (0-1); Eosinophil# 0.33 X10^3/uL; Eosinophils% 2.3 % (0-5); Hematocrit 32.8 % (37-47); Hemoglobin 10.9 g/dL (12.0-15.0); Lymphocyte % 17.4 % (19-41); Mean Corp Hgb Conc 33.2 g/dL (32-36); Mean Corpuscular Hgb 28.7 pg (27.0-32.0); Mean Corpuscular Volume 86.3 fL (81-99); Mean Platelet Vol. 9.9 fl (6.2-12.0); Monocyte# 1.42 X10^3/uL; Monocyte% 9.9 % (0-10); NRBC Flagged by Analyzer 0 % (0-5); Neutrophil % 69.5 % (47-70); Platelet Count 303 K/mm3 (150-450); RBC Distribution Width CV 13.3 % (11.6-14.6); White Blood Count 14.4 K/mm3 (4.4-11.0)
[2019-10-06 17:45] LABS: International Normalized Ratio 1.1; Prothrombin Time (Protime)PT. 13.6 SECONDS (11.7-14.9)
[2019-10-06] MEDS: Morphine 4 MG/ML Syringe IV (17:46)
[2019-10-06] MEDS: Ondansetron 4 MG/2 ML Vial IV (17:46)
[2019-10-06 18:00] LABS: ALB/GLOB Ratio 0.7 RATIO (0.9-2.4); AST(SGOT) 18 U/L (15-37); Alanine Aminotransfer ALT/SGPT 18 U/L (13-56); Albumin, Serum 2.8 g/dL (3.2-5.0); Alkaline Phosphatase 73 U/L (45-117); Anion Gap 4 (5-15); BUN 19 mg/dL (7-18); BUN/Creat Ratio 13.2 RATIO (10-20); Calcium,Total 9.8 mg/dL (8.5-10.1); Chloride 109 mmol/L (98-107); Creatinine, Serum 1.44 mg/dL (0.55-1.02); EST Glomerular Filtration Rate 38 mL/min (>60); Est Glom Filt Rate - Afr Amer 46 mL/min (>60); Estimated Creatinine Clearance 55.13 ml/min; Globulin 4.1 g/dL (2.2-4.2); Glucose 149 mg/dL (74-106); Potassium 4.8 mmol/L (3.5-5.1); Protein, Total 6.9 g/dL (6.4-8.2); Sodium Level 138 mmol/L (136-145)
[2019-10-06] MEDS: Albuterol 2.5 MG/3 ML VIAL.NEB. INHALATION (18:00)
[2019-10-06 18:03] LABS: Lactic Acid 1.1 mmol/L (0.4-1.9)
[2019-10-06 18:32] LABS: Mucous, Urine 0 SEEN /hpf (<or=2+); Squamous Epithelial Cells - UA 0 SEEN /hpf (5-10)
--- NOTE | 2019-10-06 18:32 | RAD_ITS ---
STUDY: X-RAY CHEST REASON FOR EXAM: Female, 74 years old. COUGH TECHNIQUE: PA and lateral views of the chest. COMPARISON: 11/21/2017. FINDINGS: Cardiac silhouette is poorly assessed. Pulmonary vascularity unremarkable. Aorta unremarkable. Similar appearing left basilar opacity. The right lung is clear. Upper abdomen unremarkable. Osseous structures intact. No pneumothorax. RAD/Chest PA and Lateral IMPRESSION: Similar appearing left basilar opacity may represent chronic scarring/atelectasis versus effusion or pneumonia as clinically indicated. Electronically Signed: Jorje Miles, at 20:52 EST Tel , Service support ,
[2019-10-06 18:36] LABS: Color, Urine Yellow (Yellow); Glucose, Dipstick Normal (Normal); Ketone-Dipstick 5 mg/dl (Negative); Leukocyte Esterase-Dipstick 100 /ul (Negative); Nitrite-Dipstick Positive (Negative); Occult Blood-Urine 150 /ul (Negative); Protein-Dipstick 100 mg/dl (Negative); Specific Gravity, Urine 1.015 (1.002-1.030); Urine Bilirubin Dipstick Negative (Negative); Urine Clarity Cloudy (Clear); Urine Urobilinogen Normal (Normal)
[2019-10-06 18:42] LABS: White Blood Cells 5-10 SEEN /hpf (0-5)
[2019-10-06 18:43] LABS: Bacteria 2+ /hpf (None Seen); Red Blood Cells-Urine 0-5 SEEN /hpf (0-5)
--- NOTE | 2019-10-06 20:54 | US_ITS ---
STUDY: VENOUS DOPPLER ULTRASOUND - RIGHT LOWER EXTREMITY REASON FOR EXAM: Female, 74 years old. RT LATERAL FOOT SWELLING TECHNIQUE: Ultrasound evaluation of the deep vein system to include clay-scale imaging and compression was performed. Clay-scale imaging and Doppler sonographic evaluation, including duplex spectral analysis and qualitative color flow sonography, was performed. COMPARISON: None. FINDINGS: Common Femoral Vein: Normal compression, spontaneity and augmentation. Normal color Doppler. Common Femoral Vein/Greater Saphenous Junction: Normal compression. Femoral Proximal: Normal compression. Femoral Middle: Normal compression, spontaneity and augmentation. Normal color Doppler. Femoral Distal: Normal compression. Popliteal Vein: Normal compression, spontaneity and augmentation. Normal color Doppler. Posterior Tibial Vein: Normal compression. Peroneal Vein: Normal compression. US/Venous Duplex Imag/Limited/Uni IMPRESSION: No demonstrated deep vein thrombosis.- Electronically Signed: Bhumi Barrow MD at 21:43 EST Tel , Service support ,
--- NOTE | 2019-10-06 21:14 | PCM.HP.STD ---
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 (2) Hyperlipidemia Status: Chronic Qualifiers: Hyperlipidemia type: mixed hyperlipidemia Qualified Code(s): E78.2 - Mixed hyperlipidemia (3) Hypertension Status: Chronic Qualifiers: Hypertension type: essential hypertension Qualified Code(s): I10 - Essential (primary) hypertension (4) COPD (chronic obstructive pulmonary disease) Status: Acute Qualifiers: COPD type: unspecified COPD Qualified Code(s): J44.9 - Chronic obstructive pulmonary disease, unspecified (5) QUINCY (obstructive sleep apnea) Status: Chronic History of Present Illness Date of Admission: 10/06/19 Chief Complaint: Leg swelling and cough - 2-3 days The patient is a 74 year old F with past medical history of type II DM, hypertension, hyperlipidemia, QUINCY, COPD not on oxygen who comes in with multiple complaints including cough ongoing for 3 days, productive of greenish sputum. She also has some fever with chills. She has a right foot and leg swelling with erythema which started about 2 to 3 days ago preventing her from walking. She has had about 2-3 falls because she is unable to bear weight on it. She recently had her nails trimmed by her community midwife, Dr. Souza. Denied any dizziness or palpitations or chest pain or shortness of breath. Vitals in the ED showed temperature of 99.8F, heart rate 82, blood pressure 149/79, respiratory rate of 16, SPO2 was 96% on room air. WBC count was 14.4, hemoglobin 10.9, platelet count of 303, INR 1.1, sodium 138, potassium 4.8, chloride 109, bicarbonate 25, BUN 19, Cr 1.44 which is close to her baseline of 1.43. X-ray of the foot shows significant soft tissue swelling, no acute fracture reported. Admitting chest x-ray shows left basilar opacity suggestive of chronic scarring/atelectasis. Doppler ultrasound of the lower extremity was negative for acute DVT. Past Medical History Past Medical History (Chronic Problems): Chronic Problems (Last Reviewed 09/18/17 @ 11:46 by Leslie Mccall) QUINCY (obstructive sleep apnea) (Chronic) Diabetes mellitus (Chronic) Hyperlipidemia (Chronic) Hypertension (Chronic) Cardiomegaly (Chronic) Medical History: Medical History (Last Reviewed 09/18/17 @ 11:46 by Leslie Mccall) Preoperative cardiovascular examination (Acute) Z01.810 Fatigue (Acute) R53.83 Shortness of breath (Acute) R06.02 Diabetes mellitus (Chronic) E11.9 Hyperlipidemia (Chronic) E78.5 Hypertension (Chronic) I10 Cardiomegaly (Chronic) I51.7 COPD (chronic obstructive pulmonary disease) (Acute) J44.9 Anemia D64.9 Asthma J45.909 Arthritis M19.90 GERD (gastroesophageal reflux disease) K21.9 QUINCY (obstructive sleep apnea) G47.33 Allergies codeine Allergy (Severe, Verified 10/06/19 16:27) Hives amoxicillin Adverse Reaction (Severe, Verified 10/06/19 16:27) Rash meperidine [From Demerol] Adverse Reaction (Severe, Verified 10/06/19 16:27) syncope penicillin G Adverse Reaction (Severe, Verified 10/06/19 16:27) rash Home Medications: Ambulatory Orders Medication Instructions Recorded citalopram 40 mg tablet 40 mg PO DAILY tab 09/16/17 furosemide 40 mg tablet 40 mg PO BID tab 09/16/17 glimepiride 4 mg tablet 4 mg PO QHS 09/16/17 losartan 25 mg tablet 25 mg PO BID tab 09/16/17 metformin 500 mg tablet 500 mg PO BID 09/16/17 montelukast 10 mg tablet 10 mg PO QHS 09/16/17 pantoprazole 40 mg tablet,delayed 40 mg PO DAILY 09/16/17 release Acetaminophen [Tylenol] 1,000 mg PO Q8H PRN PRN 10/06/19 Aspirin [Aspirin EC] 81 mg PO DAILY 10/06/19 Cholecalciferol (Vitamin D3) 2,000 unit PO DAILY@1200 10/06/19 [Vitamin D3] Linagliptin [Tradjenta] 5 mg PO QHS 10/06/19 Multivitamins,Therapeutic 1 tab PO DAILY 10/06/19 [Multivitamin] Phytonadione (Vit K1) [Vitamin K] 100 mcg PO DAILY@1200 10/06/19 Potassium Chloride 8 meq PO BID 10/06/19 Simvastatin [Zocor] 20 mg PO QHS 10/06/19 Surgical History: Surgical History (Last Reviewed 12/19/17 @ 11:05 by Domingo Ames) H/O section Z98.891 H/O tubal ligation Z98.51 History of cataract surgery Z98.49 History of dilation and curettage Z98.890 Surgical History: cataract, dilatation and curettage, total knee arthroplasty - LEFT, - - H/O caesarian surgery, tubal ligation Psychiatric History: No pertinent psych hx 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: No 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 TEACHER history Lives: Spouse/ Significant Other Smoking Status: Former smoker Tobacco Use: Non-smoker Alcohol: None Drugs: None - *Family History Maternal Family History: Family History (Last Reviewed 12/19/17 @ 11:05 by Domingo Ames) Mother Heart disease Father CVA (cerebral vascular accident) Diabetes Sister Myocardial infarction, Onset Age: 45 History Items: Heart Disease Paternal Family History: Family History (Last Reviewed 12/19/17 @ 11:05 by Domingo Ames) Mother Heart disease Father CVA (cerebral vascular accident) Diabetes Sister Myocardial infarction, Onset Age: 45 History Items: Diabetes, Stroke Review of Systems Constitutional: Reports: Weakness, Fatigue. Denies: Anorexia, Chills, Fever, Malaise, Weight Change Eyes: Denies: Blurred vision, Cataracts, Conjunctivae Inflammation, Pain, Redness, Vision Change HEENT: Denies: Difficulty Hearing, Difficulty Swallowing, Head Aches, Hearing Changes, Sinus Congestion, Sinus Drainage Cardiovascular: Denies: Chest Pain, Claudication, Orthopnea, Palpitations, Paroxysmal Noc. Dyspnea Respiratory: Reports: Cough, Wheezing. Denies: Shortness of breath at rest, Shortness of breath upon exertion, Sputum production Gastrointestinal: Denies: Abdominal Pain, Constipation, Hematemesis, Hematochezia, Nausea, Vomiting Genitourinary: Denies: Dysuria, Frequency, Incontinence Gynecological: Denies: Vaginal discharge, Vaginal itching Musculoskeletal: Reports: Foot Pain, Leg Pain. Denies: Joint Pain, Joint stiffness, Joint swelling, Joint Tenderness Skin: Reports: - - Redness of right foot and lower leg. Denies: Wounds Neurological: Denies: Numbness, Tingling, Focal weakness Psychiatric: Denies: Anxiety, Depression, Homicidal Ideations, Suicidal Ideations Hematologic/ Lymphatic: Denies: Easy Bruising, Easy Bleeding VTE Information - Inpt Only VTE Present on Admission: No VTE Pharm Prophylaxis ordered?: Yes - Physical Exam Vitals/I&O's: Vital Signs Temp Pulse Resp BP Pulse Ox 98.4 F 79 16 156/73 H 995 10/06/19 20:00 10/06/19 20:00 10/06/19 20:00 10/06/19 20:00 10/06/19 20:00 Oxygen Delivery Method Room Air Weight: 98.883 kg Body Mass Index (BMI) 45.6 Finger Stick Blood Glucose 151 Intake and Output for Last 24 Hours 10/04/19 10/05/19 10/06/19 23:59 23:59 23:59 Intake Total 530 / 530 Balance 530 / 530 General: Alert, Oriented x3, Cooperative, No apparent distress, - - obese HEENT: Atraumatic, PERRLA, EOMI, Normocephalic Oral: Moist Mucosa Neck: Supple Lungs: Normal air movement, Diminished, Wheezes Cardiovascular: Regular rate, Regular Rhythm, Normal S1, Normal S2, No murmurs Abdomen: Bowel Sounds Present, Soft, Non Tender, Non-Distended, No Hepato-splenomegaly, Obese Extremities: Edema - bilateral, worse in right lower leg and foot, erythema of right dorsolateral foot as well as lower leg including ankle Skin: - - See leg exam Musculoskeletal: No Tenderness to Palpation of Joints or Extremities Lymphatic: No Cervical, Supraclavicular, or Inguinal Adenopathy Neurological: Cranial nerves II-XII grossly intact, Neuro grossly intact Psych/Mental Status: Normal Affect, Appropriate Microbiology Past 72 Hours 10/06/19 17:55 Mucosa - Nose Influenza Types A,B Direct FA (FATOU) - Final Laboratory Results 10/06/19 17:26: WBC 14.4 H, RBC 3.80 L, Hgb 10.9 L, Hct 32.8 L, MCV 86.3, MCH 28.7, MCHC 33.2, RDW Std Deviation 42.0, RDW Coeff of Tyree 13.3, Plt Count 303, MPV 9.9, Immature Gran % (Auto) 0.600, Neut % (Auto) 69.5, Lymph % (Auto) 17.4 L, Orange % (Auto) 9.9, Eos % (Auto) 2.3, Baso % (Auto) 0.3, Absolute Neuts (auto) 10.0 H, Absolute Lymphs (auto) 2.50, Nucleated RBC % 0 10/06/19 17:26: PT 13.6, INR 1.1, APTT 34.0 10/06/19 17:26: Sodium 138, Potassium 4.8, Chloride 109 H, Carbon Dioxide 25.0, Anion Gap 4 L, BUN 19 H, Creatinine 1.44 H, Estim Creat Clear Calc 55.13, Est GFR (MDRD) Af Amer 46 L, Est GFR (MDRD) Non-Af 38 L, BUN/Creatinine Ratio 13.2, Glucose 149 H, Calcium 9.8, Total Bilirubin 0.30, AST 18, ALT 18, Alkaline Phosphatase 73, Total Protein 6.9, Albumin 2.8 L, Globulin 4.1, Albumin/Globulin Ratio 0.7 L 10/06/19 17:26: Lactic Acid 1.1 10/06/19 18:24: Urine Color Yellow, Urine Clarity Cloudy, Urine pH 6.0, Ur Specific [place] 1.015, Urine Protein 100 H, Urine Glucose (UA) Normal, Urine Ketones 5 H, Urine Occult Blood 150 H, Urine Nitrite Positive H, Urine Bilirubin Negative, Urine Urobilinogen Normal, Ur Leukocyte Esterase 100 H, Urine RBC 0-5 SEEN, Urine WBC 5-10 SEEN, Ur Squamous Epith Cells 0 SEEN, Urine Bacteria 2+, Urine Mucus 0 SEEN Current Medications Sodium Chloride () 250 mls @ 15 mls/hr IV .[id number] PRN PRN Reason: Additional IVPB Infusion Last Admin: 10/06/19 19:23 Dose: 15 mls/hr Documented by: Levofloxacin (Levaquin Iv) 750 mg in 150 mls @ 100 mls/hr IV X1 ONE Stop: 10/06/19 22:11 Assessment/Plan All Active Problems (Last Reviewed 09/18/17 @ 11:46 by Leslie Mccall) Preoperative cardiovascular examination (Acute) Fatigue (Acute) Shortness of breath (Acute) COPD (chronic obstructive pulmonary disease) (Acute) 74 year old F with past medical history of type II DM, hypertension, hyperlipidemia, QUINCY, COPD not on oxygen who comes in with multiple complaints including cough ongoing for 3 days, productive of greenish sputum, leg swelling and pain. 1. Cellulitis/swelling of the right foot and lower leg, no signs of sepsis History of penicillin allergy, but on vancomycin and Levaquin from the ED We will continue same, podiatry consult -patient recently had nail clipping done by podiatry Continue on oral Lasix 2. Acute COPD exacerbation, mild, not on oxygen, wheezes on exam We will continue on scheduled breathing treatment as well as Solu-Medrol Switch to prednisone in the morning if improved 3. Type II DM, blood sugars are fairly controlled Despite blood sugars going up with IV steroids Hold metformin for now Continue on Tradjenta, Amaryl, blood glucose checks with insulin sliding scale 4. Hypertension, fairly uncontrolled, on losartan 25 mg p.o. twice daily We will continue to monitor on this as patient is in pain, add hydralazine as needed, may need to be increased if blood pressure continues to be uncontrolled 5. Hyperlipidemia/QUINCY/CKD stage 3 -all remain stable, continue home medications 6. DVt PPx- Heparin SC Code Visit Inpatient E&M: 14813 Init Hosp L3
--- NOTE | 2019-10-06 22:52 | EKG12_ITS ---
Test Reason : AM Blood Pressure : / mmHG Vent. Rate : 076 BPM Atrial Rate : 076 BPM P-R Int : 124 ms QRS Dur : 086 ms QT Int : 404 ms P-R-T Axes : 072 027 035 degrees QTc Int : 454 ms Normal sinus rhythm Normal ECG When compared with ECG of 30-JAN-2018 13:01, No significant change was found Confirmed by APOLLO MARTINEZ ([id number]), fan mail editor BENJI ASHRAF ([id number]) on 10/08/2019 11:26:48 AM Referred By: Callie Davey Confirmed By:APOLLO MARTINEZ
[2019-10-06 23:11] LABS: Bedside Glucose 151 mg/dL (70-110)
[2019-10-06] MEDS: Insulin Lispro 100 UNIT/ML INSULN.PEN SC (23:35)
[2019-10-06] MEDS: 0.9% Normal Saline 1,000 ML 75 ML IV (23:35)
[2019-10-06] MEDS: Atorvastatin Calcium 10 MG Tablet PO (23:38)
[2019-10-06] MEDS: Glimepiride 4 MG Tablet PO (23:38)
[2019-10-06] MEDS: Montelukast 10 MG Tablet PO (23:39)
[2019-10-06] MEDS: Losartan Potassium 25 MG Tablet PO (23:39)
[2019-10-07] VITALS (9 sets, daily range): BP systolic 112–144; BP diastolic 52–62; PULSE 76–100; RESP 18–20; TEMP 36.7–37.1; O2SAT 92–96
--- NOTE | 2019-10-07 01:14 | ED.VISSUMM ---
- ER Visit Summary Date of Service: 10/07/19 Chief Complaint: Cough, right foot red History of Present Illness: The patient is a 74 F who sees Martha carreon. She reports that she has a cough began 3 days ago. Is productive of grayish sputum without blood. She said subjective fever and chills. She reports that she has mild shortness of breath and has been wheezing. She is using her nebulizer with significant relief. She denies any chest pain. Patient reports that she noticed that her right foot was swollen and red yesterday. She reports that she has a sharp pain is 10 on 10 severity. Is increased with walking. She denies any trauma. No fall, MVA, or change in activity. She does complain of generalized weakness. Physical Examination: Vitals: Stable. Afebrile. General: Well-nourished and well-developed. Head: Normocephalic atraumatic. Neck: Supple, no lymphadenopathy. No JVD. Nontender. Cardiovascular: Regular rate and rhythm. No murmurs. Respiratory: No respiratory distress. Clear to auscultation bilaterally. Abdominal: Soft, nontender, nondistended, normal bowel sounds. No guarding, rebound, or peritoneal signs. Back: Nontender. Extremities: Significant swelling to the top of her right foot. There is erythema laterally. There is no induration or fluctuance. She has a 2+ dorsalis pedis pulse. She is neuro vas intact distally. She does have erythema and warmth to the medial anterior right leg. These 2 areas are not continuous. Skin: Normal color, no rash. Neurologic: Alert and oriented ?3. Cranial nerves II through XII are intact. Normal strength and sensation. Psych: Normal affect. Test Results: CBC shows a white count of 14.4 with an H&H 10.9 32.8, lymphocytes of 17. Chem-7 shows a chloride of 109, BUN of 19, creatinine 1.44 (at her baseline), glucose 149. LFTs show an albumin of 2.8. Coags are normal. UA shows nitrites, 5-10 white blood cells, 2+ bacteria. Influenza is negative. Lactic acid is 1.1. Right foot x-rays show significant soft tissue swelling. No dislocation or fracture. Right lower extremity Doppler is negative. Clinical Impression(s) from Imaging Studies Chest X-Ray 10/06/19 18:32 IMPRESSION: Similar appearing left basilar opacity may represent chronic scarring/atelectasis versus effusion or pneumonia as clinically indicated. Electronically Signed: Jorje Miles, at 20:52 EST Tel , Service support , Emergency Department Course and Treatment: Patient is penicillin allergic. She was given vancomycin and Levaquin IV to cover the cellulitis, potential infiltrate on the left, and urine. Her urine was sent for culture. She is also given a dose of morphine and Zofran IV. She is resting more comfortably. Treatment Plan: Patient was discussed with Dr. Davey. She will be admitted to the hospital for further evaluation and treatment. Disposition: Admitted in improved condition. Impression: 1. Pneumonia. 2. Cellulitis right foot. 3. UTI. This note was generated with [employer] dictation software. It may contain incorrect words, spelling, and punctuation that were not noted in review of the chart prior to signing ED Disposition - Plan for ED Patient: Disposition: Acute Care Hospital [facility]
[2019-10-07] MEDS: Acetaminophen 325 MG Tablet 650 MG PO (01:25)
--- NOTE | 2019-10-07 02:06 | PHA.PHARE_ITS ---
Consult Pharmacy has been consulted to manage selected antiobiotic: Vancomycin Type of Consult: New start Suspected Infection: Skin/Soft tissue Labs: Sodium 138 mmol/L (136-145) 10/06/19 17:26 Potassium 4.8 mmol/L (3.5-5.1) 10/06/19 17:26 Chloride 109 mmol/L (98-107) H 10/06/19 17:26 Carbon Dioxide 25.0 mmol/L (21.0-32.0) 10/06/19 17:26 Anion Gap 4 (5-15) L 10/06/19 17:26 BUN 19 mg/dL (7-18) H 10/06/19 17:26 Creatinine 1.44 mg/dL (0.55-1.02) H 10/06/19 17:26 Est GFR (MDRD) Af Amer 46 mL/min (>60) L 10/06/19 17:26 Est GFR (MDRD) Non-Af 38 mL/min (>60) L 10/06/19 17:26 BUN/Creatinine Ratio 13.2 RATIO (10-20) 10/06/19 17:26 Glucose 149 mg/dL (74-106) H 10/06/19 17:26 Microbiology: Microbiology 10/06/19 17:55 Mucosa - Nose Influenza Types A,B Direct FA (FATOU) - Final Weight used for dosin.9 kg Estimated Creatinine Clearance: 37.27 Goal Trough: 15-20 mcg/mL Pharmacy Plan for Drug Dosing: Pharmacy Service will continue to monitor and adjust dosing as required. Medications Vancomycin HCl 1,500 mg/ (Sodium Chloride) 530 mls @ 250 mls/hr IV Q24H [facility] Follow-Up Labs: Trough Vancomycin Labs to be done on [date and time ordered]: 10/08 @ 1800
[2019-10-07 06:10] LABS: Absolute Lymphocyte Count 1.05 X10^3/uL (0.83-4.51); Absolute Neutrophil Count 10.6 X10^3/uL (2.0-7.7); Basophil# 0.03 X10^3/uL; Basophil% 0.2 % (0-1); Eosinophil# 0.06 X10^3/uL; Eosinophils% 0.5 % (0-5); Hematocrit 31.4 % (37-47); Hemoglobin 10.3 g/dL (12.0-15.0); Lymphocyte # 1.05 X10^3/ul (4.0); Lymphocyte % 8.7 % (19-41); Mean Corp Hgb Conc 32.8 g/dL (32-36); Mean Corpuscular Hgb 28.5 pg (27.0-32.0); Mean Platelet Vol. 10.3 fl (6.2-12.0); Monocyte# 0.27 X10^3/uL; Monocyte% 2.2 % (0-10); NRBC Flagged by Analyzer 0 % (0-5); Neutrophil # 10.55 X10^3/uL (2.7-7.7); Neutrophil % 87.7 % (47-70); Platelet Count 309 K/mm3 (150-450); RBC Distribution Width CV 13.4 % (11.6-14.6); Red Blood Count 3.61 M/mm3 (4.2-5.4)
[2019-10-07 06:23] LABS: ALB/GLOB Ratio 0.6 RATIO (0.9-2.4); AST(SGOT) 18 U/L (15-37); Alanine Aminotransfer ALT/SGPT 15 U/L (13-56); Albumin, Serum 2.5 g/dL (3.2-5.0); Alkaline Phosphatase 71 U/L (45-117); Anion Gap 4 (5-15); BUN 16 mg/dL (7-18); BUN/Creat Ratio 12.7 RATIO (10-20); Calcium,Total 9.1 mg/dL (8.5-10.1); Chloride 113 mmol/L (98-107); Creatinine, Serum 1.26 mg/dL (0.55-1.02); EST Glomerular Filtration Rate 44 mL/min (>60); Est Glom Filt Rate - Afr Amer 54 mL/min (>60); Estimated Creatinine Clearance 63.01 ml/min; Glucose 168 mg/dL (74-106); Potassium 4.9 mmol/L (3.5-5.1); Protein, Total 6.5 g/dL (6.4-8.2); Sodium Level 141 mmol/L (136-145)
[2019-10-07] MEDS: Heparin Injection (Vial) 5,000 UNIT/ML VIAL 5000 UNIT SC ×3 (06:26→21:20)
[2019-10-07] MEDS: Insulin Lispro 100 UNIT/ML INSULN.PEN SC ×4 (06:31→21:29)
[2019-10-07 06:56] LABS: Bedside Glucose 159 mg/dL (70-110)
[2019-10-07] MEDS: Ipratropium/Albuterol Sulfate 3 ML AMPUL.NEB INHALATION ×4 (07:14→19:03)
[2019-10-07] MEDS: Citalopram 40 MG TABLET PO (09:09)
[2019-10-07] MEDS: Pantoprazole Sodium 40 MG Tablet PO (09:09)
[2019-10-07] MEDS: Furosemide 40 MG Tablet PO ×2 (09:10→21:25)
[2019-10-07] MEDS: Multivitamins,Therapeutic Tablet 1 TABLET PO (09:10)
[2019-10-07] MEDS: Aspirin E.C. 81 MG Tablet PO (09:10)
[2019-10-07] MEDS: Losartan Potassium 25 MG Tablet PO ×2 (09:10→21:28)
--- NOTE | 2019-10-07 11:54 | CON.PCM_ITS ---
Reason for Consult Date of Consultation: 10/07/19 Reason for Consultation: right foot pain History of Present Illness: The patient is a 74 year old F who is admitted to hospital with cellulitis of right foot. she states that about 2-3 days ago, she noticed increased redness and pain and inability to ambulate to right foot. she was going to contact me but she also was dealing with productive cough prompting her to present to emergency room. upon admission to hospital, she had elevated wbc. she was placed on iv antibiotics and redness to right foot was outlined. patient states redness is now improving and patient pain is also improving. patient states that she is now able to walk without pain. patient denies any open sores currently and assures me she has not had any sores in past few weeks. of note, this patient last saw me for diabetic foot exam in april of 2019. Past Medical History Past Medical History (Chronic Problems): Chronic Problems (Last Reviewed 09/18/17 @ 11:46 by Leslie Mccall) QUINCY (obstructive sleep apnea) (Chronic) Diabetes mellitus (Chronic) Hyperlipidemia (Chronic) Hypertension (Chronic) Cardiomegaly (Chronic) Medical History: Medical History (Last Reviewed 09/18/17 @ 11:46 by Leslie Mccall) Preoperative cardiovascular examination (Acute) Z01.810 Fatigue (Acute) R53.83 Shortness of breath (Acute) R06.02 Diabetes mellitus (Chronic) E11.9 Hyperlipidemia (Chronic) E78.5 Hypertension (Chronic) I10 Cardiomegaly (Chronic) I51.7 COPD (chronic obstructive pulmonary disease) (Acute) J44.9 Anemia D64.9 Asthma J45.909 Arthritis M19.90 GERD (gastroesophageal reflux disease) K21.9 QUINCY (obstructive sleep apnea) G47.33 Allergies codeine Allergy (Severe, Verified 10/06/19 21:43) Hives or caused her to black out amoxicillin Adverse Reaction (Severe, Verified 10/06/19 21:43) Rash, hives meperidine [From Demerol] Adverse Reaction (Severe, Verified 10/06/19 16:27) syncope penicillin G Adverse Reaction (Severe, Verified 10/06/19 16:27) rash Home Medications: Ambulatory Orders Medication Instructions Recorded citalopram 40 mg tablet 40 mg PO DAILY tab 09/16/17 furosemide 40 mg tablet 40 mg PO BID tab 09/16/17 glimepiride 4 mg tablet 4 mg PO QHS 09/16/17 losartan 25 mg tablet 25 mg PO BID tab 09/16/17 metformin 500 mg tablet 500 mg PO BID 09/16/17 montelukast 10 mg tablet 10 mg PO QHS 09/16/17 pantoprazole 40 mg tablet,delayed 40 mg PO DAILY 09/16/17 release Acetaminophen [Tylenol] 1,000 mg PO Q8H PRN PRN 10/06/19 Aspirin [Aspirin EC] 81 mg PO DAILY 10/06/19 Cholecalciferol (Vitamin D3) 2,000 unit PO DAILY@1200 10/06/19 [Vitamin D3] Linagliptin [Tradjenta] 5 mg PO QHS 10/06/19 Multivitamins,Therapeutic 1 tab PO DAILY 10/06/19 [Multivitamin] Phytonadione (Vit K1) [Vitamin K] 100 mcg PO DAILY@1200 10/06/19 Potassium Chloride 8 meq PO BID 10/06/19 Simvastatin [Zocor] 20 mg PO QHS 10/06/19 Levothyroxine Sodium 25 mcg DAILY 10/07/19 Surgical History: Surgical History (Last Reviewed 12/19/17 @ 11:05 by Domingo Ames) H/O section Z98.891 H/O tubal ligation Z98.51 History of cataract surgery Z98.49 History of dilation and curettage Z98.890 Surgical History: cataract, dilatation and curettage, total knee arthroplasty - LEFT, - - H/O caesarian surgery, tubal ligation Psychiatric History: No pertinent psych hx PHYSICIAN PRACTICE COORDINATOR History: No pertinent PHYSICIAN PRACTICE COORDINATOR history Lives: Spouse/ Significant Other Smoking Status: Unknown if ever smoked Tobacco Use: Non-smoker Alcohol: None Drugs: None - *Family History Maternal Family History: Family History (Last Reviewed 12/19/17 @ 11:05 by Domingo Ames) Mother Heart disease Father CVA (cerebral vascular accident) Diabetes Sister Myocardial infarction, Onset Age: 45 History Items: Heart Disease Paternal Family History: Family History (Last Reviewed 12/19/17 @ 11:05 by Domingo Ames) Mother Heart disease Father CVA (cerebral vascular accident) Diabetes Sister Myocardial infarction, Onset Age: 45 History Items: Diabetes, Stroke Objective: patient is alert and orientated x 3. vascular: DP and PT pulses are palpable b/l. CFT is less than 5 seconds. skin t emperature of right foot is significantly warmer compared to left foot. there is moderate swelling present to right foot. no calf pain present. no redness present to left foot. Derm: there are no open wounds present to b/l feet. no ingrown toenails present. previously outlined cellulitis of right lower extremity demonstrates reduction of redness. m/s: there is swelling noted to right foot extending to right lower leg. no calf pain present. there is pain to palpation of right 5th metatarsal shaft, right 3rd metatarsal shaft and right midfoot. no pain with dorsiflexion and plantarflexion of right foot and ankle. xrays reviewed. no acute fracture noted. moderate swelling is present. neuro: protective sensation is intact to right foot. - Physical Exam Vitals/I&O's: Vital Signs Temp Pulse Resp BP Pulse Ox 98.4 F 100 20 H 130/59 H 92 10/07/19 09:00 10/07/19 09:00 10/07/19 09:00 10/07/19 09:00 10/07/19 09:00 Oxygen Delivery Method Room Air Weight: 98.5 kg Body Mass Index (BMI) 45.6 Finger Stick Blood Glucose 151 Intake and Output for Last 24 Hours 10/05/19 10/06/19 10/07/19 23:59 23:59 23:59 Intake Total 587.75 / 587.75 400 / 400 Balance 587.75 / 587.75 400 / 400 Microbiology Past 72 Hours 10/06/19 17:55 Mucosa - Nose Influenza Types A,B Direct FA (FATOU) - Final Laboratory Results 10/06/19 17:26: WBC 14.4 H, RBC 3.80 L, Hgb 10.9 L, Hct 32.8 L, MCV 86.3, MCH 28.7, MCHC 33.2, RDW Std Deviation 42.0, RDW Coeff of Tyree 13.3, Plt Count 303, MPV 9.9, Immature Gran % (Auto) 0.600, Neut % (Auto) 69.5, Lymph % (Auto) 17.4 L , [place] % (Auto) 9.9, Eos % (Auto) 2.3, Baso % (Auto) 0.3, Absolute Neuts (auto) 10.0 H, Absolute Lymphs (auto) 2.50, Nucleated RBC % 0 10/06/19 17:26: PT 13.6, INR 1.1, APTT 34.0 10/06/19 17:26: Sodium 138, Potassium 4.8, Chloride 109 H, Carbon Dioxide 25.0, Anion Gap 4 L, BUN 19 H, Creatinine 1.44 H, Estim Creat Clear Calc 55.13, Est GFR (MDRD) Af Amer 46 L, Est GFR (MDRD) Non-Af 38 L, BUN/Creatinine Ratio 13.2, Glucose 149 H, Calcium 9.8, Total Bilirubin 0.30, AST 18, ALT 18, Alkaline Phosphatase 73, Total Protein 6.9, Albumin 2.8 L, Globulin 4.1, Albumin/Globulin Ratio 0.7 L 10/06/19 17:26: Lactic Acid 1.1 10/06/19 18:24: Urine Color Yellow, Urine Clarity Cloudy, Urine pH 6.0, Ur Specific [place] 1.015, Urine Protein 100 H, Urine Glucose (UA) Normal, Urine Ketones 5 H, Urine Occult Blood 150 H, Urine Nitrite Positive H, Urine Bilirubin Negative, Urine Urobilinogen Normal, Ur Leukocyte Esterase 100 H, Urine RBC 0-5 SEEN, Urine WBC 5-10 SEEN, Ur Squamous Epith Cells 0 SEEN, Urine Bacteria 2+, Urine Mucus 0 SEEN 10/06/19 23:02: POC Glucose 151 H 10/07/19 05:18: WBC 12.0 H, RBC 3.61 L, Hgb 10.3 L, Hct 31.4 L, MCV 87.0, MCH 28.5, MCHC 32.8, RDW Std Deviation 43.0, RDW Coeff of Tyree 13.4, Plt Count 309, MPV 10.3, Immature Gran % (Auto) 0.700, Neut % (Auto) 87.7 H, Lymph % (Auto) 8.7 L, [place] % (Auto) 2.2, Eos % (Auto) 0.5, Baso % (Auto) 0.2, Absolute Neuts (auto) 10.6 H, Absolute Lymphs (auto) 1.05, Nucleated RBC % 0 10/07/19 05:18: Sodium 141, Potassium 4.9, Chloride 113 H, Carbon Dioxide 24.0, Anion Gap 4 L, BUN 16, Creatinine 1.26 H, Estim Creat Clear Calc 63.01, Est GFR (MDRD) Af Amer 54 L, Est GFR (MDRD) Non-Af 44 L, BUN/Creatinine Ratio 12.7, Glucose 168 H, Calcium 9.1, Total Bilirubin 0.30, AST 18, ALT 15, Alkaline Phosphatase 71, Total Protein 6.5, Albumin 2.5 L, Globulin 4.0, Albumin/Globulin Ratio 0.6 L 10/07/19 06:30: POC Glucose 159 H Current Medications Acetaminophen (Tylenol) 650 mg PO Q6H PRN PRN PRN Reason: Pain Score 1-10/Temp > 100.7 F Last Admin: 10/07/19 01:25 Dose: 650 mg Documented by: Albuterol Sulfate (Ventolin Aerosols) 2.5 mg INHALATION Q2H PRN PRN PRN Reason: Shortness of Breath/Wheezing Albuterol/Ipratropium (Duoneb) 3 ml INHALATION Q4HWA.RT [facility] Last Admin: 10/07/19 11:09 Dose: 3 ml Documented by: Aspirin (Ecotrin) 81 mg PO DAILY [facility] Last Admin: 10/07/19 09:10 Dose: 81 mg Documented by: Atorvastatin Calcium (Lipitor) 10 mg PO QHS [facility] Last Admin: 10/06/19 23:38 Dose: 10 mg Documented by: Cholecalciferol (Vitamin D) 2,000 unit PO DAILY@1200 [facility] Last Admin: 10/07/19 11:36 Dose: 2,000 unit Documented by: Citalopram Hydrobromide (Celexa) 40 mg PO DAILY [facility] Last Admin: 10/07/19 09:09 Dose: 40 mg Documented by: Furosemide (Lasix) 40 mg PO BID [facility] Last Admin: 10/07/19 09:10 Dose: 40 mg Documented by: Glimepiride (Amaryl) 4 mg PO QHS [facility] Last Admin: 10/06/19 23:38 Dose: 4 mg Documented by: Glucagon () 1 mg IM .X1 PRN PRN Reason: Hypoglycemia Heparin Sodium (Porcine) (Heparin Na) 5,000 unit SC Q8 [facility] Last Admin: 10/07/19 06:26 Dose: 5,000 unit Documented by: Hydralazine HCl (Apresoline Iv) 5 mg IV Q6H PRN PRN PRN Reason: BLOOD PRESSURE Sodium Chloride () 1,000 mls @ 75 mls/hr IV .[id number] [facility] Stop: 10/07/19 12:11 Last Admin: 10/06/19 23:35 Dose: 75 mls/hr Documented by: Vancomycin IV Pharmacy to Dose (1 ea/ Sodium Chloride) 500 mls @ 250 mls/hr IV X1 PRN; Protocol PRN Reason: Rx to Dose Levofloxacin (Levaquin Iv) 750 mg in 150 mls @ 100 mls/hr IV Q48 [facility] Dextrose (Dextrose 10%-Water) 250 mls @ 999 mls/hr IV .Q16M PRN; Protocol PRN Reason: HYPOGLYCEMIA Vancomycin HCl 1,500 mg/ (Sodium Chloride) 530 mls @ 250 mls/hr IV Q24H [facility] Insulin Human Lispro (Humalog Kwikpen (Bkc)) 0 unit SC ACHS [facility]; Protocol Last Admin: 10/07/19 11:35 Dose: 2 units Documented by: Linagliptin (Tradjenta) 5 mg PO QHS [facility] Losartan Potassium (Cozaar) 25 mg PO BID [facility] Last Admin: 10/07/19 09:10 Dose: 25 mg Documented by: Methylprednisolone (Solu-Medrol) 40 mg IV Q8 [facility] Last Admin: 10/07/19 06:26 Dose: 40 mg Documented by: Montelukast Sodium (Singulair) 10 mg PO QHS [facility] Last Admin: 10/06/19 23:39 Dose: 10 mg Documented by: Morphine Sulfate () 2 mg IV Q3H PRN PRN PRN Reason: Pain Score 6-10/10 [facility]ivit[facility] (Multivitamin) [facility] Last Admin: 10/07/19 09:10 Dose: 1 tablet Documented by: Ondansetron HCl (Zofran) 4 mg IV Q8H PRN PRN PRN Reason: NAUSEA/VOMITING Pantoprazole Sodium (Protonix) 40 mg PO DAILY [facility] Last Admin: 10/07/19 09:09 Dose: 40 mg Documented by: Sodium Chloride () 10 - 40 ml IV UD PRN PRN Reason: SALINE FLUSH Assessment/Plan All Active Problems (Last Reviewed 09/18/17 @ 11:46 by Leslie Mccall) Preoperative cardiovascular examination (Acute) Fatigue (Acute) Shortness of breath (Acute) COPD (chronic obstructive pulmonary disease) (Acute) patient was examined and informed of findings. on exam, there is no redness to right lower extremity. there is mild pain to palpation of right midfoot. I personally reviewed xrays. I see no radiographic findings of infection or fracture. I had long discussion with patient regarding her pain. my differential for her pain would be charcot vs gout vs arthritis. In a diabetic patient with altered feeling, charcot does raise don rn. the finding of increased warmth and swelling does increase my concern despite her telling me that the pain is improving. I would recommend use of boot and walker assisted ambulation. I will recommend therapy evaluate patient prior to discharge to assure she is able to ambulate with boot. I discussed getting mri but patient assures me the redness and pain have improved. I will have her use boot and walker. she is instructed to use yousuf wrap for swelling. she can f/u with me in one week. if symptoms worsen, she is to contact me
[2019-10-07 12:11] LABS: Bedside Glucose 284 mg/dL (70-110)
--- NOTE | 2019-10-07 12:23 | PN_ITS ---
Subjective: Feeling much better today, redness has resolved and she denies any significant pain or swelling in the right lower extremity. Still has a mild productive cough with yellow sputum Vitals/I&O's: Vital Signs Temp Pulse Resp BP Pulse Ox 98.4 F 84 20 H 130/59 H 92 10/07/19 09:00 10/07/19 11:09 10/07/19 11:09 10/07/19 09:00 10/07/19 09:00 Oxygen Delivery Method Room Air Weight: 217 lb 2.485 oz Body Mass Index (BMI) 45.6 Finger Stick Blood Glucose 151 Intake and Output for Last 24 Hours 10/05/19 10/06/19 10/07/19 23:59 23:59 23:59 Intake Total 587.75 / 587.75 400 / 400 Balance 587.75 / 587.75 400 / 400 General: Alert, Oriented x3, Cooperative, No apparent distress HEENT: Atraumatic, PERRLA, EOMI, Normocephalic Oral: Moist Mucosa Neck: Supple, No JVD Lungs: Clear to auscultation, Normal air movement, No rhonchi, No wheeze, No rales, Diminished Cardiovascular: Regular rate, Regular Rhythm, Normal S1, Normal S2, No murmurs Abdomen: Soft, Non Tender, Non-Distended, No Hepato-splenomegaly Extremities: No edema, Capillary Refill Less than 3 Seconds Skin: No rashes, No breakdown Neurological: Neuro grossly intact, Sensory exam intact to light touch and pain Psych/Mental Status: Normal Affect, Appropriate Microbiology Past 72 Hours 10/06/19 17:55 Mucosa - Nose Influenza Types A,B Direct FA (FATOU) - Final Laboratory Results 10/06/19 17:26: WBC 14.4 H, RBC 3.80 L, Hgb 10.9 L, Hct 32.8 L, MCV 86.3, MCH 28.7, MCHC 33.2, RDW Std Deviation 42.0, RDW Coeff of Tyree 13.3, Plt Count 303, MPV 9.9, Immature Gran % (Auto) 0.600, Neut % (Auto) 69.5, Lymph % (Auto) 17.4 L , [place] % (Auto) 9.9, Eos % (Auto) 2.3, Baso % (Auto) 0.3, Absolute Neuts (auto) 10.0 H, Absolute Lymphs (auto) 2.50, Nucleated RBC % 0 10/06/19 17:26: PT 13.6, INR 1.1, APTT 34.0 10/06/19 17:26: Sodium 138, Potassium 4.8, Chloride 109 H, Carbon Dioxide 25.0, Anion Gap 4 L, BUN 19 H, Creatinine 1.44 H, Estim Creat Clear Calc 55.13, Est GFR (MDRD) Af Amer 46 L, Est GFR (MDRD) Non-Af 38 L, BUN/Creatinine Ratio 13.2, Glucose 149 H, Calcium 9.8, Total Bilirubin 0.30, AST 18, ALT 18, Alkaline Phosphatase 73, Total Protein 6.9, Albumin 2.8 L, Globulin 4.1, Albumin/Globulin Ratio 0.7 L 10/06/19 17:26: Lactic Acid 1.1 10/06/19 18:24: Urine Color Yellow, Urine Clarity Cloudy, Urine pH 6.0, Ur Specific [place] 1.015, Urine Protein 100 H, Urine Glucose (UA) Normal, Urine Ketones 5 H, Urine Occult Blood 150 H, Urine Nitrite Positive H, Urine Bilirubin Negative, Urine Urobilinogen Normal, Ur Leukocyte Esterase 100 H, Urine RBC 0-5 SEEN, Urine WBC 5-10 SEEN, Ur Squamous Epith Cells 0 SEEN, Urine Bacteria 2+, Urine Mucus 0 SEEN 10/06/19 23:02: POC Glucose 151 H 10/07/19 05:18: WBC 12.0 H, RBC 3.61 L, Hgb 10.3 L, Hct 31.4 L, MCV 87.0, MCH 28.5, MCHC 32.8, RDW Std Deviation 43.0, RDW Coeff of Tyree 13.4, Plt Count 309, MPV 10.3, Immature Gran % (Auto) 0.700, Neut % (Auto) 87.7 H, Lymph % (Auto) 8.7 L, [place] % (Auto) 2.2, Eos % (Auto) 0.5, Baso % (Auto) 0.2, Absolute Neuts (auto) 10.6 H, Absolute Lymphs (auto) 1.05, Nucleated RBC % 0 10/07/19 05:18: Sodium 141, Potassium 4.9, Chloride 113 H, Carbon Dioxide 24.0, Anion Gap 4 L, BUN 16, Creatinine 1.26 H, Estim Creat Clear Calc 63.01, Est GFR (MDRD) Af Amer 54 L, Est GFR (MDRD) Non-Af 44 L, BUN/Creatinine Ratio 12.7, Glucose 168 H, Calcium 9.1, Total Bilirubin 0.30, AST 18, ALT 15, Alkaline Phosphatase 71, Total Protein 6.5, Albumin 2.5 L, Globulin 4.0, Albumin/Globulin Ratio 0.6 L 10/07/19 06:30: POC Glucose 159 H 10/07/19 11:34: POC Glucose 284 H Current Medications Acetaminophen (Tylenol) 650 mg PO Q6H PRN PRN PRN Reason: Pain Score 1-10/Temp > 100.7 F Last Admin: 10/07/19 01:25 Dose: 650 mg Documented by: Albuterol Sulfate (Ventolin Aerosols) 2.5 mg INHALATION Q2H PRN PRN PRN Reason: Shortness of Breath/Wheezing Albuterol/Ipratropium (Duoneb) 3 ml INHALATION Q4HWA.RT [facility] Last Admin: 10/07/19 11:09 Dose: 3 ml Documented by: Aspirin (Ecotrin) 81 mg PO DAILY [facility] Last Admin: 10/07/19 09:10 Dose: 81 mg Documented by: Atorvastatin Calcium (Lipitor) 10 mg PO QHS [facility] Last Admin: 10/06/19 23:38 Dose: 10 mg Documented by: Cholecalciferol (Vitamin D) 2,000 unit PO DAILY@1200 [facility] Last Admin: 10/07/19 11:36 Dose: 2,000 unit Documented by: Citalopram Hydrobromide (Celexa) 40 mg PO DAILY [facility] Last Admin: 10/07/19 09:09 Dose: 40 mg Documented by: Furosemide (Lasix) 40 mg PO BID [facility] Last Admin: 10/07/19 09:10 Dose: 40 mg Documented by: Glimepiride (Amaryl) 4 mg PO QHS [facility] Last Admin: 10/06/19 23:38 Dose: 4 mg Documented by: Glucagon () 1 mg IM .X1 PRN PRN Reason: Hypoglycemia Heparin Sodium (Porcine) (Heparin Na) 5,000 unit SC Q8 [facility] Last Admin: 10/07/19 06:26 Dose: 5,000 unit Documented by: Hydralazine HCl (Apresoline Iv) 5 mg IV Q6H PRN PRN PRN Reason: BLOOD PRESSURE Vancomycin IV Pharmacy to Dose (1 ea/ Sodium Chloride) 500 mls @ 250 mls/hr IV X1 PRN; Protocol PRN Reason: Rx to Dose Levofloxacin (Levaquin Iv) 750 mg in 150 mls @ 100 mls/hr IV Q48 NANCY Dextrose (Dextrose 10%-Water) 250 mls @ 999 mls/hr IV .Q16M PRN; Protocol PRN Reason: HYPOGLYCEMIA Vancomycin HCl 1,500 mg/ (Sodium Chloride) 530 mls @ 250 mls/hr IV Q24H [facility] Insulin Human Lispro (Humalog Kwikpen (Bkc)) 0 unit SC ACHS [facility]; Protocol Last Admin: 10/07/19 11:35 Dose: 2 units Documented by: Linagliptin (Tradjenta) 5 mg PO QHS [facility] Losartan Potassium (Cozaar) 25 mg PO BID [facility] Last Admin: 10/07/19 09:10 Dose: 25 mg Documented by: Methylprednisolone (Solu-Medrol) 40 mg IV Q8 [facility] Last Admin: 10/07/19 06:26 Dose: 40 mg Documented by: Montelukast Sodium (Singulair) 10 mg PO QHS [facility] Last Admin: 10/06/19 23:39 Dose: 10 mg Documented by: Morphine Sulfate () 2 mg IV Q3H PRN PRN PRN Reason: Pain Score 6-10/10 [facility] Last Admin: 10/07/19 09:10 Dose: 1 tablet Documented by: Ondansetron HCl (Zofran) 4 mg IV Q8H PRN PRN PRN Reason: NAUSEA/VOMITING Pantoprazole Sodium (Protonix) 40 mg PO DAILY [facility] Last Admin: 10/07/19 09:09 Dose: 40 mg Documented by: Sodium Chloride () 10 - 40 ml IV UD PRN PRN Reason: SALINE FLUSH STROKE Vital Signs/Narrative: Vital Signs Temp Pulse Resp BP Pulse Ox 10/07/19 11:09 84 20 H 10/07/19 09:00 98.4 F 100 20 H 130/59 H 92 Medical Necessity - Tobacco Use Smoking Status: Unknown if ever smoked Tobacco Use: Non-smoker Assessment/Plan All Active Problems (Last Reviewed 09/18/17 @ 11:46 by Leslie Mccall) Preoperative cardiovascular examination (Acute) Fatigue (Acute) Shortness of breath (Acute) COPD (chronic obstructive pulmonary disease) (Acute) 1. Cellulitis of right lower extremity which has completely resolved/UTI -We will discontinue her vancomycin and Levaquin and transition her to Ancef for better coverage of her urine and skin -Podiatry recommends boot and to follow-up with him as an outpatient in 1 week -The redness on her anterior right lower extremity is completely resolved and she says that the swelling is also completely resolved -Continue with her home Lasix dosing renal functions improving 2. Acute COPD exacerbation -There were wheezes on initial exam which have resolved -Continue with prednisone as well as her nebulizer therapies -We will continue to monitor 3. DM 2/CKD 3 -Hold her metformin continue with Tradjenta and a sliding scale insulin -Despite elevation in blood sugars given steroids and infection -Monitor closely and make adjustments as necessary -Renal function is stable and at baseline 4. HTN/HLD -Continue with her Lasix as well as her losartan -Blood pressures are stable -Continue with Zocor, and aspirin 5. Depression/anxiety -Stable -Continue with Celexa 6. GERD -Stable -Continue with PPI DVT: Heparin Code Visit OBSV E&M: 84374 Subsequent observation care L2
[2019-10-07] MEDS: Cefazolin 1 GM/50 ML BAG IV ×2 (13:26→21:08)
--- NOTE | 2019-10-07 16:01 | CASEMGMT ---
ONEYDA LINARES Face to Face with patient for initial transition planning/care coordination assessment. RN MILAGROS introduced self and role at [facility]. Patient lying in bed, alert and oriented. Patient willing to participate in assessment and is able to answer all questions appropriately. Care providers, pharmacy, and demographics verified. Patient wishes to discharge home, denies need for home health at this time, but inquired regarding information for help with household services. Information regarding [facility] and Private Duty Aides. Patient states she has no further needs or concerns at this time. CM to follow for discharge planning needs that may arise. PCP: Clair Specialists: Harley, civil preparedness training officer; Bailey, infantry operations specialist Preferred Pharmacy: [facility] Insurance: [employer] Prescription Benefit: yes Living Will/HPOA: none LNOK: , son Living Arrangements: Patient lives with in mobile home with 3-10 steps to enter the home. Patient state she is independent at home. Transportation: son DME/HHC: Patient has raised toilet, cane, walker, rollator, cpap, and nebulizer at home. Patient states she has had HHC in the past but does not recall company. Will monitor therapy for need for HHC at discharge. Disposition Plan: Patient to discharge home with family support and follow-up plans in place. Will monitor for need for HHC. Meg BAH, RN, CM
[2019-10-07 16:40] LABS: Bedside Glucose 250 mg/dL (70-110)
[2019-10-07] MEDS: 0.9% Saline Lock 10 ML Syringe IV (21:08)
[2019-10-07 21:21] LABS: Bedside Glucose 248 mg/dL (70-110)
[2019-10-07] MEDS: Glimepiride 4 MG Tablet PO (21:22)
[2019-10-07] MEDS: Montelukast 10 MG Tablet PO (21:22)
[2019-10-07] MEDS: LINAGLIPTIN 5 MG TABLET PO (21:28)
[2019-10-07] MEDS: Atorvastatin Calcium 10 MG Tablet PO (21:35)
[2019-10-08 02:56] VITALS: BP 126/62; PULSE 81; RESP 16; TEMP 36.6; O2SAT 99
[2019-10-08] MEDS: Cefazolin 1 GM/50 ML BAG IV ×2 (05:47→13:29)
[2019-10-08] MEDS: 0.9% Saline Lock 10 ML Syringe IV ×2 (05:48→13:29)
[2019-10-08] MEDS: Heparin Injection (Vial) 5,000 UNIT/ML VIAL 5000 UNIT SC ×2 (05:50→13:30)
[2019-10-08 06:11] LABS: Absolute Lymphocyte Count 2.58 X10^3/uL (0.83-4.51); Absolute Neutrophil Count 10.4 X10^3/uL (2.0-7.7); Basophil# 0.02 X10^3/uL; Basophil% 0.1 % (0-1); Eosinophil# 0.08 X10^3/uL; Eosinophils% 0.5 % (0-5); Hematocrit 30.2 % (37-47); Hemoglobin 9.9 g/dL (12.0-15.0); Lymphocyte # 2.58 X10^3/ul (4.0); Lymphocyte % 17.7 % (19-41); Mean Corp Hgb Conc 32.8 g/dL (32-36); Mean Corpuscular Hgb 28.3 pg (27.0-32.0); Mean Corpuscular Volume 86.3 fL (81-99); Monocyte# 1.39 X10^3/uL; Monocyte% 9.5 % (0-10); NRBC Flagged by Analyzer 0 % (0-5); Neutrophil # 10.37 X10^3/uL (2.7-7.7); Neutrophil % 71.4 % (47-70); Platelet Count 345 K/mm3 (150-450); RBC Distribution Width CV 13.5 % (11.6-14.6); RBC Distribution Width SD 42.2 fl (35.1-43.9); White Blood Count 14.6 K/mm3 (4.4-11.0)
[2019-10-08 06:28] LABS: Anion Gap 5 (5-15); BUN 29 mg/dL (7-18); Calcium,Total 9.4 mg/dL (8.5-10.1); Chloride 110 mmol/L (98-107); Creatinine, Serum 1.53 mg/dL (0.55-1.02); EST Glomerular Filtration Rate 35 mL/min (>60); Est Glom Filt Rate - Afr Amer 43 mL/min (>60); Estimated Creatinine Clearance 51.63 ml/min; Glucose 150 mg/dL (74-106); Potassium 4.7 mmol/L (3.5-5.1); Sodium Level 141 mmol/L (136-145)
[2019-10-08 06:35] LABS: Bedside Glucose 128 mg/dL (70-110)
[2019-10-08 06:59] VITALS: PULSE 76; RESP 18; O2SAT 96
[2019-10-08] MEDS: Ipratropium/Albuterol Sulfate 3 ML AMPUL.NEB INHALATION ×2 (06:59→10:53)
[2019-10-08 08:01] VITALS: BP 154/64; PULSE 80; RESP 18; TEMP 36.6; O2SAT 98
[2019-10-08 08:05] VITALS: PULSE 70
[2019-10-08] MEDS: Citalopram 40 MG TABLET PO (08:24)
[2019-10-08] MEDS: Furosemide 40 MG Tablet PO (08:24)
[2019-10-08] MEDS: predniSONE 20 MG Tablet 40 MG PO (08:24)
[2019-10-08] MEDS: Multivitamins,Therapeutic Tablet 1 TABLET PO (08:24)
[2019-10-08] MEDS: Pantoprazole Sodium 40 MG Tablet PO (08:25)
[2019-10-08] MEDS: Losartan Potassium 25 MG Tablet PO (08:25)
[2019-10-08] MEDS: Aspirin E.C. 81 MG Tablet PO (08:25)
--- NOTE | 2019-10-08 10:34 | PCM.DC ---
- Discharge Diagnoses Current Active Problems: Current Active and Chronic Problems (Last Reviewed 09/18/17 @ 11:46 by Leslie Mccall) QUINCY (obstructive sleep apnea) (Chronic) You will use the following diet at home:: Calorie/Carbohydrate Controlled (specify 1200, 1400, etc) - 1400, Cardiac Your food should be the consistency of: Regular Your liquids should be the consistency of: Regular/Thin Discharge Activity: Return to Normal Activity Call your doctor if you observe: Fever of 101 or Higher, Shortness of breath, Dizziness, Fainting spells, Swelling in the ankles, Chest pain, Increased palpitations (irregular heartbeat) Additional Instructions: Obtain a BMP by your PCP to monitor kidney function Allergies/Adverse Reactions: Allergies amoxicillin Allergy (Severe, Verified 10/07/19 12:40) Rash, hives codeine Allergy (Severe, Verified 10/06/19 21:43) Hives or caused her to black out penicillin G Allergy (Severe, Verified 10/07/19 12:40) rash meperidine [From Demerol] Adverse Reaction (Severe, Verified 10/06/19 16:27) syncope Medications to take at Discharge citalopram 40 mg tablet 40 mg PO DAILY tab 09/16/17 furosemide 40 mg tablet 40 mg PO BID tab 09/16/17 glimepiride 4 mg tablet 4 mg PO QHS 09/16/17 losartan 25 mg tablet 25 mg PO BID tab 09/16/17 metformin 500 mg tablet 500 mg PO BID 09/16/17 montelukast 10 mg tablet 10 mg PO QHS 09/16/17 pantoprazole 40 mg tablet,delayed release 40 mg PO DAILY 09/16/17 Acetaminophen [Tylenol] 1,000 mg PO Q8H PRN PRN 10/06/19 Aspirin [Aspirin EC] 81 mg PO DAILY 10/06/19 Cholecalciferol (Vitamin D3) [Vitamin D3] 2,000 unit PO DAILY@1200 10/06/19 Linagliptin [Tradjenta] 5 mg PO QHS 10/06/19 Multivitamins,Therapeutic [Multivitamin] 1 tab PO DAILY 10/06/19 Phytonadione (Vit K1) [Vitamin K] 100 mcg PO DAILY@1200 10/06/19 Potassium Chloride 8 meq PO BID 10/06/19 Simvastatin [Zocor] 20 mg PO QHS 10/06/19 Levothyroxine Sodium 25 mcg DAILY 10/07/19 Cephalexin [Keflex] 500 mg PO Q6 #20 cap 10/08/19 predniSONE tablet 40 mg PO DAILY@0800 #10 tab 10/08/19 The following prescriptions were given: Cephalexin [Keflex] 500 mg PO Q6 #20 cap Transmission Status: Pending to [facility] predniSONE tablet 40 mg PO DAILY@0800 #10 tab Transmission Status: Pending to [facility] Primary Care Physician: Martha Self NP-C [Primary Care Provider] - Please follow up with your Primary Care Physician in: 3-5 days Test Results: Test results from this visit will be discussed in further detail at your follow-up appointment, if applicable.
--- NOTE | 2019-10-08 10:37 | PCM.DC.SUM ---
Discharge Date and Diagnosis Date of Admission: 10/06/19 Date of Discharge: 10/08/19 - Secondary Discharge Diagnosis Chronic Problems (Last Reviewed 09/18/17 @ 11:46 by Leslie Mccall) QUINCY (obstructive sleep apnea) (Chronic) Diabetes mellitus (Chronic) Hyperlipidemia (Chronic) Hypertension (Chronic) Cardiomegaly (Chronic) Hospital Course and Treatment Imaging Results: Right Foot XR: IMPRESSION: No acute fracture or destructive osseous process. Significant soft tissue swelling is noted around the forefoot. CXR: IMPRESSION: Similar appearing left basilar opacity may represent chronic scarring/atelectasis versus effusion or pneumonia as clinically indicated. Venous Doppler: IMPRESSION: No demonstrated deep vein thrombosis.- Consults: Podiatry Operations: None Procedures: None Summary of Care Provided: Per HPI: The patient is a 74 year old F with past medical history of type II DM, hypertension, hyperlipidemia, QUINCY, COPD not on oxygen who comes in with multiple complaints including cough ongoing for 3 days, productive of greenish sputum. She also has some fever with chills. She has a right foot and leg swelling with erythema which started about 2 to 3 days ago preventing her from walking. She has had about 2-3 falls because she is unable to bear weight on it. 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 Souza. Denied any dizziness or palpitations or chest pain or shortness of breath. Vitals in the ED showed temperature of 99.8F, heart rate 82, blood pressure 149/79, respiratory rate of 16, SPO2 was 96% on room air. WBC count was 14.4, hemoglobin 10.9, platelet count of 303, INR 1.1, sodium 138, potassium 4.8, chloride 109, bicarbonate 25, BUN 19, Cr 1.44 which is close to her baseline of 1.43. X-ray of the foot shows significant soft tissue swelling, no acute fracture reported. Admitting chest x-ray shows left basilar opacity suggestive of chronic scarring/atelectasis. Doppler ultrasound of the lower extremity was negative for acute DVT. Hospital Course: 1. Cellulitis of right lower extremity/UTI/acute COPD [id number] female with type 2 diabetes, HTN, HLD, COPD presenting with an ongoing cough for 3 days productive of sputum as well as fevers and chills and redness on her right lower extremity and pain to palpation of her right foot. She sees Dr. Souza prior to coming in for nail trimming, he was consulted to assist with right foot pain, he is concerned given her diabetes for the possibility of Charcot foot and therefore would like her to wrap her leg and potentially wear a boot for ambulation and he would like to see her in 1 week. She was started on broad-spectrum antibiotics with Levaquin and vancomycin. Based on her chest x-ray and the chronicity of it I do not believe that she has pneumonia especially as her cough is intermittent production that she had was a yellow not green. Initially she had wheezing on exam which resolved with the initiation of prednisone as well as nebulizer therapies. We will continue with prednisone for 5 more days and she will need to follow-up with her primary care doctor for this issue. Also her UA came back grossly abnormal and she grew greater than 100,000 CFU's of E. coli which was pansensitive. She had been transitioned from her vancomycin and Levaquin to Ancef and because of her significant improvement so quickly, she will be discharged on Keflex for 5 more days. On the day of discharge she did have a slight elevation in her leukocytosis, this is felt to be secondary to prednisone therapy however if she does develop a fever and worsening symptoms she is to return to the hospital. I discussed with her the plan for discharge and she is in agreement with going home today. 2. DM 2/CKD 3-her creatinine has been close to baseline, it did bump a little bit prior to discharge today however based on her symptoms and the fact that she is asking to go home, I think she can follow-up as an outpatient with her primary care doctor and obtain a BMP to make sure that her renal function stabilizes. She is on Lasix from home that she can continue but I do recommend if her creatinine does worsens that this be discontinued. 3. Her other medical diagnoses were evaluated and her home medications were continued where appropriate - Physical Exam Vitals/I&O's: Vital Signs Temp Pulse Resp BP Pulse Ox 97.9 F 70 18 154/64 H 98 10/08/19 08:01 10/08/19 08:05 10/08/19 08:01 10/08/19 08:01 10/08/19 08:01 Oxygen Delivery Method Room Air Weight: 216 lb 14.958 oz Body Mass Index (BMI) 45.6 Finger Stick Blood Glucose 151 Intake and Output for Last 24 Hours 10/06/19 10/07/19 10/08/19 23:59 23:59 23:59 Intake Total 587.75 / 587.75 2353.00 / 2353.00 250 / 250 Output Total 150 / 150 1050 / 1050 Balance 587.75 / 587.75 2203.00 / 2203.00 -800 / -800 General: Alert, Oriented x3, Cooperative, No apparent distress HEENT: Atraumatic, PERRLA, EOMI, Normocephalic Oral: Moist Mucosa Neck: Supple, No JVD Lungs: Clear to auscultation, Normal air movement, No rhonchi, No wheeze, No rales, Diminished Cardiovascular: Regular rate, Regular Rhythm, Normal S1, Normal S2, No murmurs Abdomen: Soft, Non Tender, Non-Distended, No Hepato-splenomegaly Extremities: No edema, Capillary Refill Less than 3 Seconds Skin: No rashes, No breakdown Neurological: Neuro grossly intact, Sensory exam intact to light touch and pain Psych/Mental Status: Normal Affect, Appropriate Microbiology Past 72 Hours 10/06/19 18:24 Urine, Clean Catch Urine Culture - Final Presumptive E. coli 10/06/19 17:55 Mucosa - Nose Influenza Types A,B Direct FA (FATOU) - Final Laboratory Results 10/07/19 11:34: POC Glucose 284 H 10/07/19 16:26: POC Glucose 250 H 10/07/19 21:07: POC Glucose 248 H 10/08/19 05:48: WBC 14.6 H, RBC 3.50 L, Hgb 9.9 L, Hct 30.2 L, MCV 86.3, MCH 28.3, MCHC 32.8, RDW Std Deviation 42.2, RDW Coeff of Tyree 13.5, Plt Count 345, MPV 10.0, Immature Gran % (Auto) 0.800, Neut % (Auto) 71.4 H, Lymph % (Auto) 17.7 L, [place] % (Auto) 9.5, Eos % (Auto) 0.5, Baso % (Auto) 0.1, Absolute Neuts (auto) 10.4 H, Absolute Lymphs (auto) 2.58, Nucleated RBC % 0 10/08/19 05:48: Sodium 141, Potassium 4.7, Chloride 110 H, Carbon Dioxide 26.0, Anion Gap 5, BUN 29 H, Creatinine 1.53 H, Estim Creat Clear Calc 51.63, Est GFR (MDRD) Af Amer 43 L, Est GFR (MDRD) Non-Af 35 L, BUN/Creatinine Ratio 19.0, Glucose 150 H, Calcium 9.4 10/08/19 06:30: POC Glucose 128 H Current Medications Acetaminophen (Tylenol) 650 mg PO Q6H PRN PRN PRN Reason: Pain Score 1-10/Temp > 100.7 F Last Admin: 10/07/19 01:25 Dose: 650 mg Documented by: Albuterol Sulfate (Ventolin Aerosols) 2.5 mg INHALATION Q2H PRN PRN PRN Reason: Shortness of Breath/Wheezing Albuterol/Ipratropium (Duoneb) 3 ml INHALATION Q4HWA.RT [facility] Last Admin: 10/08/19 06:59 Dose: 3 ml Documented by: Aspirin (Ecotrin) 81 mg PO DAILY [facility] Last Admin: 10/08/19 08:25 Dose: 81 mg Documented by: Atorvastatin Calcium (Lipitor) 10 mg PO QHS [facility] Last Admin: 10/07/19 21:35 Dose: 10 mg Documented by: Cholecalciferol (Vitamin D) 2,000 unit PO DAILY@1200 [facility] Last Admin: 10/07/19 11:36 Dose: 2,000 unit Documented by: Citalopram Hydrobromide (Celexa) 40 mg PO DAILY [facility] Last Admin: 10/08/19 08:24 Dose: 40 mg Documented by: Furosemide (Lasix) 40 mg PO BID [facility] Last Admin: 10/08/19 08:24 Dose: 40 mg Documented by: Glimepiride (Amaryl) 4 mg PO QHS [facility] Last Admin: 10/07/19 21:22 Dose: 4 mg Documented by: Glucagon () 1 mg IM .X1 PRN PRN Reason: Hypoglycemia Heparin Sodium (Porcine) (Heparin Na) 5,000 unit SC Q8 [facility] Last Admin: 10/08/19 05:50 Dose: 5,000 unit Documented by: Hydralazine HCl (Apresoline Iv) 5 mg IV Q6H PRN PRN PRN Reason: BLOOD PRESSURE Dextrose (Dextrose 10%-Water) 250 mls @ 999 mls/hr IV .Q16M PRN; Protocol PRN Reason: HYPOGLYCEMIA Cefazolin Sodium () 1 gm in 50 mls @ 100 mls/hr IV Q8 [facility] Last Infusion: 10/08/19 06:17 Dose: Infused Documented by: Sodium Chloride () 250 mls @ 15 mls/hr IV .[id number] PRN PRN Reason: Additional IVPB Infusion Last Infusion: 10/08/19 06:17 Dose: 15 mls/hr Documented by: Insulin Human Lispro (Humalog Kwikpen (Bkc)) 0 unit SC ACHS [facility]; Protocol Last Admin: 10/08/19 06:32 Dose: Not Given Documented by: Linagliptin (Tradjenta) 5 mg PO QHS [facility] Last Admin: 10/07/19 21:28 Dose: 5 mg Documented by: Losartan Potassium (Cozaar) 25 mg PO BID [facility] Last Admin: 10/08/19 08:25 Dose: 25 mg Documented by: Montelukast Sodium (Singulair) 10 mg PO QHS [facility] Last Admin: 10/07/19 21:22 Dose: 10 mg Documented by: Morphine Sulfate () 2 mg IV Q3H PRN PRN PRN Reason: Pain Score 6-10/10 [facility] Last Admin: 10/08/19 08:24 Dose: 1 tablet Documented by: Ondansetron HCl (Zofran) 4 mg IV Q8H PRN PRN PRN Reason: NAUSEA/VOMITING Pantoprazole Sodium (Protonix) 40 mg PO DAILY [facility] Last Admin: 10/08/19 08:25 Dose: 40 mg Documented by: Prednisone () 40 mg PO DAILY@0800 [facility] Last Admin: 10/08/19 08:24 Dose: 40 mg Documented by: Sodium Chloride () 10 - 40 ml IV UD PRN PRN Reason: SALINE FLUSH Last Admin: 10/08/19 05:48 Dose: 10 ml Documented by: Discharge Activity: Return to Normal Activity Call your doctor if you observe: Fever of 101 or Higher, Shortness of breath, Dizziness, Fainting spells, Swelling in the ankles, Chest pain, Increased palpitations (irregular heartbeat) Home Medications: Medications to take at Discharge citalopram 40 mg tablet 40 mg PO DAILY tab 09/16/17 furosemide 40 mg tablet 40 mg PO BID tab 09/16/17 glimepiride 4 mg tablet 4 mg PO QHS 09/16/17 losartan 25 mg tablet 25 mg PO BID tab 09/16/17 metformin 500 mg tablet 500 mg PO BID 09/16/17 montelukast 10 mg tablet 10 mg PO QHS 09/16/17 pantoprazole 40 mg tablet,delayed release 40 mg PO DAILY 09/16/17 Acetaminophen [Tylenol] 1,000 mg PO Q8H PRN PRN 10/06/19 Aspirin [Aspirin EC] 81 mg PO DAILY 10/06/19 Cholecalciferol (Vitamin D3) [Vitamin D3] 2,000 unit PO DAILY@1200 10/06/19 Linagliptin [Tradjenta] 5 mg PO QHS 10/06/19 Multivitamins,Therapeutic [Multivitamin] 1 tab PO DAILY 10/06/19 Phytonadione (Vit K1) [Vitamin K] 100 mcg PO DAILY@1200 10/06/19 Potassium Chloride 8 meq PO BID 10/06/19 Simvastatin [Zocor] 20 mg PO QHS 10/06/19 Levothyroxine Sodium 25 mcg DAILY 10/07/19 Cephalexin [Keflex] 500 mg PO Q6 #20 cap 10/08/19 predniSONE tablet 40 mg PO DAILY@0800 #10 tab 10/08/19 Following Prescrptions Were Given to Patient: Cephalexin [Keflex] 500 mg PO Q6 #20 cap Transmission Status: Pending to [facility] predniSONE tablet 40 mg PO DAILY@0800 #10 tab Transmission Status: Pending to [facility] Primary Care Physician: Martha Self NP-C [Primary Care Provider] - Please follow up with your Primary Care Physician in: 3-5 days Please Follow Up With: Ruddy Souza DPM When: 1 week Disposition: Home Minutes spent on discharge:: 35 Patient Condition:: Stable Medical Necessity - Tobacco Use Smoking Status: Unknown if ever smoked Tobacco Use: Non-smoker Meaningful Use Info Meaningful Use Diagnoses (Choose all that apply): None applicable Code Visit Inpatient E&M: 30220 Disch Hosp
[2019-10-08 10:53] VITALS: PULSE 72; RESP 19
[2019-10-08 11:06] LABS: Bedside Glucose 268 mg/dL (70-110)
[2019-10-08] MEDS: Insulin Lispro 100 UNIT/ML INSULN.PEN SC (11:26)
--- NOTE | 2019-10-08 12:20 | CASEMGMT ---
ONEYDA LINARES in to discuss discharge needs with patient. Patient would like [facility]. ONEYDA LINARES provided list of [facility] agencies that are in-network with insurance. Patient would like [facility] for fpc, PT/OT, SW. Referral made to [facility] and they are able to accept the patient. ONEYDA LINARES updated the patient.
[2019-10-08] MEDS: Acetaminophen 325 MG Tablet 650 MG PO (13:40)
[2019-10-08 13:57] VITALS: BP 143/63; PULSE 81; RESP 18; TEMP 36.8; O2SAT 93
--- NOTE | 2019-10-09 13:36 | CASEMGMT ---
Case Management DC F/u Call: DC Date: 10/08/2019 DC Diagnosis: None documented. Hospital Course: 1. Cellulitis of right lower extremity/UTI/acute COPD exacerbation 2. DM 2/CKD 3 DC Disposition: Home Lace/Strata: 06/02 Called patient cell phone listed on demographics, patient answered, introduced self and role. Patient states that she is feeling better but still has a cough. Confirmed filled her DC medications and denies any concerns, issues, or questions with [facility], medications or f/u. Has a F/u with PCP Martha Self on 10/12/2019 at 0845 and NICOLA Weaver on 10/15/2019 at 1100. Patient complimented on the great care she received here at [facility] from the nurses, Doctors and staff. Thanked patient for choosing care at [facility] and ended conversation. Annalisa Phan RNCM
== END 2019-10-08 15:59 | disposition home or self-care (01) | DRG 603 ==
LOC: ED 18:35 → MS3 21:07
PROVIDERS: Admitting Provider Internal Medicine; Emergency Provider Emergency Medicine; Family Provider Nurse Practitioner; PCP Nurse Practitioner; Referring Provider Internal Medicine; Visit Provider Family Medicine
DX: L03.115 Cellulitis of right lower limb (principal); J44.1 Chronic obstructive pulmonary disease with (acute) exacerbation; N39.0 Urinary tract infection, site not specified; G47.33 Obstructive sleep apnea (adult) (pediatric); N18.3 Chronic kidney disease, stage 3 (moderate); E11.22 Type 2 diabetes mellitus with diabetic chronic kidney disease; I51.7 Cardiomegaly; I12.9 Hypertensive chronic kidney disease with stage 1 through stage 4 chronic kidney disease, or unspecified chronic kidney disease; Z79.84 Long term (current) use of oral hypoglycemic drugs; B96.20 Unspecified Escherichia coli [E. coli] as the cause of diseases classified elsewhere
CPT/HCPCS: 36415; 71046; 73630; 80048; 80053; 81001; 82962; 83605; 85025; 85610; 85730; 87040; 87086; 87088; 87186; 87804; 93005; 93971; 94640; 97116; 97162; 97166; 97802; 99251; 99285; J7030; J7040; J7050; P9612; A4216; G0463; J2405

== ENCOUNTER → 2019-11-27 11:25 | Outpatient (CLI) | payer MEDICARE, SELFPAY ==
[2019-10-06 21:28] VITALS: BMI 45.6
--- NOTE | 2019-11-27 11:28 | BI_ITS ---
MAMMOGRAPHY - BILATERAL SCREENING REASON FOR EXAM: Female, 74 years old. Routine annual screening examination. PERTINENT HISTORY: No family history of breast cancer TECHNIQUE: Digital bilateral breast roxana (3D mammographic acquisition) in the CC and MLO projections. 2-D mediolateral oblique (MLO) and craniocaudad (CC) views of both breasts were obtained. CAD: Full Field Digital Mammography with Computer Added Detection was performed. COMPARISON: None. FINDINGS: Breast Composition: Fatty degeneration is noted of the breasts bilaterally. There are no dominant masses or suspicious calcifications. No other significant abnormalities are identified. BI/SCREEN MAMM (CAD) W/ROXANA BILAT IMPRESSION: Stable bilateral screening mammogram. Yearly follow-up mammogram recommended. (A) ASSESSMENT CATEGORY: BIRADS Category 1: Negative. A letter regarding these results will be sent to the patient by the facility within 30 days. Approximately 10% of breast cancers are not detected by mammography. A normal mammogram should not delay biopsy of a clinically suspicious abnormality. [id number] Electronically Signed: Atilio Mackay, at 16:55 EST Tel , Service support ,
== END ==
PROVIDERS: PCP Nurse Practitioner; Referring Provider Nurse Practitioner; Visit Provider Nurse Practitioner
DX: Z12.31 Encounter for screening mammogram for malignant neoplasm of breast (principal)
CPT/HCPCS: 77063; 77067

== ENCOUNTER 2020-08-23 09:50 | Outpatient (RCR) | payer MEDICARE, MEDICAID, SELFPAY ==
[2019-10-06 21:28] VITALS: BMI 45.6
--- NOTE | 2020-08-23 10:46 | HP.PTEVAL_ITS ---
Patient's Visit Information DOMINGO LEVY is a 75 year old F referred to Physical Therapy by FELICIA Yan with a diagnosis of Vertigo. Date of Evaluation: 08/23/20 Physical Therapist: PATT Justin - Visit Plan Frequency: 1-2x /Week Duration: 2 Weeks Plan: 1-2 additional visits to recheck R Hallpike and abolish dizziness. May need to check balance once positional vertigo has resolved - Subjective When pt is laying in bed and turns to the R she sees the room start to spin. This was the same thing she had the last time she was in here. This started for about 3 weeks. She has been getting constant MCCARTNEY and nausea when she turns to the R. The spinning lasts a few seconds. She had a phone call with Martha Self. Her balance is not good. She has a bad R knee but with all the COVID she wont do it right now. - Pain Headache Pain Intensity (Out of 10): 2 - Objective + R Hallpike for nystagmus that lasted less than 20 seconds. Went ahead and vidhya ated with R Eply. Retested R Hallpike and pt had no dizziness and no nystagmus. Pt felt a little nauseated after treatment but she was alos fasting for bloodwork. She had a little headache after as well but she has been having those. - Goals Goal 1:: I HEP Goal Time Frame: 2-4 Weeks Goal 2:: Be able to roll to the R without dizziness Goal Time Frame: 2-4 Weeks Goal 3:: Decrease intensity of MCCARTNEY by 50% Goal Time Frame: 2-4 Weeks Goal 4:: -R hallpike Goal Time Frame: 2-4 Weeks - Rehabilitation Potential Rehabilitation Potential: Good - Anticipated Interventions Patient/Client Instruction: Educate patient on: Condition, Plan of Care For the Purpose of:: To increase tolerance to activity/condition/position, To improve performance and independence with ADL's, To decrease level of supervision to perform tasks, To improve ability of physical actions for home/community/work/leisure, To improve gait and locomotor functions, To improve balance, To improve safety with gait Therapeutic Exercise to Include: Strength training, Balance training, Postural training, Gait and locomotor training, Neuromotor development, Active ROM For the Purpose of:: To increase tolerance to activity/condition/position, To improve performance and independence with ADL's, To decrease level of supervision to perform tasks, To improve ability of physical actions for home/community/work/leisure, To improve gait and locomotor functions, To increa se flexibility/ROM, To improve balance, To improve safety with gait Functional Training to Include: Gait training For the Purpose of:: To improve gait and locomotor functions Manual Therapy Techniques to Include: Other Comment: Eply For the Purpose of:: To improve ability to perform ADL's, To increase tolerance to activity/condition/position Thank you for the opportunity to evaluate your patient. For Medicare and Medicare HMO plans, please review the plan of care and approve it. It will need to be FAXED BACK to us at [phone] for Medicare purposes. For Medicare only, by signing this I certify the plan of care. Please let me know if there are questions or concerns regarding this plan of care. Physician Signature: Date:
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
--- NOTE | 2020-11-08 10:58 | HP.PTDCNRP_ITS ---
DOMINGO LEVY was seen in my office for initial evaluation on 08/23/20. The following Plan of Care was established for this patient: Initial Frequency: 1-2x /Week Initial Duration: 2 Weeks Patient/Client Instruction: Educate patient on: Condition, Plan of Care For the Purpose of:: To increase tolerance to activity/condition/position, To improve performance and independence with ADL's, To decrease level of supervision to perform tasks, To improve ability of physical actions for dawna e/community/work/leisure, To improve gait and locomotor functions, To improve balance, To improve safety with gait Therapeutic Exercise to Include: Strength training, Balance training, Postural training, Gait and locomotor training, Neuromotor development, Active ROM For the Purpose of:: To increase tolerance to activity/condition/position, To improve performance and independence with ADL's, To decrease level of supervision to perform tasks, To improve ability of physical actions for home/community/work/leisure, To improve gait and locomotor functions, To increase flexibility/ROM, To improve balance, To improve safety with gait Functional Training to Include: Gait training For the Purpose of:: To improve gait and locomotor functions Manual Therapy Techniques to Include: Other Comment: Eply For the Purpose of:: To improve ability to perform ADL's, To increase tolerance to activity/condition/position This patient was last seen in our office 09/07/20. Pertinent comments regarding their Physical therapy will appear below: DC PT. Return pt back to physician At this point I will be discontinuing this patient from physical therapy. I would be happy to see this patient again in the future if found appropriate by the physician. Thank you! Suellen Chiu, MPT
== END 2020-08-23 19:00 | disposition home or self-care (01) ==
LOC: PT 09:50
PROVIDERS: PCP Nurse Practitioner; Referring Provider Nurse Practitioner; Visit Provider Nurse Practitioner
DX: R42 Dizziness and giddiness (principal)
CPT/HCPCS: 97161

== ENCOUNTER → 2020-12-02 10:57 | Outpatient (CLI) | payer MEDICARE, MEDICAID, SELFPAY ==
[2019-10-06 21:28] VITALS: BMI 45.6
--- NOTE | 2020-12-02 11:01 | US_ITS ---
STUDY: RENAL ULTRASOUND - COMPLETE REASON FOR EXAM: Female, 75 years old. CHRONIC KIDNEY DISEASE TECHNIQUE: Ultrasound evaluation of the kidneys was performed with real-time and static strauss-scale imaging. COMPARISON: None. FINDINGS: RIGHT KIDNEY: Normal location of the right kidney, which is normal in size. The right kidney measures 10.2 cm x 5.9 cm x 5.7 cm. There is a normal cortex of the right kidney. The renal cortex measures 1.4 cm. Multiple renal cysts are seen. The largest measures 5.8 cm x 4.75 x 3.7 cm. There are no right renal calculi. There is no right hydronephrosis. DISTAL RIGHT URETER: There is non-visualization of the distal right ureter. There is no demonstrated right ureterovesical junction calculus. There is a visualized right ureteral jet. LEFT KIDNEY: Normal location of the left kidney, which is normal in size. The left kidney measures 10.8 cm x 5.1 cm x 6 cm. There is a normal cortex of the left kidney. The renal cortex measures 1.2 cm. Multiple renal cysts are seen. The largest measures 5 cm x 5.8 size by 4.5 cm. There are no left renal calculi. There is no left hydronephrosis. DISTAL LEFT URETER: There is non-visualization of the distal left ureter. There is no demonstrated left ureterovesical junction calculus. There is a visualized left ureteral jet. BLADDER: The distended urinary bladder has a volume of 55 ml. There is a normal wall thickness of the distended urinary bladder. There is no demonstrated mass within the urinary bladder. There are no demonstrated bladder calculi. US/Kidney and Bladder IMPRESSION: Bilateral renal cysts. Electronically Signed: Alcides Saha MD at 14:33 EST , Service support ,
--- NOTE | 2020-12-02 11:02 | BI_ITS ---
MAMMOGRAPHY - BILATERAL SCREENING REASON FOR EXAM: Female, 75 years old. Routine annual screening examination. PERTINENT HISTORY: Non-contributory. TECHNIQUE: Digital bilateral breast roxana (3D mammographic acquisition) in the CC and MLO projections. 2-D mediolateral oblique (MLO) and craniocaudad (CC) views of both breasts were obtained. CAD: Full Field Digital Mammography with Computer Added Detection was performed. COMPARISON: Comparison is made with prior study 11/19/2019 and 09/05/2018. FINDINGS: Breast Composition: The breasts are almost entirely fatty. There are no dominant masses or suspicious calcifications. Stable benign-appearing bilateral axillary nodes. No other significant abnormalities are identified. There has been no significant change since the prior study. BI/SCRN MAMM (CAD)W/ROXANA BILAT IMPRESSION: Stable bilateral screening mammogram. Yearly follow-up mammogram recommended. (A) ASSESSMENT CATEGORY: BIRADS Category 2: Benign. A letter regarding these results will be sent to the patient by the facility within 30 days. Approximately 10% of breast cancers are not detected by mammography. A normal mammogram should not delay biopsy of a clinically suspicious abnormality. [id number] Electronically Signed: Alcides Saha MD at 12:44 EST , Service support ,
== END ==
PROVIDERS: PCP Nurse Practitioner; Referring Provider Nurse Practitioner; Visit Provider Nurse Practitioner
DX: N18.31 Chronic kidney disease, stage 3a (principal); Z12.31 Encounter for screening mammogram for malignant neoplasm of breast
CPT/HCPCS: 76770; 77063; 77067

== ENCOUNTER → 2021-01-12 10:43 | Outpatient (CLI) | payer MEDICARE, MEDICAID, SELFPAY ==
[2019-10-06 21:28] VITALS: BMI 45.6
[2021-01-12 11:43] LABS: Protein, Urine (Random) 213.4 mg/dL (<11.9); Protein:Creat Ratio 4455 mg/g CRE (0-200)
== END ==
LOC: POLAB3 10:45 → LABSPEC 10:46
PROVIDERS: PCP Nurse Practitioner; Visit Provider Internal Medicine Nephrology
DX: N18.30 Chronic kidney disease, stage 3 unspecified (principal)
CPT/HCPCS: 82570; 84156

== ENCOUNTER → 2021-02-08 14:48 | Outpatient (CLI) | payer MEDICARE, MEDICAID, SELFPAY ==
[2019-10-06 21:28] VITALS: BMI 45.6
[2021-02-08 16:05] LABS: Albumin, Serum 2.9 g/dL (3.2-5.0); BUN 27 mg/dL (7-18); BUN/Creat Ratio 18.4 RATIO (10-20); Calcium,Total 9.5 mg/dL (8.5-10.1); Chloride 104 mmol/L (98-107); Creatinine, Serum 1.47 mg/dL (0.55-1.02); EST Glomerular Filtration Rate 37 mL/min (>60); Est Glom Filt Rate - Afr Amer 45 mL/min (>60); Glucose 253 mg/dL (74-106); Phosphorus 3.6 mg/dL (2.5-4.9); Potassium 4.3 mmol/L (3.5-5.1); Sodium Level 137 mmol/L (136-145)
== END ==
PROVIDERS: PCP Nurse Practitioner; Visit Provider Internal Medicine Nephrology
DX: N18.30 Chronic kidney disease, stage 3 unspecified (principal)
CPT/HCPCS: 36415; 80069

== ENCOUNTER → 2021-06-15 15:57 | Outpatient (CLI) | payer MEDICARE, MEDICAID, SELFPAY ==
[2019-10-06 21:28] VITALS: BMI 45.6
[2021-06-15 17:22] LABS: Hematocrit 32.4 % (37-47); Hemoglobin 10.7 g/dL (12.0-15.0); Mean Corpuscular Hgb 29.2 pg (27.0-32.0); Mean Corpuscular Volume 88.3 fL (81-99); Mean Platelet Vol. 10.3 fl (6.2-12.0); Platelet Count 280 K/mm3 (150-450); RBC Distribution Width CV 13.6 % (11.6-14.6); RBC Distribution Width SD 43.9 fl (35.1-43.9); Red Blood Count 3.67 M/mm3 (4.2-5.4); White Blood Count 8.6 K/mm3 (4.4-11.0)
[2021-06-15 17:48] LABS: BUN 16 mg/dL (7-18); BUN/Creat Ratio 11.3 RATIO (10-20); Calcium,Total 9.4 mg/dL (8.5-10.1); Chloride 110 mmol/L (98-107); Creatinine, Serum 1.42 mg/dL (0.55-1.02); EST Glomerular Filtration Rate 38 mL/min (>60); Est Glom Filt Rate - Afr Amer 47 mL/min (>60); Glucose 117 mg/dL (74-106); Phosphorus 3.4 mg/dL (2.5-4.9); Potassium 4.6 mmol/L (3.5-5.1); Sodium Level 141 mmol/L (136-145)
[2021-06-15 17:50] LABS: PTHIN 106.5 pg/mL (18.4-80.1)
[2021-06-15 19:56] LABS: 24 Hour Urine Protein 2023.5 mg/24HR (<150 MG/24HR); 24HR. UA Prot. Total Volume 1500 mL; Urine Protein (24 Hour) 134.9 mg/dL (<11.9)
[2021-06-15 20:29] LABS: Creat.Clear Total Volume 1500 mL; Creatinine Clearance 31 ml/min (100-200); Creatinine Serum Creat 1.4 mg/dL (0.6-1.0); Creatinine Urine 42.7 mg/dL (NO RANGE EST.); EST Glomerular Filtration Rate 38 mL/min (>60); Est Glom Filt Rate - Afr Amer 47 mL/min (>60)
== END ==
PROVIDERS: PCP Nurse Practitioner; Visit Provider Internal Medicine Nephrology
DX: N18.32 Chronic kidney disease, stage 3b (principal)
CPT/HCPCS: 36415; 80069; 81050; 82575; 83970; 84156; 85027

== ENCOUNTER 2021-10-04 17:17 | Emergency (ER) | payer MEDICARE, MEDICAID, SELFPAY ==
[2021-10-04] VITALS (9 sets, daily range): BP systolic 138–237; BP diastolic 61–122; PULSE 69–71; RESP 20–24; TEMP 36.2; O2SAT 97–98; BMI 46.7
--- NOTE | 2021-10-04 17:16 | CT_ITS ---
STUDY: CT HEAD STROKE PROTOCOL W/O CONTRAST INJECTION REASON FOR EXAM: Female, 76 years old. CVA RADIATION DOSAGE (If Supplied By Facility): CTDIvol = ( ) mGy, DLP = ( ) mGycm TECHNIQUE: Transaxial CT imaging of the brain was performed without administration of intravenous contrast material. Individualized dose optimization techniques were used for this CT. COMPARISON: No relevant priors. FINDINGS: Normal soft tissue structures. Normal calvarium. Mild periventricular white matter ischemic changes in left cerebral hemisphere There is a large parenchymal hematoma within the right medial temporal lobe involving the basal ganglia and extending into the frontal parietal region producing edema and mass effect upon the right lateral ventricle and third ventricle with right to left midline shift. There is also associated intraventricular hemorrhage extending from the fourth ventricle to the lateral ventricles. There appears to be associated focal hemorrhage within the dorsal right mesencephalon and possible brainstem herniation. Normal cerebellum. There are no findings of an acute ischemic infarction. Normal visualized paranasal sinuses. CT/STROKE Brain/Head without Cont IMPRESSION: Severe parenchymal hemorrhage in the right cerebral hemisphere possibly arising from acute hemorrhagic infarct of the basal ganglia extending from the medial temporal lobe into the frontal and parietal lobes and displacing both the third ventricle and right lateral ventricle across the midline. There is also extensive intraventricular hemorrhage as well as apparent hemorrhage within the right dorsal mesencephalon as well as possible herniation. N.B. : The above Results were Read Back by Zachary Quesada MD to Dr. Lary MD, and understanding confirmed on 10/04/2021 17:53:12 (ET). Electronically Signed: Zachary Quesada MD at 17:55 EST , Service support ,
--- NOTE | 2021-10-04 17:28 | NURSING ---
FACESHEET FAXED TO [facility]
--- NOTE | 2021-10-04 17:30 | CM.ED ---
SOCIAL WORK Stroke Alert Patient being intubated and transferred to [facility]. Patient's present. Much emotional support provided. Assisted in contacting sons. Sons en route to hospital. Kajal Moy, FLOOR LAYER HELPER, PALLIATIVE CARE COORDINATOR
[2021-10-04] MEDS: Ondansetron 4 MG/2 ML Vial IV (17:33)
[2021-10-04] MEDS: Labetalol 100 MG/20 ML Vial 20 MG IV (17:36)
--- NOTE | 2021-10-04 17:36 | EDS_ITS ---
HPI History of Present Illness Chief Complaint: Neuro S/Sx Informant: family and EMS Narrative Narrative: Patient just sat down with her at local restaurant to eat a meal, during the meal she suddenly slumped over and fell out of the chair to the floor, unresponsive. EMS reports that she is decerebrate posturing prior to arrival. Given this report, patient was sent to CT upon arrival along with EMS. Later family/ states she has been complaining of headaches for the last 3 days or so but she has a history of headaches frequently. She takes aspirin according to her medication list from before, no anticoagulants there. He states that her brother recently of a cerebral aneurysm. [facility] Medical History Ambulates with cane Anemia Anxiety Arthritis Arthritis Asthma Black tarry stools Cardiology follow-up encounter Cardiomegaly Constipation COPD (chronic obstructive pulmonary disease) CPAP (continuous positive airway pressure) dependence Depression Diabetes Diabetes mellitus Dietary restriction Difficulty swallowing Dysphagia Easy bruising Fatigue Gastric reflux GERD (gastroesophageal reflux disease) High cholesterol History of echocardiogram History of edema History of pain when walking History of renal disease History of stress test Hyperlipidemia Hypertension Injury of back Leg cramps Low iron Migraine headache Non-smoker QUINCY (obstructive sleep apnea) Preoperative cardiovascular examination Shortness of breath Shortness of breath on exertion Thyroid disease Wears glasses Home Medications furosemide 40 mg tablet 40 mg PO BID tab 09/16/17 [History Last Taken 10/06/19] losartan 25 mg tablet 25 mg PO BID tab 09/16/17 [History Last Taken 10/06/19] metformin 500 mg tablet 500 mg PO BID 09/16/17 [History Last Taken 10/06/19] montelukast 10 mg tablet 10 mg PO QHS 09/16/17 [History Last Taken 10/05/19] pantoprazole 40 mg tablet,delayed release 40 mg PO DAILY 09/16/17 [History Last Taken 10/06/19] aspirin 81 mg PO DAILY 10/06/19 [History Last Taken 10/05/19] linagliptin 5 mg PO QHS 10/06/19 [History Last Taken Unknown] multivitamin with folic acid 1 tab PO DAILY 10/06/19 [History Last Taken 10/06/19] phytonadione (vitamin K1) 100 mcg PO DAILY@1200 10/06/19 [History Last Taken 10/06/19] potassium chloride 8 meq PO BID 10/06/19 [History Last Taken 10/06/19] simvastatin 20 mg PO QHS 10/06/19 [History Last Taken 10/05/19] levothyroxine 25 mcg DAILY 10/07/19 [History Last Taken Unknown] ascorbic acid (vitamin C) 1,500 mg tablet,extended release 1,500 mg PO Q12H 04/27/21 [History Last Taken Unknown] citalopram 20 mg tablet 20 mg PO DAILY tab 04/27/21 [History Last Taken Unknown] ferrous sulfate 325 mg (65 mg iron) tablet 325 mg PO BID 04/27/21 [History Last Taken Unknown] fluticasone furoate 100 mcg-vilanterol 25 mcg/dose inhalation powder 1 inh INHALATION DAILY PRN 04/27/21 [History Last Taken Unknown] glipizide 5 mg tablet, extended release 24 hr 5 mg PO DAILY tab 04/27/21 [History Last Taken Unknown] levalbuterol HCl 0.63 mg/3 mL solution for nebulization 0.63 mg INHALATION ONCE PRN 04/27/21 [History Last Taken Unknown] levomefolate 15 mg-algal oil 90.314 mg capsule 1 cap PO DAILY 04/27/21 [History Last Taken Unknown] tizanidine 2 mg tablet 2 mg PO QHS tab 04/27/21 [History Last Taken Unknown] Allergy/AdvReac Type Severity Reaction Status Date / Time amoxicillin Allergy Severe Rash, hives Verified 06/01/21 10:22 codeine Allergy Severe Hives or Verified 06/01/21 10:22 caused her to black out penicillin G Allergy Severe rash Verified 06/01/21 10:22 meperidine [From Demerol] AdvReac Severe syncope Verified 06/01/21 10:22 Family History Mother Heart disease Father CVA (cerebral vascular accident) Diabetes Sister Myocardial infarction, Onset Age: 45 Surgical History (Updated 06/01/21 @ 10:38 by Zeynep Quijano) H/O section H/O tubal ligation History of cataract surgery History of dilation and curettage Hx of total knee arthroplasty Social History Smoking Status: Never smoker second hand exposure: No alcohol intake: never substance use type: does not use caffeine: No what type of physical activity do you participate in: none frequency: does not exercise seatbelt use: always do you feel safe at home: Yes ROS ROS ED Review of Systems ROS Unobtainable: due to mental status EXAM Physical Exam Const Vital Signs: 10/04/21 17:18 10/04/21 17:20 10/04/21 17:33 Temperature 97.2 F L Temperature Source Temporal Pulse Rate 69 Respiratory Rate 23 H 24 H Blood Pressure 237/95 H Blood Pressure Mean 142 Pulse Ox Oxygen Delivery Method 10/04/21 17:40 10/04/21 17:45 10/04/21 17:48 Temperature Temperature Source Pulse Rate 71 Respiratory Rate 20 H Blood Pressure 203/104 H 205/122 H Blood Pressure Mean 137 149 Pulse Ox 97 Oxygen Delivery Method Mechanical Ventilator Mechanical Ventilator 10/04/21 17:52 10/04/21 17:57 10/04/21 18:03 Temperature Temperature Source Pulse Rate 71 Respiratory Rate 20 H Blood Pressure 205/122 H 151/76 H 138/61 H Blood Pressure Mean 149 101 86 Pulse Ox 98 Oxygen Delivery Method Ambu-Bag 10/04/21 18:08 Temperature Temperature Source Pulse Rate 70 Respiratory Rate 20 H Blood Pressure 138/61 H Blood Pressure Mean 86 Pulse Ox 98 Oxygen Delivery Method Ambu-Bag Positive well nourished, well developed and obese General Appearance ED: well developed Orientation / Consciousness: obtunded Nutritional Appearance: obese HEENT Reports moist mucous membranes normocephalic and atraumatic Eyes Eyes Narrative: Pupils 2-3, symmetric, sluggish in response to light, no APD Neck full ROM, supple and no meningeal signs Resp Resp Narrative: Sonorous respirations, emesis from mouth recent meal, poor air movement, decreased breath sounds on the left. Cardio regular rate, regular rhythm and no murmurs GI non-tender and non-distended Auscultation: normoactive bowel sounds Palpation: soft Back/Spine normal to inspection Extremity normal to inspection General Extremety ED: Negative for edema or pulses abnormal General Extremity: Negative for edema or pulses abnormal Neuro [place] Coma Scale: document GCS findings None Extensor Response None 4 Skin no rashes or lesions noted and no wounds STROKE Vital Signs/Narrative: Vital Signs Temp Pulse Resp BP Pulse Ox 10/04/21 18:08 70 20 H 138/61 H 98 10/04/21 18:03 71 20 H 138/61 H 98 10/04/21 17:57 151/76 H 10/04/21 17:52 205/122 H 10/04/21 17:48 71 20 H 205/122 H 97 10/04/21 17:45 203/104 H 10/04/21 17:33 237/95 H 10/04/21 17:20 97.2 F L 69 24 H 10/04/21 17:18 23 H MDM MDM MDM Narrative Medical decision making narrative: Patient seen in room after CT obtained, showing large intracerebral hemorrhage involving right lateral ventricle, third ventricle, fourth ventricle. She has decerebrate posturing. She was intubated upon arrival to the room, we also administered labetalol 20 mg, started a Cardene drip, and Ativan 2 mg due to gagging on the ventilator. RSI was performed using etomidate 20 mg, succinylcholine 100 mg. I discussed with who confirms she is a full code, in addition to the [facility] transfer center, as neurosurgery was in the operating room. Excepted to the ER by Dr. Sevilla. [facility] contacted by receiving institution. Patient bucking and gagging on the vent. Initially given Ativan which did not help enough, so now putting her on a fentanyl drip. That helped. [facility] is here and evaluating her, transferring drips over, and upon their departure, the patient started bradycardia and down into the 50s. Blood pressure 138/61. I discussed with Dr. Gupta, he agrees with giving the patient 0.5 mg/kg mannitol, we will give that prior to their leaving, and I will give them another dose to take with him to use as needed, instructed to [facility] EMS to watch her pressure and decrease her Cardene if needed. Lab Data Attestation: I reviewed the patient's lab results. Labs: Laboratory Results - last 24 hr 10/04/21 10/04/21 10/04/21 17:40 17:40 17:40 WBC 15.7 H RBC 4.23 Hgb 11.8 L Hct 36.2 L MCV 85.6 MCH 27.9 MCHC 32.6 RDW Std Deviation 42.1 RDW Coeff of Tyree 13.6 Plt Count 277 MPV 9.8 Immature Gran % (Auto) 1.300 H Neut % (Auto) 43.2 L Lymph % (Auto) 44.7 H [place] % (Auto) 8.2 Eos % (Auto) 2.3 Baso % (Auto) 0.3 Absolute Neuts (auto) 6.8 Absolute Lymphs (auto) 7.00 H Nucleated RBC % 0 Differential Comment SCANNED PT 12.4 INR 1.0 APTT 26.8 Sodium 141 Potassium 3.6 Chloride 108 H Carbon Dioxide 24.0 Anion Gap 9 BUN 15 Creatinine 1.79 H Estim Creat Clear Calc 22.81 Est GFR (MDRD) Af Amer 36 L Est GFR (MDRD) Non-Af 29 L BUN/Creatinine Ratio 8.4 L Glucose 249 H Calcium 9.8 Troponin I High Sens 14 Radiography Chest X-Ray - ED: 1 View, Read by ED Physician, Right Infiltrate, Left Infiltrate and - (Good ETT placement) Diagnostic Testing: Clinical Impression(s) from Imaging Studies Brain CT 10/04/21 17:16 IMPRESSION: Severe parenchymal hemorrhage in the right cerebral hemisphere possibly arising from acute hemorrhagic infarct of the basal ganglia extending from the medial temporal lobe into the frontal and parietal lobes and displacing both the third ventricle and right lateral ventricle across the midline. There is also extensive intraventricular hemorrhage as well as apparent hemorrhage within the right dorsal mesencephalon as well as possible herniation. N.B. : The above Results were Read Back by Zachary Quesada MD to Dr. Lary MD, and understanding confirmed on 10/04/2021 17:53:12 (ET). Electronically Signed: Zachary Quesada MD at 17:55 EST , Service support , ADDENDUM: 10/04/21 1802 IMPRESSION: Severe parenchymal hemorrhage in the right cerebral hemisphere possibly arising from acute hemorrhagic infarct of the basal ganglia extending from the medial temporal lobe into the frontal and parietal lobes and displacing both the third ventricle and right lateral ventricle across the midline. There is also extensive intraventricular hemorrhage as well as apparent hemorrhage within the right dorsal mesencephalon as well as possible herniation. N.B. : The above Results were Read Back by Zachary Quesada MD to Dr. Lary MD, and understanding confirmed on 10/04/2021 17:53:12 (ET). Electronically Signed: Zachary Quesada MD at 17:55 EST , Service support , Chest X-Ray 10/04/21 17:44 IMPRESSION: Mild pulmonary congestion. Cannot exclude left pleural effusion Electronically Signed: Zachary Quesada MD at 18:13 EST , Service support , KUB X-Ray 10/04/21 17:44 IMPRESSION: NG tube placement with tip in gastric fundus Electronically Signed: Zachary Quesada MD at 18:14 EST , Service support , Rhythm Strip Rhythm Strip: Sinus Rhythm Rate: 70 Ectopy: None EKG Initial EKG: Attestation: I personally reviewed and interpreted this EKG as follows: Interpretation: Sinus Rhythm (66) and No Acute Injury Pattern Comments: normal EKG Procedures Intubations Intubation Method: orotracheal (Using direct laryngoscopy using a MAC 3 blade and 7.5F ETT) Intubation Verification: Positive color change (And tube visualized passing through cords while producer assistant using mild amount of cricoid pressure) and Bilateral breath sounds confirmed (Somewhat diminished on the left, pulled back to 17 cm at the teeth) Intubation Complications: no complications (Patient was already vomiting, food suctioned from oropharynx) Critical Care Time Critical Care Time: Yes Critical care time (excluding procedures): 30-74 minutes (35 min), Including time spent:, Discussing w/Patient &/or Family/Adjunct Mathematics Instructor, Discussing w/Consultants, Arranging Admission or Transfer and Performing Direct Patient Care at Bedside Discharge Plan Triage Chief Complaint: Neuro S/Sx Other Complaint: Unresponsive ED Provider: Jose David Barth Dx/Rx/DC Orders Clinical Impression: Hemorrhagic stroke Prescriptions: No Action furosemide 40 mg tablet 40 mg PO BID RF: 0 metformin 500 mg tablet 500 mg PO BID RF: 0 montelukast 10 mg tablet 10 mg PO QHS RF: 0 pantoprazole 40 mg tablet,delayed release (DR/EC) 40 mg PO DAILY RF: 0 losartan 25 mg tablet 25 mg PO BID RF: 0 tizanidine 2 mg tablet 2 mg PO QHS RF: 0 glipizide 5 mg tablet extended release 24hr 5 mg PO DAILY RF: 0 Breo Ellipta 100-25 mcg/dose blister with device 1 inh inhalation DAILY PRN (Reason: SOB) RF: 0 citalopram 20 mg tablet 20 mg PO DAILY RF: 0 levomefolate-algal oil [[place]in (algal oil)] 15-90.314 mg capsule 1 cap PO DAILY RF: 0 ascorbic acid (vitamin C) 1,500 mg tablet extended release 1,500 mg PO Q12H RF: 0 levalbuterol HCl 0.63 mg/3 mL solution for nebulization 0.63 mg inhalation ONCE PRN (Reason: SOB) RF: 0 ferrous sulfate 325 mg (65 mg iron) tablet 325 mg PO BID RF: 0 potassium chloride 8 MEQ capsule, extended release 8 meq PO BID RF: 0 aspirin 81 MG tablet,delayed release (DR/EC) 81 mg PO DAILY RF: 0 phytonadione (vitamin K1) 100 MCG tablet 100 mcg PO DAILY@1200 RF: 0 simvastatin 20 MG tablet 20 mg PO QHS RF: 0 linagliptin 5 MG tablet 5 mg PO QHS RF: 0 multivitamin with folic acid 1 TABLET tablet 1 tab PO DAILY RF: 0 levothyroxine 25 MCG tablet 25 mcg DAILY RF: 0 Primary Care Provider: Martha Self NP Referrals: Martha Self NP, [employer]ILWAY SWITCH OPERATOR-C [Primary Care Provider] - Disposition Disposition: Acute Care Hospital Discharge Location: [facility]
--- NOTE | 2021-10-04 17:39 | NURSING ---
MEDFLIGHT ETA IS 17 MIN
[2021-10-04] MEDS: LORazepam 2 MG/ML Syringe IV (17:42)
--- NOTE | 2021-10-04 17:44 | RAD_ITS ---
STUDY: X-RAY CHEST REASON FOR EXAM: Female, 76 years old. ETT placement TECHNIQUE: AP portable COMPARISON: None. FINDINGS: Mild pulmonary vascular congestion.. There is diffusely increased density at left base possibly representing pleural fluid.. Endotracheal tube noted with tip 5.3 cm proximal to tee. Heart is enlarged.. Normal mediastinum and delfina. Normal visualized pulmonary arteries. Normal visualized aortic arch and descending thoracic aorta. Dorsal spine and shoulders demonstrate degenerative change. Normal visualized ribs, clavicles, and shoulders. Nasogastric seen with tip in stomach. There is no demonstrated abnormality of the visualized soft tissue structures of the upper abdomen. RAD/Chest 1 View (Portable) IMPRESSION: Mild pulmonary congestion. Cannot exclude left pleural effusion Electronically Signed: Zachary Quesada MD at 18:13 EST , Service support ,
--- NOTE | 2021-10-04 17:44 | RAD_ITS ---
STUDY: X-RAY - ABDOMEN/PELVIS REASON FOR EXAM: Female, 76 years old. og TECHNIQUE: KUB COMPARISON: None. FINDINGS: There is an unremarkable bowel gas pattern. There is no demonstrated free abdominal air. The visualized liver, spleen and kidneys are grossly normal in size and morphology. NG tube has been placed with tip in distal gastric fundus Normal soft tissue structures. Spine demonstrates degenerative changes. RAD/Abdomen Single View (Portable) IMPRESSION: NG tube placement with tip in gastric fundus Electronically Signed: Zachary Quesada MD at 18:14 EST , Service support ,
[2021-10-04] MEDS: Nicardipine HCl-0.9% Sod Chlor 20 MG/200 ML IV.SOLN 50 MG IV (17:45)
[2021-10-04 17:51] LABS: Absolute Neutrophil Count 6.8 X10^3/uL (2.0-7.7); Basophil# 0.05 X10^3/uL; Basophil% 0.3 % (0-1); Eosinophil# 0.36 X10^3/uL; Eosinophils% 2.3 % (0-5); Hematocrit 36.2 % (37-47); Hemoglobin 11.8 g/dL (12.0-15.0); Lymphocyte % 44.7 % (19-41); Mean Corp Hgb Conc 32.6 g/dL (32-36); Mean Corpuscular Hgb 27.9 pg (27.0-32.0); Mean Corpuscular Volume 85.6 fL (81-99); Mean Platelet Vol. 9.8 fl (6.2-12.0); Monocyte# 1.28 X10^3/uL; Monocyte% 8.2 % (0-10); NRBC Flagged by Analyzer 0 % (0-5); Neutrophil # 6.77 X10^3/uL (2.7-7.7); Neutrophil % 43.2 % (47-70); POSITIVE DIFFERENTIAL YES; POSITIVE MORPHOLOGY YES; Platelet Count 277 K/mm3 (150-450); RBC Distribution Width CV 13.6 % (11.6-14.6); RBC Distribution Width SD 42.1 fl (35.1-43.9); Red Blood Count 4.23 M/mm3 (4.2-5.4); White Blood Count 15.7 K/mm3 (4.4-11.0)
--- NOTE | 2021-10-04 17:53 | EKG12_ITS ---
Test Reason : STROKE Blood Pressure : / mmHG Vent. Rate : 066 BPM Atrial Rate : 066 BPM P-R Int : 132 ms QRS Dur : 088 ms QT Int : 440 ms P-R-T Axes : 075 022 043 degrees QTc Int : 461 ms Normal sinus rhythm Normal ECG Confirmed by LAUREEN BAER, SOMMER ([id number]), health editor ARELY GODINEZ ([id number]) on 10/05/2021 11:19:50 AM Referred By: BB Confirmed By:SOMMER GARDUNO MD
[2021-10-04 17:58] LABS: Differential Indicated SCAN CRITERIA MET
--- NOTE | 2021-10-04 18:00 | CM.ED ---
Shen Abarca and Ruperto in department with patient's . Emotional support provided. Kajal Moy, CINETECHNICIAN, SUPERVISOR [employer]
[2021-10-04 18:01] LABS: Prothrombin Time (Protime)PT. 12.4 SECONDS (11.7-14.9)
[2021-10-04 18:11] LABS: Differential Comment SCANNED
[2021-10-04 18:12] LABS: Partial Thromboplast Time 26.8 Seconds (24.1-36.2)
[2021-10-04 18:15] LABS: Anion Gap 9 (5-15); BUN 15 mg/dL (7-18); BUN/Creat Ratio 8.4 RATIO (10-20); Calcium,Total 9.8 mg/dL (8.5-10.1); Chloride 108 mmol/L (98-107); Creatinine, Serum 1.79 mg/dL (0.55-1.02); EST Glomerular Filtration Rate 29 mL/min (>60); Est Glom Filt Rate - Afr Amer 36 mL/min (>60); Estimated Creatinine Clearance 22.81 ml/min; Glucose 249 mg/dL (74-106); Potassium 3.6 mmol/L (3.5-5.1); Sodium Level 141 mmol/L (136-145); Troponin-I HS 14 pg/mL (3.0-54.0)
== END 2021-10-04 18:53 | disposition short-term general hospital (02) ==
PROVIDERS: Emergency Provider Emergency Medicine; PCP Nurse Practitioner; Visit Provider Emergency Medicine
DX: I63.9 Cerebral infarction, unspecified (principal); J44.9 Chronic obstructive pulmonary disease, unspecified; Z68.42 Body mass index [BMI] 45.0-49.9, adult; E11.9 Type 2 diabetes mellitus without complications; I10 Essential (primary) hypertension; E78.5 Hyperlipidemia, unspecified; E78.00 Pure hypercholesterolemia, unspecified; F32.A Depression, unspecified; G43.909 Migraine, unspecified, not intractable, without status migrainosus; G47.33 Obstructive sleep apnea (adult) (pediatric); E07.9 Disorder of thyroid, unspecified; F41.9 Anxiety disorder, unspecified; M19.90 Unspecified osteoarthritis, unspecified site; Z79.899 Other long term (current) drug therapy; Z79.82 Long term (current) use of aspirin; Z79.84 Long term (current) use of oral hypoglycemic drugs; E66.9 Obesity, unspecified
CPT/HCPCS: 31500; 51702; 70450; 71045; 74018; 80048; 84484; 85025; 85610; 85730; 87426; 93005; 96365; 96368; 96375; 99251; 99285; J7030; A4216; G0463; J2405; J3010